=== PATIENT | male | born 1950 | race Hispanic/Latino ===

== ENCOUNTER 2016-10-17 14:20 | Inpatient (IN) | payer MEDICARE ==
--- NOTE | 2016-10-17 15:28 | Emergency Department Report ---
HPI - General Chief Complaint: Weakness Time Seen by Provider: 10/17/16 15:22 - HPI HPI: This is a 65-year-old male who presents to the emergency department by EMS from home with complaint of altered mental status, weakness and diarrhea. The patient does have a history of multiple sclerosis usually he is able to assist with his activities of daily living. He is not ambulatory secondary to his multiple sclerosis be usually is able to stand, transfer and do things like getting himself food and get to the bathroom. However for the past 4 days the patient has been having generalized weakness, unable to get to the bathroom and presents covered in feces. He does not have any complaints but is AAO [address] but not time. He lives with a younger friend who has started to take on the role of guardian but is not family nor the legal guardian. This patient usually provides some food to him as well but he has not been eating or drinking much for the past 4 days. EMS found the patient to have some low oxygen saturation of about 80% that went up with supplemental oxygen. ED Past Medical Hx - Past Medical History Previous Medical History?: Yes Hx Hypertension: Yes Hx GERD: Yes Hx Arthritis: Yes (Polyarthritis) - Surgical History Past Surgical History?: Yes Additional Surgical History: Pt states "I have surgeries, but I don't know what ". - Social History Smoking Status: Former Smoker Substance Use Type: None - Medications Home Medications: Home Medications Medication Instructions Recorded Confirmed Last Taken Type Nitroglycerin [Nitrostat] 0.4 mg SL PRN PRN 04/30/14 04/30/14 Unknown History ED Review of Systems ROS: Stated complaint: WEAKNESS/FAINT Other details as noted in HPI Comment: Unobtainable due to pts medical conditions Physical Exam - Physical Exam Vital Signs: Vital Signs 10/17/16 10/17/16 14:25 14:33 Temperature 98.4 F Pulse Rate 83 Respiratory 18 18 Rate Blood Pressure 131/67 O2 Sat by Pulse 95 95 Oximetry Physical Exam: GENERAL: Patient is ill-appearing and disheveled. HEENT: Normocephalic. Atraumatic. Extraocular motions are intact. Patient has dry mucous membranes. Pupils equal reactive to light bilaterally. NECK: Supple. Trachea is midline. CHEST/LUNGS: Clear to auscultation. There is no respiratory distress noted. HEART/CARDIOVASCULAR: Regular. There is no tachycardia. There is no gallop rub or murmur. ABDOMEN: Abdomen is soft, nontender. Patient has normal bowel sounds. There is no abdominal distention. SKIN: Skin is warm and dry. NEURO: The patient is awake but fatigued. A [address] but not time. The patient is cooperative. Patient displays some generalized weakness. He speaks very softly. MUSCULOSKELETAL: There is no tenderness or deformity. Radial pulse +2 over 4 bilaterally. Cap refill less than 2 seconds. There is no evidence of acute injury. ED Course Vital Signs 10/17/16 10/17/16 14:25 14:33 Temperature 98.4 F Pulse Rate 83 Respiratory 18 18 Rate Blood Pressure 131/67 O2 Sat by Pulse 95 95 Oximetry - Reevaluation(s) Reevaluation #1: An hour or so ago the patient began showing some signs of respiratory distress. He started having some tachypnea and was placed on 4 L nasal cannula. When this did not help and the patient had some hypoxia he was placed on a Venturi mask. This still did not help and the patient was placed on a BiPAP. While on the BiPAP the patient had 2 episodes of apnea and the decision was made to intubate the patient. 10/17/16 19:00 - ABG Interpretation Ph: 7.408 PCO2: 30 PO2: 51 Bicarbonate: 19 Interpretation: other (hypoxia) - Intubation Time Out Performed: Yes Sedative: Ketamine Mg Given: 70 Paralytic: Rocuronium Mg Given: 70 Laryngoscope: Annette Size: 3 ET Tube Size: 7.5 Other Airway Intervention: 24 Tube Secured Location: lips Tube Placement Confirmation: visualized tube passing t, equal breath sounds bilat, confirmation by capnometr Patient Tolerated Procedure: well Intubation Complications: none ED Medical Decision Making - Lab Data Result diagrams: 10/17/16 15:20 10/17/16 15:20 - EKG Data -: EKG Interpreted by Me EKG shows normal: sinus rhythm, axis (LAD), intervals, QRS complexes (LBBB), ST- T waves Rate: normal - EKG Data When compared to previous EKG there are: no significant change Interpretation: unchanged when compared t (04/30/14) - Radiology Data Radiology results: report reviewed, image reviewed interpreted by me: Chest x-ray does not show any pneumonia, pleural effusions or any pneumothorax. The second chest x-ray shows ET tube in appropriate position below the clavicular heads but above the beena. CT of the head without contrast did not show any acute intracranial process. Mild to moderate atrophy. Chronic ischemic changes. - Medical Decision Making 65-year-old male presents after having 4 days of generalized weakness and he has gotten to the point where he is no longer able to assist with his activities of daily living. He has not eaten or drinking much in the past 4 days as well despite having a roommate who will assist with ADLs. Patient's labs do not show the etiology of the patient's symptoms. CT of the head does not show any bleed, shift, mass or any acute process. EKG does not show any signs of ST elevation SD. However the patient is AAO [address] but not time. He is disheveled and slightly malnourished appearing. He is covered in his own feces. While in the emergency department, the patient again having some respiratory distress. ABG showed some hypoxia. Patient did not have improvement with Ventimask. While on BiPAP he had 2 episodes of apnea. The decision was then made to the patient which was done successfully without any obvious Complications. This all could be a complication of the patient's multiple sclerosis. Patient will be admitted to the ICU for further evaluation and treatment. - Differential Diagnosis multiple sclerosis, CVA, protein calorie malnutrition, SD Critical Care Time: Yes Critical care time in (mins) excluding proc time.: 35 Critical care attestation.: If time is entered above; I have spent that time in minutes in the direct care of this critically ill patient, excluding procedure time. Critical care time was spent on this patient and during his initial evaluation, multiple re- evaluations, ordering and interpretation of labs and imaging, discussion with the patient's friends/roommates, vent management. This does not include the time spent for the intubation procedure. Critical Care Time: 35 minutes ED Disposition Clinical Impression: Multiple sclerosis exacerbation, Acute respiratory failure with hypoxemia Acute on chronic renal failure Qualifiers: Acute renal failure type: unspecified Chronic kidney disease stage: unspecified stage Qualified Code(s): N17.9 - Acute kidney failure, unspecified; N18.9 - Chronic kidney disease, unspecified Altered mental status Qualifiers: Altered mental status type: unspecified Qualified Code(s): R41.82 - Altered mental status, unspecified Disposition: DC-09 OP ADMIT IP TO THIS HOSP Is pt being admited?: Yes Condition: Serious Referrals: PRIMARY CARE,MD [Primary Care Provider] - 3-5 Days Time of Disposition: 19:06
[2016-10-17 15:46] LABS: Hematocrit 45.1 % (35.5-45.6); Hemoglobin 14.9 gm/dl (11.8-15.2); Mean Corpuscular HGB Conc 33 % (32-34); Mean Corpuscular Hemoglobin 31 pg (28-32); Mean Corpuscular Volume 94 fl (84-94); Platelet Count 161 K/mm3 (140-440); Red Blood Count 4.79 M/mm3 (3.65-5.03); Red Cell Distribution Width 16.2 % (13.2-15.2); White Blood Count 9.2 K/mm3 (4.5-11.0)
[2016-10-17 16:06] LABS: Albumin 2.3 g/dL (3.9-5); Albumin/Globulin Ratio 0.6 %; BUN/Creatinine Ratio 23.5; Bilirubin,Total 1.1 mg/dL (0.1-1.2); Calcium 8.4 mg/dL (8.4-10.2); Chloride 102.4 mmol/L (98-107); Magnesium 2.2 mg/dL (1.7-2.3); Potassium 3.8 mmol/L (3.6-5.0); Total Protein 6.3 g/dL (6.3-8.2)
[2016-10-17] MEDS ORDERED: NACL 0.9% 1000 ML 1,000 ML IV ONE (16:10)
[2016-10-17 16:18] LABS: Basophils % (Manual) 0 % (0.0-1.8); Blastocytes % (Manual) 0 %; Eosinophils % (Manual) 0 % (0.0-4.3)
[2016-10-17 16:19] LABS: RBC Morphology Normal
[2016-10-17 16:20] LABS: Diff Status Complete; Platelet Estimate Consistent w Auto; Toxic Vacuolation 1+
[2016-10-17] MEDS ORDERED: DUONEB *Not for PRN Use IH ONE (17:05)
--- NOTE | 2016-10-17 17:28 | Cat Scan Report ---
FINAL REPORT EXAM: CT HEAD/BRAIN WO CON HISTORY: AMS TECHNIQUE: CT of the Head without IV contrast. PRIORS: None currently available. FINDINGS: Decreased attenuation regions in the periventricular and subcortical white matter are nonspecific and may represent small vessel ischemic disease or a demyelinating process. Small vessel ischemic disease is more likely. Vascular calcifications noted. [id number] atrophy. There is no evidence for acute ischemia. There is no hemorrhage. There is no midline shift. There is no hydrocephalus. There is no mass. Age appropriate burch-white matter attenuation is noted. There is no calvarial fracture. The temporal bones demonstrate aerated mastoid air cells. The middle ears appear unremarkable. Minimal mucosal thickening in both ethmoid sinuses. Globes are intact. IMPRESSION: No acute intracranial findings. Chronic ischemic disease. Atrophy, mild to moderate.
[2016-10-17 17:34] LABS: ISTAT Base Excess -6; ISTAT HCO3 19.1; ISTAT PCO2 30.2 (35-45); ISTAT PH 7.408 (7.35-7.45); ISTAT PO2 51 (80-105); ISTAT SO2 86; ISTAT TCO2 20
[2016-10-17 17:38] LABS: Urine Drugs of Abuse Note Disclamer
--- NOTE | 2016-10-17 17:38 | Admit Criteria Form ---
Admission Criteria Documentation: RESPIRATORY FAILURE GRG Clinical Indications for Admission to Inpatient Care (Place 'X' for any and all applicable criteria): Hospital admission is needed for appropriate care of the patient because of acute respiratory failure or insufficiency as indicated by ANY ONE of the following(1)(2)(3)(4)(5)(6)(7)(8): [ X]I. Mechanical ventilation needed (acute invasive or noninvasive) [ ]II. Severe ventilation deficit as indicated by ANY ONE of the following (9) [ ]a) Respiratory acidosis (pH less than 7.32 and partial pressure of carbon dioxide greater than 40 mm Hg (5.3 kPa)) [ ]b) Partial pressure of carbon dioxide greater than 44 mm Hg (5.9 kPa ) (new) [ ]c) Airflow measurements less than 25% of predicted (eg, peak expiratory flow rate less than 100 L/minute) [ ]d) Forced vital capacity less than 15 mL/kg of ideal body weight, or 50% decrease in vital capacity from baseline [ ]III. Noncardiac pulmonary edema not resolving with rapid emergency treatment (8) [ ]IV. Severe respiratory distress as indicated by ANY ONE of the following: [ ]a) Severe tachypnea (respiratory rate greater than 30, greater than 45 for 6-month-old, greater than 60 for ) [ ]b) Severe hypoxemia (partial pressure of oxygen less than 50 mm Hg ( 6.7 kPa) on greater than 50% oxygen or partial pressure of oxygen to FIO2 ratio less than 200) [ ]c) Mental status deterioration from respiratory disease [ ]V. Airway obstruction or inadequate protection [A](10)(11) The original [employer] content created by [employer] has been revised. The portions of the content which have been revised are identified through the use of italic text or in bold, and [email or web address] has neither reviewed nor approved the modified material. All other unmodified content is copyright [employer]. Please see references footnoted in the original [employer] edition 2016 Admission Criteria Met: Yes
[2016-10-17 18:00] LABS: Bilirubin,Urine NEG (Negative); Blood,Urine LG (Negative); Granular Casts,Urine 7 /LPF; Ketones,Urine NEG (Negative); Leukocyte Esterase,Urine TR (Negative); Mucus,Urine FEW /HPF; Nitrite,Urine NEG (Negative); Urobilinogen,Urine < 2.0 mg/dL (<2.0)
[2016-10-17] MEDS ORDERED: ZEMURON IV ONE (18:10)
[2016-10-17] MEDS ORDERED: KETALAR ONE (18:10)
[2016-10-17] MEDS ORDERED: VASELINE LIP THERAPY TP PRN (18:19)
[2016-10-17] MEDS ORDERED: ARTIFICIAL TEARS OPHTH OINT OU PRN (18:19)
--- NOTE | 2016-10-17 18:20 | History and Physical Report ---
History of Present Illness Chief complaint: Unresponsive History of present illness: 65 YO Male with MS, HTN, GERD, OA presents to ED for evaluation. Pt unable to provided detailed history, but history provided by roommate who is at bedside during exam and interview. Pt roommate states that patient experienced progressive weakness, and decreased oral intake over the past 4 days with worsening symptoms over the past day. Pt is now non ambulatory but he is now unable to stand, and unable to conduct activities of daily living. Pt seen and evaluated in ED and found to be lethargic, confused, with decreased gag reflex and unable to protect his airway. Pt intubated and placed on vent support. Pt roommate denies reports of fever, chills, CP, Trauma, recent ill contacts, skin rashes, dysuria, or productive cough. Past History Past Medical History: arthritis, GERD, hypertension, other (MS) Past Surgical History: No surgical history, Other (UTO) Social history: , other (lives with roommate). denies: smoking, alcohol abuse, prescription drug abuse Family history: hypertension Medications and Allergies Allergies Allergy/AdvReac Type Severity Reaction Status Date / Time codeine AdvReac Hives Verified 04/30/14 13:32 Home Medications Medication Instructions Recorded Confirmed Last Taken Type Nitroglycerin [Nitrostat] 0.4 mg SL PRN PRN 04/30/14 04/30/14 Unknown History Active Meds: Active Medications Sodium Chloride (Nacl 0.9% 1000 Ml) 1,000 mls @ 125 mls/hr IV ONCE ONE Stop: 10/18/16 00:09 Last Admin: 10/17/16 17:38 Dose: 125 mls/hr Review of Systems ROS unobtainable: due to mental status Exam - Constitutional Vitals: Temp Pulse Resp BP Pulse Ox 98.4 F 77 23 111/74 98 10/17/16 14:25 10/17/16 17:45 10/17/16 17:45 10/17/16 17:45 10/17/16 17:30 General appearance: Present: severe distress - EENT Eyes: Present: PERRL - Neck Neck: Present: supple, normal ROM - Respiratory Respiratory effort: labored Respiratory: bilateral: diminished - Cardiovascular Heart Sounds: Present: S1 & S2. Absent: rub, click - Extremities Extremities: pulses symmetrical, No edema Peripheral Pulses: within normal limits - Abdominal General gastrointestinal: Present: soft, non-tender, non-distended, normal bowel sounds Male genitourinary: Present: normal - Rectal Rectal Exam: normal rectal tone - Integumentary Integumentary: Present: clear, dry, decreased turgor - Musculoskeletal Musculoskeletal: generalized weakness - Psychiatric Psychiatric: no intact judgment & insight, no memory intact - Neurologic Neurologic: no moves all extremities, no gait normal Results - Labs CBC & Chem 7: 10/17/16 15:20 10/17/16 15:20 Labs: Abnormal lab results 10/17/16 10/17/16 10/17/16 Range/Units 15:20 15:20 15:20 RDW 16.2 H (13.2-15.2) % Lymphocytes % (Manual) 3.0 L (13.4-35.0) % Lymphocytes # (Manual) 0.3 L (1.2-5.4) K/mm3 POC ABG pCO2 (35-45) POC ABG pO2 (80-105) Carbon Dioxide 21 L (22-30) mmol/L BUN 47 H (9-20) mg/dL Creatinine 2.0 H (0.8-1.5) mg/dL AST 120 H (5-40) units/L Albumin 2.3 L (3.9-5) g/dL TSH 0.052 L (0.270-4.200) mlU/mL Urine WBC (Auto) (0.0-6.0) /HPF Salicylates (2.8-20.0) mg/dL 10/17/16 10/17/16 10/17/16 Range/Units 15:20 17:24 17:34 RDW (13.2-15.2) % Lymphocytes % (Manual) (13.4-35.0) % Lymphocytes # (Manual) (1.2-5.4) K/mm3 POC ABG pCO2 30.2 L (35-45) POC ABG pO2 51 L (80-105) Carbon Dioxide (22-30) mmol/L BUN (9-20) mg/dL Creatinine (0.8-1.5) mg/dL AST (5-40) units/L Albumin (3.9-5) g/dL TSH (0.270-4.200) mlU/mL Urine WBC (Auto) 7.0 H (0.0-6.0) /HPF Salicylates < 0.3 L (2.8-20.0) mg/dL Assessment and Plan - Patient Problems (1) Acute respiratory failure with hypoxemia Current Visit: Yes Status: Acute Plan to address problem: Wean vent as tolerated, Pulmonary consulted, supplemental oxygen, SBT daily, pulmonary toilet, ABG daily The high probability of a clinically significant, sudden or life threatening deterioration of the [pulmonary, cardiac,renal] system(s) required my full and direct attention, intervention and personal management. The aggregate critical care time was [65] minutes. This time is in addition to time spent performing reported procedures but includes the following: [x] Data Review and interpretation [x] Patient assessment and monitoring of vital signs [x] Documentation [x] Medication orders and management (2) Multiple sclerosis exacerbation Current Visit: Yes Status: Acute Plan to address problem: Steroid therapy, IVIG for 2 days. (3) HTN (hypertension) Current Visit: Yes Status: Acute Qualifiers: Hypertension type: H Plan to address problem: monitor bp q shift, pt currently hypotensive, hold antihypertensive therapy (4) GERD (gastroesophageal reflux disease) Current Visit: Yes Status: Acute Qualifiers: Esophagitis presence: E Plan to address problem: ppi therapy (5) Arthritis Current Visit: Yes Status: Acute Plan to address problem: resume home medication, (6) DVT prophylaxis Current Visit: Yes Status: Acute
[2016-10-17] MEDS ORDERED: fentaNYL DRIP Premix 2,000 MCG/100 ML BAG IV ONE (18:24)
[2016-10-17] MEDS: fentaNYL DRIP Premix 2,000 MCG/100 ML BAG IV SCH (18:33)
[2016-10-17] MEDS ORDERED: MIDAZOLAM 100 MG in NACL 0.9% 80 ML IV SCH (19:00)
[2016-10-17] MEDS ORDERED: PRIVIGEN IV SCH (19:00)
[2016-10-17 20:02] LABS: ISTAT Base Excess -7; ISTAT HCO3 18.1; ISTAT PCO2 31.5 (35-45); ISTAT PH 7.369 (7.35-7.45); ISTAT PO2 180 (80-105); ISTAT SO2 100; ISTAT TCO2 19
[2016-10-17] MEDS: ELIQUIS PO SCH (23:02)
[2016-10-17] MEDS: LEVOPHED DRIP 4 MG/NS 250 ML 4 MG/250 ML BAG IV SCH (23:25)
[2016-10-18 03:52] LABS: ISTAT Base Excess -11; ISTAT HCO3 15.2; ISTAT PCO2 28.6 (35-45); ISTAT PH 7.333 (7.35-7.45); ISTAT PO2 90 (80-105); ISTAT SO2 96; ISTAT TCO2 16
[2016-10-18] MEDS: fentaNYL DRIP Premix 2,000 MCG/100 ML BAG IV SCH ×2 (05:16→17:42)
[2016-10-18 06:30] LABS: ISTAT Base Excess -9; ISTAT HCO3 18.1; ISTAT PCO2 39.2 (35-45); ISTAT PH 7.272 (7.35-7.45); ISTAT PO2 97 (80-105); ISTAT SO2 97; ISTAT TCO2 19
--- NOTE | 2016-10-18 07:27 | XRay Report ---
AP CHEST: HISTORY: Short of breath No recent comparison. Bibasilar infiltrates are suspected, left greater than right. The upper lung zones are clear. Heart and mediastinal structures are grossly normal. The bony thorax is intact. IMPRESSION: Bibasilar infiltrates. Correlate for pneumonia or aspiration.
--- NOTE | 2016-10-18 07:28 | XRay Report ---
AP CHEST: HISTORY: Endotracheal tube placement An endotracheal tube has been inserted since 1742 hrs. which terminates 5 cm superior to the beena. A nasogastric tube has also been inserted which is followed to the mid stomach. There is better pulmonary inflation. Bibasilar infiltrates are again suspected, left and right. No pleural effusion or pneumothorax. Normal heart size. IMPRESSION: Adequate placement of the endotracheal tube. Bibasilar infiltrates.
--- NOTE | 2016-10-18 07:28 | XRay Report ---
AP CHEST: HISTORY: Followup respiratory failure Lines and support devices remain in good position. Bibasilar infiltrates, left greater than right, are unchanged since yesterday's exam at 1822 hrs. No new acute findings. IMPRESSION: No change.
[2016-10-18 09:12] LABS: ISTAT Base Excess -12; ISTAT HCO3 15.8; ISTAT PCO2 37.6 (35-45); ISTAT PH 7.231 (7.35-7.45); ISTAT PO2 74 (80-105); ISTAT SO2 92; ISTAT TCO2 17
[2016-10-18] MEDS: LEVOPHED DRIP 4 MG/NS 250 ML 4 MG/250 ML BAG IV SCH ×2 (09:39→15:49)
[2016-10-18 09:48] LABS: ISTAT Base Excess -11; ISTAT HCO3 15.1; ISTAT PCO2 30.8 (35-45); ISTAT PH 7.298 (7.35-7.45); ISTAT PO2 89 (80-105); ISTAT SO2 96; ISTAT TCO2 16
[2016-10-18] MEDS ORDERED: LEVAQUIN 750MG/150ML 750 MG/150 ML BAG IV SCH (10:00)
[2016-10-18] MEDS: PEPCID IV SCH (11:20)
[2016-10-18] MEDS: ELIQUIS PO SCH (11:21)
--- NOTE | 2016-10-18 12:48 | Consultation ---
History of Present Illness Consult date: 10/18/16 Requesting physician: RUFINO BO Reason for consult: other History of present illness: 65 y/o male admitted through the ED secondary to altered mental status, weakness. Intubated in the ED for airway protection. Hypotensive throughout the night and started on pressors. Currently on levophed. Patient also suffers from MS and takes medical marijuana for this. [facility] started the patient on steroids as they assumed this was a MS flare. Patient is very hypoxic on ABG but CXR does not fit clinical picture. Remainder of the review is negative. Past History Past Medical History: arthritis, GERD, hypertension, other (MS) Past Surgical History: No surgical history, Other (UTO) Social history: , other (lives with roommate). denies: smoking, alcohol abuse, prescription drug abuse Family history: hypertension Medications and Allergies Allergies Allergy/AdvReac Type Severity Reaction Status Date / Time codeine AdvReac Hives Verified 04/30/14 13:32 Home Medications Medication Instructions Recorded Confirmed Last Taken Type Nitroglycerin [Nitrostat] 0.4 mg SL PRN PRN 04/30/14 04/30/14 Unknown History Active Meds: Active Medications Enoxaparin Sodium (Lovenox) 40 mg SUB-Q QDAY@1000 KAYLEE Famotidine (Pepcid) 20 mg IV DAILY KAYLEE Last Admin: 10/18/16 11:20 Dose: 20 mg Hydrophilic Ointment (Vaseline Lip Therapy) 1 applic TP Q2HR PRN PRN Reason: Dry Lips Fentanyl Citrate (Fentanyl Drip Premix) 2,000 mcg in 100 mls @ 3.969 mls/hr IV TITR KAYLEE; 1 MCG/KG/HR PRN Reason: Protocol Last Titration: 10/18/16 07:32 Dose: 0 mcg/kg/hr, 0 mls/hr Midazolam HCl 100 mg/ Sodium (Chloride) 100 mls @ 2 mls/hr IV TITR KAYLEE; 2 MG/HR PRN Reason: Protocol Norepinephrine (Levophed Drip 4 Mg/Ns 250 Ml) 4 mg in 250 mls @ 7.5 mls/hr IV TITR KAYLEE; 2 MCG/MIN PRN Reason: Protocol Last Admin: 10/18/16 09:39 Dose: 12 mcg/min, 45 mls/hr Sodium Chloride (Nacl 0.9% 1000 Ml) 1,000 mls @ 999 mls/hr IV Q1H KAYLEE Stop: 10/18/16 14:59 Lorazepam (Ativan) 1 mg IV Q4H PRN PRN Reason: Agitation Multi-Ingred Cream/Lotion/Oil/Oint (Artificial Tears Ophth Oint) 1 applic OU Q4HR PRN PRN Reason: Dry Eye(s) Review of Systems ROS unobtainable: due to endotracheal tube Physical Examination Vital signs: Vital Signs Pulse 60 10/17/16 14:14 General appearance: alert, other (dishelved) Eyes: non-icteric ENT: other (orally intubated) Neck: supple Effort: mildly labored Ascultation: Bilateral: diminished breath sounds Percussion: Bilateral: not dull Cardiovascular: regular rate and rhythm Gastrointestinal: normoactive bowel sounds, soft, non-tender Extremities: other (damaged right great toe, wrapped currently) Gait: other (unable to assess) unable to assess Results - Laboratory Findings CBC and BMP: 10/17/16 15:20 10/17/16 15:20 ABG POC ABG pH 7.298 (7.35-7.45) L 10/18/16 09:40 POC ABG pCO2 30.8 (35-45) L 10/18/16 09:40 POC ABG pO2 89 (80-105) 10/18/16 09:40 POC ABG HCO3 15.1 10/18/16 09:40 POC ABG Total CO2 16 10/18/16 09:40 POC ABG O2 Sat 96 10/18/16 09:40 PT/INR, D-dimer D-Dimer 1813.13 ng/mlDDU (0-234) H 10/17/16 17:51 Abnormal lab findings: Abnormal Labs 10/17/16 10/18/16 10/18/16 19:34 03:29 05:36 POC ABG pH 7.333 L 7.272 L POC ABG pCO2 31.5 L 28.6 L POC ABG pO2 180 H POC Glucose 10/18/16 10/18/16 10/18/16 08:13 09:40 12:04 POC ABG pH 7.231 L 7.298 L POC ABG pCO2 30.8 L POC ABG pO2 74 L POC Glucose 151 H - Diagnostic Findings Chest x-ray: image reviewed (small bibasilar infiltrates, but remainder of lung jose are clear) Assessment and Plan 65 y/o male with acute respiratory failure, thought secondary to MS flare vs aspiration and shock, hypovolemic vs sepsis and acute renal failure 1. Check labs today, BMP with Mag and Phos and CBC with Diff 2. Will give 2 additional liters of fluid boluses, patient could be volume deplete 3. need to check Free t4 as TSH was abnormal 4. Renal failure is likely pre renal, will give volume, if no improvement, will obtain urine lytes 5. Add PRN ativan for sedation CCT 31 minutes.
[2016-10-18] MEDS: ATIVAN IV PRN (14:21)
--- NOTE | 2016-10-18 15:09 | XRay Report ---
AP chest x-ray. History: PICC line placement. Findings: A left-sided PICC line terminates in the upper SVC, and there is no evidence of pneumothorax. Bibasilar infiltrates, greater on the left are unchanged. The endotracheal tube is in satisfactory position.
[2016-10-18] MEDS: NACL 0.9% 1000 ML 1,000 ML IV SCH ×2 (15:48→16:35)
[2016-10-18 15:49] LABS: Hematocrit 42.4 % (35.5-45.6); Hemoglobin 13.6 gm/dl (11.8-15.2); Mean Corpuscular HGB Conc 32 % (32-34); Mean Corpuscular Hemoglobin 31 pg (28-32); Mean Corpuscular Volume 96 fl (84-94); Platelet Count 197 K/mm3 (140-440); Red Cell Distribution Width 16.9 % (13.2-15.2); White Blood Count 13.3 K/mm3 (4.5-11.0)
[2016-10-18 16:01] LABS: BUN/Creatinine Ratio 27.14; Calcium 7.7 mg/dL (8.4-10.2); Magnesium 2.1 mg/dL (1.7-2.3); Phosphorous 2.7 mg/dL (2.5-4.5)
[2016-10-18 16:02] LABS: Chloride 105.6 mmol/L (98-107); Potassium 3.7 mmol/L (3.6-5.0)
--- NOTE | 2016-10-18 18:12 | Progress Note ---
Assessment and Plan Assessment and plan: Acute hypoxic respiratory failure Altered mental status MS exacerbation - Patient is intubated to protect and airway - Patient is on IV methylprednisone - Neurology consulted - Pulmonary following Disposition - Continue inpatient care The high probability of a clinically significant, sudden or life threatening deterioration of the [neurology, respiratory] system(s) required my full and direct attention, intervention and personal management. The aggregate critical care time was [31] minutes. This time is in addition to time spent performing reported procedures but includes the following: [x] Data Review and interpretation [x] Patient assessment and monitoring of vital signs [x] Documentation [x] Medication orders and management History Interval history: Patient was seen and evaluated this morning, patient is intubated, he was alert Hospitalist Physical - Physical exam Narrative exam: Patient is intubated. The patient appeared well nourished and normally developed. Vital signs as documented. Head exam is unremarkable. No scleral icterus . Neck is without jugular venous distension, thyromegaly, or carotid bruits. Lungs are clear to auscultation. Cardiac exam reveals regular rate and Rhythm. First and second heart sounds normal. No murmurs, rubs or gallops. Abdominal exam reveals normal bowel sounds, no masses, no organomegaly and no aortic enlargement. Extremities are nonedematous and both femoral and pedal pulses are normal. 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 - Constitutional Vitals: Temp Pulse Resp BP Pulse Ox 97.6 F 74 16 143/84 100 10/18/16 12:00 10/18/16 17:00 10/18/16 17:00 10/18/16 17:00 10/18/16 17:00 General appearance: Present: severe distress Results - Labs CBC & Chem 7: 10/18/16 14:57 10/18/16 14:57 Labs: Laboratory Last Values WBC 13.3 K/mm3 (4.5-11.0) H 10/18/16 14:57 RBC 4.40 M/mm3 (3.65-5.03) 10/18/16 14:57 Hgb 13.6 gm/dl (11.8-15.2) 10/18/16 14:57 Hct 42.4 % (35.5-45.6) 10/18/16 14:57 MCV 96 fl (84-94) H 10/18/16 14:57 MCH 31 pg (28-32) 10/18/16 14:57 MCHC 32 % (32-34) 10/18/16 14:57 RDW 16.9 % (13.2-15.2) H 03 14:57 Plt Count 197 K/mm3 (140-440) 10/18/16 14:57 Add Manual Diff Complete 10/17/16 15:20 Total Counted 100 10/17/16 15:20 Seg Neuts % (Manual) 61.0 % (40.0-70.0) 10/17/16 15:20 Band Neutrophils % 30.0 % 10/17/16 15:20 Lymphocytes % (Manual) 3.0 % (13.4-35.0) L 10/17/16 15:20 Reactive Lymphs % (Man) 0 % 10/17/16 15:20 Monocytes % (Manual) 6.0 % (0.0-7.3) 10/17/16 15:20 Eosinophils % (Manual) 0 % (0.0-4.3) 10/17/16 15:20 Basophils % (Manual) 0 % (0.0-1.8) 10/17/16 15:20 Metamyelocytes % 0 % 10/17/16 15:20 Myelocytes % 0 % 10/17/16 15:20 Promyelocytes % 0 % 10/17/16 15:20 Blast Cells % 0 % 10/17/16 15:20 Nucleated RBC % Not Reportable 10/17/16 15:20 Seg Neutrophils # Man 5.6 K/mm3 (1.8-7.7) 10/17/16 15:20 Band Neutrophils # 2.8 K/mm3 10/17/16 15:20 Lymphocytes # (Manual) 0.3 K/mm3 (1.2-5.4) L 10/17/16 15:20 Abs React Lymphs (Man) 0.0 K/mm3 10/17/16 15:20 Monocytes # (Manual) 0.6 K/mm3 (0.0-0.8) 10/17/16 15:20 Eosinophils # (Manual) 0.0 K/mm3 (0.0-0.4) 10/17/16 15:20 Basophils # (Manual) 0.0 K/mm3 (0.0-0.1) 10/17/16 15:20 Metamyelocytes # 0.0 K/mm3 10/17/16 15:20 Myelocytes # 0.0 K/mm3 10/17/16 15:20 Promyelocytes # 0.0 K/mm3 10/17/16 15:20 Blast Cells # 0.0 K/mm3 10/17/16 15:20 WBC Morphology Not Reportable 10/17/16 15:20 Hypersegmented Neuts Not Reportable 10/17/16 15:20 Hyposegmented Neuts Not Reportable 10/17/16 15:20 Hypogranular Neuts Not Reportable 10/17/16 15:20 Smudge Cells Not Reportable 10/17/16 15:20 Toxic Granulation Not Reportable 10/17/16 15:20 Toxic Vacuolation 1+ 10/17/16 15:20 Dohle Bodies Not Reportable 10/17/16 15:20 Pelger-Huet Anomaly Not Reportable 10/17/16 15:20 Farshad Rods Not Reportable 10/17/16 15:20 Platelet Estimate Consistent w auto 10/17/16 15:20 Clumped Platelets Not Reportable 10/17/16 15:20 Plt Clumps, EDTA Not Reportable 10/17/16 15:20 Large Platelets Not Reportable 10/17/16 15:20 Giant Platelets Not Reportable 10/17/16 15:20 Platelet Satelliting Not Reportable 10/17/16 15:20 Plt Morphology Comment Not Reportable 10/17/16 15:20 RBC Morphology Normal 10/17/16 15:20 Dimorphic RBCs Not Reportable 10/17/16 15:20 Polychromasia Not Reportable 10/17/16 15:20 Hypochromasia Not Reportable 10/17/16 15:20 Poikilocytosis Not Reportable 10/17/16 15:20 Anisocytosis Not Reportable 10/17/16 15:20 Microcytosis Not Reportable 10/17/16 15:20 Macrocytosis Not Reportable 10/17/16 15:20 Spherocytes Not Reportable 10/17/16 15:20 Pappenheimer Bodies Not Reportable 10/17/16 15:20 Sickle Cells Not Reportable 10/17/16 15:20 Target Cells Not Reportable 10/17/16 15:20 Tear Drop Cells Not Reportable 10/17/16 15:20 Ovalocytes Not Reportable 10/17/16 15:20 Helmet Cells Not Reportable 10/17/16 15:20 Brenner-[place] Bodies Not Reportable 10/17/16 15:20 Goodwell Rings Not Reportable 10/17/16 15:20 Nicolas Cells Not Reportable 10/17/16 15:20 Bite Cells Not Reportable 10/17/16 15:20 Crenated Cell Not Reportable 10/17/16 15:20 Elliptocytes Not Reportable 10/17/16 15:20 Acanthocytes (Spur) Not Reportable 10/17/16 15:20 Rouleaux Not Reportable 10/17/16 15:20 Hemoglobin C Crystals Not Reportable 10/17/16 15:20 Schistocytes Not Reportable 10/17/16 15:20 Malaria parasites Not Reportable 10/17/16 15:20 Hebert Bodies Not Reportable 10/17/16 15:20 Hem Pathologist Commnt No 10/17/16 15:20 D-Dimer 1813.13 ng/mlDDU (0-234) H 10/17/16 17:51 POC ABG pH 7.298 (7.35-7.45) L 10/18/16 09:40 POC ABG pCO2 30.8 (35-45) L 10/18/16 09:40 POC ABG pO2 89 (80-105) 10/18/16 09:40 POC ABG HCO3 15.1 10/18/16 09:40 POC ABG Total CO2 16 10/18/16 09:40 POC ABG O2 Sat 96 10/18/16 09:40 POC ABG Base Excess -11 10/18/16 09:40 FiO2 60 % 10/18/16 09:40 Sodium 145 mmol/L (137-145) 10/18/16 14:57 Potassium 3.7 mmol/L (3.6-5.0) 10/18/16 14:57 Chloride 105.6 mmol/L (98-107) 10/18/16 14:57 Carbon Dioxide 13 mmol/L (22-30) L D 10/18/16 14:57 Anion Gap 30 mmol/L 10/18/16 14:57 BUN 57 mg/dL (9-20) H 10/18/16 14:57 Creatinine 2.1 mg/dL (0.8-1.5) H 10/18/16 14:57 Estimated GFR 32 ml/min 10/18/16 14:57 BUN/Creatinine Ratio 27.14 % 10/18/16 14:57 Glucose 169 mg/dL (75-100) H 10/18/16 14:57 POC Glucose 163 (70-105) H 10/18/16 17:31 Lactic Acid 1.60 mmol/L (0.7-2.0) 10/17/16 17:04 Calcium 7.7 mg/dL (8.4-10.2) L 10/18/16 14:57 Phosphorus 2.70 mg/dL (2.5-4.5) 10/18/16 14:57 Magnesium 2.10 mg/dL (1.7-2.3) 10/18/16 14:57 Total Bilirubin 1.10 mg/dL (0.1-1.2) 10/17/16 15:20 AST 120 units/L (5-40) H 10/17/16 15:20 ALT 54 units/L (7-56) 10/17/16 15:20 Alkaline Phosphatase 62 units/L (35-129) 10/17/16 15:20 Total Protein 6.3 g/dL (6.3-8.2) 10/17/16 15:20 Albumin 2.3 g/dL (3.9-5) L 10/17/16 15:20 Albumin/Globulin Ratio 0.6 % 10/17/16 15:20 TSH 0.052 mlU/mL (0.270-4.200) L 10/17/16 15:20 Free T4 0.68 ng/dL (0.76-1.46) L 10/18/16 14:57 Urine Color Yellow (Yellow) 10/17/16 17:34 Urine Turbidity Slightly-cloudy (Clear) 10/17/16 17:34 Urine pH 5.0 (5.0-7.0) 10/17/16 17:34 Ur Specific [place] 1.012 (1.003-1.030) 10/17/16 17:34 Urine Protein 30 mg/dl mg/dL (Negative) 10/17/16 17:34 Urine Glucose (UA) Neg mg/dL (Negative) 10/17/16 17:34 Urine Ketones Neg mg/dL (Negative) 10/17/16 17:34 Urine Blood Lg (Negative) 10/17/16 17:34 Urine Nitrite Neg (Negative) 10/17/16 17:34 Urine Bilirubin Neg (Negative) 10/17/16 17:34 Urine Urobilinogen < 2.0 mg/dL (<2.0) 10/17/16 17:34 Ur Leukocyte Esterase Tr (Negative) 10/17/16 17:34 Urine WBC (Auto) 7.0 /HPF (0.0-6.0) H 10/17/16 17:34 Urine RBC (Auto) 5.0 /HPF (0.0-6.0) 10/17/16 17:34 U Epithel Cells (Auto) 1.0 /HPF (0-13.0) 10/17/16 17:34 Hyaline Casts 1 /LPF 10/17/16 17:34 Granular Casts 7 /LPF 10/17/16 17:34 Urine Mucus Few /HPF 10/17/16 17:34 Salicylates < 0.3 mg/dL (2.8-20.0) L 10/17/16 15:20 Urine Opiates Screen Presumptive negative 10/17/16 17:34 Urine Methadone Screen Presumptive negative 10/17/16 17:34 Acetaminophen < 15.0 ug/mL (10.0-30.0) 10/17/16 15:20 Ur Barbiturates Screen Presumptive negative 10/17/16 17:34 Ur Phencyclidine Scrn Presumptive negative 10/17/16 17:34 Ur Amphetamines Screen Presumptive negative 10/17/16 17:34 U Benzodiazepines Scrn Presumptive negative 10/17/16 17:34 Urine Cocaine Screen Presumptive negative 10/17/16 17:34 U Marijuana (THC) Screen Presumptive positive 10/17/16 17:34 Drugs of Abuse Note Disclamer 10/17/16 17:34 Plasma/Serum Alcohol < 0.01 gm% (0-0.07) 10/17/16 15:20
[2016-10-19] MEDS: fentaNYL DRIP Premix 2,000 MCG/100 ML BAG IV SCH ×2 (03:53→14:33)
[2016-10-19] MEDS: LEVOPHED DRIP 4 MG/NS 250 ML 4 MG/250 ML BAG IV SCH ×2 (03:53→14:31)
[2016-10-19 05:41] LABS: Hematocrit 42.7 % (35.5-45.6); Hemoglobin 13.8 gm/dl (11.8-15.2); Mean Corpuscular HGB Conc 32 % (32-34); Mean Corpuscular Hemoglobin 31 pg (28-32); Mean Corpuscular Volume 95 fl (84-94); Platelet Count 183 K/mm3 (140-440); Red Blood Count 4.49 M/mm3 (3.65-5.03); Red Cell Distribution Width 16.7 % (13.2-15.2); White Blood Count 12.5 K/mm3 (4.5-11.0)
[2016-10-19 06:01] LABS: BUN/Creatinine Ratio 25.78
[2016-10-19 06:02] LABS: Chloride 114.1 mmol/L (98-107); Potassium 3.8 mmol/L (3.6-5.0)
[2016-10-19 06:53] LABS: Basophils % (Manual) 0 % (0.0-1.8); Blastocytes % (Manual) 0 %; Eosinophils % (Manual) 0 % (0.0-4.3)
[2016-10-19 06:54] LABS: Diff Status Complete; RBC Morphology Normal
[2016-10-19 07:03] LABS: ISTAT Base Excess -8; ISTAT HCO3 16.9; ISTAT PCO2 28.1 (35-45); ISTAT PH 7.387 (7.35-7.45); ISTAT PO2 108 (80-105); ISTAT SO2 98; ISTAT TCO2 18
--- NOTE | 2016-10-19 07:41 | XRay Report ---
AP CHEST: HISTORY: Followup respiratory failure Lines and support devices remain in good position. Bibasilar infiltrates, left greater than right are unchanged. The upper lung zones remain clear. Heart size is within normal limits. IMPRESSION: No significant change.
--- NOTE | 2016-10-19 08:29 | Consultation ---
History of Present Illness - Reason for Consult Consult date: 10/19/16 ms - History of Present Illness spoke with staff nurse last pm and went over hx and question as to what seizure meds to continue I will review this and follow up on the question Thanks for consult Past History Past Medical History: arthritis, GERD, hypertension, other (MS) Past Surgical History: No surgical history, Other (UTO) Social history: , other (lives with roommate). denies: smoking, alcohol abuse, prescription drug abuse Family history: hypertension Medications and Allergies Allergies Allergy/AdvReac Type Severity Reaction Status Date / Time codeine AdvReac Hives Verified 04/30/14 13:32 Home Medications Medication Instructions Recorded Confirmed Last Taken Type Nitroglycerin [Nitrostat] 0.4 mg SL PRN PRN 04/30/14 04/30/14 Unknown History Active Meds: Active Medications Enoxaparin Sodium (Lovenox) 40 mg SUB-Q QDAY@1000 KAYLEE Famotidine (Pepcid) 20 mg IV DAILY KAYLEE Last Admin: 10/18/16 11:20 Dose: 20 mg Hydrophilic Ointment (Vaseline Lip Therapy) 1 applic TP Q2HR PRN PRN Reason: Dry Lips Fentanyl Citrate (Fentanyl Drip Premix) 2,000 mcg in 100 mls @ 3.969 mls/hr IV TITR KAYLEE; 1 MCG/KG/HR PRN Reason: Protocol Last Admin: 10/19/16 03:53 Dose: 3 mcg/kg/hr, 11.907 mls/hr Midazolam HCl 100 mg/ Sodium (Chloride) 100 mls @ 2 mls/hr IV TITR KAYLEE; 2 MG/HR PRN Reason: Protocol Norepinephrine (Levophed Drip 4 Mg/Ns 250 Ml) 4 mg in 250 mls @ 7.5 mls/hr IV TITR KAYLEE; 2 MCG/MIN PRN Reason: Protocol Last Titration: 10/19/16 07:38 Dose: 3.5 mcg/min, 13.125 mls/hr Lorazepam (Ativan) 1 mg IV Q4H PRN PRN Reason: Agitation Last Admin: 10/18/16 14:21 Dose: 1 mg Multi-Ingred Cream/Lotion/Oil/Oint (Artificial Tears Ophth Oint) 1 applic OU Q4HR PRN PRN Reason: Dry Eye(s) Exam - Constitutional Vitals: Temp Pulse Resp BP Pulse Ox 97.5 F L 97 H 16 90/64 98 10/19/16 07:51 10/19/16 08:00 10/19/16 08:00 10/19/16 08:00 10/19/16 08:00 Results - Labs CBC & Chem 7: 10/19/16 05:10 10/19/16 05:10 Labs: Abnormal lab results 10/18/16 10/18/16 10/18/16 Range/Units 08:13 09:40 12:04 WBC (4.5-11.0) K/mm3 MCV (84-94) fl RDW (13.2-15.2) % Seg Neuts % (Manual) (40.0-70.0) % Lymphocytes % (Manual) (13.4-35.0) % Seg Neutrophils # Man (1.8-7.7) K/mm3 Lymphocytes # (Manual) (1.2-5.4) K/mm3 POC ABG pH 7.231 L 7.298 L (7.35-7.45) POC ABG pCO2 30.8 L (35-45) POC ABG pO2 74 L (80-105) Sodium (137-145) mmol/L Chloride (98-107) mmol/L Carbon Dioxide (22-30) mmol/L BUN (9-20) mg/dL Creatinine (0.8-1.5) mg/dL Glucose (75-100) mg/dL POC Glucose 151 H (70-105) Calcium (8.4-10.2) mg/dL Free T4 (0.76-1.46) ng/dL 10/18/16 10/18/16 10/18/16 Range/Units 14:57 14:57 14:57 WBC 13.3 H (4.5-11.0) K/mm3 MCV 96 H (84-94) fl RDW 16.9 H (13.2-15.2) % Seg Neuts % (Manual) (40.0-70.0) % Lymphocytes % (Manual) (13.4-35.0) % Seg Neutrophils # Man (1.8-7.7) K/mm3 Lymphocytes # (Manual) (1.2-5.4) K/mm3 POC ABG pH (7.35-7.45) POC ABG pCO2 (35-45) POC ABG pO2 (80-105) Sodium (137-145) mmol/L Chloride (98-107) mmol/L Carbon Dioxide 13 L D (22-30) mmol/L BUN 57 H (9-20) mg/dL Creatinine 2.1 H (0.8-1.5) mg/dL Glucose 169 H (75-100) mg/dL POC Glucose (70-105) Calcium 7.7 L (8.4-10.2) mg/dL Free T4 0.68 L (0.76-1.46) ng/dL 10/18/16 10/19/16 10/19/16 Range/Units 17:31 05:10 05:10 WBC 12.5 H (4.5-11.0) K/mm3 MCV 95 H (84-94) fl RDW 16.7 H (13.2-15.2) % Seg Neuts % (Manual) 94.0 H (40.0-70.0) % Lymphocytes % (Manual) 2.0 L (13.4-35.0) % Seg Neutrophils # Man 11.8 H (1.8-7.7) K/mm3 Lymphocytes # (Manual) 0.3 L (1.2-5.4) K/mm3 POC ABG pH (7.35-7.45) POC ABG pCO2 (35-45) POC ABG pO2 (80-105) Sodium 149 H (137-145) mmol/L Chloride 114.1 H (98-107) mmol/L Carbon Dioxide 16 L (22-30) mmol/L BUN 49 H (9-20) mg/dL Creatinine 1.9 H (0.8-1.5) mg/dL Glucose 137 H (75-100) mg/dL POC Glucose 163 H (70-105) Calcium 7.0 L (8.4-10.2) mg/dL Free T4 (0.76-1.46) ng/dL 10/19/16 Range/Units 06:04 WBC (4.5-11.0) K/mm3 MCV (84-94) fl RDW (13.2-15.2) % Seg Neuts % (Manual) (40.0-70.0) % Lymphocytes % (Manual) (13.4-35.0) % Seg Neutrophils # Man (1.8-7.7) K/mm3 Lymphocytes # (Manual) (1.2-5.4) K/mm3 POC ABG pH (7.35-7.45) POC ABG pCO2 28.1 L (35-45) POC ABG pO2 108 H (80-105) Sodium (137-145) mmol/L Chloride (98-107) mmol/L Carbon Dioxide (22-30) mmol/L BUN (9-20) mg/dL Creatinine (0.8-1.5) mg/dL Glucose (75-100) mg/dL POC Glucose (70-105) Calcium (8.4-10.2) mg/dL Free T4 (0.76-1.46) ng/dL
[2016-10-19] MEDS: LOVENOX SUB-Q SCH (09:15)
[2016-10-19] MEDS: PEPCID IV SCH (09:16)
--- NOTE | 2016-10-19 10:34 | Vascular Lab Report ---
LOWER EXTREMITY VENOUS DUPLEX: REASON FOR EXAM: Elevated d-dimer. COMMENTS ON THE RIGHT: All veins visualized are freely compressible without evidence of internal echogenicity. Flow is spontaneous and phasic throughout. COMMENTS ON THE LEFT: All veins visualized are freely compressible without evidence of internal echogenicity. Flow is spontaneous and phasic throughout. IMPRESSION: No evidence of acute or chronic deep venous thrombosis in either lower extremity.
--- NOTE | 2016-10-19 11:48 | Progress Note ---
Assessment and Plan 65 y/o male with acute respiratory failure, thought secondary to MS flare vs aspiration and shock, hypovolemic vs sepsis and acute renal failure 1. Increase free water given hypernatremia. 2. Cr improved but BUN increased. Still feel patient is volume deplete. Ordered CVP, if low, more volume 3. Free T4 and TSH both low, will repeat. Endo consult is not available here currently. 4. Follow up neuro recs. 5. Add PRN ativan for sedation 6. Given underlying history, patient most likely will need trach and peg. The issue is family and obtaining consent. Discussed with CM. They will reach out to caregiver to see if there is any family. If not, may need to obtain ethics consult. CCT 31 minutes. Subjective Date of service: 10/19/16 Interval history: No acute events overnight. Remains restless but PRN ativan only used once. no family at bedside. Remainder is positive for low grade temp last night. Objective Vital Signs - 12hr 10/19/16 10/19/16 10/19/16 00:00 00:19 00:30 Temperature Pulse Rate 84 109 H 99 H Pulse Rate [ 82 From Monitor] Respiratory 17 14 Rate Blood Pressure 112/73 112/73 102/73 O2 Sat by Pulse 98 99 100 Oximetry 10/19/16 10/19/16 10/19/16 01:00 01:30 02:00 Temperature Pulse Rate 73 93 H 83 Pulse Rate [ From Monitor] Respiratory 16 16 16 Rate Blood Pressure 101/68 108/81 97/68 O2 Sat by Pulse 98 99 98 Oximetry 10/19/16 10/19/16 10/19/16 02:31 03:00 03:30 Temperature Pulse Rate 106 H 108 H 95 H Pulse Rate [ 101 H From Monitor] Respiratory 18 17 15 Rate Blood Pressure 111/60 102/78 98/64 O2 Sat by Pulse 100 98 98 Oximetry 10/19/16 10/19/16 10/19/16 03:42 04:00 04:30 Temperature 97.6 F Pulse Rate 105 H 78 110 H Pulse Rate [ From Monitor] Respiratory 16 14 Rate Blood Pressure 98/64 96/67 122/64 O2 Sat by Pulse 99 99 99 Oximetry 10/19/16 10/19/16 10/19/16 05:01 05:31 06:00 Temperature Pulse Rate 102 H 104 H 74 Pulse Rate [ From Monitor] Respiratory 15 15 16 Rate Blood Pressure 99/61 105/60 92/68 O2 Sat by Pulse 100 100 97 Oximetry 10/19/16 10/19/16 10/19/16 06:30 07:01 07:14 Temperature Pulse Rate 107 H 75 104 H Pulse Rate [ From Monitor] Respiratory 16 16 Rate Blood Pressure 88/67 101/63 101/63 O2 Sat by Pulse 100 100 100 Oximetry 10/19/16 10/19/16 10/19/16 07:23 07:30 07:51 Temperature 97.5 F L Pulse Rate 99 H 81 Pulse Rate [ From Monitor] Respiratory 16 Rate Blood Pressure 94/66 84/61 O2 Sat by Pulse 100 98 Oximetry 10/19/16 10/19/16 10/19/16 07:55 08:00 08:30 Temperature Pulse Rate 97 H 75 Pulse Rate [ 70 From Monitor] Respiratory 16 16 16 Rate Blood Pressure 90/64 90/64 O2 Sat by Pulse 98 98 99 Oximetry 10/19/16 10/19/16 10/19/16 09:01 09:30 10:00 Temperature Pulse Rate 90 83 80 Pulse Rate [ From Monitor] Respiratory 16 16 16 Rate Blood Pressure 109/79 99/65 111/73 O2 Sat by Pulse 98 92 97 Oximetry 10/19/16 10:30 Temperature Pulse Rate 103 H Pulse Rate [ From Monitor] Respiratory 15 Rate Blood Pressure 129/106 O2 Sat by Pulse 95 Oximetry Constitutional: alert (eyes open but does not follow commands), other (dishelved ) Eyes: non-icteric ENT: other (orally intubated) Neck: supple Effort: mildly labored Ascultation: Bilateral: diminished breath sounds Percussion: Bilateral: not dull Cardiovascular: regular rate and rhythm Gastrointestinal: normoactive bowel sounds, soft, non-tender Extremities: other (damaged right great toe, wrapped currently) Neurologic: unable to assess CBC and BMP: 10/19/16 05:10 10/19/16 05:10 ABG, PT/INR, D-dimer: ABG POC ABG pH 7.387 (7.35-7.45) 10/19/16 06:04 POC ABG pCO2 28.1 (35-45) L 10/19/16 06:04 POC ABG pO2 108 (80-105) H 10/19/16 06:04 POC ABG HCO3 16.9 10/19/16 06:04 POC ABG Total CO2 18 10/19/16 06:04 POC ABG O2 Sat 98 10/19/16 06:04 PT/INR, D-dimer D-Dimer 1813.13 ng/mlDDU (0-234) H 10/17/16 17:51 Abnormal lab findings: Abnormal Labs 10/17/16 10/18/16 10/18/16 19:34 03:29 05:36 WBC MCV RDW Seg Neuts % (Manual) Lymphocytes % (Manual) Seg Neutrophils # Man Lymphocytes # (Manual) POC ABG pH 7.333 L 7.272 L POC ABG pCO2 31.5 L 28.6 L POC ABG pO2 180 H Sodium Chloride Carbon Dioxide BUN Creatinine Glucose POC Glucose Calcium Free T4 10/18/16 10/18/16 10/18/16 08:13 09:40 12:04 WBC MCV RDW Seg Neuts % (Manual) Lymphocytes % (Manual) Seg Neutrophils # Man Lymphocytes # (Manual) POC ABG pH 7.231 L 7.298 L POC ABG pCO2 30.8 L POC ABG pO2 74 L Sodium Chloride Carbon Dioxide BUN Creatinine Glucose POC Glucose 151 H Calcium Free T4 10/18/16 10/18/16 10/18/16 14:57 14:57 14:57 WBC 13.3 H MCV 96 H RDW 16.9 H Seg Neuts % (Manual) Lymphocytes % (Manual) Seg Neutrophils # Man Lymphocytes # (Manual) POC ABG pH POC ABG pCO2 POC ABG pO2 Sodium Chloride Carbon Dioxide 13 L D BUN 57 H Creatinine 2.1 H Glucose 169 H POC Glucose Calcium 7.7 L Free T4 0.68 L 10/18/16 10/19/16 10/19/16 17:31 05:10 05:10 WBC 12.5 H MCV 95 H RDW 16.7 H Seg Neuts % (Manual) 94.0 H Lymphocytes % (Manual) 2.0 L Seg Neutrophils # Man 11.8 H Lymphocytes # (Manual) 0.3 L POC ABG pH POC ABG pCO2 POC ABG pO2 Sodium 149 H Chloride 114.1 H Carbon Dioxide 16 L BUN 49 H Creatinine 1.9 H Glucose 137 H POC Glucose 163 H Calcium 7.0 L Free T4 10/19/16 06:04 WBC MCV RDW Seg Neuts % (Manual) Lymphocytes % (Manual) Seg Neutrophils # Man Lymphocytes # (Manual) POC ABG pH POC ABG pCO2 28.1 L POC ABG pO2 108 H Sodium Chloride Carbon Dioxide BUN Creatinine Glucose POC Glucose Calcium Free T4
[2016-10-19] MEDS: NACL 0.9% 500 ML 500 ML IV SCH (12:46)
[2016-10-19] MEDS: NACL 0.9% 1000 ML 1,000 ML IV SCH ×2 (12:49→14:15)
--- NOTE | 2016-10-19 14:05 | Consultation ---
History of Present Illness - Reason for Consult Consult date: 10/19/16 ms - History of Present Illness came by to check on updated list of home meds and family/ friends are not here patient is too lethargic to get cross history from... will review hx and make rec's Past History Past Medical History: arthritis, GERD, hypertension, other (MS) Past Surgical History: No surgical history, Other (UTO) Social history: , other (lives with roommate). denies: smoking, alcohol abuse, prescription drug abuse Family history: hypertension Medications and Allergies Allergies Allergy/AdvReac Type Severity Reaction Status Date / Time codeine AdvReac Hives Verified 04/30/14 13:32 Home Medications Medication Instructions Recorded Confirmed Last Taken Type Nitroglycerin [Nitrostat] 0.4 mg SL PRN PRN 04/30/14 04/30/14 Unknown History Active Meds: Active Medications Enoxaparin Sodium (Lovenox) 40 mg SUB-Q QDAY@1000 KAYLEE Last Admin: 10/19/16 09:15 Dose: 40 mg Famotidine (Pepcid) 20 mg IV DAILY KAYLEE Last Admin: 10/19/16 09:16 Dose: 20 mg Hydrophilic Ointment (Vaseline Lip Therapy) 1 applic TP Q2HR PRN PRN Reason: Dry Lips Fentanyl Citrate (Fentanyl Drip Premix) 2,000 mcg in 100 mls @ 3.969 mls/hr IV TITR KAYLEE; 1 MCG/KG/HR PRN Reason: Protocol Last Admin: 10/19/16 03:53 Dose: 3 mcg/kg/hr, 11.907 mls/hr Midazolam HCl 100 mg/ Sodium (Chloride) 100 mls @ 2 mls/hr IV TITR KAYLEE; 2 MG/HR PRN Reason: Protocol Norepinephrine (Levophed Drip 4 Mg/Ns 250 Ml) 4 mg in 250 mls @ 7.5 mls/hr IV TITR KAYLEE; 2 MCG/MIN PRN Reason: Protocol Last Titration: 10/19/16 10:00 Dose: 6 mcg/min, 22.5 mls/hr Sodium Chloride (Nacl 0.9% 500 Ml) 500 mls @ 20 mls/hr IV DIRECT KAYLEE Last Admin: 10/19/16 12:46 Dose: 20 mls/hr Sodium Chloride (Nacl 0.9% 1000 Ml) 1,000 mls @ 999 mls/hr IV Q1H KAYLEE Stop: 10/19/16 14:59 Last Admin: 10/19/16 12:49 Dose: 999 mls/hr Lorazepam (Ativan) 1 mg IV Q4H PRN PRN Reason: Agitation Last Admin: 10/18/16 14:21 Dose: 1 mg Multi-Ingred Cream/Lotion/Oil/Oint (Artificial Tears Ophth Oint) 1 applic OU Q4HR PRN PRN Reason: Dry Eye(s) Exam - Constitutional Vitals: Temp Pulse Resp BP Pulse Ox 97.4 F L 80 16 130/76 93 10/19/16 12:00 10/19/16 13:30 10/19/16 13:30 10/19/16 13:30 10/19/16 13:30 Results - Labs CBC & Chem 7: 10/19/16 05:10 10/19/16 05:10 Labs: Abnormal lab results 10/18/16 10/18/16 10/18/16 Range/Units 14:57 14:57 14:57 WBC 13.3 H (4.5-11.0) K/mm3 MCV 96 H (84-94) fl RDW 16.9 H (13.2-15.2) % Seg Neuts % (Manual) (40.0-70.0) % Lymphocytes % (Manual) (13.4-35.0) % Seg Neutrophils # Man (1.8-7.7) K/mm3 Lymphocytes # (Manual) (1.2-5.4) K/mm3 POC ABG pCO2 (35-45) POC ABG pO2 (80-105) Sodium (137-145) mmol/L Chloride (98-107) mmol/L Carbon Dioxide 13 L D (22-30) mmol/L BUN 57 H (9-20) mg/dL Creatinine 2.1 H (0.8-1.5) mg/dL Glucose 169 H (75-100) mg/dL POC Glucose (70-105) Calcium 7.7 L (8.4-10.2) mg/dL Free T4 0.68 L (0.76-1.46) ng/dL 10/18/16 10/19/16 10/19/16 Range/Units 17:31 05:10 05:10 WBC 12.5 H (4.5-11.0) K/mm3 MCV 95 H (84-94) fl RDW 16.7 H (13.2-15.2) % Seg Neuts % (Manual) 94.0 H (40.0-70.0) % Lymphocytes % (Manual) 2.0 L (13.4-35.0) % Seg Neutrophils # Man 11.8 H (1.8-7.7) K/mm3 Lymphocytes # (Manual) 0.3 L (1.2-5.4) K/mm3 POC ABG pCO2 (35-45) POC ABG pO2 (80-105) Sodium 149 H (137-145) mmol/L Chloride 114.1 H (98-107) mmol/L Carbon Dioxide 16 L (22-30) mmol/L BUN 49 H (9-20) mg/dL Creatinine 1.9 H (0.8-1.5) mg/dL Glucose 137 H (75-100) mg/dL POC Glucose 163 H (70-105) Calcium 7.0 L (8.4-10.2) mg/dL Free T4 (0.76-1.46) ng/dL 10/19/16 10/19/16 Range/Units 06:04 11:39 WBC (4.5-11.0) K/mm3 MCV (84-94) fl RDW (13.2-15.2) % Seg Neuts % (Manual) (40.0-70.0) % Lymphocytes % (Manual) (13.4-35.0) % Seg Neutrophils # Man (1.8-7.7) K/mm3 Lymphocytes # (Manual) (1.2-5.4) K/mm3 POC ABG pCO2 28.1 L (35-45) POC ABG pO2 108 H (80-105) Sodium (137-145) mmol/L Chloride (98-107) mmol/L Carbon Dioxide (22-30) mmol/L BUN (9-20) mg/dL Creatinine (0.8-1.5) mg/dL Glucose (75-100) mg/dL POC Glucose 134 H (70-105) Calcium (8.4-10.2) mg/dL Free T4 (0.76-1.46) ng/dL
[2016-10-19] MEDS: ATIVAN IV PRN (14:34)
--- NOTE | 2016-10-19 18:36 | Progress Note ---
Assessment and Plan Assessment and plan: Acute hypoxic respiratory failure Altered mental status MS exacerbation - Patient is intubated to protect and airway - Patient is on IV methylprednisone - Neurology consult appreciated - Pulmonary following Disposition - Continue inpatient care The high probability of a clinically significant, sudden or life threatening deterioration of the [neurology, respiratory] system(s) required my full and direct attention, intervention and personal management. The aggregate critical care time was [31] minutes. This time is in addition to time spent performing reported procedures but includes the following: [x] Data Review and interpretation [x] Patient assessment and monitoring of vital signs [x] Documentation [x] Medication orders and management History Interval history: Patient was seen and evaluated this morning, patient is intubated, and sedated Hospitalist Physical - Physical exam Narrative exam: Patient is intubated. The patient appeared well nourished and normally developed. Vital signs as documented. Head exam is unremarkable. No scleral icterus . Neck is without jugular venous distension, thyromegaly, or carotid bruits. Lungs are clear to auscultation. Cardiac exam reveals regular rate and Rhythm. First and second heart sounds normal. No murmurs, rubs or gallops. Abdominal exam reveals normal bowel sounds, no masses, no organomegaly and no aortic enlargement. Extremities are nonedematous and both femoral and pedal pulses are normal. [employer]: sedated - Constitutional Vitals: Temp Pulse Resp BP Pulse Ox 97.7 F 78 22 119/79 96 10/19/16 16:00 10/19/16 16:38 10/19/16 14:01 10/19/16 16:38 10/19/16 16:38 General appearance: Present: severe distress Results - Labs CBC & Chem 7: 10/19/16 05:10 10/19/16 05:10 Labs: Laboratory Last Values WBC 12.5 K/mm3 (4.5-11.0) H 10/19/16 05:10 RBC 4.49 M/mm3 (3.65-5.03) 10/19/16 05:10 Hgb 13.8 gm/dl (11.8-15.2) 10/19/16 05:10 Hct 42.7 % (35.5-45.6) 10/19/16 05:10 MCV 95 fl (84-94) H 10/19/16 05:10 MCH 31 pg (28-32) 10/19/16 05:10 MCHC 32 % (32-34) 10/19/16 05:10 RDW 16.7 % (13.2-15.2) H 10/19/16 05:10 Plt Count 183 K/mm3 (140-440) 10/19/16 05:10 Add Manual Diff Complete 10/19/16 05:10 Total Counted 100 10/19/16 05:10 Seg Neutrophils % Machine Trimmer 10/19/16 05:10 Seg Neuts % (Manual) 94.0 % (40.0-70.0) H 10/19/16 05:10 Band Neutrophils % 0 % 10/19/16 05:10 Lymphocytes % (Manual) 2.0 % (13.4-35.0) L 10/19/16 05:10 Reactive Lymphs % (Man) 0 % 10/19/16 05:10 Monocytes % (Manual) 4.0 % (0.0-7.3) 10/19/16 05:10 Eosinophils % (Manual) 0 % (0.0-4.3) 10/19/16 05:10 Basophils % (Manual) 0 % (0.0-1.8) 10/19/16 05:10 Metamyelocytes % 0 % 10/19/16 05:10 Myelocytes % 0 % 10/19/16 05:10 Promyelocytes % 0 % 10/19/16 05:10 Blast Cells % 0 % 10/19/16 05:10 Nucleated RBC % Not Reportable 10/19/16 05:10 Seg Neutrophils # Man 11.8 K/mm3 (1.8-7.7) H 10/19/16 05:10 Band Neutrophils # 0.0 K/mm3 10/19/16 05:10 Lymphocytes # (Manual) 0.3 K/mm3 (1.2-5.4) L 10/19/16 05:10 Abs React Lymphs (Man) 0.0 K/mm3 10/19/16 05:10 Monocytes # (Manual) 0.5 K/mm3 (0.0-0.8) 10/19/16 05:10 Eosinophils # (Manual) 0.0 K/mm3 (0.0-0.4) 10/19/16 05:10 Basophils # (Manual) 0.0 K/mm3 (0.0-0.1) 10/19/16 05:10 Metamyelocytes # 0.0 K/mm3 10/19/16 05:10 Myelocytes # 0.0 K/mm3 10/19/16 05:10 Promyelocytes # 0.0 K/mm3 10/19/16 05:10 Blast Cells # 0.0 K/mm3 10/19/16 05:10 WBC Morphology Not Reportable 10/19/16 05:10 Hypersegmented Neuts Not Reportable 10/19/16 05:10 Hyposegmented Neuts Not Reportable 10/19/16 05:10 Hypogranular Neuts Not Reportable 10/19/16 05:10 Smudge Cells Not Reportable 10/19/16 05:10 Toxic Granulation Not Reportable 10/19/16 05:10 Toxic Vacuolation Not Reportable 10/19/16 05:10 Dohle Bodies Not Reportable 10/19/16 05:10 Pelger-Huet Anomaly Not Reportable 10/19/16 05:10 Farshad Rods Not Reportable 10/19/16 05:10 Platelet Estimate Appears normal 10/19/16 05:10 Clumped Platelets Not Reportable 10/19/16 05:10 Plt Clumps, EDTA Not Reportable 10/19/16 05:10 Large Platelets Not Reportable 10/19/16 05:10 Giant Platelets Not Reportable 10/19/16 05:10 Platelet Satelliting Not Reportable 10/19/16 05:10 Plt Morphology Comment Not Reportable 10/19/16 05:10 RBC Morphology Normal 10/19/16 05:10 Dimorphic RBCs Not Reportable 10/19/16 05:10 Polychromasia Not Reportable 10/19/16 05:10 Hypochromasia Not Reportable 10/19/16 05:10 Poikilocytosis Not Reportable 10/19/16 05:10 Anisocytosis Not Reportable 10/19/16 05:10 Microcytosis Not Reportable 10/19/16 05:10 Macrocytosis Not Reportable 10/19/16 05:10 Spherocytes Not Reportable 10/19/16 05:10 Pappenheimer Bodies Not Reportable 10/19/16 05:10 Sickle Cells Not Reportable 10/19/16 05:10 Target Cells Not Reportable 10/19/16 05:10 Tear Drop Cells Not Reportable 10/19/16 05:10 Ovalocytes Not Reportable 10/19/16 05:10 Helmet Cells Not Reportable 10/19/16 05:10 [place] Bodies Not Reportable 10/19/16 05:10 [place] Rings Not Reportable 10/19/16 05:10 [place] Cells Not Reportable 10/19/16 05:10 Bite Cells Not Reportable 10/19/16 05:10 Crenated Cell Not Reportable 10/19/16 05:10 Elliptocytes Not Reportable 10/19/16 05:10 Acanthocytes (Spur) Not Reportable 10/19/16 05:10 Rouleaux Not Reportable 10/19/16 05:10 Hemoglobin C Crystals Not Reportable 10/19/16 05:10 Schistocytes Not Reportable 10/19/16 05:10 Malaria parasites Not Reportable 10/19/16 05:10 [place] Bodies Not Reportable 10/19/16 05:10 Hem Pathologist Commnt No 10/19/16 05:10 D-Dimer 1813.13 ng/mlDDU (0-234) H 10/17/16 17:51 POC ABG pH 7.387 (7.35-7.45) 10/19/16 06:04 POC ABG pCO2 28.1 (35-45) L 10/19/16 06:04 POC ABG pO2 108 (80-105) H 10/19/16 06:04 POC ABG HCO3 16.9 10/19/16 06:04 POC ABG Total CO2 18 10/19/16 06:04 POC ABG O2 Sat 98 10/19/16 06:04 POC ABG Base Excess -8 10/19/16 06:04 FiO2 60 % 10/19/16 06:04 Sodium 149 mmol/L (137-145) H 10/19/16 05:10 Potassium 3.8 mmol/L (3.6-5.0) 10/19/16 05:10 Chloride 114.1 mmol/L (98-107) H 10/19/16 05:10 Carbon Dioxide 16 mmol/L (22-30) L 10/19/16 05:10 Anion Gap 23 mmol/L 10/19/16 05:10 BUN 49 mg/dL (9-20) H 10/19/16 05:10 Creatinine 1.9 mg/dL (0.8-1.5) H 10/19/16 05:10 Estimated GFR 36 ml/min 10/19/16 05:10 BUN/Creatinine Ratio 25.78 % 10/19/16 05:10 Glucose 137 mg/dL (75-100) H 10/19/16 05:10 POC Glucose 134 (70-105) H 10/19/16 11:39 Lactic Acid 1.60 mmol/L (0.7-2.0) 10/17/16 17:04 Calcium 7.0 mg/dL (8.4-10.2) L 10/19/16 05:10 Phosphorus 2.70 mg/dL (2.5-4.5) 10/18/16 14:57 Magnesium 2.10 mg/dL (1.7-2.3) 10/18/16 14:57 Total Bilirubin 1.10 mg/dL (0.1-1.2) 10/17/16 15:20 AST 120 units/L (5-40) H 10/17/16 15:20 ALT 54 units/L (7-56) 10/17/16 15:20 Alkaline Phosphatase 62 units/L (35-129) 10/17/16 15:20 Total Protein 6.3 g/dL (6.3-8.2) 10/17/16 15:20 Albumin 2.3 g/dL (3.9-5) L 10/17/16 15:20 Albumin/Globulin Ratio 0.6 % 10/17/16 15:20 TSH 0.052 mlU/mL (0.270-4.200) L 10/17/16 15:20 Free T4 0.68 ng/dL (0.76-1.46) L 10/18/16 14:57 Urine Color Yellow (Yellow) 10/17/16 17:34 Urine Turbidity Slightly-cloudy (Clear) 10/17/16 17:34 Urine pH 5.0 (5.0-7.0) 10/17/16 17:34 Ur Specific [place] 1.012 (1.003-1.030) 10/17/16 17:34 Urine Protein 30 mg/dl mg/dL (Negative) 10/17/16 17:34 Urine Glucose (UA) Neg mg/dL (Negative) 10/17/16 17:34 Urine Ketones Neg mg/dL (Negative) 10/17/16 17:34 Urine Blood Lg (Negative) 10/17/16 17:34 Urine Nitrite Neg (Negative) 10/17/16 17:34 Urine Bilirubin Neg (Negative) 10/17/16 17:34 Urine Urobilinogen < 2.0 mg/dL (<2.0) 10/17/16 17:34 Ur Leukocyte Esterase Tr (Negative) 10/17/16 17:34 Urine WBC (Auto) 7.0 /HPF (0.0-6.0) H 10/17/16 17:34 Urine RBC (Auto) 5.0 /HPF (0.0-6.0) 10/17/16 17:34 U Epithel Cells (Auto) 1.0 /HPF (0-13.0) 10/17/16 17:34 Hyaline Casts 1 /LPF 10/17/16 17:34 Granular Casts 7 /LPF 10/17/16 17:34 Urine Mucus Few /HPF 10/17/16 17:34 Salicylates < 0.3 mg/dL (2.8-20.0) L 10/17/16 15:20 Urine Opiates Screen Presumptive negative 10/17/16 17:34 Urine Methadone Screen Presumptive negative 10/17/16 17:34 Acetaminophen < 15.0 ug/mL (10.0-30.0) 10/17/16 15:20 Ur Barbiturates Screen Presumptive negative 10/17/16 17:34 Ur Phencyclidine Scrn Presumptive negative 10/17/16 17:34 Ur Amphetamines Screen Presumptive negative 10/17/16 17:34 U Benzodiazepines Scrn Presumptive negative 10/17/16 17:34 Urine Cocaine Screen Presumptive negative 10/17/16 17:34 U Marijuana (THC) Screen Presumptive positive 10/17/16 17:34 Drugs of Abuse Note Disclamer 10/17/16 17:34 Plasma/Serum Alcohol < 0.01 gm% (0-0.07) 10/17/16 15:20
[2016-10-20] MEDS: fentaNYL DRIP Premix 2,000 MCG/100 ML BAG IV SCH ×2 (00:33→11:08)
[2016-10-20 05:00] LABS: ISTAT Base Excess -11; ISTAT HCO3 14.5; ISTAT PCO2 24.5 (35-45); ISTAT PH 7.381 (7.35-7.45); ISTAT PO2 89 (80-105); ISTAT SO2 97; ISTAT TCO2 15
[2016-10-20 06:37] LABS: Hematocrit 40.4 % (35.5-45.6); Hemoglobin 13.4 gm/dl (11.8-15.2); Mean Corpuscular HGB Conc 33 % (32-34); Mean Corpuscular Hemoglobin 31 pg (28-32); Mean Corpuscular Volume 94 fl (84-94); Platelet Count 187 K/mm3 (140-440); Red Blood Count 4.32 M/mm3 (3.65-5.03); Red Cell Distribution Width 16.5 % (13.2-15.2); White Blood Count 11.4 K/mm3 (4.5-11.0)
[2016-10-20 07:01] LABS: BUN/Creatinine Ratio 27.85; Calcium 6.8 mg/dL (8.4-10.2); Chloride 119.1 mmol/L (98-107); Potassium 3.2 mmol/L (3.6-5.0)
[2016-10-20 08:53] LABS: Basophils % (Manual) 0 % (0.0-1.8); Blastocytes % (Manual) 0 %; Eosinophils % (Manual) 0 % (0.0-4.3)
[2016-10-20 08:54] LABS: Diff Status Complete; Platelet Estimate Consistent w Auto; RBC Morphology Normal
[2016-10-20] MEDS: LOVENOX SUB-Q SCH (09:23)
[2016-10-20] MEDS: PEPCID IV SCH (09:23)
--- NOTE | 2016-10-20 09:36 | XRay Report ---
AP CHEST :10/20/16 02:07 CLINICAL: Intubated.Follow up respiratory failure. COMPARISON:10/19/16 FINDINGS: The endotracheal tube is in satisfactory position. The feeding tube is satisfactory. Left PICC line tip is in the SVC. The heart is enlarged. Continued basal opacities with silhouetting of the left hemidiaphragm and partial silhouetting of the right hemidiaphragm. The upper lung jose are clear. Normal pulmonary vessels. No pneumothorax. IMPRESSION: No change. Bibasal atelectasis versus airspace disease. Suspect left pleural effusion.
[2016-10-20] MEDS: LEVOPHED DRIP 4 MG/NS 250 ML 4 MG/250 ML BAG IV SCH (11:22)
--- NOTE | 2016-10-20 11:40 | Progress Note ---
Assessment and Plan 65 y/o male with acute respiratory failure, thought secondary to MS flare vs aspiration and shock, hypovolemic vs sepsis and acute renal failure 1. Increase free water given hypernatremia. 2. Not sure if CVP was done. Never called with numbers. has responded to volume but now hypernatremic, likely from insensible loses. Will start feeding as levophed is being weaned and will give free water flushes [id number] 3. Free T4 and TSH both low, will repeat. Endo consult is not available here currently. 4. Follow up neuro recs. 5. Add PRN ativan for sedation 6. Given underlying history, patient most likely will need trach and peg. The issue is family and obtaining consent. Discussed with CM. They will reach out to caregiver to see if there is any family. If not, may need to obtain ethics consult. CCT 31 minutes. Subjective Date of service: 10/20/16 Interval history: Remains on fentanyl and levophed. Still on 10 of PEEP but FiO2 down to 50%. Still with large A-a gradient. Unable to view CXR in [facility] but based on rads reads, stable bibasilar infiltrates with suspected effusion. With this language I would assume the effusion is small and not enough to compromise respiratory status. Cr is better but Na is increasing. Objective Vital Signs - 12hr 10/19/16 10/19/16 10/19/16 23:44 23:50 23:59 Temperature Pulse Rate 91 H 89 Pulse Rate [ 90 From Monitor] Pulse Rate [ 90 Left Dorsalis Pedis] Pulse Rate [ 90 Left Radial] Pulse Rate [ 90 Right Dorsalis Pedis] Pulse Rate [ 90 Right Radial] Respiratory 16 16 Rate Blood Pressure 122/78 123/75 O2 Sat by Pulse 96 97 97 Oximetry 10/20/16 10/20/16 10/20/16 00:00 00:30 01:00 Temperature 97.5 F L Pulse Rate 90 70 73 Pulse Rate [ From Monitor] Pulse Rate [ Left Dorsalis Pedis] Pulse Rate [ Left Radial] Pulse Rate [ Right Dorsalis Pedis] Pulse Rate [ Right Radial] Respiratory 16 16 16 Rate Blood Pressure 123/77 117/77 113/74 O2 Sat by Pulse 97 98 100 Oximetry 10/20/16 10/20/16 10/20/16 01:30 02:00 02:30 Temperature Pulse Rate 99 H 95 H 77 Pulse Rate [ From Monitor] Pulse Rate [ Left Dorsalis Pedis] Pulse Rate [ Left Radial] Pulse Rate [ Right Dorsalis Pedis] Pulse Rate [ Right Radial] Respiratory 16 21 16 Rate Blood Pressure 109/75 116/77 106/69 O2 Sat by Pulse 93 100 92 Oximetry 10/20/16 10/20/16 10/20/16 03:00 03:30 04:00 Temperature 97.5 F L Pulse Rate 93 H 70 75 Pulse Rate [ From Monitor] Pulse Rate [ 60 Left Dorsalis Pedis] Pulse Rate [ 60 Left Radial] Pulse Rate [ 60 Right Dorsalis Pedis] Pulse Rate [ 60 Right Radial] Respiratory 16 16 16 Rate Blood Pressure 105/76 118/75 117/76 O2 Sat by Pulse 95 97 95 Oximetry 10/20/16 10/20/16 10/20/16 04:19 04:30 05:00 Temperature Pulse Rate 71 75 79 Pulse Rate [ From Monitor] Pulse Rate [ Left Dorsalis Pedis] Pulse Rate [ Left Radial] Pulse Rate [ Right Dorsalis Pedis] Pulse Rate [ Right Radial] Respiratory 16 16 Rate Blood Pressure 117/76 120/76 113/78 O2 Sat by Pulse 99 96 98 Oximetry 10/20/16 10/20/16 10/20/16 05:30 06:00 06:30 Temperature Pulse Rate 71 80 68 Pulse Rate [ From Monitor] Pulse Rate [ Left Dorsalis Pedis] Pulse Rate [ Left Radial] Pulse Rate [ Right Dorsalis Pedis] Pulse Rate [ Right Radial] Respiratory 16 16 16 Rate Blood Pressure 118/76 101/72 116/70 O2 Sat by Pulse 95 97 96 Oximetry 10/20/16 10/20/16 10/20/16 07:00 07:30 08:00 Temperature 97.5 F L Pulse Rate 76 71 74 Pulse Rate [ 80 From Monitor] Pulse Rate [ Left Dorsalis Pedis] Pulse Rate [ Left Radial] Pulse Rate [ 0 L Right Dorsalis Pedis] Pulse Rate [ Right Radial] Respiratory 16 16 16 Rate Blood Pressure 110/72 111/74 123/75 O2 Sat by Pulse 94 98 95 Oximetry 10/20/16 10/20/16 10/20/16 08:30 09:00 09:30 Temperature Pulse Rate 73 86 73 Pulse Rate [ From Monitor] Pulse Rate [ Left Dorsalis Pedis] Pulse Rate [ Left Radial] Pulse Rate [ Right Dorsalis Pedis] Pulse Rate [ Right Radial] Respiratory 16 14 16 Rate Blood Pressure 100/66 107/69 86/59 O2 Sat by Pulse 90 93 95 Oximetry 10/20/16 10/20/16 10/20/16 10:00 10:30 11:00 Temperature Pulse Rate 77 74 76 Pulse Rate [ From Monitor] Pulse Rate [ Left Dorsalis Pedis] Pulse Rate [ Left Radial] Pulse Rate [ Right Dorsalis Pedis] Pulse Rate [ Right Radial] Respiratory 16 16 16 Rate Blood Pressure 103/63 93/66 111/71 O2 Sat by Pulse 90 97 97 Oximetry Constitutional: lethargic (continues to sluggishly open eyes), other (dishelved) Eyes: non-icteric ENT: other (orally intubated) Neck: supple Effort: mildly labored Ascultation: Bilateral: diminished breath sounds Percussion: Bilateral: not dull Cardiovascular: regular rate and rhythm Gastrointestinal: normoactive bowel sounds, soft, non-tender Extremities: other (damaged right great toe, wrapped currently) Neurologic: unable to assess CBC and BMP: 10/20/16 06:10 10/20/16 06:10 ABG, PT/INR, D-dimer: ABG POC ABG pH 7.381 (7.35-7.45) 10/20/16 04:30 POC ABG pCO2 24.5 (35-45) L 10/20/16 04:30 POC ABG pO2 89 (80-105) 10/20/16 04:30 POC ABG HCO3 14.5 10/20/16 04:30 POC ABG Total CO2 15 10/20/16 04:30 POC ABG O2 Sat 97 10/20/16 04:30 PT/INR, D-dimer D-Dimer 1813.13 ng/mlDDU (0-234) H 10/17/16 17:51 Abnormal lab findings: Abnormal Labs 10/17/16 10/18/16 10/18/16 19:34 03:29 05:36 WBC MCV RDW Seg Neuts % (Manual) Lymphocytes % (Manual) Seg Neutrophils # Man Lymphocytes # (Manual) POC ABG pH 7.333 L 7.272 L POC ABG pCO2 31.5 L 28.6 L POC ABG pO2 180 H Sodium Potassium Chloride Carbon Dioxide BUN Creatinine Glucose POC Glucose Calcium Free T4 10/18/16 10/18/16 10/18/16 08:13 09:40 12:04 WBC MCV RDW Seg Neuts % (Manual) Lymphocytes % (Manual) Seg Neutrophils # Man Lymphocytes # (Manual) POC ABG pH 7.231 L 7.298 L POC ABG pCO2 30.8 L POC ABG pO2 74 L Sodium Potassium Chloride Carbon Dioxide BUN Creatinine Glucose POC Glucose 151 H Calcium Free T4 10/18/16 10/18/16 10/18/16 14:57 14:57 14:57 WBC 13.3 H MCV 96 H RDW 16.9 H Seg Neuts % (Manual) Lymphocytes % (Manual) Seg Neutrophils # Man Lymphocytes # (Manual) POC ABG pH POC ABG pCO2 POC ABG pO2 Sodium Potassium Chloride Carbon Dioxide 13 L D BUN 57 H Creatinine 2.1 H Glucose 169 H POC Glucose Calcium 7.7 L Free T4 0.68 L 10/18/16 10/19/16 10/19/16 17:31 05:10 05:10 WBC 12.5 H MCV 95 H RDW 16.7 H Seg Neuts % (Manual) 94.0 H Lymphocytes % (Manual) 2.0 L Seg Neutrophils # Man 11.8 H Lymphocytes # (Manual) 0.3 L POC ABG pH POC ABG pCO2 POC ABG pO2 Sodium 149 H Potassium Chloride 114.1 H Carbon Dioxide 16 L BUN 49 H Creatinine 1.9 H Glucose 137 H POC Glucose 163 H Calcium 7.0 L Free T4 10/19/16 10/19/16 10/19/16 06:04 11:39 23:47 WBC MCV RDW Seg Neuts % (Manual) Lymphocytes % (Manual) Seg Neutrophils # Man Lymphocytes # (Manual) POC ABG pH POC ABG pCO2 28.1 L POC ABG pO2 108 H Sodium Potassium Chloride Carbon Dioxide BUN Creatinine Glucose POC Glucose 134 H 122 H Calcium Free T4 10/20/16 10/20/16 10/20/16 04:30 05:20 06:10 WBC 11.4 H MCV RDW 16.5 H Seg Neuts % (Manual) 92.0 H Lymphocytes % (Manual) 4.0 L Seg Neutrophils # Man 10.5 H Lymphocytes # (Manual) 0.5 L POC ABG pH POC ABG pCO2 24.5 L POC ABG pO2 Sodium Potassium Chloride Carbon Dioxide BUN Creatinine Glucose POC Glucose 112 H Calcium Free T4 10/20/16 06:10 WBC MCV RDW Seg Neuts % (Manual) Lymphocytes % (Manual) Seg Neutrophils # Man Lymphocytes # (Manual) POC ABG pH POC ABG pCO2 POC ABG pO2 Sodium 152 H Potassium 3.2 L Chloride 119.1 H Carbon Dioxide 17 L BUN 39 H Creatinine Glucose 107 H POC Glucose Calcium 6.8 L Free T4
[2016-10-20] MEDS ORDERED: SIMPLE SYRUP FEEDTUBE PRN ×2 (12:11)
[2016-10-20] MEDS ORDERED: SODIUM BICARBONATE FEEDTUBE PRN (12:11)
[2016-10-20] MEDS ORDERED: PANCREAZE DR 10,500 UNIT FEEDTUBE PRN (12:11)
--- NOTE | 2016-10-20 12:44 | Progress Note ---
Assessment and Plan Assessment and plan: Acute hypoxic respiratory failure Altered mental status MS exacerbation Hypertension, hypokalemia, hypernatremia - Patient is intubated to protect and airway - Patient is on IV methylprednisone - Neurologist saw the patient - Pulmonary following - Patient is on Levophed - Increase water intake, replete potassium - Patient may need PEG and trach in the long run Disposition - Continue ICU care The high probability of a clinically significant, sudden or life threatening deterioration of the [neurology, respiratory] system(s) required my full and direct attention, intervention and personal management. The aggregate critical care time was [31] minutes. This time is in addition to time spent performing reported procedures but includes the following: [x] Data Review and interpretation [x] Patient assessment and monitoring of vital signs [x] Documentation [x] Medication orders and management History Interval history: Patient was seen and evaluated this morning, patient is intubated, and sedated Hospitalist Physical - Physical exam Narrative exam: Patient is intubated. The patient appeared well nourished and normally developed. Vital signs as documented. Head exam is unremarkable. No scleral icterus . Neck is without jugular venous distension, thyromegaly, or carotid bruits. Lungs are clear to auscultation. Cardiac exam reveals regular rate and Rhythm. First and second heart sounds normal. No murmurs, rubs or gallops. Abdominal exam reveals normal bowel sounds, no masses, no organomegaly and no aortic enlargement. Extremities are nonedematous and both femoral and pedal pulses are normal. 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 - Constitutional Vitals: Temp Pulse Resp BP Pulse Ox 97.5 F L 74 16 95/65 97 10/20/16 12:00 10/20/16 11:59 10/20/16 11:00 10/20/16 11:59 10/20/16 11:59 General appearance: Present: severe distress Results - Labs CBC & Chem 7: 10/20/16 06:10 10/20/16 06:10 Labs: Laboratory Last Values WBC 11.4 K/mm3 (4.5-11.0) H 10/20/16 06:10 RBC 4.32 M/mm3 (3.65-5.03) 10/20/16 06:10 Hgb 13.4 gm/dl (11.8-15.2) 10/20/16 06:10 Hct 40.4 % (35.5-45.6) 10/20/16 06:10 MCV 94 fl (84-94) 10/20/16 06:10 MCH 31 pg (28-32) 10/20/16 06:10 MCHC 33 % (32-34) 10/20/16 06:10 RDW 16.5 % (13.2-15.2) H 10/20/16 06:10 Plt Count 187 K/mm3 (140-440) 10/20/16 06:10 Add Manual Diff Complete 10/20/16 06:10 Total Counted 100 10/20/16 06:10 Seg Neutrophils % Produce Associate 10/20/16 06:10 Seg Neuts % (Manual) 92.0 % (40.0-70.0) H 10/20/16 06:10 Band Neutrophils % 0 % 10/20/16 06:10 Lymphocytes % (Manual) 4.0 % (13.4-35.0) L 10/20/16 06:10 Reactive Lymphs % (Man) 0 % 10/20/16 06:10 Monocytes % (Manual) 4.0 % (0.0-7.3) 10/20/16 06:10 Eosinophils % (Manual) 0 % (0.0-4.3) 10/20/16 06:10 Basophils % (Manual) 0 % (0.0-1.8) 10/20/16 06:10 Metamyelocytes % 0 % 10/20/16 06:10 Myelocytes % 0 % 10/20/16 06:10 Promyelocytes % 0 % 10/20/16 06:10 Blast Cells % 0 % 10/20/16 06:10 Nucleated RBC % Not Reportable 10/20/16 06:10 Seg Neutrophils # Man 10.5 K/mm3 (1.8-7.7) H 10/20/16 06:10 Band Neutrophils # 0.0 K/mm3 10/20/16 06:10 Lymphocytes # (Manual) 0.5 K/mm3 (1.2-5.4) L 10/20/16 06:10 Abs React Lymphs (Man) 0.0 K/mm3 10/20/16 06:10 Monocytes # (Manual) 0.5 K/mm3 (0.0-0.8) 10/20/16 06:10 Eosinophils # (Manual) 0.0 K/mm3 (0.0-0.4) 10/20/16 06:10 Basophils # (Manual) 0.0 K/mm3 (0.0-0.1) 10/20/16 06:10 Metamyelocytes # 0.0 K/mm3 10/20/16 06:10 Myelocytes # 0.0 K/mm3 10/20/16 06:10 Promyelocytes # 0.0 K/mm3 10/20/16 06:10 Blast Cells # 0.0 K/mm3 10/20/16 06:10 WBC Morphology Not Reportable 10/20/16 06:10 Hypersegmented Neuts Not Reportable 10/20/16 06:10 Hyposegmented Neuts Not Reportable 10/20/16 06:10 Hypogranular Neuts Not Reportable 10/20/16 06:10 Smudge Cells Not Reportable 10/20/16 06:10 Toxic Granulation Not Reportable 10/20/16 06:10 Toxic Vacuolation Not Reportable 10/20/16 06:10 [place]le Bodies Not Reportable 10/20/16 06:10 Pelger-Huet Anomaly Not Reportable 10/20/16 06:10 Farshad Rods Not Reportable 10/20/16 06:10 Platelet Estimate Consistent w auto 10/20/16 06:10 Clumped Platelets Not Reportable 10/20/16 06:10 Plt Clumps, EDTA Not Reportable 10/20/16 06:10 Large Platelets Not Reportable 10/20/16 06:10 Giant Platelets Not Reportable 10/20/16 06:10 Platelet Satelliting Not Reportable 10/20/16 06:10 Plt Morphology Comment Not Reportable 10/20/16 06:10 RBC Morphology Normal 10/20/16 06:10 Dimorphic RBCs Not Reportable 10/20/16 06:10 Polychromasia Not Reportable 10/20/16 06:10 Hypochromasia Not Reportable 10/20/16 06:10 Poikilocytosis Not Reportable 10/20/16 06:10 Anisocytosis Not Reportable 10/20/16 06:10 Microcytosis Not Reportable 10/20/16 06:10 Macrocytosis Not Reportable 10/20/16 06:10 Spherocytes Not Reportable 10/20/16 06:10 Pappenheimer Bodies Not Reportable 10/20/16 06:10 Sickle Cells Not Reportable 10/20/16 06:10 Target Cells Not Reportable 10/20/16 06:10 Tear Drop Cells Not Reportable 10/20/16 06:10 Ovalocytes Not Reportable 10/20/16 06:10 Helmet Cells Not Reportable 10/20/16 06:10 [place] Bodies Not Reportable 10/20/16 06:10 [place] Rings Not Reportable 10/20/16 06:10 [place] Cells Not Reportable 10/20/16 06:10 Bite Cells Not Reportable 10/20/16 06:10 Crenated Cell Not Reportable 10/20/16 06:10 Elliptocytes Not Reportable 10/20/16 06:10 Acanthocytes (Spur) Not Reportable 10/20/16 06:10 Rouleaux Not Reportable 10/20/16 06:10 Hemoglobin C Crystals Not Reportable 10/20/16 06:10 Schistocytes Not Reportable 10/20/16 06:10 Malaria parasites Not Reportable 10/20/16 06:10 [place] Bodies Not Reportable 10/20/16 06:10 Hem Pathologist Commnt No 10/20/16 06:10 D-Dimer 1813.13 ng/mlDDU (0-234) H 10/17/16 17:51 POC ABG pH 7.381 (7.35-7.45) 10/20/16 04:30 POC ABG pCO2 24.5 (35-45) L 10/20/16 04:30 POC ABG pO2 89 (80-105) 10/20/16 04:30 POC ABG HCO3 14.5 10/20/16 04:30 POC ABG Total CO2 15 10/20/16 04:30 POC ABG O2 Sat 97 10/20/16 04:30 POC ABG Base Excess -11 10/20/16 04:30 FiO2 50 % 10/20/16 04:30 Sodium 152 mmol/L (137-145) H 10/20/16 06:10 Potassium 3.2 mmol/L (3.6-5.0) L 10/20/16 06:10 Chloride 119.1 mmol/L (98-107) H 10/20/16 06:10 Carbon Dioxide 17 mmol/L (22-30) L 10/20/16 06:10 Anion Gap 19 mmol/L 10/20/16 06:10 BUN 39 mg/dL (9-20) H 10/20/16 06:10 Creatinine 1.4 mg/dL (0.8-1.5) 10/20/16 06:10 Estimated GFR 51 ml/min 10/20/16 06:10 BUN/Creatinine Ratio 27.85 % 10/20/16 06:10 Glucose 107 mg/dL (75-100) H 10/20/16 06:10 POC Glucose 120 (70-105) H 10/20/16 11:43 Lactic Acid 1.60 mmol/L (0.7-2.0) 10/17/16 17:04 Calcium 6.8 mg/dL (8.4-10.2) L 10/20/16 06:10 Phosphorus 2.70 mg/dL (2.5-4.5) 10/18/16 14:57 Magnesium 2.10 mg/dL (1.7-2.3) 10/18/16 14:57 Total Bilirubin 1.10 mg/dL (0.1-1.2) 10/17/16 15:20 AST 120 units/L (5-40) H 10/17/16 15:20 ALT 54 units/L (7-56) 10/17/16 15:20 Alkaline Phosphatase 62 units/L (35-129) 10/17/16 15:20 Total Protein 6.3 g/dL (6.3-8.2) 10/17/16 15:20 Albumin 2.3 g/dL (3.9-5) L 10/17/16 15:20 Albumin/Globulin Ratio 0.6 % 10/17/16 15:20 TSH 0.052 mlU/mL (0.270-4.200) L 10/17/16 15:20 Free T4 0.68 ng/dL (0.76-1.46) L 10/18/16 14:57 Urine Color Yellow (Yellow) 10/17/16 17:34 Urine Turbidity Slightly-cloudy (Clear) 10/17/16 17:34 Urine pH 5.0 (5.0-7.0) 10/17/16 17:34 Ur Specific Check 1.012 (1.003-1.030) 10/17/16 17:34 Urine Protein 30 mg/dl mg/dL (Negative) 10/17/16 17:34 Urine Glucose (UA) Neg mg/dL (Negative) 10/17/16 17:34 Urine Ketones Neg mg/dL (Negative) 10/17/16 17:34 Urine Blood Lg (Negative) 10/17/16 17:34 Urine Nitrite Neg (Negative) 10/17/16 17:34 Urine Bilirubin Neg (Negative) 10/17/16 17:34 Urine Urobilinogen < 2.0 mg/dL (<2.0) 10/17/16 17:34 Ur Leukocyte Esterase Tr (Negative) 10/17/16 17:34 Urine WBC (Auto) 7.0 /HPF (0.0-6.0) H 10/17/16 17:34 Urine RBC (Auto) 5.0 /HPF (0.0-6.0) 10/17/16 17:34 U Epithel Cells (Auto) 1.0 /HPF (0-13.0) 10/17/16 17:34 Hyaline Casts 1 /LPF 10/17/16 17:34 Granular Casts 7 /LPF 10/17/16 17:34 Urine Mucus Few /HPF 10/17/16 17:34 Salicylates < 0.3 mg/dL (2.8-20.0) L 10/17/16 15:20 Urine Opiates Screen Presumptive negative 10/17/16 17:34 Urine Methadone Screen Presumptive negative 10/17/16 17:34 Acetaminophen < 15.0 ug/mL (10.0-30.0) 10/17/16 15:20 Ur Barbiturates Screen Presumptive negative 10/17/16 17:34 Ur Phencyclidine Scrn Presumptive negative 10/17/16 17:34 Ur Amphetamines Screen Presumptive negative 10/17/16 17:34 U Benzodiazepines Scrn Presumptive negative 10/17/16 17:34 Urine Cocaine Screen Presumptive negative 10/17/16 17:34 U Marijuana (THC) Screen Presumptive positive 10/17/16 17:34 Drugs of Abuse Note Disclamer 10/17/16 17:34 Plasma/Serum Alcohol < 0.01 gm% (0-0.07) 10/17/16 15:20
[2016-10-20] MEDS ORDERED: POTASSIUM CHLORIDE FEEDTUBE ONE (13:32)
--- NOTE | 2016-10-20 14:01 | Consultation ---
History of Present Illness - Reason for Consult Consult date: 10/20/16 ms - History of Present Illness patient seen and no basic change doubt that MS is at center of issue of lethargy and resp. compromise will continue to follow Past History Past Medical History: arthritis, GERD, hypertension, other (MS) Past Surgical History: No surgical history, Other (UTO) Social history: , other (lives with roommate). denies: smoking, alcohol abuse, prescription drug abuse Family history: hypertension Medications and Allergies Allergies Allergy/AdvReac Type Severity Reaction Status Date / Time codeine AdvReac Hives Verified 04/30/14 13:32 Home Medications Medication Instructions Recorded Confirmed Last Taken Type Nitroglycerin [Nitrostat] 0.4 mg SL PRN PRN 04/30/14 04/30/14 Unknown History Active Meds: Active Medications Lipase/Protease/Amylase (Pancreaze Dr 10,500 Unit) 1 each FEEDTUBE PRN PRN PRN Reason: For Clogged Feeding Tube Enoxaparin Sodium (Lovenox) 40 mg SUB-Q QDAY@1000 KAYLEE Last Admin: 10/20/16 09:23 Dose: 40 mg Famotidine (Pepcid) 20 mg IV DAILY KAYLEE Last Admin: 10/20/16 09:23 Dose: 20 mg Hydrophilic Ointment (Vaseline Lip Therapy) 1 applic TP Q2HR PRN PRN Reason: Dry Lips Fentanyl Citrate (Fentanyl Drip Premix) 2,000 mcg in 100 mls @ 3.969 mls/hr IV TITR KAYLEE; 1 MCG/KG/HR PRN Reason: Protocol Last Titration: 10/20/16 12:13 Dose: 2 mcg/kg/hr, 7.938 mls/hr Midazolam HCl 100 mg/ Sodium (Chloride) 100 mls @ 2 mls/hr IV TITR KAYLEE; 2 MG/HR PRN Reason: Protocol Norepinephrine (Levophed Drip 4 Mg/Ns 250 Ml) 4 mg in 250 mls @ 7.5 mls/hr IV TITR KAYLEE; 2 MCG/MIN PRN Reason: Protocol Last Titration: 10/20/16 11:31 Dose: 2 mcg/min, 7.5 mls/hr Sodium Chloride (Nacl 0.9% 500 Ml) 500 mls @ 20 mls/hr IV DIRECT KAYLEE Last Admin: 10/19/16 12:46 Dose: 20 mls/hr Lorazepam (Ativan) 1 mg IV Q4H PRN PRN Reason: Agitation Last Admin: 10/19/16 14:34 Dose: 1 mg Multi-Ingred Cream/Lotion/Oil/Oint (Artificial Tears Ophth Oint) 1 applic OU Q4HR PRN PRN Reason: Dry Eye(s) Simple Syrup (Simple Syrup) 15 ml FEEDTUBE PRN PRN PRN Reason: Hypoglycemia Simple Syrup (Simple Syrup) 30 ml FEEDTUBE PRN PRN PRN Reason: Hypoglycemia Sodium Bicarbonate (Sodium Bicarbonate) 325 mg FEEDTUBE PRN PRN PRN Reason: For Clogged Feeding Tube Exam - Constitutional Vitals: Temp Pulse Resp BP Pulse Ox 97.5 F L 81 16 104/59 75 L 10/20/16 12:00 10/20/16 13:30 10/20/16 13:30 10/20/16 13:30 10/20/16 13:30 Results - Labs CBC & Chem 7: 10/20/16 06:10 10/20/16 06:10 Labs: Abnormal lab results 10/19/16 10/20/16 10/20/16 Range/Units 23:47 04:30 05:20 WBC (4.5-11.0) K/mm3 RDW (13.2-15.2) % Seg Neuts % (Manual) (40.0-70.0) % Lymphocytes % (Manual) (13.4-35.0) % Seg Neutrophils # Man (1.8-7.7) K/mm3 Lymphocytes # (Manual) (1.2-5.4) K/mm3 POC ABG pCO2 24.5 L (35-45) Sodium (137-145) mmol/L Potassium (3.6-5.0) mmol/L Chloride (98-107) mmol/L Carbon Dioxide (22-30) mmol/L BUN (9-20) mg/dL Glucose (75-100) mg/dL POC Glucose 122 H 112 H (70-105) Calcium (8.4-10.2) mg/dL 10/20/16 10/20/16 10/20/16 Range/Units 06:10 06:10 11:43 WBC 11.4 H (4.5-11.0) K/mm3 RDW 16.5 H (13.2-15.2) % Seg Neuts % (Manual) 92.0 H (40.0-70.0) % Lymphocytes % (Manual) 4.0 L (13.4-35.0) % Seg Neutrophils # Man 10.5 H (1.8-7.7) K/mm3 Lymphocytes # (Manual) 0.5 L (1.2-5.4) K/mm3 POC ABG pCO2 (35-45) Sodium 152 H (137-145) mmol/L Potassium 3.2 L (3.6-5.0) mmol/L Chloride 119.1 H (98-107) mmol/L Carbon Dioxide 17 L (22-30) mmol/L BUN 39 H (9-20) mg/dL Glucose 107 H (75-100) mg/dL POC Glucose 120 H (70-105) Calcium 6.8 L (8.4-10.2) mg/dL
--- NOTE | 2016-10-20 15:00 | XRay Report ---
FINAL REPORT PROCEDURE: XR CHEST 1V AP TECHNIQUE: Chest radiograph anteroposterior view. CPT 15426 HISTORY: change in status, intubated COMPARISON: No prior studies are available for comparison. FINDINGS: Endotracheal tube has its tip 5.3 cm above the beena. Nasogastric tube passes into the stomach. PICC line terminates the region of the mid SVC. Patient is rotated to the left. Opacity in the left lower lung may be atelectasis or pneumonia. Left hemidiaphragm is indistinct. Follow-up x-rays are recommended. Heart is normal in size. No pneumothorax is seen. IMPRESSION: Patient is rotated to the left which may account for the indistinct appearance of the left hemidiaphragm. Atelectasis or pneumonia at the left lung base may be present. Followup x-ray with improved positioning may be useful.
[2016-10-21 05:38] LABS: ISTAT Base Excess -9; ISTAT HCO3 16.6; ISTAT PCO2 30.7 (35-45); ISTAT PH 7.342 (7.35-7.45); ISTAT PO2 149 (80-105); ISTAT SO2 99; ISTAT TCO2 18
[2016-10-21 06:58] LABS: Basophils % (Auto) 0.2 % (0.0-1.8); Eosinophils % (Auto) 0.1 % (0.0-4.3); Hematocrit 40.8 % (35.5-45.6); Hemoglobin 13.7 gm/dl (11.8-15.2); Mean Corpuscular HGB Conc 34 % (32-34); Mean Corpuscular Hemoglobin 31 pg (28-32); Mean Corpuscular Volume 93 fl (84-94); Platelet Count 187 K/mm3 (140-440); Red Blood Count 4.39 M/mm3 (3.65-5.03); Red Cell Distribution Width 16.6 % (13.2-15.2); White Blood Count 8.4 K/mm3 (4.5-11.0)
[2016-10-21 07:07] LABS: BUN/Creatinine Ratio 31.66; Blood Urea Nitrogen 38 mg/dL (9-20); Calcium 7.5 mg/dL (8.4-10.2); Carbon Dioxide 17 mmol/L (22-30); Glucose 93 mg/dL (75-100)
[2016-10-21 07:08] LABS: Anion Gap 20 mmol/L; Chloride 117.2 mmol/L (98-107); Potassium 3.8 mmol/L (3.6-5.0); Sodium 150 mmol/L (137-145)
[2016-10-21] MEDS: LEVOPHED DRIP 4 MG/NS 250 ML 4 MG/250 ML BAG IV SCH (08:18)
--- NOTE | 2016-10-21 08:35 | Progress Note ---
Assessment and Plan Assessment and plan: Acute hypoxic respiratory failure. He is intubated on ventilator. pulmonology following. Shock. Hypovolemic. He is still on Levophed infusion, iv fluids acute metabolic encephalopathy. He is sedated , on ventilator. Neurology following Multiple sclerosis. Hypokalemia,resolved. Hhypernatremia. Continue free water. DVT prophylaxis with Lovenox History Interval history: Patient still intubated,sedated Hospitalist Physical - Physical exam Narrative exam: Gen appearance :Not in acute distress, intubated, sedated, on ventilator HEENT: Normocephalic, atraumatic Neck: no JVD Lungs: Clear to auscultation bilaterally, no crackles, or wheezes. Heart: S1 and S2 regular, no murmurs, no gallops, rub Abdomen : Soft, non-tender, non-distended, normal bowel sounds Extremities :No edema, no clubbing or cyanosis Neuro: Sedated. - Constitutional Vitals: Temp Pulse Resp BP Pulse Ox 99.2 F 75 16 86/62 99 10/21/16 03:53 10/21/16 07:27 10/21/16 07:00 10/21/16 07:27 10/21/16 07:27 General appearance: Present: severe distress Results - Labs CBC & Chem 7: 10/21/16 05:00 10/21/16 05:00 Labs: Laboratory Last Values WBC 8.4 K/mm3 (4.5-11.0) 10/21/16 05:00 RBC 4.39 M/mm3 (3.65-5.03) 10/21/16 05:00 Hgb 13.7 gm/dl (11.8-15.2) 10/21/16 05:00 Hct 40.8 % (35.5-45.6) 10/21/16 05:00 MCV 93 fl (84-94) 10/21/16 05:00 MCH 31 pg (28-32) 10/21/16 05:00 MCHC 34 % (32-34) 10/21/16 05:00 RDW 16.6 % (13.2-15.2) H 10/21/16 05:00 Plt Count 187 K/mm3 (140-440) 10/21/16 05:00 Lymph % (Auto) 13.2 % (13.4-35.0) L 10/21/16 05:00 [place] % (Auto) 6.1 % (0.0-7.3) 10/21/16 05:00 Eos % (Auto) 0.1 % (0.0-4.3) 10/21/16 05:00 Baso % (Auto) 0.2 % (0.0-1.8) 10/21/16 05:00 Lymph # 1.1 K/mm3 (1.2-5.4) L 10/21/16 05:00 [place] # 0.5 K/mm3 (0.0-0.8) 10/21/16 05:00 Eos # 0.0 K/mm3 (0.0-0.4) 10/21/16 05:00 Baso # 0.0 K/mm3 (0.0-0.1) 10/21/16 05:00 Add Manual Diff Complete 10/20/16 06:10 Total Counted 100 10/20/16 06:10 Seg Neutrophils % 80.4 % (40.0-70.0) H 10/21/16 05:00 Seg Neuts % (Manual) 92.0 % (40.0-70.0) H 10/20/16 06:10 Band Neutrophils % 0 % 10/20/16 06:10 Lymphocytes % (Manual) 4.0 % (13.4-35.0) L 10/20/16 06:10 Reactive Lymphs % (Man) 0 % 10/20/16 06:10 Monocytes % (Manual) 4.0 % (0.0-7.3) 10/20/16 06:10 Eosinophils % (Manual) 0 % (0.0-4.3) 10/20/16 06:10 Basophils % (Manual) 0 % (0.0-1.8) 10/20/16 06:10 Metamyelocytes % 0 % 10/20/16 06:10 Myelocytes % 0 % 10/20/16 06:10 Promyelocytes % 0 % 10/20/16 06:10 Blast Cells % 0 % 10/20/16 06:10 Nucleated RBC % Not Reportable 10/20/16 06:10 Seg Neutrophils # 6.7 K/mm3 (1.8-7.7) 10/21/16 05:00 Seg Neutrophils # Man 10.5 K/mm3 (1.8-7.7) H 10/20/16 06:10 Band Neutrophils # 0.0 K/mm3 10/20/16 06:10 Lymphocytes # (Manual) 0.5 K/mm3 (1.2-5.4) L 10/20/16 06:10 Abs React Lymphs (Man) 0.0 K/mm3 10/20/16 06:10 Monocytes # (Manual) 0.5 K/mm3 (0.0-0.8) 10/20/16 06:10 Eosinophils # (Manual) 0.0 K/mm3 (0.0-0.4) 10/20/16 06:10 Basophils # (Manual) 0.0 K/mm3 (0.0-0.1) 10/20/16 06:10 Metamyelocytes # 0.0 K/mm3 10/20/16 06:10 Myelocytes # 0.0 K/mm3 10/20/16 06:10 Promyelocytes # 0.0 K/mm3 10/20/16 06:10 Blast Cells # 0.0 K/mm3 10/20/16 06:10 WBC Morphology Not Reportable 10/20/16 06:10 Hypersegmented Neuts Not Reportable 10/20/16 06:10 Hyposegmented Neuts Not Reportable 10/20/16 06:10 Hypogranular Neuts Not Reportable 10/20/16 06:10 Smudge Cells Not Reportable 10/20/16 06:10 Toxic Granulation Not Reportable 10/20/16 06:10 Toxic Vacuolation Not Reportable 10/20/16 06:10 Dohle Bodies Not Reportable 10/20/16 06:10 Pelger-[place]uet Anomaly Not Reportable 10/20/16 06:10 Farshad Rods Not Reportable 10/20/16 06:10 Platelet Estimate Consistent w auto 10/20/16 06:10 Clumped Platelets Not Reportable 10/20/16 06:10 Plt Clumps, EDTA Not Reportable 10/20/16 06:10 Large Platelets Not Reportable 10/20/16 06:10 Giant Platelets Not Reportable 10/20/16 06:10 Platelet Satelliting Not Reportable 10/20/16 06:10 Plt Morphology Comment Not Reportable 10/20/16 06:10 RBC Morphology Normal 10/20/16 06:10 Dimorphic RBCs Not Reportable 10/20/16 06:10 Polychromasia Not Reportable 10/20/16 06:10 Hypochromasia Not Reportable 10/20/16 06:10 Poikilocytosis Not Reportable 10/20/16 06:10 Anisocytosis Not Reportable 10/20/16 06:10 Microcytosis Not Reportable 10/20/16 06:10 Macrocytosis Not Reportable 10/20/16 06:10 Spherocytes Not Reportable 10/20/16 06:10 Pappenheimer Bodies Not Reportable 10/20/16 06:10 Sickle Cells Not Reportable 10/20/16 06:10 Target Cells Not Reportable 10/20/16 06:10 Tear Drop Cells Not Reportable 10/20/16 06:10 Ovalocytes Not Reportable 10/20/16 06:10 Helmet Cells Not Reportable 10/20/16 06:10 [place] Bodies Not Reportable 10/20/16 06:10 [place] Rings Not Reportable 10/20/16 06:10 [place] Cells Not Reportable 10/20/16 06:10 Bite Cells Not Reportable 10/20/16 06:10 Crenated Cell Not Reportable 10/20/16 06:10 Elliptocytes Not Reportable 10/20/16 06:10 Acanthocytes (Spur) Not Reportable 10/20/16 06:10 Rouleaux Not Reportable 10/20/16 06:10 Hemoglobin C Crystals Not Reportable 10/20/16 06:10 Schistocytes Not Reportable 10/20/16 06:10 Malaria parasites Not Reportable 10/20/16 06:10 [place] Bodies Not Reportable 10/20/16 06:10 Hem Pathologist Commnt No 10/20/16 06:10 D-Dimer 1813.13 ng/mlDDU (0-234) H 10/17/16 17:51 POC ABG pH 7.342 (7.35-7.45) L 10/21/16 05:30 POC ABG pCO2 30.7 (35-45) L 10/21/16 05:30 POC ABG pO2 149 (80-105) H 10/21/16 05:30 POC ABG HCO3 16.6 10/21/16 05:30 POC ABG Total CO2 18 10/21/16 05:30 POC ABG O2 Sat 99 10/21/16 05:30 POC ABG Base Excess -9 10/21/16 05:30 FiO2 80 % 10/21/16 05:30 Sodium 150 mmol/L (137-145) H 10/21/16 05:00 Potassium 3.8 mmol/L (3.6-5.0) 10/21/16 05:00 Chloride 117.2 mmol/L (98-107) H 10/21/16 05:00 Carbon Dioxide 17 mmol/L (22-30) L 10/21/16 05:00 Anion Gap 20 mmol/L 10/21/16 05:00 BUN 38 mg/dL (9-20) H 10/21/16 05:00 Creatinine 1.2 mg/dL (0.8-1.5) 10/21/16 05:00 Estimated GFR > 60 ml/min 10/21/16 05:00 BUN/Creatinine Ratio 31.66 % 10/21/16 05:00 Glucose 93 mg/dL (75-100) 10/21/16 05:00 POC Glucose 89 (70-105) 10/21/16 05:26 Lactic Acid 1.60 mmol/L (0.7-2.0) 10/17/16 17:04 Calcium 7.5 mg/dL (8.4-10.2) L 10/21/16 05:00 Phosphorus 2.70 mg/dL (2.5-4.5) 10/18/16 14:57 Magnesium 2.10 mg/dL (1.7-2.3) 10/18/16 14:57 Total Bilirubin 1.10 mg/dL (0.1-1.2) 10/17/16 15:20 AST 120 units/L (5-40) H 10/17/16 15:20 ALT 54 units/L (7-56) 10/17/16 15:20 Alkaline Phosphatase 62 units/L (35-129) 10/17/16 15:20 Total Protein 6.3 g/dL (6.3-8.2) 10/17/16 15:20 Albumin 2.3 g/dL (3.9-5) L 10/17/16 15:20 Albumin/Globulin Ratio 0.6 % 10/17/16 15:20 TSH 0.132 mlU/mL (0.270-4.200) L 10/20/16 14:56 Free T4 0.75 ng/dL (0.76-1.46) L 10/20/16 14:56 Urine Color Yellow (Yellow) 10/17/16 17:34 Urine Turbidity Slightly-cloudy (Clear) 10/17/16 17:34 Urine pH 5.0 (5.0-7.0) 10/17/16 17:34 Ur Specific [place] 1.012 (1.003-1.030) 10/17/16 17:34 Urine Protein 30 mg/dl mg/dL (Negative) 10/17/16 17:34 Urine Glucose (UA) Neg mg/dL (Negative) 10/17/16 17:34 Urine Ketones Neg mg/dL (Negative) 10/17/16 17:34 Urine Blood Lg (Negative) 10/17/16 17:34 Urine Nitrite Neg (Negative) 10/17/16 17:34 Urine Bilirubin Neg (Negative) 10/17/16 17:34 Urine Urobilinogen < 2.0 mg/dL (<2.0) 10/17/16 17:34 Ur Leukocyte Esterase Tr (Negative) 10/17/16 17:34 Urine WBC (Auto) 7.0 /HPF (0.0-6.0) H 10/17/16 17:34 Urine RBC (Auto) 5.0 /HPF (0.0-6.0) 10/17/16 17:34 U Epithel Cells (Auto) 1.0 /HPF (0-13.0) 10/17/16 17:34 Hyaline Casts 1 /LPF 10/17/16 17:34 Granular Casts 7 /LPF 10/17/16 17:34 Urine Mucus Few /HPF 10/17/16 17:34 Salicylates < 0.3 mg/dL (2.8-20.0) L 10/17/16 15:20 Urine Opiates Screen Presumptive negative 10/17/16 17:34 Urine Methadone Screen Presumptive negative 10/17/16 17:34 Acetaminophen < 15.0 ug/mL (10.0-30.0) 10/17/16 15:20 Ur Barbiturates Screen Presumptive negative 10/17/16 17:34 Ur Phencyclidine Scrn Presumptive negative 10/17/16 17:34 Ur Amphetamines Screen Presumptive negative 10/17/16 17:34 U Benzodiazepines Scrn Presumptive negative 10/17/16 17:34 Urine Cocaine Screen Presumptive negative 10/17/16 17:34 U Marijuana (THC) Screen Presumptive positive 10/17/16 17:34 Drugs of Abuse Note Disclamer 10/17/16 17:34 Plasma/Serum Alcohol < 0.01 gm% (0-0.07) 10/17/16 15:20
--- NOTE | 2016-10-21 09:15 | XRay Report ---
AP CHEST :10/21/16 02:15 CLINICAL: Intubated.Follow up respiratory failure. COMPARISON:The previous day. FINDINGS: Tubes are satisfactory and unchanged. The left PICC line tip is in the distal SVC and unchanged. Continued mild opacification of the left lung base with silhouetting of the left heart border. The lungs are otherwise clear. Normal heart and pulmonary vessels. No pneumothorax. IMPRESSION: Left lower lobe atelectasis and no significant change.
[2016-10-21] MEDS: LOVENOX SUB-Q SCH (09:48)
[2016-10-21] MEDS: PEPCID IV SCH (09:48)
--- NOTE | 2016-10-21 13:49 | Progress Note ---
Assessment and Plan 65 y/o male with acute respiratory failure, thought secondary to MS flare vs aspiration and shock, hypovolemic vs sepsis and acute renal failure 1. Respiratory- Patient intubated secondary to altered mental status. Was also hypoxic. CXR showed and continues to shows some bibasilar infiltrates, more so on the left and this has been unchanged. Most likely atelectasis. Unsure of the exact cause of respiratory failure but given prolonged state mentally, will likely need trach peg. Has no family. CM aware and working to help find family. If not present will likely need ethics consult. 2. Cardiovascular-patient has been hypotensive since admission. Most likely hypovolemic, proven by low CVP. He has responded to fluid boluses but Na has increase secondary to insensible losses. Will give addition bolus today. Increase Free water to help with Na and wean Pressors for MAPS greater than 60 3. Renal- Acute renal failure on admission, likely from hypovolemia, pre renal azotemia. BUN and Cr both improving. 4. Endocrine- Patient with low levels of TSH and Free T4, repeated to make sure and they are consistent. Unsure of what is causing both to be low. may need CT of head vs MRI. would benefit from endocrine consult but I do not believe it is available at this hospital. 5. Add PRN ativan for sedation, will attempt to wean of Fent. patient is very restless of sedation per nursing. 6. Increase Free water to 200q4 7. Overall prognosis is guarded. CCT 31 minutes. Subjective Date of service: 10/21/16 Interval history: Desats yesterday to the high 70's low 80's. CXR was unchanged. had to increase FiO2 and PEEP. This am sats better. Down to 35%, peep still at 14. Patient remains on Fent and Levophed at 3. CVP was 3 this am. No change in CXR per report but I am unable to see images through [employer]. No family/ friends at bedside. Objective Vital Signs - 12hr 10/21/16 10/21/16 10/21/16 02:00 02:30 03:00 Temperature Pulse Rate 73 79 73 Pulse Rate [ From Monitor] Pulse Rate [ Left Dorsalis Pedis] Pulse Rate [ Left Radial] Pulse Rate [ Right Dorsalis Pedis] Pulse Rate [ Right Radial] Respiratory 16 16 16 Rate Blood Pressure 106/61 100/60 94/61 O2 Sat by Pulse 99 97 96 Oximetry 10/21/16 10/21/16 10/21/16 03:21 03:30 03:53 Temperature 99.2 F Pulse Rate 74 Pulse Rate [ 76 From Monitor] Pulse Rate [ 76 Left Dorsalis Pedis] Pulse Rate [ 76 Left Radial] Pulse Rate [ 76 Right Dorsalis Pedis] Pulse Rate [ 76 Right Radial] Respiratory 18 16 Rate Blood Pressure 96/62 O2 Sat by Pulse 98 Oximetry 10/21/16 10/21/16 10/21/16 04:00 04:30 05:00 Temperature Pulse Rate 75 86 75 Pulse Rate [ From Monitor] Pulse Rate [ Left Dorsalis Pedis] Pulse Rate [ Left Radial] Pulse Rate [ Right Dorsalis Pedis] Pulse Rate [ Right Radial] Respiratory 16 13 15 Rate Blood Pressure 97/62 111/73 106/68 O2 Sat by Pulse 96 100 100 Oximetry 10/21/16 10/21/16 10/21/16 05:20 05:30 06:00 Temperature Pulse Rate 75 73 74 Pulse Rate [ From Monitor] Pulse Rate [ Left Dorsalis Pedis] Pulse Rate [ Left Radial] Pulse Rate [ Right Dorsalis Pedis] Pulse Rate [ Right Radial] Respiratory 16 16 Rate Blood Pressure 104/64 92/56 88/56 O2 Sat by Pulse 100 97 97 Oximetry 10/21/16 10/21/16 10/21/16 06:30 07:00 07:27 Temperature Pulse Rate 74 76 75 Pulse Rate [ From Monitor] Pulse Rate [ Left Dorsalis Pedis] Pulse Rate [ Left Radial] Pulse Rate [ Right Dorsalis Pedis] Pulse Rate [ Right Radial] Respiratory 16 16 Rate Blood Pressure 91/58 91/62 86/62 O2 Sat by Pulse 97 98 99 Oximetry 10/21/16 10/21/16 10/21/16 07:30 08:00 11:44 Temperature 97.7 F Pulse Rate 72 74 85 Pulse Rate [ From Monitor] Pulse Rate [ Left Dorsalis Pedis] Pulse Rate [ Left Radial] Pulse Rate [ Right Dorsalis Pedis] Pulse Rate [ Right Radial] Respiratory 16 16 Rate Blood Pressure 93/60 87/62 79/57 O2 Sat by Pulse 98 99 98 Oximetry 10/21/16 12:00 Temperature 97.5 F L Pulse Rate Pulse Rate [ From Monitor] Pulse Rate [ Left Dorsalis Pedis] Pulse Rate [ Left Radial] Pulse Rate [ Right Dorsalis Pedis] Pulse Rate [ Right Radial] Respiratory Rate Blood Pressure O2 Sat by Pulse Oximetry Constitutional: lethargic (continues to sluggishly open eyes), other (dishelved) Eyes: non-icteric ENT: other (orally intubated) Neck: supple Effort: mildly labored Ascultation: Bilateral: diminished breath sounds Percussion: Bilateral: not dull Cardiovascular: regular rate and rhythm Gastrointestinal: normoactive bowel sounds, soft, non-tender Extremities: other (damaged right great toe, wrapped currently) Neurologic: unable to assess CBC and BMP: 10/21/16 05:00 10/21/16 05:00 ABG, PT/INR, D-dimer: ABG POC ABG pH 7.342 (7.35-7.45) L 10/21/16 05:30 POC ABG pCO2 30.7 (35-45) L 10/21/16 05:30 POC ABG pO2 149 (80-105) H 10/21/16 05:30 POC ABG HCO3 16.6 10/21/16 05:30 POC ABG Total CO2 18 10/21/16 05:30 POC ABG O2 Sat 99 10/21/16 05:30 PT/INR, D-dimer D-Dimer 1813.13 ng/mlDDU (0-234) H 10/17/16 17:51 Abnormal lab findings: Abnormal Labs 10/17/16 10/18/16 10/18/16 19:34 03:29 05:36 WBC MCV RDW Lymph % (Auto) Lymph # Seg Neutrophils % Seg Neuts % (Manual) Lymphocytes % (Manual) Seg Neutrophils # Man Lymphocytes # (Manual) POC ABG pH 7.333 L 7.272 L POC ABG pCO2 31.5 L 28.6 L POC ABG pO2 180 H Sodium Potassium Chloride Carbon Dioxide BUN Creatinine Glucose POC Glucose Calcium TSH Free T4 10/18/16 10/18/16 10/18/16 08:13 09:40 12:04 WBC MCV RDW Lymph % (Auto) Lymph # Seg Neutrophils % Seg Neuts % (Manual) Lymphocytes % (Manual) Seg Neutrophils # Man Lymphocytes # (Manual) POC ABG pH 7.231 L 7.298 L POC ABG pCO2 30.8 L POC ABG pO2 74 L Sodium Potassium Chloride Carbon Dioxide BUN Creatinine Glucose POC Glucose 151 H Calcium TSH Free T4 10/18/16 10/18/16 10/18/16 14:57 14:57 14:57 WBC 13.3 H MCV 96 H RDW 16.9 H Lymph % (Auto) Lymph # Seg Neutrophils % Seg Neuts % (Manual) Lymphocytes % (Manual) Seg Neutrophils # Man Lymphocytes # (Manual) POC ABG pH POC ABG pCO2 POC ABG pO2 Sodium Potassium Chloride Carbon Dioxide 13 L D BUN 57 H Creatinine 2.1 H Glucose 169 H POC Glucose Calcium 7.7 L TSH Free T4 0.68 L 10/18/16 10/19/16 10/19/16 17:31 05:10 05:10 WBC 12.5 H MCV 95 H RDW 16.7 H Lymph % (Auto) Lymph # Seg Neutrophils % Seg Neuts % (Manual) 94.0 H Lymphocytes % (Manual) 2.0 L Seg Neutrophils # Man 11.8 H Lymphocytes # (Manual) 0.3 L POC ABG pH POC ABG pCO2 POC ABG pO2 Sodium 149 H Potassium Chloride 114.1 H Carbon Dioxide 16 L BUN 49 H Creatinine 1.9 H Glucose 137 H POC Glucose 163 H Calcium 7.0 L TSH Free T4 10/19/16 10/19/16 10/19/16 06:04 11:39 23:47 WBC MCV RDW Lymph % (Auto) Lymph # Seg Neutrophils % Seg Neuts % (Manual) Lymphocytes % (Manual) Seg Neutrophils # Man Lymphocytes # (Manual) POC ABG pH POC ABG pCO2 28.1 L POC ABG pO2 108 H Sodium Potassium Chloride Carbon Dioxide BUN Creatinine Glucose POC Glucose 134 H 122 H Calcium TSH Free T4 10/20/16 10/20/16 10/20/16 04:30 05:20 06:10 WBC 11.4 H MCV RDW 16.5 H Lymph % (Auto) Lymph # Seg Neutrophils % Seg Neuts % (Manual) 92.0 H Lymphocytes % (Manual) 4.0 L Seg Neutrophils # Man 10.5 H Lymphocytes # (Manual) 0.5 L POC ABG pH POC ABG pCO2 24.5 L POC ABG pO2 Sodium Potassium Chloride Carbon Dioxide BUN Creatinine Glucose POC Glucose 112 H Calcium TSH Free T4 10/20/16 10/20/16 10/20/16 06:10 11:43 14:56 WBC MCV RDW Lymph % (Auto) Lymph # Seg Neutrophils % Seg Neuts % (Manual) Lymphocytes % (Manual) Seg Neutrophils # Man Lymphocytes # (Manual) POC ABG pH POC ABG pCO2 POC ABG pO2 Sodium 152 H Potassium 3.2 L Chloride 119.1 H Carbon Dioxide 17 L BUN 39 H Creatinine Glucose 107 H POC Glucose 120 H Calcium 6.8 L TSH Free T4 0.75 L 10/20/16 10/20/16 10/20/16 14:56 17:22 23:50 WBC MCV RDW Lymph % (Auto) Lymph # Seg Neutrophils % Seg Neuts % (Manual) Lymphocytes % (Manual) Seg Neutrophils # Man Lymphocytes # (Manual) POC ABG pH POC ABG pCO2 POC ABG pO2 Sodium Potassium Chloride Carbon Dioxide BUN Creatinine Glucose POC Glucose 148 H 106 H Calcium TSH 0.132 L Free T4 10/21/16 10/21/16 10/21/16 05:00 05:00 05:30 WBC MCV RDW 16.6 H Lymph % (Auto) 13.2 L Lymph # 1.1 L Seg Neutrophils % 80.4 H Seg Neuts % (Manual) Lymphocytes % (Manual) Seg Neutrophils # Man Lymphocytes # (Manual) POC ABG pH 7.342 L POC ABG pCO2 30.7 L POC ABG pO2 149 H Sodium 150 H Potassium Chloride 117.2 H Carbon Dioxide 17 L BUN 38 H Creatinine Glucose POC Glucose Calcium 7.5 L TSH Free T4
[2016-10-21] MEDS ORDERED: NACL 0.9% 1000 ML 1,000 ML IV ONE (14:40)
[2016-10-21] MEDS: fentaNYL DRIP Premix 2,000 MCG/100 ML BAG IV SCH (16:10)
[2016-10-21] MEDS: NACL 0.9% 500 ML 500 ML IV SCH (19:00)
[2016-10-22] MEDS: LEVOPHED DRIP 4 MG/NS 250 ML 4 MG/250 ML BAG IV SCH ×2 (02:16→15:10)
[2016-10-22] MEDS: fentaNYL DRIP Premix 2,000 MCG/100 ML BAG IV SCH ×2 (02:18→08:25)
[2016-10-22 07:13] LABS: Anion Gap 17 mmol/L; Blood Urea Nitrogen 36 mg/dL (9-20); Calcium 6.8 mg/dL (8.4-10.2); Carbon Dioxide 17 mmol/L (22-30); Chloride 120.5 mmol/L (98-107); Glucose 143 mg/dL (75-100); Potassium 3.8 mmol/L (3.6-5.0); Sodium 151 mmol/L (137-145)
--- NOTE | 2016-10-22 07:23 | XRay Report ---
Single view chest: Compared to 10/21/16. History: Followup of respiratory failure. Findings: Normal cardiomediastinal silhouette. Trachea is midline. Stable support system. Ill-defined opacity left lower lobe probably suggestive of pneumonitis. Impression: Ill-defined large opacity left lower lobe probably suggestive of pneumonitis.
--- NOTE | 2016-10-22 08:23 | Consultation ---
History of Present Illness - Reason for Consult Consult date: 10/22/16 ms - History of Present Illness plan to enter into the State's data bank on medication refills to monitor prior drug use doubt MS is the explanation for altered mental state further w/u is ordered I will follow up on reports Past History Past Medical History: arthritis, GERD, hypertension, other (MS) Past Surgical History: No surgical history, Other (UTO) Social history: , other (lives with roommate). denies: smoking, alcohol abuse, prescription drug abuse Family history: hypertension Medications and Allergies Allergies Allergy/AdvReac Type Severity Reaction Status Date / Time codeine AdvReac Hives Verified 04/30/14 13:32 Home Medications Medication Instructions Recorded Confirmed Last Taken Type Nitroglycerin [Nitrostat] 0.4 mg SL PRN PRN 04/30/14 04/30/14 Unknown History Active Meds: Active Medications Lipase/Protease/Amylase (Pancreaze Dr 10,500 Unit) 1 each FEEDTUBE PRN PRN PRN Reason: For Clogged Feeding Tube Enoxaparin Sodium (Lovenox) 40 mg SUB-Q QDAY@1000 KAYLEE Last Admin: 10/21/16 09:48 Dose: 40 mg Famotidine (Pepcid) 20 mg IV DAILY KAYLEE Last Admin: 10/21/16 09:48 Dose: 20 mg Hydrophilic Ointment (Vaseline Lip Therapy) 1 applic TP Q2HR PRN PRN Reason: Dry Lips Fentanyl Citrate (Fentanyl Drip Premix) 2,000 mcg in 100 mls @ 3.969 mls/hr IV TITR KAYLEE; 1 MCG/KG/HR PRN Reason: Protocol Last Admin: 10/22/16 02:18 Dose: 2 mcg/kg/hr, 7.938 mls/hr Midazolam HCl 100 mg/ Sodium (Chloride) 100 mls @ 2 mls/hr IV TITR KAYLEE; 2 MG/HR PRN Reason: Protocol Norepinephrine (Levophed Drip 4 Mg/Ns 250 Ml) 4 mg in 250 mls @ 7.5 mls/hr IV TITR KAYLEE; 2 MCG/MIN PRN Reason: Protocol Last Admin: 10/22/16 02:16 Dose: 3 mcg/min, 11.25 mls/hr Sodium Chloride (Nacl 0.9% 500 Ml) 500 mls @ 20 mls/hr IV DIRECT KAYLEE Last Admin: 10/21/16 19:00 Dose: 20 mls/hr Lorazepam (Ativan) 1 mg IV Q4H PRN PRN Reason: Agitation Last Admin: 10/19/16 14:34 Dose: 1 mg Multi-Ingred Cream/Lotion/Oil/Oint (Artificial Tears Ophth Oint) 1 applic OU Q4HR PRN PRN Reason: Dry Eye(s) Simple Syrup (Simple Syrup) 15 ml FEEDTUBE PRN PRN PRN Reason: Hypoglycemia Simple Syrup (Simple Syrup) 30 ml FEEDTUBE PRN PRN PRN Reason: Hypoglycemia Sodium Bicarbonate (Sodium Bicarbonate) 325 mg FEEDTUBE PRN PRN PRN Reason: For Clogged Feeding Tube Exam - Constitutional Vitals: Temp Pulse Resp BP Pulse Ox 98.7 F 82 16 100/54 94 10/22/16 08:00 10/22/16 07:42 10/22/16 07:00 10/22/16 07:42 10/22/16 07:42 Results - Labs CBC & Chem 7: 10/21/16 05:00 10/22/16 05:00 Labs: Abnormal lab results 10/22/16 Range/Units 05:00 Sodium 151 H (137-145) mmol/L Chloride 120.5 H (98-107) mmol/L Carbon Dioxide 17 L (22-30) mmol/L BUN 36 H (9-20) mg/dL Glucose 143 H (75-100) mg/dL Calcium 6.8 L (8.4-10.2) mg/dL
[2016-10-22 08:50] LABS: ISTAT Base Excess -8; ISTAT HCO3 18.2; ISTAT PCO2 35.3 (35-45); ISTAT PH 7.319 (7.35-7.45); ISTAT PO2 68 (80-105); ISTAT SO2 92; ISTAT TCO2 19
[2016-10-22] MEDS: LOVENOX SUB-Q SCH (09:06)
[2016-10-22] MEDS: PEPCID IV SCH (09:07)
--- NOTE | 2016-10-22 09:21 | Progress Note ---
Assessment and Plan Assessment and plan: Acute hypoxic respiratory failure. He is still intubated on ventilator. Pulmonology following. May need Trach and PEG Shock. Hypovolemic. He is still on Levophed infusion. Acute metabolic encephalopathy. He is sedated , on ventilator. Neurology following. For CT Head today Multiple sclerosis. Neurology following Hypokalemia,resolved. Hhypernatremia. Sodium 151 today. Continue free water. DVT prophylaxis with Lovenox History Interval history: Patient still intubated,sedated Hospitalist Physical - Physical exam Narrative exam: Gen appearance :Not in acute distress, intubated, sedated, on ventilator HEENT: Normocephalic, atraumatic Neck: no JVD Lungs: Clear to auscultation bilaterally, no crackles, or wheezes. Heart: S1 and S2 regular, no murmurs, no gallops, rub Abdomen : Soft, non-tender, non-distended, normal bowel sounds Extremities :No edema, no clubbing or cyanosis Neuro: Sedated. - Constitutional Vitals: Temp Pulse Resp BP Pulse Ox 98.7 F 82 16 100/54 94 10/22/16 08:00 10/22/16 07:42 10/22/16 07:00 10/22/16 07:42 10/22/16 07:42 General appearance: Present: severe distress Results - Labs CBC & Chem 7: 10/21/16 05:00 10/22/16 05:00 Labs: Laboratory Last Values WBC 8.4 K/mm3 (4.5-11.0) 10/21/16 05:00 RBC 4.39 M/mm3 (3.65-5.03) 10/21/16 05:00 Hgb 13.7 gm/dl (11.8-15.2) 10/21/16 05:00 Hct 40.8 % (35.5-45.6) 10/21/16 05:00 MCV 93 fl (84-94) 10/21/16 05:00 MCH 31 pg (28-32) 10/21/16 05:00 MCHC 34 % (32-34) 10/21/16 05:00 RDW 16.6 % (13.2-15.2) H 10/21/16 05:00 Plt Count 187 K/mm3 (140-440) 10/21/16 05:00 Lymph % (Auto) 13.2 % (13.4-35.0) L 10/21/16 05:00 Gordon % (Auto) 6.1 % (0.0-7.3) 10/21/16 05:00 Eos % (Auto) 0.1 % (0.0-4.3) 10/21/16 05:00 Baso % (Auto) 0.2 % (0.0-1.8) 10/21/16 05:00 Lymph # 1.1 K/mm3 (1.2-5.4) L 10/21/16 05:00 Gordon # 0.5 K/mm3 (0.0-0.8) 10/21/16 05:00 Eos # 0.0 K/mm3 (0.0-0.4) 10/21/16 05:00 Baso # 0.0 K/mm3 (0.0-0.1) 10/21/16 05:00 Add Manual Diff Complete 10/20/16 06:10 Total Counted 100 10/20/16 06:10 Seg Neutrophils % 80.4 % (40.0-70.0) H 10/21/16 05:00 Seg Neuts % (Manual) 92.0 % (40.0-70.0) H 10/20/16 06:10 Band Neutrophils % 0 % 10/20/16 06:10 Lymphocytes % (Manual) 4.0 % (13.4-35.0) L 10/20/16 06:10 Reactive Lymphs % (Man) 0 % 10/20/16 06:10 Monocytes % (Manual) 4.0 % (0.0-7.3) 10/20/16 06:10 Eosinophils % (Manual) 0 % (0.0-4.3) 10/20/16 06:10 Basophils % (Manual) 0 % (0.0-1.8) 10/20/16 06:10 Metamyelocytes % 0 % 10/20/16 06:10 Myelocytes % 0 % 10/20/16 06:10 Promyelocytes % 0 % 10/20/16 06:10 Blast Cells % 0 % 10/20/16 06:10 Nucleated RBC % Not Reportable 10/20/16 06:10 Seg Neutrophils # 6.7 K/mm3 (1.8-7.7) 10/21/16 05:00 Seg Neutrophils # Man 10.5 K/mm3 (1.8-7.7) H 10/20/16 06:10 Band Neutrophils # 0.0 K/mm3 10/20/16 06:10 Lymphocytes # (Manual) 0.5 K/mm3 (1.2-5.4) L 10/20/16 06:10 Abs React Lymphs (Man) 0.0 K/mm3 10/20/16 06:10 Monocytes # (Manual) 0.5 K/mm3 (0.0-0.8) 10/20/16 06:10 Eosinophils # (Manual) 0.0 K/mm3 (0.0-0.4) 10/20/16 06:10 Basophils # (Manual) 0.0 K/mm3 (0.0-0.1) 10/20/16 06:10 Metamyelocytes # 0.0 K/mm3 10/20/16 06:10 Myelocytes # 0.0 K/mm3 10/20/16 06:10 Promyelocytes # 0.0 K/mm3 10/20/16 06:10 Blast Cells # 0.0 K/mm3 10/20/16 06:10 WBC Morphology Not Reportable 10/20/16 06:10 Hypersegmented Neuts Not Reportable 10/20/16 06:10 Hyposegmented Neuts Not Reportable 10/20/16 06:10 Hypogranular Neuts Not Reportable 10/20/16 06:10 Smudge Cells Not Reportable 10/20/16 06:10 Toxic Granulation Not Reportable 10/20/16 06:10 Toxic Vacuolation Not Reportable 10/20/16 06:10 Dohle Bodies Not Reportable 10/20/16 06:10 Pelger-Huet Anomaly Not Reportable 10/20/16 06:10 Farshad Rods Not Reportable 10/20/16 06:10 Platelet Estimate Consistent w auto 10/20/16 06:10 Clumped Platelets Not Reportable 10/20/16 06:10 Plt Clumps, EDTA Not Reportable 10/20/16 06:10 Large Platelets Not Reportable 10/20/16 06:10 Giant Platelets Not Reportable 10/20/16 06:10 Platelet Satelliting Not Reportable 10/20/16 06:10 Plt Morphology Comment Not Reportable 10/20/16 06:10 RBC Morphology Normal 10/20/16 06:10 Dimorphic RBCs Not Reportable 10/20/16 06:10 Polychromasia Not Reportable 10/20/16 06:10 Hypochromasia Not Reportable 10/20/16 06:10 Poikilocytosis Not Reportable 10/20/16 06:10 Anisocytosis Not Reportable 10/20/16 06:10 Microcytosis Not Reportable 10/20/16 06:10 Macrocytosis Not Reportable 10/20/16 06:10 Spherocytes Not Reportable 10/20/16 06:10 Pappenheimer Bodies Not Reportable 10/20/16 06:10 Sickle Cells Not Reportable 10/20/16 06:10 Target Cells Not Reportable 10/20/16 06:10 Tear Drop Cells Not Reportable 10/20/16 06:10 Ovalocytes Not Reportable 10/20/16 06:10 Helmet Cells Not Reportable 10/20/16 06:10 [place] Bodies Not Reportable 10/20/16 06:10 [place] Rings Not Reportable 10/20/16 06:10 Nicolas Cells Not Reportable 10/20/16 06:10 Bite Cells Not Reportable 10/20/16 06:10 Crenated Cell Not Reportable 10/20/16 06:10 Elliptocytes Not Reportable 10/20/16 06:10 Acanthocytes (Spur) Not Reportable 10/20/16 06:10 Rouleaux Not Reportable 10/20/16 06:10 Hemoglobin C Crystals Not Reportable 10/20/16 06:10 Schistocytes Not Reportable 10/20/16 06:10 Malaria parasites Not Reportable 10/20/16 06:10 Hebert Bodies Not Reportable 10/20/16 06:10 Hem Pathologist Commnt No 10/20/16 06:10 D-Dimer 1813.13 ng/mlDDU (0-234) H 10/17/16 17:51 POC ABG pH 7.319 (7.35-7.45) L 10/22/16 05:21 POC ABG pCO2 35.3 (35-45) 10/22/16 05:21 POC ABG pO2 68 (80-105) L 10/22/16 05:21 POC ABG HCO3 18.2 10/22/16 05:21 POC ABG Total CO2 19 10/22/16 05:21 POC ABG O2 Sat 92 10/22/16 05:21 POC ABG Base Excess -8 10/22/16 05:21 FiO2 35 % 10/22/16 05:21 Sodium 151 mmol/L (137-145) H 10/22/16 05:00 Potassium 3.8 mmol/L (3.6-5.0) 10/22/16 05:00 Chloride 120.5 mmol/L (98-107) H 10/22/16 05:00 Carbon Dioxide 17 mmol/L (22-30) L 10/22/16 05:00 Anion Gap 17 mmol/L 10/22/16 05:00 BUN 36 mg/dL (9-20) H 10/22/16 05:00 Creatinine 1.2 mg/dL (0.8-1.5) 10/22/16 05:00 Estimated GFR > 60 ml/min 10/22/16 05:00 BUN/Creatinine Ratio 30.00 % 10/22/16 05:00 Glucose 143 mg/dL (75-100) H 10/22/16 05:00 POC Glucose 89 (70-105) 10/21/16 05:26 Lactic Acid 1.60 mmol/L (0.7-2.0) 10/17/16 17:04 Calcium 6.8 mg/dL (8.4-10.2) L 10/22/16 05:00 Phosphorus 2.70 mg/dL (2.5-4.5) 10/18/16 14:57 Magnesium 2.10 mg/dL (1.7-2.3) 10/18/16 14:57 Total Bilirubin 1.10 mg/dL (0.1-1.2) 10/17/16 15:20 AST 120 units/L (5-40) H 10/17/16 15:20 ALT 54 units/L (7-56) 10/17/16 15:20 Alkaline Phosphatase 62 units/L (35-129) 10/17/16 15:20 Total Protein 6.3 g/dL (6.3-8.2) 10/17/16 15:20 Albumin 2.3 g/dL (3.9-5) L 10/17/16 15:20 Albumin/Globulin Ratio 0.6 % 10/17/16 15:20 TSH 0.132 mlU/mL (0.270-4.200) L 10/20/16 14:56 Free T4 0.75 ng/dL (0.76-1.46) L 10/20/16 14:56 Urine Color Yellow (Yellow) 10/17/16 17:34 Urine Turbidity Slightly-cloudy (Clear) 10/17/16 17:34 Urine pH 5.0 (5.0-7.0) 10/17/16 17:34 Ur Specific [place] 1.012 (1.003-1.030) 10/17/16 17:34 Urine Protein 30 mg/dl mg/dL (Negative) 10/17/16 17:34 Urine Glucose (UA) Neg mg/dL (Negative) 10/17/16 17:34 Urine Ketones Neg mg/dL (Negative) 10/17/16 17:34 Urine Blood Lg (Negative) 10/17/16 17:34 Urine Nitrite Neg (Negative) 10/17/16 17:34 Urine Bilirubin Neg (Negative) 10/17/16 17:34 Urine Urobilinogen < 2.0 mg/dL (<2.0) 10/17/16 17:34 Ur Leukocyte Esterase Tr (Negative) 10/17/16 17:34 Urine WBC (Auto) 7.0 /HPF (0.0-6.0) H 10/17/16 17:34 Urine RBC (Auto) 5.0 /HPF (0.0-6.0) 10/17/16 17:34 U Epithel Cells (Auto) 1.0 /HPF (0-13.0) 10/17/16 17:34 Hyaline Casts 1 /LPF 10/17/16 17:34 Granular Casts 7 /LPF 10/17/16 17:34 Urine Mucus Few /HPF 10/17/16 17:34 Salicylates < 0.3 mg/dL (2.8-20.0) L 10/17/16 15:20 Urine Opiates Screen Presumptive negative 10/17/16 17:34 Urine Methadone Screen Presumptive negative 10/17/16 17:34 Acetaminophen < 15.0 ug/mL (10.0-30.0) 10/17/16 15:20 Ur Barbiturates Screen Presumptive negative 10/17/16 17:34 Ur Phencyclidine Scrn Presumptive negative 10/17/16 17:34 Ur Amphetamines Screen Presumptive negative 10/17/16 17:34 U Benzodiazepines Scrn Presumptive negative 10/17/16 17:34 Urine Cocaine Screen Presumptive negative 10/17/16 17:34 U Marijuana (THC) Screen Presumptive positive 10/17/16 17:34 Drugs of Abuse Note Disclamer 10/17/16 17:34 Plasma/Serum Alcohol < 0.01 gm% (0-0.07) 10/17/16 15:20
--- NOTE | 2016-10-22 10:19 | Cat Scan Report ---
CT scan of head without contrast: History: AMS. Findings: The ventricles are midline in location. Moderate volume loss. No evidence of acute ischemia, hemorrhage or mass. No extra-axial fluid collection. Normal brainstem and cerebellum. Mucosal thickening of the right sphenoid sinus and left ethmoid sinus. Impression: No acute intracranial abnormality. Moderate volume loss. Sinus disease.
--- NOTE | 2016-10-22 13:09 | Progress Note ---
Assessment and Plan Imp: 1. Focal LLL infiltrate, probably aspiration pneumonia 2. MS w/ ? flare 3. Acute respiratory failure, hypoxia 4. Volume depletion/JEANNETTE, better 5. Hypernatremia Rec: 1. Repeat sputum culture; add Levaquin/Clinda; if hypoxia does not improve -> CT chest 2. Increase free water 3. Wean PEEP to keep sat 88% or above; may increase FiO2 up to 50% if need be; once PEEP at 5 and FiO2 at 50% or less will start SBT 4. TFs, DVT and GI PPx 5. Neurology f/u 6. May need trach/PEG but may be too early yet and PEEP too high to allow this; will re-assess daily No family present CCT 31 minutes Subjective Date of service: 10/22/16 Principal diagnosis: Acute respiratory failure Interval history: No events. Sedated. Unable to give history. Off pressors. Still requiring PEEP of 12 and FiO2 of 35%. Active Medications Lipase/Protease/Amylase (Pancreaze Dr 10,500 Unit) 1 each FEEDTUBE PRN PRN PRN Reason: For Clogged Feeding Tube Enoxaparin Sodium (Lovenox) 40 mg SUB-Q QDAY@1000 KAYLEE Last Admin: 10/22/16 09:06 Dose: 40 mg Famotidine (Pepcid) 20 mg IV DAILY [facility] Last Admin: 10/22/16 09:07 Dose: 20 mg Hydrophilic Ointment (Vaseline Lip Therapy) 1 applic TP Q2HR PRN PRN Reason: Dry Lips Fentanyl Citrate (Fentanyl Drip Premix) 2,000 mcg in 100 mls @ 3.969 mls/hr IV TITR KAYLEE; 1 MCG/KG/HR PRN Reason: Protocol Last Titration: 10/22/16 11:05 Dose: 0 mcg/kg/hr, 0 mls/hr Midazolam HCl 100 mg/ Sodium (Chloride) 100 mls @ 2 mls/hr IV TITR KAYLEE; 2 MG/HR PRN Reason: Protocol Norepinephrine (Levophed Drip 4 Mg/Ns 250 Ml) 4 mg in 250 mls @ 7.5 mls/hr IV TITR KALYEE; 2 MCG/MIN PRN Reason: Protocol Last Titration: 10/22/16 07:00 Dose: 5 mcg/min, 18.75 mls/hr Sodium Chloride (Nacl 0.9% 500 Ml) 500 mls @ 20 mls/hr IV DIRECT KAYLEE Last Admin: 10/21/16 19:00 Dose: 20 mls/hr Clindamycin HCl (Cleocin 600 Mg/50 Ml) 600 mg in 50 mls @ 100 mls/hr IV Q8HR KAYLEE PRN Reason: Protocol Levofloxacin/Dextrose (Levaquin 750mg/150ml) 750 mg in 150 mls @ 100 mls/hr IV Q24HR KAYLEE PRN Reason: Protocol Lorazepam (Ativan) 1 mg IV Q4H PRN PRN Reason: Agitation Last Admin: 10/19/16 14:34 Dose: 1 mg Multi-Ingred Cream/Lotion/Oil/Oint (Artificial Tears Ophth Oint) 1 applic OU Q4HR PRN PRN Reason: Dry Eye(s) Simple Syrup (Simple Syrup) 15 ml FEEDTUBE PRN PRN PRN Reason: Hypoglycemia Simple Syrup (Simple Syrup) 30 ml FEEDTUBE PRN PRN PRN Reason: Hypoglycemia Sodium Bicarbonate (Sodium Bicarbonate) 325 mg FEEDTUBE PRN PRN PRN Reason: For Clogged Feeding Tube Objective Vital Signs - 12hr 10/22/16 10/22/16 10/22/16 01:30 02:00 02:30 Temperature Pulse Rate 72 74 73 Pulse Rate [ From Monitor] Respiratory 16 16 16 Rate Respiratory Rate [denies] Blood Pressure 96/58 91/57 96/61 O2 Sat by Pulse 98 98 97 Oximetry 10/22/16 10/22/16 10/22/16 03:00 03:20 03:30 Temperature 99.7 F H Pulse Rate 74 72 Pulse Rate [ From Monitor] Respiratory 16 16 Rate Respiratory Rate [denies] Blood Pressure 93/59 92/60 O2 Sat by Pulse 97 96 Oximetry 10/22/16 10/22/16 10/22/16 04:00 04:30 05:00 Temperature Pulse Rate 70 73 74 Pulse Rate [ From Monitor] Respiratory 16 16 16 Rate Respiratory 14 Rate [denies] Blood Pressure 92/57 92/56 91/55 O2 Sat by Pulse 97 97 94 Oximetry 10/22/16 10/22/16 10/22/16 05:13 05:31 06:00 Temperature Pulse Rate 73 92 H 77 Pulse Rate [ From Monitor] Respiratory 13 16 Rate Respiratory Rate [denies] Blood Pressure 91/55 91/55 123/66 O2 Sat by Pulse 95 94 97 Oximetry 10/22/16 10/22/16 10/22/16 06:30 07:00 07:30 Temperature Pulse Rate 88 104 H 84 Pulse Rate [ From Monitor] Respiratory 16 16 16 Rate Respiratory Rate [denies] Blood Pressure 131/65 126/67 100/54 O2 Sat by Pulse 94 97 83 L Oximetry 10/22/16 10/22/16 10/22/16 07:42 08:00 08:30 Temperature 98.7 F Pulse Rate 82 100 H 92 H Pulse Rate [ 100 H From Monitor] Respiratory 16 16 Rate Respiratory Rate [denies] Blood Pressure 100/54 105/70 95/63 O2 Sat by Pulse 94 95 95 Oximetry 10/22/16 10/22/16 10/22/16 09:00 09:57 10:00 Temperature Pulse Rate 86 114 H 116 H Pulse Rate [ From Monitor] Respiratory 16 19 16 Rate Respiratory Rate [denies] Blood Pressure 92/62 139/79 O2 Sat by Pulse 97 95 93 Oximetry 10/22/16 10/22/16 10/22/16 10:03 10:30 11:00 Temperature Pulse Rate 128 H 116 H 92 H Pulse Rate [ From Monitor] Respiratory 16 14 Rate Respiratory Rate [denies] Blood Pressure 128/74 98/69 O2 Sat by Pulse 94 94 95 Oximetry 10/22/16 10/22/16 12:00 12:24 Temperature 98.7 F Pulse Rate 132 H Pulse Rate [ From Monitor] Respiratory Rate Respiratory Rate [denies] Blood Pressure 134/100 O2 Sat by Pulse 98 Oximetry Constitutional: other (disheveled, critically ill on vent, sedated) Eyes: non-icteric ENT: other (orally intubated) Neck: supple Effort: normal Ascultation: Bilateral: other (coarse BS bilaterally) Cardiovascular: regular rate and rhythm (no mrg) Gastrointestinal: normoactive bowel sounds, soft, non-tender, non-distended Extremities: other (damaged right great toe, wrapped currently; no obvious cellulitis) Neurologic: unable to assess Psychiatric: other (unable to assess) CBC and BMP: 10/21/16 05:00 10/22/16 05:00 ABG, PT/INR, D-dimer: ABG POC ABG pH 7.319 (7.35-7.45) L 10/22/16 05:21 POC ABG pCO2 35.3 (35-45) 10/22/16 05:21 POC ABG pO2 68 (80-105) L 10/22/16 05:21 POC ABG HCO3 18.2 10/22/16 05:21 POC ABG Total CO2 19 10/22/16 05:21 POC ABG O2 Sat 92 10/22/16 05:21 PT/INR, D-dimer D-Dimer 1813.13 ng/mlDDU (0-234) H 10/17/16 17:51 Abnormal lab findings: Abnormal Labs 10/17/16 10/18/16 10/18/16 19:34 03:29 05:36 WBC MCV RDW Lymph % (Auto) Lymph # Seg Neutrophils % Seg Neuts % (Manual) Lymphocytes % (Manual) Seg Neutrophils # Man Lymphocytes # (Manual) POC ABG pH 7.333 L 7.272 L POC ABG pCO2 31.5 L 28.6 L POC ABG pO2 180 H Sodium Potassium Chloride Carbon Dioxide BUN Creatinine Glucose POC Glucose Calcium TSH Free T4 10/18/16 10/18/16 10/18/16 08:13 09:40 12:04 WBC MCV RDW Lymph % (Auto) Lymph # Seg Neutrophils % Seg Neuts % (Manual) Lymphocytes % (Manual) Seg Neutrophils # Man Lymphocytes # (Manual) POC ABG pH 7.231 L 7.298 L POC ABG pCO2 30.8 L POC ABG pO2 74 L Sodium Potassium Chloride Carbon Dioxide BUN Creatinine Glucose POC Glucose 151 H Calcium TSH Free T4 10/18/16 10/18/16 10/18/16 14:57 14:57 14:57 WBC 13.3 H MCV 96 H RDW 16.9 H Lymph % (Auto) Lymph # Seg Neutrophils % Seg Neuts % (Manual) Lymphocytes % (Manual) Seg Neutrophils # Man Lymphocytes # (Manual) POC ABG pH POC ABG pCO2 POC ABG pO2 Sodium Potassium Chloride Carbon Dioxide 13 L D BUN 57 H Creatinine 2.1 H Glucose 169 H POC Glucose Calcium 7.7 L TSH Free T4 0.68 L 10/18/16 10/19/16 10/19/16 17:31 05:10 05:10 WBC 12.5 H MCV 95 H RDW 16.7 H Lymph % (Auto) Lymph # Seg Neutrophils % Seg Neuts % (Manual) 94.0 H Lymphocytes % (Manual) 2.0 L Seg Neutrophils # Man 11.8 H Lymphocytes # (Manual) 0.3 L POC ABG pH POC ABG pCO2 POC ABG pO2 Sodium 149 H Potassium Chloride 114.1 H Carbon Dioxide 16 L BUN 49 H Creatinine 1.9 H Glucose 137 H POC Glucose 163 H Calcium 7.0 L TSH Free T4 10/19/16 10/19/16 10/19/16 06:04 11:39 23:47 WBC MCV RDW Lymph % (Auto) Lymph # Seg Neutrophils % Seg Neuts % (Manual) Lymphocytes % (Manual) Seg Neutrophils # Man Lymphocytes # (Manual) POC ABG pH POC ABG pCO2 28.1 L POC ABG pO2 108 H Sodium Potassium Chloride Carbon Dioxide BUN Creatinine Glucose POC Glucose 134 H 122 H Calcium TSH Free T4 10/20/16 10/20/16 10/20/16 04:30 05:20 06:10 WBC 11.4 H MCV RDW 16.5 H Lymph % (Auto) Lymph # Seg Neutrophils % Seg Neuts % (Manual) 92.0 H Lymphocytes % (Manual) 4.0 L Seg Neutrophils # Man 10.5 H Lymphocytes # (Manual) 0.5 L POC ABG pH POC ABG pCO2 24.5 L POC ABG pO2 Sodium Potassium Chloride Carbon Dioxide BUN Creatinine Glucose POC Glucose 112 H Calcium TSH Free T4 10/20/16 10/20/16 10/20/16 06:10 11:43 14:56 WBC MCV RDW Lymph % (Auto) Lymph # Seg Neutrophils % Seg Neuts % (Manual) Lymphocytes % (Manual) Seg Neutrophils # Man Lymphocytes # (Manual) POC ABG pH POC ABG pCO2 POC ABG pO2 Sodium 152 H Potassium 3.2 L Chloride 119.1 H Carbon Dioxide 17 L BUN 39 H Creatinine Glucose 107 H POC Glucose 120 H Calcium 6.8 L TSH Free T4 0.75 L 10/20/16 10/20/16 10/20/16 14:56 17:22 23:50 WBC MCV RDW Lymph % (Auto) Lymph # Seg Neutrophils % Seg Neuts % (Manual) Lymphocytes % (Manual) Seg Neutrophils # Man Lymphocytes # (Manual) POC ABG pH POC ABG pCO2 POC ABG pO2 Sodium Potassium Chloride Carbon Dioxide BUN Creatinine Glucose POC Glucose 148 H 106 H Calcium TSH 0.132 L Free T4 10/21/16 10/21/16 10/21/16 05:00 05:00 05:30 WBC MCV RDW 16.6 H Lymph % (Auto) 13.2 L Lymph # 1.1 L Seg Neutrophils % 80.4 H Seg Neuts % (Manual) Lymphocytes % (Manual) Seg Neutrophils # Man Lymphocytes # (Manual) POC ABG pH 7.342 L POC ABG pCO2 30.7 L POC ABG pO2 149 H Sodium 150 H Potassium Chloride 117.2 H Carbon Dioxide 17 L BUN 38 H Creatinine Glucose POC Glucose Calcium 7.5 L TSH Free T4 10/22/16 10/22/16 05:00 05:21 WBC MCV RDW Lymph % (Auto) Lymph # Seg Neutrophils % Seg Neuts % (Manual) Lymphocytes % (Manual) Seg Neutrophils # Man Lymphocytes # (Manual) POC ABG pH 7.319 L POC ABG pCO2 POC ABG pO2 68 L Sodium 151 H Potassium Chloride 120.5 H Carbon Dioxide 17 L BUN 36 H Creatinine Glucose 143 H POC Glucose Calcium 6.8 L TSH Free T4 Chest x-ray: report reviewed, image reviewed (LLL infiltrate)
[2016-10-22] MEDS: CLEOCIN 600 MG/50 mL 600 MG/50 ML BAG IV SCH ×2 (15:11→21:26)
[2016-10-22] MEDS: LEVAQUIN 750MG/150ML 750 MG/150 ML BAG IV SCH (15:11)
[2016-10-23] MEDS: LEVOPHED DRIP 4 MG/NS 250 ML 4 MG/250 ML BAG IV SCH (00:03)
[2016-10-23] MEDS: fentaNYL DRIP Premix 2,000 MCG/100 ML BAG IV SCH (02:17)
[2016-10-23 04:17] LABS: Hematocrit 38.6 % (35.5-45.6); Mean Corpuscular HGB Conc 34 % (32-34); Mean Corpuscular Hemoglobin 31 pg (28-32); Mean Corpuscular Volume 93 fl (84-94); Platelet Count 199 K/mm3 (140-440); Red Blood Count 4.15 M/mm3 (3.65-5.03); White Blood Count 11.4 K/mm3 (4.5-11.0)
[2016-10-23] MEDS ORDERED: LOPRESSOR IV STA (04:38)
[2016-10-23 04:41] LABS: Anion Gap 15 mmol/L; BUN/Creatinine Ratio 28.88; Blood Urea Nitrogen 26 mg/dL (9-20); Calcium 6.7 mg/dL (8.4-10.2); Carbon Dioxide 19 mmol/L (22-30); Chloride 116.2 mmol/L (98-107); Glucose 110 mg/dL (75-100); Potassium 3.3 mmol/L (3.6-5.0); Sodium 147 mmol/L (137-145)
[2016-10-23] MEDS ORDERED: MAGNESIUM SULFATE 1 GM in NACL 0.9% 50 ML IV ONE (05:04)
[2016-10-23] MEDS ORDERED: POTASSIUM CHLORIDE FEEDTUBE ONE (05:04)
[2016-10-23 05:05] LABS: ISTAT Base Excess -5; ISTAT HCO3 19.8; ISTAT PCO2 31.7 (35-45); ISTAT PH 7.403 (7.35-7.45); ISTAT PO2 87 (80-105); ISTAT SO2 97; ISTAT TCO2 21
[2016-10-23] MEDS ORDERED: KPHOS 15 MMOL in NACL 0.9% 250ML 250 ML IV ONE (05:09)
[2016-10-23 05:23] LABS: Creatine Kinase MB 6.9 ng/mL (0.0-4.0)
[2016-10-23] MEDS: CLEOCIN 600 MG/50 mL 600 MG/50 ML BAG IV SCH ×3 (05:39→21:40)
--- NOTE | 2016-10-23 07:34 | XRay Report ---
AP CHEST: HISTORY: Followup respiratory failure The endotracheal tube, left arm PICC and nasogastric tube remain in adequate position. There is increased opacity at the left lung base since yesterday's exam. I suspect this represents development of left lower lobe atelectasis. Lingular infiltrate is grossly unchanged. The right lung is generally clear. Heart size is within normal limits. IMPRESSION: Increased opacity at the left lung base most likely representing atelectasis in the left lower lobe. Relatively stable lingular infiltrate.
[2016-10-23] MEDS ORDERED: MAGNESIUM SULFATE 4GM/100ML 4 GM/100 ML BAG IV ONE (08:00)
[2016-10-23] MEDS ORDERED: KPHOS 30 MMOL in NACL 0.9% 500 ML 500 ML IV ONE (08:00)
[2016-10-23] MEDS: ATIVAN IV PRN ×2 (09:01→21:40)
[2016-10-23] MEDS: LOVENOX SUB-Q SCH (09:07)
[2016-10-23] MEDS ORDERED: PEPCID IV SCH (10:00)
[2016-10-23] MEDS ORDERED: NACL 0.9% 1000 ML 1,000 ML IV ONE (11:34)
--- NOTE | 2016-10-23 11:42 | Progress Note ---
Assessment and Plan Imp: 1. Focal LLL infiltrate, probably aspiration pneumonia 2. MS w/ ? flare 3. Acute respiratory failure, hypoxia 4. Volume depletion/JEANNETTE, better 5. Hypernatremia 6. New SIRS, ? 2/2 pneumonia Rec: 1. Repeat sputum culture + blood/urine cultures + Cdiff; cont. Levaquin/Clinda; add Vanco pending cultures 2. Cont. free water 3. Wean PEEP to 5 today to keep sat 88% or above; may increase FiO2 up to 50% if need be; once PEEP at 5 and FiO2 at 50% or less will start SBT 4. TFs, DVT and GI PPx 5. Bolus 1 liter NS; check lactate; wean Levophed to keep MAP > 65 6. Echo and cardiology consult 7. Replete elytes and repeat levels to ensure adequate correction No family present CCT 31 minutes Subjective Date of service: 10/23/16 Principal diagnosis: Acute respiratory failure Interval history: Unable to give history. Sedated on Fentanyl. Had hypotension and tachycardia overnight, Levophed started via PICC. + Watery stools. Active Medications Lipase/Protease/Amylase (Pancreaze Dr 10,500 Unit) 1 each FEEDTUBE PRN PRN PRN Reason: For Clogged Feeding Tube Enoxaparin Sodium (Lovenox) 40 mg SUB-Q QDAY@1000 KAYLEE Last Admin: 10/23/16 09:07 Dose: 40 mg Famotidine (Pepcid) 20 mg IV BID [facility] Last Admin: 10/23/16 09:07 Dose: 20 mg Hydrophilic Ointment (Vaseline Lip Therapy) 1 applic TP Q2HR PRN PRN Reason: Dry Lips Fentanyl Citrate (Fentanyl Drip Premix) 2,000 mcg in 100 mls @ 3.969 mls/hr IV TITR KAYLEE; 1 MCG/KG/HR PRN Reason: Protocol Last Admin: 10/23/16 02:17 Dose: 2 mcg/kg/hr, 7.938 mls/hr Midazolam HCl 100 mg/ Sodium (Chloride) 100 mls @ 2 mls/hr IV TITR KAYLEE; 2 MG/HR PRN Reason: Protocol Norepinephrine (Levophed Drip 4 Mg/Ns 250 Ml) 4 mg in 250 mls @ 7.5 mls/hr IV TITR KAYLEE; 2 MCG/MIN PRN Reason: Protocol Last Titration: 10/23/16 03:28 Dose: 6 mcg/min, 22.5 mls/hr Sodium Chloride (Nacl 0.9% 500 Ml) 500 mls @ 20 mls/hr IV DIRECT KAYLEE Last Admin: 10/21/16 19:00 Dose: 20 mls/hr Clindamycin HCl (Cleocin 600 Mg/50 Ml) 600 mg in 50 mls @ 100 mls/hr IV Q8HR KAYLEE PRN Reason: Protocol Last Admin: 10/23/16 05:39 Dose: 100 mls/hr Levofloxacin/Dextrose (Levaquin 750mg/150ml) 750 mg in 150 mls @ 100 mls/hr IV Q24H KAYLEE PRN Reason: Protocol Last Admin: 10/22/16 15:11 Dose: 100 mls/hr Magnesium Sulfate (Magnesium Sulfate 4gm/100ml) 4 gm in 100 mls @ 25 mls/hr IV ONCE ONE Stop: 10/23/16 11:59 Last Admin: 10/23/16 09:02 Dose: 25 mls/hr Potassium Phosphate 30 mmol/ (Sodium Chloride) 510 mls @ 85 mls/hr IV ONCE ONE Stop: 10/23/16 13:59 Last Admin: 10/23/16 09:02 Dose: 85 mls/hr Sodium Chloride (Nacl 0.9% 1000 Ml) 1,000 mls @ 999 mls/hr IV BOLUS ONE Stop: 10/23/16 12:34 Lorazepam (Ativan) 1 mg IV Q4H PRN PRN Reason: Agitation Last Admin: 10/23/16 09:01 Dose: 1 mg Multi-Ingred Cream/Lotion/Oil/Oint (Artificial Tears Ophth Oint) 1 applic OU Q4HR PRN PRN Reason: Dry Eye(s) Simple Syrup (Simple Syrup) 15 ml FEEDTUBE PRN PRN PRN Reason: Hypoglycemia Simple Syrup (Simple Syrup) 30 ml FEEDTUBE PRN PRN PRN Reason: Hypoglycemia Sodium Bicarbonate (Sodium Bicarbonate) 325 mg FEEDTUBE PRN PRN PRN Reason: For Clogged Feeding Tube Vancomycin HCl (Vancomycin Pharmacy To Dose) 1 each IV PKCONSULT KAYLEE PRN Reason: Protocol Objective Vital Signs - 12hr 10/23/16 10/23/16 10/23/16 00:00 00:12 00:30 Temperature 98.7 F Pulse Rate 90 83 80 Respiratory 16 16 Rate Respiratory Rate [denies] Blood Pressure 135/80 135/80 123/71 O2 Sat by Pulse 99 98 98 Oximetry 10/23/16 10/23/16 10/23/16 01:00 01:31 02:00 Temperature Pulse Rate 90 136 H 123 H Respiratory 16 25 H 21 Rate Respiratory Rate [denies] Blood Pressure 140/77 140/88 145/77 O2 Sat by Pulse 98 99 89 Oximetry 10/23/16 10/23/16 10/23/16 02:31 03:01 03:05 Temperature Pulse Rate 119 H 87 87 Respiratory 24 14 22 Rate Respiratory 22 Rate [denies] Blood Pressure 143/78 81/46 O2 Sat by Pulse 96 93 95 Oximetry 10/23/16 10/23/16 10/23/16 03:30 04:00 04:01 Temperature 99.7 F H Pulse Rate 126 H 165 H Respiratory 16 19 Rate Respiratory Rate [denies] Blood Pressure 126/80 126/70 O2 Sat by Pulse 97 95 Oximetry 10/23/16 10/23/16 10/23/16 04:21 04:30 05:00 Temperature Pulse Rate 111 H 128 H 102 H Respiratory 18 18 Rate Respiratory Rate [denies] Blood Pressure 126/70 117/78 124/75 O2 Sat by Pulse 94 94 92 Oximetry 10/23/16 10/23/16 10/23/16 05:31 05:40 06:00 Temperature Pulse Rate 107 H 100 H 106 H Respiratory 19 16 Rate Respiratory Rate [denies] Blood Pressure 133/67 117/70 96/65 O2 Sat by Pulse 93 88 Oximetry 10/23/16 10/23/16 10/23/16 06:05 06:30 07:00 Temperature Pulse Rate 97 H 97 H 116 H Respiratory 16 17 Rate Respiratory Rate [denies] Blood Pressure 98/60 116/76 O2 Sat by Pulse 92 97 Oximetry 10/23/16 10/23/16 10/23/16 07:30 07:54 08:00 Temperature 99.1 F Pulse Rate 127 H 132 H 104 H Respiratory 17 16 Rate Respiratory Rate [denies] Blood Pressure 114/71 121/81 119/76 O2 Sat by Pulse 97 98 94 Oximetry 10/23/16 10/23/16 10/23/16 08:31 09:00 09:30 Temperature Pulse Rate 130 H 118 H 118 H Respiratory 14 16 16 Rate Respiratory Rate [denies] Blood Pressure 110/86 106/40 75/49 O2 Sat by Pulse 96 90 97 Oximetry 10/23/16 10/23/16 10/23/16 10:00 10:30 10:52 Temperature Pulse Rate 106 H 131 H 132 H Respiratory 16 16 Rate Respiratory Rate [denies] Blood Pressure 81/57 92/67 121/81 O2 Sat by Pulse 98 97 98 Oximetry 10/23/16 11:00 Temperature Pulse Rate 105 H Respiratory 16 Rate Respiratory Rate [denies] Blood Pressure 91/62 O2 Sat by Pulse 93 Oximetry Constitutional: other (disheveled, critically ill on vent, sedated) Eyes: non-icteric ENT: other (orally intubated) Neck: supple Effort: normal Ascultation: Bilateral: other (coarse BS bilaterally) Cardiovascular: other (tachy, RR; no mrg) Gastrointestinal: normoactive bowel sounds, soft, non-tender, non-distended Extremities: other (damaged right great toe, wrapped currently; no obvious cellulitis) Neurologic: unable to assess Psychiatric: other (unable to assess) CBC and BMP: 10/23/16 03:48 10/23/16 03:48 ABG, PT/INR, D-dimer: ABG POC ABG pH 7.403 (7.35-7.45) 10/23/16 04:33 POC ABG pCO2 31.7 (35-45) L 10/23/16 04:33 POC ABG pO2 87 (80-105) 10/23/16 04:33 POC ABG HCO3 19.8 10/23/16 04:33 POC ABG Total CO2 21 10/23/16 04:33 POC ABG O2 Sat 97 10/23/16 04:33 PT/INR, D-dimer D-Dimer 1813.13 ng/mlDDU (0-234) H 10/17/16 17:51 Abnormal lab findings: Abnormal Labs 10/17/16 10/18/16 10/18/16 19:34 03:29 05:36 WBC MCV RDW Lymph % (Auto) Lymph # Seg Neutrophils % Seg Neuts % (Manual) Lymphocytes % (Manual) Seg Neutrophils # Man Lymphocytes # (Manual) POC ABG pH 7.333 L 7.272 L POC ABG pCO2 31.5 L 28.6 L POC ABG pO2 180 H Sodium Potassium Chloride Carbon Dioxide BUN Creatinine Glucose POC Glucose Calcium Phosphorus Magnesium CK-MB (CK-2) CK-MB (CK-2) Rel Index Troponin T HDL Cholesterol TSH Free T4 10/18/16 10/18/16 10/18/16 08:13 09:40 12:04 WBC MCV RDW Lymph % (Auto) Lymph # Seg Neutrophils % Seg Neuts % (Manual) Lymphocytes % (Manual) Seg Neutrophils # Man Lymphocytes # (Manual) POC ABG pH 7.231 L 7.298 L POC ABG pCO2 30.8 L POC ABG pO2 74 L Sodium Potassium Chloride Carbon Dioxide BUN Creatinine Glucose POC Glucose 151 H Calcium Phosphorus Magnesium CK-MB (CK-2) CK-MB (CK-2) Rel Index Troponin T HDL Cholesterol TSH Free T4 10/18/16 10/18/16 10/18/16 14:57 14:57 14:57 WBC 13.3 H MCV 96 H RDW 16.9 H Lymph % (Auto) Lymph # Seg Neutrophils % Seg Neuts % (Manual) Lymphocytes % (Manual) Seg Neutrophils # Man Lymphocytes # (Manual) POC ABG pH POC ABG pCO2 POC ABG pO2 Sodium Potassium Chloride Carbon Dioxide 13 L D BUN 57 H Creatinine 2.1 H Glucose 169 H POC Glucose Calcium 7.7 L Phosphorus Magnesium CK-MB (CK-2) CK-MB (CK-2) Rel Index Troponin T HDL Cholesterol TSH Free T4 0.68 L 10/18/16 10/19/16 10/19/16 17:31 05:10 05:10 WBC 12.5 H MCV 95 H RDW 16.7 H Lymph % (Auto) Lymph # Seg Neutrophils % Seg Neuts % (Manual) 94.0 H Lymphocytes % (Manual) 2.0 L Seg Neutrophils # Man 11.8 H Lymphocytes # (Manual) 0.3 L POC ABG pH POC ABG pCO2 POC ABG pO2 Sodium 149 H Potassium Chloride 114.1 H Carbon Dioxide 16 L BUN 49 H Creatinine 1.9 H Glucose 137 H POC Glucose 163 H Calcium 7.0 L Phosphorus Magnesium CK-MB (CK-2) CK-MB (CK-2) Rel Index Troponin T HDL Cholesterol TSH Free T4 10/19/16 10/19/16 10/19/16 06:04 11:39 23:47 WBC MCV RDW Lymph % (Auto) Lymph # Seg Neutrophils % Seg Neuts % (Manual) Lymphocytes % (Manual) Seg Neutrophils # Man Lymphocytes # (Manual) POC ABG pH POC ABG pCO2 28.1 L POC ABG pO2 108 H Sodium Potassium Chloride Carbon Dioxide BUN Creatinine Glucose POC Glucose 134 H 122 H Calcium Phosphorus Magnesium CK-MB (CK-2) CK-MB (CK-2) Rel Index Troponin T HDL Cholesterol TSH Free T4 10/20/16 10/20/16 10/20/16 04:30 05:20 06:10 WBC 11.4 H MCV RDW 16.5 H Lymph % (Auto) Lymph # Seg Neutrophils % Seg Neuts % (Manual) 92.0 H Lymphocytes % (Manual) 4.0 L Seg Neutrophils # Man 10.5 H Lymphocytes # (Manual) 0.5 L POC ABG pH POC ABG pCO2 24.5 L POC ABG pO2 Sodium Potassium Chloride Carbon Dioxide BUN Creatinine Glucose POC Glucose 112 H Calcium Phosphorus Magnesium CK-MB (CK-2) CK-MB (CK-2) Rel Index Troponin T HDL Cholesterol TSH Free T4 10/20/16 10/20/16 10/20/16 06:10 11:43 14:56 WBC MCV RDW Lymph % (Auto) Lymph # Seg Neutrophils % Seg Neuts % (Manual) Lymphocytes % (Manual) Seg Neutrophils # Man Lymphocytes # (Manual) POC ABG pH POC ABG pCO2 POC ABG pO2 Sodium 152 H Potassium 3.2 L Chloride 119.1 H Carbon Dioxide 17 L BUN 39 H Creatinine Glucose 107 H POC Glucose 120 H Calcium 6.8 L Phosphorus Magnesium CK-MB (CK-2) CK-MB (CK-2) Rel Index Troponin T HDL Cholesterol TSH Free T4 0.75 L 10/20/16 10/20/16 10/20/16 14:56 17:22 23:50 WBC MCV RDW Lymph % (Auto) Lymph # Seg Neutrophils % Seg Neuts % (Manual) Lymphocytes % (Manual) Seg Neutrophils # Man Lymphocytes # (Manual) POC ABG pH POC ABG pCO2 POC ABG pO2 Sodium Potassium Chloride Carbon Dioxide BUN Creatinine Glucose POC Glucose 148 H 106 H Calcium Phosphorus Magnesium CK-MB (CK-2) CK-MB (CK-2) Rel Index Troponin T HDL Cholesterol TSH 0.132 L Free T4 10/21/16 10/21/16 10/21/16 05:00 05:00 05:30 WBC MCV RDW 16.6 H Lymph % (Auto) 13.2 L Lymph # 1.1 L Seg Neutrophils % 80.4 H Seg Neuts % (Manual) Lymphocytes % (Manual) Seg Neutrophils # Man Lymphocytes # (Manual) POC ABG pH 7.342 L POC ABG pCO2 30.7 L POC ABG pO2 149 H Sodium 150 H Potassium Chloride 117.2 H Carbon Dioxide 17 L BUN 38 H Creatinine Glucose POC Glucose Calcium 7.5 L Phosphorus Magnesium CK-MB (CK-2) CK-MB (CK-2) Rel Index Troponin T HDL Cholesterol TSH Free T4 10/22/16 10/22/16 10/23/16 05:00 05:21 03:48 WBC MCV RDW Lymph % (Auto) Lymph # Seg Neutrophils % Seg Neuts % (Manual) Lymphocytes % (Manual) Seg Neutrophils # Man Lymphocytes # (Manual) POC ABG pH 7.319 L POC ABG pCO2 POC ABG pO2 68 L Sodium 151 H 147 H Potassium 3.3 L Chloride 120.5 H 116.2 H Carbon Dioxide 17 L 19 L BUN 36 H 26 H Creatinine Glucose 143 H 110 H POC Glucose Calcium 6.8 L 6.7 L Phosphorus 0.90 L* Magnesium 1.40 L CK-MB (CK-2) CK-MB (CK-2) Rel Index Troponin T HDL Cholesterol TSH Free T4 10/23/16 10/23/16 10/23/16 03:48 03:48 04:33 WBC 11.4 H MCV RDW 17.0 H Lymph % (Auto) Lymph # Seg Neutrophils % Seg Neuts % (Manual) Lymphocytes % (Manual) Seg Neutrophils # Man Lymphocytes # (Manual) POC ABG pH POC ABG pCO2 31.7 L POC ABG pO2 Sodium Potassium Chloride Carbon Dioxide BUN Creatinine Glucose POC Glucose Calcium Phosphorus Magnesium CK-MB (CK-2) 6.9 H CK-MB (CK-2) Rel Index 4.8 H Troponin T 0.215 H* HDL Cholesterol 22 L TSH Free T4 Chest x-ray: report reviewed, image reviewed (LLL/lingular infiltrate)
[2016-10-23] MEDS ORDERED: VANCOMYCIN 1,250 MG in NACL 0.9% 250ML 250 ML IV ONE (11:45)
[2016-10-23] MEDS ORDERED: VANCOMYCIN PHARMACY TO DOSE IV SCH (12:00)
--- NOTE | 2016-10-23 13:19 | Consultation ---
History of Present Illness Consult date: 10/23/16 Consult reason: atrial fibrillation History of present illness: This is a 65yr old male admitted who presented 10/17 with altered mental status and weakness. Patient was intubated in the ED for airway protection. Currently in CCU on pressor support. Noted a rhythm change on telemetry overnight. An ECG done was atrial fibrillation with rapid ventricular response with a left bundle branch block. Noted multiple electrolyte abnormalities. Patient has since reverted back to a sable sinus rhythm. Cardiac consultation requested. Past History Past Medical History: arthritis, GERD, hypertension, other (MS) Past Surgical History: No surgical history, Other (UTO) Social history: , other (lives with roommate). denies: smoking, alcohol abuse, prescription drug abuse Family history: hypertension Medications and Allergies Allergies Allergy/AdvReac Type Severity Reaction Status Date / Time codeine AdvReac Hives Verified 04/30/14 13:32 Home Medications Medication Instructions Recorded Confirmed Last Taken Type Nitroglycerin [Nitrostat] 0.4 mg SL PRN PRN 04/30/14 04/30/14 Unknown History Active Meds: Active Medications Lipase/Protease/Amylase (Pancreaze Dr 10,500 Unit) 1 each FEEDTUBE PRN PRN PRN Reason: For Clogged Feeding Tube Enoxaparin Sodium (Lovenox) 40 mg SUB-Q QDAY@1000 KAYLEE Last Admin: 10/23/16 09:07 Dose: 40 mg Famotidine (Pepcid) 20 mg PO BID KAYLEE Hydrophilic Ointment (Vaseline Lip Therapy) 1 applic TP Q2HR PRN PRN Reason: Dry Lips Fentanyl Citrate (Fentanyl Drip Premix) 2,000 mcg in 100 mls @ 3.969 mls/hr IV TITR KAYLEE; 1 MCG/KG/HR PRN Reason: Protocol Last Admin: 10/23/16 02:17 Dose: 2 mcg/kg/hr, 7.938 mls/hr Midazolam HCl 100 mg/ Sodium (Chloride) 100 mls @ 2 mls/hr IV TITR KAYLEE; 2 MG/HR PRN Reason: Protocol Norepinephrine (Levophed Drip 4 Mg/Ns 250 Ml) 4 mg in 250 mls @ 7.5 mls/hr IV TITR KAYLEE; 2 MCG/MIN PRN Reason: Protocol Last Titration: 10/23/16 03:28 Dose: 6 mcg/min, 22.5 mls/hr Sodium Chloride (Nacl 0.9% 500 Ml) 500 mls @ 20 mls/hr IV DIRECT KAYLEE Last Admin: 10/21/16 19:00 Dose: 20 mls/hr Clindamycin HCl (Cleocin 600 Mg/50 Ml) 600 mg in 50 mls @ 100 mls/hr IV Q8HR KAYLEE PRN Reason: Protocol Last Admin: 10/23/16 05:39 Dose: 100 mls/hr Levofloxacin/Dextrose (Levaquin 750mg/150ml) 750 mg in 150 mls @ 100 mls/hr IV Q24H KAYLEE PRN Reason: Protocol Last Admin: 10/22/16 15:11 Dose: 100 mls/hr Potassium Phosphate 30 mmol/ (Sodium Chloride) 510 mls @ 85 mls/hr IV ONCE ONE Stop: 10/23/16 13:59 Last Admin: 10/23/16 09:02 Dose: 85 mls/hr Vancomycin HCl 1,250 mg/ (Sodium Chloride) 275 mls @ 166.667 mls/hr IV ONCE ONE Stop: 10/23/16 13:23 Vancomycin HCl (Vancomycin/Ns 1 Gm/250 Ml) 1 gm in 250 mls @ 166.667 mls/hr IV Q12H KAYLEE Lorazepam (Ativan) 1 mg IV Q4H PRN PRN Reason: Agitation Last Admin: 10/23/16 09:01 Dose: 1 mg Multi-Ingred Cream/Lotion/Oil/Oint (Artificial Tears Ophth Oint) 1 applic OU Q4HR PRN PRN Reason: Dry Eye(s) Simple Syrup (Simple Syrup) 15 ml FEEDTUBE PRN PRN PRN Reason: Hypoglycemia Simple Syrup (Simple Syrup) 30 ml FEEDTUBE PRN PRN PRN Reason: Hypoglycemia Sodium Bicarbonate (Sodium Bicarbonate) 325 mg FEEDTUBE PRN PRN PRN Reason: For Clogged Feeding Tube Vancomycin HCl (Vancomycin Pharmacy To Dose) 1 each IV PKCONSULT KAYLEE PRN Reason: Protocol Physical Examination Vital Signs Pulse 60 10/17/16 14:14 General appearance: other (intubated on the vent) Cardiac: Positive: Reg Rate and Rhythm Results 10/23/16 03:48 10/23/16 Unknown Cardiac Enzymes 10/23/16 Range/Units 03:48 CK-MB (CK-2) 6.9 H (0.0-4.0) ng/mL Lipids 10/23/16 Range/Units 03:48 Triglycerides 139 (2-149) mg/dL Cholesterol 110 (50-199) mg/dL HDL Cholesterol 22 L (40-59) mg/dL Cholesterol/HDL Ratio 5.00 % CBC 10/23/16 Range/Units 03:48 WBC 11.4 H (4.5-11.0) K/mm3 RBC 4.15 (3.65-5.03) M/mm3 Hgb 13.0 (11.8-15.2) gm/dl Hct 38.6 (35.5-45.6) % Plt Count 199 (140-440) K/mm3 Comprehensive Metabolic Panel 10/23/16 Range/Units 03:48 Sodium 147 H (137-145) mmol/L Potassium 3.3 L (3.6-5.0) mmol/L Chloride 116.2 H (98-107) mmol/L Carbon Dioxide 19 L (22-30) mmol/L BUN 26 H (9-20) mg/dL Creatinine 0.9 (0.8-1.5) mg/dL Glucose 110 H (75-100) mg/dL Calcium 6.7 L (8.4-10.2) mg/dL Assessment and Plan Altered mental status Acute respiratory failure on mechanical ventilation Hypotensive - on pressors LBBB Afib, paroxysmal low TSH of 0.132 and low free T4 of 0.75 low serum magnesium and potassium [facility] 04/2014: normal coronaries
[2016-10-23 13:39] LABS: Phosphorous 2.9 mg/dL (2.5-4.5); Potassium 4.8 mmol/L (3.6-5.0)
[2016-10-23 13:41] LABS: Creatine Kinase MB 6.3 ng/mL (0.0-4.0)
--- NOTE | 2016-10-23 15:11 | Progress Note ---
Assessment and Plan Acute hypoxic respiratory failure. - He is still intubated on ventilator. Pulmonology following. - May need Trach and PEG if cannot wean off Shock. Hypovolemic. - He is on Levophed infusion. Acute metabolic encephalopathy. - He is sedated , on ventilator. Neurology following. - Ct head no acute finding Multiple sclerosis. Neurology following Hypokalemia, resolved. Hhypernatremia. Sodium 147 today. Continue free water. DVT prophylaxis with Lovenox Subjective Date of service: 10/23/16 Principal diagnosis: Acute respiratory failure Interval history: Patient still intubated,sedated Objective - Exam Narrative Exam: Gen appearance :Not in acute distress, intubated, sedated, on ventilator HEENT: Normocephalic, atraumatic Neck: no JVD Lungs: Clear to auscultation bilaterally, no crackles, or wheezes. Heart: S1 and S2 regular, no murmurs, no gallops, rub Abdomen : Soft, non-tender, non-distended, normal bowel sounds Extremities :No edema, no clubbing or cyanosis Neuro: Sedated. - Constitutional Vitals: Vital Signs - 12hr 10/23/16 10/23/16 10/23/16 03:30 04:00 04:01 Temperature 99.7 F H Pulse Rate 126 H 165 H Respiratory 16 19 Rate Blood Pressure 126/80 126/70 O2 Sat by Pulse 97 95 Oximetry 10/23/16 10/23/16 10/23/16 04:21 04:30 05:00 Temperature Pulse Rate 111 H 128 H 102 H Respiratory 18 18 Rate Blood Pressure 126/70 117/78 124/75 O2 Sat by Pulse 94 94 92 Oximetry 10/23/16 10/23/16 10/23/16 05:31 05:40 06:00 Temperature Pulse Rate 107 H 100 H 106 H Respiratory 19 16 Rate Blood Pressure 133/67 117/70 96/65 O2 Sat by Pulse 93 88 Oximetry 10/23/16 10/23/16 10/23/16 06:05 06:30 07:00 Temperature Pulse Rate 97 H 97 H 116 H Respiratory 16 17 Rate Blood Pressure 98/60 116/76 O2 Sat by Pulse 92 97 Oximetry 10/23/16 10/23/16 10/23/16 07:30 07:54 08:00 Temperature 99.1 F Pulse Rate 127 H 132 H 104 H Respiratory 17 16 Rate Blood Pressure 114/71 121/81 119/76 O2 Sat by Pulse 97 98 94 Oximetry 10/23/16 10/23/16 10/23/16 08:31 09:00 09:30 Temperature Pulse Rate 130 H 118 H 118 H Respiratory 14 16 16 Rate Blood Pressure 110/86 106/40 75/49 O2 Sat by Pulse 96 90 97 Oximetry 10/23/16 10/23/16 10/23/16 10:00 10:30 10:52 Temperature Pulse Rate 106 H 131 H 132 H Respiratory 16 16 Rate Blood Pressure 81/57 92/67 121/81 O2 Sat by Pulse 98 97 98 Oximetry 10/23/16 10/23/16 11:00 12:00 Temperature 98.5 F Pulse Rate 105 H Respiratory 16 Rate Blood Pressure 91/62 O2 Sat by Pulse 93 Oximetry - Labs CBC & Chem 7: 10/24/16 03:45 10/24/16 03:45 Labs: Abnormal lab results 10/23/16 10/23/16 10/23/16 Range/Units 03:48 03:48 03:48 WBC 11.4 H (4.5-11.0) K/mm3 RDW 17.0 H (13.2-15.2) % POC ABG pCO2 (35-45) Sodium 147 H (137-145) mmol/L Potassium 3.3 L (3.6-5.0) mmol/L Chloride 116.2 H (98-107) mmol/L Carbon Dioxide 19 L (22-30) mmol/L BUN 26 H (9-20) mg/dL Glucose 110 H (75-100) mg/dL Calcium 6.7 L (8.4-10.2) mg/dL Phosphorus 0.90 L* (2.5-4.5) mg/dL Magnesium 1.40 L (1.7-2.3) mg/dL CK-MB (CK-2) 6.9 H (0.0-4.0) ng/mL CK-MB (CK-2) Rel Index 4.8 H (0-4) Troponin T 0.215 H* (0.00-0.029) ng/mL HDL Cholesterol 22 L (40-59) mg/dL 10/23/16 10/23/16 Range/Units 04:33 Unknown WBC (4.5-11.0) K/mm3 RDW (13.2-15.2) % POC ABG pCO2 31.7 L (35-45) Sodium (137-145) mmol/L Potassium (3.6-5.0) mmol/L Chloride (98-107) mmol/L Carbon Dioxide (22-30) mmol/L BUN (9-20) mg/dL Glucose (75-100) mg/dL Calcium (8.4-10.2) mg/dL Phosphorus (2.5-4.5) mg/dL Magnesium (1.7-2.3) mg/dL CK-MB (CK-2) 6.3 H (0.0-4.0) ng/mL CK-MB (CK-2) Rel Index (0-4) Troponin T 0.206 H* (0.00-0.029) ng/mL HDL Cholesterol (40-59) mg/dL
[2016-10-23] MEDS: LEVAQUIN 750MG/150ML 750 MG/150 ML BAG IV SCH (17:40)
[2016-10-23 20:04] LABS: Bacteria,Urine 4+ /HPF (Negative); Bilirubin,Urine NEG (Negative); Blood,Urine MOD (Negative); Ketones,Urine NEG (Negative); Leukocyte Esterase,Urine TR (Negative); Mucus,Urine FEW /HPF; Nitrite,Urine NEG (Negative); Protein,Urine <15 mg/dL mg/dL (Negative); Urobilinogen,Urine < 2.0 mg/dL (<2.0)
[2016-10-23] MEDS: PEPCID PO SCH (21:40)
[2016-10-23] MEDS: NACL 0.9% 500 ML 500 ML IV SCH (21:48)
[2016-10-23] MEDS: VANCOMYCIN/NS 1 GM/250 ML 1 GM/250 ML BAG IV SCH (23:00)
[2016-10-24] MEDS: LEVOPHED DRIP 4 MG/NS 250 ML 4 MG/250 ML BAG IV SCH ×2 (00:31→14:00)
[2016-10-24] MEDS: ATIVAN IV PRN (02:11)
--- NOTE | 2016-10-24 03:43 | XRay Report ---
FINAL REPORT PROCEDURE: XR CHEST 1V AP TECHNIQUE: Chest radiograph anteroposterior view. CPT 00874 HISTORY: follow up respiratory failure COMPARISON: 10/23/2016 FINDINGS: Heart: Normal. Mediastinum/Vessels: Normal. Lungs/Pleural space: There is complete opacification of the left mayte thorax which is new since the prior study in could be due to large pleural effusion or atelectasis. There is mediastinal shift to the left suggesting atelectasis. The right lung is clear and expanded.. Bony thorax: No acute osseous abnormality. Life support devices: Endotracheal tube is in the mid trachea. NG tube is in the stomach. Left-sided PICC line is noted. Tip is in the superior vena cava.. IMPRESSION: Heart is obscured.. There is complete opacification of the left mayte thorax which is new since the prior study in could be due to large pleural effusion or atelectasis. There is mediastinal shift to the left suggesting atelectasis. The right lung is clear and expanded.. Endotracheal tube is in the mid trachea. NG tube is in the stomach. Left-sided PICC line is noted. Tip is in the superior vena cava..
[2016-10-24 04:39] LABS: Basophils % (Auto) 0.5 % (0.0-1.8); Hematocrit 36.4 % (35.5-45.6); Hemoglobin 12.3 gm/dl (11.8-15.2); Mean Corpuscular HGB Conc 34 % (32-34); Mean Corpuscular Hemoglobin 31 pg (28-32); Mean Corpuscular Volume 92 fl (84-94); Platelet Count 201 K/mm3 (140-440); Red Blood Count 3.94 M/mm3 (3.65-5.03); Red Cell Distribution Width 16.5 % (13.2-15.2)
[2016-10-24 04:52] LABS: Anion Gap 14 mmol/L; BUN/Creatinine Ratio 24.44; Blood Urea Nitrogen 22 mg/dL (9-20); Calcium 6.9 mg/dL (8.4-10.2); Carbon Dioxide 22 mmol/L (22-30); Chloride 116.8 mmol/L (98-107); Glucose 138 mg/dL (75-100); Potassium 4.5 mmol/L (3.6-5.0); Sodium 148 mmol/L (137-145)
[2016-10-24] MEDS: CLEOCIN 600 MG/50 mL 600 MG/50 ML BAG IV SCH ×3 (06:27→21:05)
[2016-10-24 06:57] LABS: ISTAT Base Excess -5; ISTAT HCO3 20.2; ISTAT PCO2 33.2 (35-45); ISTAT PH 7.392 (7.35-7.45); ISTAT PO2 72 (80-105); ISTAT SO2 94; ISTAT TCO2 21
[2016-10-24] MEDS ORDERED: D5W IV ONE (09:00)
[2016-10-24] MEDS ORDERED: SODIUM PHOSPHATE IV ONE (09:00)
[2016-10-24] MEDS: LOVENOX SUB-Q SCH (09:26)
[2016-10-24] MEDS: PEPCID PO SCH ×2 (09:27→21:05)
--- NOTE | 2016-10-24 12:22 | Progress Note ---
Assessment and Plan Altered mental status Acute respiratory failure on mechanical ventilation Hypotensive - on pressors LBBB, chronic Afib, paroxysmal currently in sinus rhythm low TSH of 0.132 and low free T4 of 0.75 low serum magnesium and potassium [facility] 04/2014: normal coronaries Subjective Date of service: 10/24/16 Principal diagnosis: Acute respiratory failure Interval history: Patient remains intubated on pressor support. Objective Vital Signs Temp Pulse Pulse Resp BP Pulse Ox 10/24/16 11:53 85 119/67 96 10/24/16 10:00 92 H 14 119/67 96 10/24/16 09:45 88 14 139/64 96 10/24/16 09:30 90 14 119/67 95 10/24/16 09:15 83 14 90/53 93 10/24/16 09:00 92 H 14 99/53 94 10/24/16 08:45 90 14 96/55 94 10/24/16 08:30 92 H 17 122/68 96 10/24/16 08:15 99 H 19 129/82 98 10/24/16 08:00 99 F 92 H 16 113/69 96 10/24/16 07:45 86 16 89/55 95 10/24/16 07:31 93 H 16 94/45 95 10/24/16 07:15 89 16 106/61 95 10/24/16 07:00 92 H 14 126/59 95 10/24/16 06:59 97 H 126/69 95 10/24/16 06:45 94 H 15 123/63 94 10/24/16 06:30 97 H 15 126/69 95 10/24/16 06:15 100 H 15 130/71 95 10/24/16 06:00 101 H 15 132/71 96 10/24/16 05:45 85 16 96/50 94 10/24/16 05:30 85 16 127/67 96 10/24/16 05:15 81 16 94/51 93 10/24/16 05:00 87 16 93/54 93 10/24/16 04:45 92 H 13 106/56 97 10/24/16 04:38 84 106/56 94 10/24/16 04:30 82 16 106/56 94 10/24/16 04:15 96 H 16 92/52 97 10/24/16 04:00 98.3 F 83 91 H 16 92/52 93 10/24/16 03:45 82 16 113/69 94 10/24/16 03:30 86 16 94/40 94 10/24/16 03:15 100 H 14 95/74 88 10/24/16 03:01 103 H 18 95/74 96 10/24/16 02:45 86 15 108/67 97 10/24/16 02:30 95 H 16 128/83 98 10/24/16 02:15 88 16 124/74 98 10/24/16 02:00 88 16 122/73 97 10/24/16 01:45 90 16 131/75 98 10/24/16 01:30 80 16 91/58 97 10/24/16 01:15 79 16 84/57 97 10/24/16 01:00 82 16 84/53 96 10/24/16 00:45 89 16 86/56 95 10/24/16 00:30 128 H 16 119/65 96 10/24/16 00:15 114 H 14 129/74 98 10/24/16 00:01 94 H 17 127/74 98 10/23/16 23:50 96.9 F L 10/23/16 23:45 94 H 15 95/59 99 10/23/16 23:37 76 16 96 10/23/16 23:30 76 16 95/59 97 10/23/16 23:15 78 16 96/57 98 10/23/16 23:13 78 16 100/56 97 10/23/16 23:00 78 16 100/56 97 10/23/16 22:45 77 16 99/58 97 10/23/16 22:30 73 16 80/53 97 10/23/16 22:15 76 16 83/51 96 10/23/16 22:01 81 16 88/59 95 10/23/16 21:45 94 H 16 153/125 94 10/23/16 21:31 119 H 16 153/125 95 10/23/16 21:15 129 H 15 151/89 96 10/23/16 21:00 108 H 21 142/102 98 10/23/16 20:45 74 16 83/53 95 10/23/16 20:31 75 16 81/52 95 10/23/16 20:15 78 16 76/50 95 10/23/16 20:00 97.8 F 81 130 H 22 86/56 96 10/23/16 19:45 86 17 87/49 97 10/23/16 19:38 86 87/49 95 10/23/16 19:30 83 16 87/49 95 10/23/16 19:15 84 16 97/58 96 10/23/16 19:00 85 16 97/58 97 10/23/16 18:45 90 11 L 107/51 97 10/23/16 18:30 79 16 93/56 97 10/23/16 18:15 91 H 14 94/64 96 10/23/16 18:01 94 H 15 108/60 96 10/23/16 17:30 92 H 13 111/75 94 10/23/16 17:01 88 16 80/47 91 10/23/16 16:31 92 H 15 113/69 95 10/23/16 16:21 86 111/60 94 10/23/16 16:00 98.6 F 85 16 104/66 92 10/23/16 15:30 87 16 130/70 93 10/23/16 15:00 86 16 117/69 95 10/23/16 14:30 80 16 138/75 97 10/23/16 14:00 75 16 70/42 96 10/23/16 13:30 86 16 97/55 97 10/23/16 13:00 82 16 85/49 96 10/23/16 12:30 106 H 17 138/97 98 - Physical Examination General: Other (intubated on the vent) Cardiac: Positive: Reg Rate and Rhythm - Labs and Meds Cardiac Enzymes 10/23/16 Range/Units Unknown CK-MB (CK-2) 6.3 H (0.0-4.0) ng/mL CBC 10/24/16 Range/Units 03:45 WBC 10.0 (4.5-11.0) K/mm3 RBC 3.94 (3.65-5.03) M/mm3 Hgb 12.3 (11.8-15.2) gm/dl Hct 36.4 (35.5-45.6) % Plt Count 201 (140-440) K/mm3 Lymph # 1.4 (1.2-5.4) K/mm3 Kimball # 0.9 H (0.0-0.8) K/mm3 Eos # 0.1 (0.0-0.4) K/mm3 Baso # 0.0 (0.0-0.1) K/mm3 Comprehensive Metabolic Panel 10/23/16 10/24/16 Range/Units Unknown 03:45 Sodium 148 H (137-145) mmol/L Potassium 4.8 D 4.5 (3.6-5.0) mmol/L Chloride 116.8 H (98-107) mmol/L Carbon Dioxide 22 (22-30) mmol/L BUN 22 H (9-20) mg/dL Creatinine 0.9 (0.8-1.5) mg/dL Glucose 138 H (75-100) mg/dL Calcium 6.9 L (8.4-10.2) mg/dL
[2016-10-24] MEDS: VANCOMYCIN/NS 1 GM/250 ML 1 GM/250 ML BAG IV SCH ×2 (13:20→23:45)
--- NOTE | 2016-10-24 14:13 | Progress Note ---
Assessment and Plan Imp: 1. Focal LLL infiltrate, probably aspiration pneumonia 2. MS w/ ? flare 3. Acute respiratory failure, hypoxia 4. Volume depletion/JEANNETTE, better 5. Hypernatremia 6. New SIRS, ? 2/2 pneumonia 7. Atelectasis L lung, prob mucous plugging Rec: 1. Repeat sputum culture + blood/urine cultures; cont. Vanco/Levaquin/Clinda pending results 2. Cont. free water -> 250mL [id number] 3. SBT and SAT daily; gets restless off Fentanyl so will try adding low-dose Klonopin 4. TFs, DVT and GI PPx 5. Wean Levophed to keep MAP > 65 6. Echo and cardiology consult 7. Replete elytes 8. Reglan 9. Add Solumedrol given hx of MS 10. Chest PT + Mucinex + Mucomyst nebs + aggressive suctioning/irrigation/ bagging, etc.; repeat CXR in AM and, if no improvement, will need bedside bronch (discussed all of this with RT) No family present CCT 31 minutes Subjective Date of service: 10/24/16 Principal diagnosis: Acute respiratory failure Interval history: Unable to give history. Sedated on Fentanyl. Gets restless when reduced, but nothing purposeful. Remains on Levophed. Tachycardia better. Having high residuals. Active Medications Acetylcysteine (Mucomyst Inhalation) 200 mg INHALATION Q8HRT [facility] Lipase/Protease/Amylase (Pancreaze Dr 10,500 Unit) 1 each FEEDTUBE PRN PRN PRN Reason: For Clogged Feeding Tube Clonazepam (Klonopin) 0.5 mg PO BID [facility] Enoxaparin Sodium (Lovenox) 40 mg SUB-Q QDAY@1000 [facility] Last Admin: 10/24/16 09:26 Dose: 40 mg Famotidine (Pepcid) 20 mg PO BID [facility] Last Admin: 10/24/16 09:27 Dose: 20 mg Guaifenesin (Robitussin) 200 mg PO Q4H [facility] Hydrophilic Ointment (Vaseline Lip Therapy) 1 applic TP Q2HR PRN PRN Reason: Dry Lips Fentanyl Citrate (Fentanyl Drip Premix) 2,000 mcg in 100 mls @ 3.969 mls/hr IV TITR KAYLEE; 1 MCG/KG/HR PRN Reason: Protocol Last Admin: 10/23/16 02:17 Dose: 2 mcg/kg/hr, 7.938 mls/hr Norepinephrine (Levophed Drip 4 Mg/Ns 250 Ml) 4 mg in 250 mls @ 7.5 mls/hr IV TITR KAYLEE; 2 MCG/MIN PRN Reason: Protocol Last Admin: 10/24/16 00:31 Dose: 5 mcg/min, 18.75 mls/hr Sodium Chloride (Nacl 0.9% 500 Ml) 500 mls @ 20 mls/hr IV DIRECT KAYLEE Last Admin: 10/23/16 21:48 Dose: 20 mls/hr Clindamycin HCl (Cleocin 600 Mg/50 Ml) 600 mg in 50 mls @ 100 mls/hr IV Q8HR KAYLEE PRN Reason: Protocol Last Admin: 10/24/16 06:27 Dose: 100 mls/hr Levofloxacin/Dextrose (Levaquin 750mg/150ml) 750 mg in 150 mls @ 100 mls/hr IV Q24H KAYLEE PRN Reason: Protocol Last Admin: 10/23/16 17:40 Dose: 100 mls/hr Vancomycin HCl (Vancomycin/Ns 1 Gm/250 Ml) 1 gm in 250 mls @ 166.667 mls/hr IV Q12H KAYLEE Last Admin: 10/23/16 23:00 Dose: 166.667 mls/hr Lorazepam (Ativan) 1 mg IV Q4H PRN PRN Reason: Agitation Last Admin: 10/24/16 02:11 Dose: 1 mg Methylprednisolone Sodium Succinate (Solu-Medrol) 40 mg IV Q8HR KAYLEE Metoclopramide HCl (Reglan) 5 mg IV ACHS [facility] Multi-Ingred Cream/Lotion/Oil/Oint (Artificial Tears Ophth Oint) 1 applic OU Q4HR PRN PRN Reason: Dry Eye(s) Simple Syrup (Simple Syrup) 15 ml FEEDTUBE PRN PRN PRN Reason: Hypoglycemia Simple Syrup (Simple Syrup) 30 ml FEEDTUBE PRN PRN PRN Reason: Hypoglycemia Sodium Bicarbonate (Sodium Bicarbonate) 325 mg FEEDTUBE PRN PRN PRN Reason: For Clogged Feeding Tube Vancomycin HCl (Vancomycin Pharmacy To Dose) 1 each IV PKCONSULT KAYLEE PRN Reason: Protocol Objective Vital Signs - 12hr 10/24/16 10/24/16 10/24/16 02:15 02:30 02:45 Temperature Pulse Rate 88 95 H 86 Pulse Rate [ From Monitor] Respiratory 16 16 15 Rate Blood Pressure 124/74 128/83 108/67 O2 Sat by Pulse 98 98 97 Oximetry 10/24/16 10/24/16 10/24/16 03:01 03:15 03:30 Temperature Pulse Rate 103 H 100 H 86 Pulse Rate [ From Monitor] Respiratory 18 14 16 Rate Blood Pressure 95/74 95/74 94/40 O2 Sat by Pulse 96 88 94 Oximetry 10/24/16 10/24/16 10/24/16 03:45 04:00 04:15 Temperature 98.3 F Pulse Rate 82 83 96 H Pulse Rate [ 91 H From Monitor] Respiratory 16 16 16 Rate Blood Pressure 113/69 92/52 92/52 O2 Sat by Pulse 94 93 97 Oximetry 10/24/16 10/24/16 10/24/16 04:30 04:38 04:45 Temperature Pulse Rate 82 84 92 H Pulse Rate [ From Monitor] Respiratory 16 13 Rate Blood Pressure 106/56 106/56 106/56 O2 Sat by Pulse 94 94 97 Oximetry 10/24/16 10/24/16 10/24/16 05:00 05:15 05:30 Temperature Pulse Rate 87 81 85 Pulse Rate [ From Monitor] Respiratory 16 16 16 Rate Blood Pressure 93/54 94/51 127/67 O2 Sat by Pulse 93 93 96 Oximetry 10/24/16 10/24/16 10/24/16 05:45 06:00 06:15 Temperature Pulse Rate 85 101 H 100 H Pulse Rate [ From Monitor] Respiratory 16 15 15 Rate Blood Pressure 96/50 132/71 130/71 O2 Sat by Pulse 94 96 95 Oximetry 10/24/16 10/24/16 10/24/16 06:30 06:45 06:59 Temperature Pulse Rate 97 H 94 H 97 H Pulse Rate [ From Monitor] Respiratory 15 15 Rate Blood Pressure 126/69 123/63 126/69 O2 Sat by Pulse 95 94 95 Oximetry 10/24/16 10/24/16 10/24/16 07:00 07:15 07:31 Temperature Pulse Rate 92 H 89 93 H Pulse Rate [ From Monitor] Respiratory 14 16 16 Rate Blood Pressure 126/59 106/61 94/45 O2 Sat by Pulse 95 95 95 Oximetry 10/24/16 10/24/16 10/24/16 07:45 08:00 08:15 Temperature 99 F Pulse Rate 86 92 H 99 H Pulse Rate [ From Monitor] Respiratory 16 16 19 Rate Blood Pressure 89/55 113/69 129/82 O2 Sat by Pulse 95 96 98 Oximetry 10/24/16 10/24/16 10/24/16 08:30 08:45 09:00 Temperature Pulse Rate 92 H 90 92 H Pulse Rate [ From Monitor] Respiratory 17 14 14 Rate Blood Pressure 122/68 96/55 99/53 O2 Sat by Pulse 96 94 94 Oximetry 10/24/16 10/24/16 10/24/16 09:15 09:30 09:45 Temperature Pulse Rate 83 90 88 Pulse Rate [ From Monitor] Respiratory 14 14 14 Rate Blood Pressure 90/53 119/67 139/64 O2 Sat by Pulse 93 95 96 Oximetry 10/24/16 10/24/16 10/24/16 10:00 10:15 10:30 Temperature Pulse Rate 92 H 85 86 Pulse Rate [ From Monitor] Respiratory 14 14 14 Rate Blood Pressure 119/67 97/52 99/60 O2 Sat by Pulse 96 93 94 Oximetry 10/24/16 10/24/16 10/24/16 10:45 11:00 11:15 Temperature Pulse Rate 85 83 81 Pulse Rate [ From Monitor] Respiratory 14 14 14 Rate Blood Pressure 107/57 87/48 88/50 O2 Sat by Pulse 94 93 94 Oximetry 10/24/16 10/24/16 10/24/16 11:30 11:45 11:53 Temperature Pulse Rate 80 88 85 Pulse Rate [ From Monitor] Respiratory 16 16 Rate Blood Pressure 94/53 94/53 119/67 O2 Sat by Pulse 93 96 96 Oximetry 10/24/16 10/24/16 10/24/16 12:00 12:15 12:30 Temperature 99.2 F Pulse Rate 80 81 83 Pulse Rate [ From Monitor] Respiratory 16 16 16 Rate Blood Pressure 108/62 107/60 99/55 O2 Sat by Pulse 95 94 95 Oximetry Constitutional: other (disheveled, critically ill on vent, sedated) Eyes: non-icteric ENT: other (orally intubated) Neck: supple Effort: normal Ascultation: Left: diminished breath sounds (mildly reduced), Bilateral: other ( coarse BS bilaterally) Cardiovascular: regular rate and rhythm (no mrg) Gastrointestinal: normoactive bowel sounds, soft, non-tender, non-distended Extremities: other (damaged right great toe, wrapped currently; no obvious cellulitis) Neurologic: unable to assess Psychiatric: other (unable to assess) CBC and BMP: 10/24/16 03:45 10/24/16 03:45 ABG, PT/INR, D-dimer: ABG POC ABG pH 7.392 (7.35-7.45) 10/24/16 06:26 POC ABG pCO2 33.2 (35-45) L 10/24/16 06:26 POC ABG pO2 72 (80-105) L 10/24/16 06:26 POC ABG HCO3 20.2 10/24/16 06:26 POC ABG Total CO2 21 10/24/16 06:26 POC ABG O2 Sat 94 10/24/16 06:26 PT/INR, D-dimer D-Dimer 1813.13 ng/mlDDU (0-234) H 10/17/16 17:51 Abnormal lab findings: Abnormal Labs 10/17/16 10/18/16 10/18/16 19:34 03:29 05:36 WBC MCV RDW Lymph % (Auto) [place] % (Auto) Lymph # [place] # Seg Neutrophils % Seg Neuts % (Manual) Lymphocytes % (Manual) Seg Neutrophils # Man Lymphocytes # (Manual) POC ABG pH 7.333 L 7.272 L POC ABG pCO2 31.5 L 28.6 L POC ABG pO2 180 H Sodium Potassium Chloride Carbon Dioxide BUN Creatinine Glucose POC Glucose Calcium Phosphorus Magnesium CK-MB (CK-2) CK-MB (CK-2) Rel Index Troponin T HDL Cholesterol TSH Free T4 Urine WBC (Auto) 10/18/16 10/18/16 10/18/16 08:13 09:40 12:04 WBC MCV RDW Lymph % (Auto) [place] % (Auto) Lymph # [place] # Seg Neutrophils % Seg Neuts % (Manual) Lymphocytes % (Manual) Seg Neutrophils # Man Lymphocytes # (Manual) POC ABG pH 7.231 L 7.298 L POC ABG pCO2 30.8 L POC ABG pO2 74 L Sodium Potassium Chloride Carbon Dioxide BUN Creatinine Glucose POC Glucose 151 H Calcium Phosphorus Magnesium CK-MB (CK-2) CK-MB (CK-2) Rel Index Troponin T HDL Cholesterol TSH Free T4 Urine WBC (Auto) 10/18/16 10/18/16 10/18/16 14:57 14:57 14:57 WBC 13.3 H MCV 96 H RDW 16.9 H Lymph % (Auto) [place] % (Auto) Lymph # [place] # Seg Neutrophils % Seg Neuts % (Manual) Lymphocytes % (Manual) Seg Neutrophils # Man Lymphocytes # (Manual) POC ABG pH POC ABG pCO2 POC ABG pO2 Sodium Potassium Chloride Carbon Dioxide 13 L D BUN 57 H Creatinine 2.1 H Glucose 169 H POC Glucose Calcium 7.7 L Phosphorus Magnesium CK-MB (CK-2) CK-MB (CK-2) Rel Index Troponin T HDL Cholesterol TSH Free T4 0.68 L Urine WBC (Auto) 10/18/16 10/19/16 10/19/16 17:31 05:10 05:10 WBC 12.5 H MCV 95 H RDW 16.7 H Lymph % (Auto) [place] % (Auto) Lymph # [place] # Seg Neutrophils % Seg Neuts % (Manual) 94.0 H Lymphocytes % (Manual) 2.0 L Seg Neutrophils # Man 11.8 H Lymphocytes # (Manual) 0.3 L POC ABG pH POC ABG pCO2 POC ABG pO2 Sodium 149 H Potassium Chloride 114.1 H Carbon Dioxide 16 L BUN 49 H Creatinine 1.9 H Glucose 137 H POC Glucose 163 H Calcium 7.0 L Phosphorus Magnesium CK-MB (CK-2) CK-MB (CK-2) Rel Index Troponin T HDL Cholesterol TSH Free T4 Urine WBC (Auto) 10/19/16 10/19/16 10/19/16 06:04 11:39 23:47 WBC MCV RDW Lymph % (Auto) [place] % (Auto) Lymph # [place] # Seg Neutrophils % Seg Neuts % (Manual) Lymphocytes % (Manual) Seg Neutrophils # Man Lymphocytes # (Manual) POC ABG pH POC ABG pCO2 28.1 L POC ABG pO2 108 H Sodium Potassium Chloride Carbon Dioxide BUN Creatinine Glucose POC Glucose 134 H 122 H Calcium Phosphorus Magnesium CK-MB (CK-2) CK-MB (CK-2) Rel Index Troponin T HDL Cholesterol TSH Free T4 Urine WBC (Auto) 10/20/16 10/20/16 10/20/16 04:30 05:20 06:10 WBC 11.4 H MCV RDW 16.5 H Lymph % (Auto) [place] % (Auto) Lymph # [place] # Seg Neutrophils % Seg Neuts % (Manual) 92.0 H Lymphocytes % (Manual) 4.0 L Seg Neutrophils # Man 10.5 H Lymphocytes # (Manual) 0.5 L POC ABG pH POC ABG pCO2 24.5 L POC ABG pO2 Sodium Potassium Chloride Carbon Dioxide BUN Creatinine Glucose POC Glucose 112 H Calcium Phosphorus Magnesium CK-MB (CK-2) CK-MB (CK-2) Rel Index Troponin T HDL Cholesterol TSH Free T4 Urine WBC (Auto) 10/20/16 10/20/16 10/20/16 06:10 11:43 14:56 WBC MCV RDW Lymph % (Auto) [place] % (Auto) Lymph # [place] # Seg Neutrophils % Seg Neuts % (Manual) Lymphocytes % (Manual) Seg Neutrophils # Man Lymphocytes # (Manual) POC ABG pH POC ABG pCO2 POC ABG pO2 Sodium 152 H Potassium 3.2 L Chloride 119.1 H Carbon Dioxide 17 L BUN 39 H Creatinine Glucose 107 H POC Glucose 120 H Calcium 6.8 L Phosphorus Magnesium CK-MB (CK-2) CK-MB (CK-2) Rel Index Troponin T HDL Cholesterol TSH Free T4 0.75 L Urine WBC (Auto) 10/20/16 10/20/16 10/20/16 14:56 17:22 23:50 WBC MCV RDW Lymph % (Auto) [place] % (Auto) Lymph # [place] # Seg Neutrophils % Seg Neuts % (Manual) Lymphocytes % (Manual) Seg Neutrophils # Man Lymphocytes # (Manual) POC ABG pH POC ABG pCO2 POC ABG pO2 Sodium Potassium Chloride Carbon Dioxide BUN Creatinine Glucose POC Glucose 148 H 106 H Calcium Phosphorus Magnesium CK-MB (CK-2) CK-MB (CK-2) Rel Index Troponin T HDL Cholesterol TSH 0.132 L Free T4 Urine WBC (Auto) 10/21/16 10/21/16 10/21/16 05:00 05:00 05:30 WBC MCV RDW 16.6 H Lymph % (Auto) 13.2 L [place] % (Auto) Lymph # 1.1 L [place] # Seg Neutrophils % 80.4 H Seg Neuts % (Manual) Lymphocytes % (Manual) Seg Neutrophils # Man Lymphocytes # (Manual) POC ABG pH 7.342 L POC ABG pCO2 30.7 L POC ABG pO2 149 H Sodium 150 H Potassium Chloride 117.2 H Carbon Dioxide 17 L BUN 38 H Creatinine Glucose POC Glucose Calcium 7.5 L Phosphorus Magnesium CK-MB (CK-2) CK-MB (CK-2) Rel Index Troponin T HDL Cholesterol TSH Free T4 Urine WBC (Auto) 10/22/16 10/22/16 10/23/16 05:00 05:21 03:48 WBC MCV RDW Lymph % (Auto) [place] % (Auto) Lymph # [place] # Seg Neutrophils % Seg Neuts % (Manual) Lymphocytes % (Manual) Seg Neutrophils # Man Lymphocytes # (Manual) POC ABG pH 7.319 L POC ABG pCO2 POC ABG pO2 68 L Sodium 151 H 147 H Potassium 3.3 L Chloride 120.5 H 116.2 H Carbon Dioxide 17 L 19 L BUN 36 H 26 H Creatinine Glucose 143 H 110 H POC Glucose Calcium 6.8 L 6.7 L Phosphorus 0.90 L* Magnesium 1.40 L CK-MB (CK-2) CK-MB (CK-2) Rel Index Troponin T HDL Cholesterol TSH Free T4 Urine WBC (Auto) 10/23/16 10/23/16 10/23/16 03:48 03:48 04:33 WBC 11.4 H MCV RDW 17.0 H Lymph % (Auto) [place] % (Auto) Lymph # [place] # Seg Neutrophils % Seg Neuts % (Manual) Lymphocytes % (Manual) Seg Neutrophils # Man Lymphocytes # (Manual) POC ABG pH POC ABG pCO2 31.7 L POC ABG pO2 Sodium Potassium Chloride Carbon Dioxide BUN Creatinine Glucose POC Glucose Calcium Phosphorus Magnesium CK-MB (CK-2) 6.9 H CK-MB (CK-2) Rel Index 4.8 H Troponin T 0.215 H* HDL Cholesterol 22 L TSH Free T4 Urine WBC (Auto) 10/23/16 10/23/16 10/24/16 18:00 Unknown 03:45 WBC MCV RDW Lymph % (Auto) [place] % (Auto) Lymph # [place] # Seg Neutrophils % Seg Neuts % (Manual) Lymphocytes % (Manual) Seg Neutrophils # Man Lymphocytes # (Manual) POC ABG pH POC ABG pCO2 POC ABG pO2 Sodium 148 H Potassium Chloride 116.8 H Carbon Dioxide BUN 22 H Creatinine Glucose 138 H POC Glucose Calcium 6.9 L Phosphorus 1.90 L D Magnesium 2.60 H CK-MB (CK-2) 6.3 H CK-MB (CK-2) Rel Index Troponin T 0.206 H* HDL Cholesterol TSH Free T4 Urine WBC (Auto) 19.0 H 10/24/16 10/24/16 03:45 06:26 WBC MCV RDW 16.5 H Lymph % (Auto) [place] % (Auto) 9.1 H Lymph # [place] # 0.9 H Seg Neutrophils % 75.3 H Seg Neuts % (Manual) Lymphocytes % (Manual) Seg Neutrophils # Man Lymphocytes # (Manual) POC ABG pH POC ABG pCO2 33.2 L POC ABG pO2 72 L Sodium Potassium Chloride Carbon Dioxide BUN Creatinine Glucose POC Glucose Calcium Phosphorus Magnesium CK-MB (CK-2) CK-MB (CK-2) Rel Index Troponin T HDL Cholesterol TSH Free T4 Urine WBC (Auto) Chest x-ray: report reviewed (L lung white-out with shift of trachea towards L ( I am unable to view the image myself))
[2016-10-24] MEDS ORDERED: D5W 1,000 ML IV SCH (15:00)
[2016-10-24] MEDS: LEVAQUIN 750MG/150ML 750 MG/150 ML BAG IV SCH (15:20)
[2016-10-24] MEDS: ROBITUSSIN PO SCH ×3 (15:21→23:45)
[2016-10-24] MEDS: MUCOMYST INHALATION INHALATION SCH (15:23)
[2016-10-24] MEDS: REGLAN IV SCH ×2 (16:10→21:05)
--- NOTE | 2016-10-24 16:15 | Progress Note ---
Assessment and Plan Acute hypoxic respiratory failure. - He is still intubated on ventilator. Pulmonology following. - May need Trach and PEG if cannot wean off Shock. Hypovolemic. - He is on Levophed infusion. Acute metabolic encephalopathy. - He is sedated , on ventilator. Neurology following. - Ct head no acute finding Multiple sclerosis. Neurology following Hypokalemia, resolved. Hypernatremia. - Sodium 148 today. Continue free water. - Severe malnutrition - TF on hold as he did not tolerated last night DVT prophylaxis with Lovenox Subjective Date of service: 10/24/16 Principal diagnosis: Acute respiratory failure Interval history: Patient still intubated, sedated difficult to wean off as he gets restless when fentanyl dose gets reduced Objective - Exam Narrative Exam: Gen appearance :Not in acute distress, intubated, sedated, on ventilator HEENT: Normocephalic, atraumatic Neck: no JVD Lungs: Clear to auscultation bilaterally, no crackles, or wheezes. Heart: S1 and S2 regular, no murmurs, no gallops, rub Abdomen : Soft, non-tender, non-distended, normal bowel sounds Extremities :No edema, no clubbing or cyanosis Neuro: Sedated. - Constitutional Vitals: Vital Signs - 12hr 10/24/16 10/24/16 10/24/16 04:15 04:30 04:38 Temperature Pulse Rate 96 H 82 84 Pulse Rate [ Anterior Bilateral Throughout] Respiratory 16 16 Rate Respiratory Rate [Anterior Bilateral Throughout] Blood Pressure 92/52 106/56 106/56 O2 Sat by Pulse 97 94 94 Oximetry 10/24/16 10/24/16 10/24/16 04:45 05:00 05:15 Temperature Pulse Rate 92 H 87 81 Pulse Rate [ Anterior Bilateral Throughout] Respiratory 13 16 16 Rate Respiratory Rate [Anterior Bilateral Throughout] Blood Pressure 106/56 93/54 94/51 O2 Sat by Pulse 97 93 93 Oximetry 10/24/16 10/24/16 10/24/16 05:30 05:45 06:00 Temperature Pulse Rate 85 85 101 H Pulse Rate [ Anterior Bilateral Throughout] Respiratory 16 16 15 Rate Respiratory Rate [Anterior Bilateral Throughout] Blood Pressure 127/67 96/50 132/71 O2 Sat by Pulse 96 94 96 Oximetry 10/24/16 10/24/16 10/24/16 06:15 06:30 06:45 Temperature Pulse Rate 100 H 97 H 94 H Pulse Rate [ Anterior Bilateral Throughout] Respiratory 15 15 15 Rate Respiratory Rate [Anterior Bilateral Throughout] Blood Pressure 130/71 126/69 123/63 O2 Sat by Pulse 95 95 94 Oximetry 10/24/16 10/24/16 10/24/16 06:59 07:00 07:15 Temperature Pulse Rate 97 H 92 H 89 Pulse Rate [ Anterior Bilateral Throughout] Respiratory 14 16 Rate Respiratory Rate [Anterior Bilateral Throughout] Blood Pressure 126/69 126/59 106/61 O2 Sat by Pulse 95 95 95 Oximetry 10/24/16 10/24/16 10/24/16 07:31 07:45 08:00 Temperature 99 F Pulse Rate 93 H 86 92 H Pulse Rate [ Anterior Bilateral Throughout] Respiratory 16 16 16 Rate Respiratory Rate [Anterior Bilateral Throughout] Blood Pressure 94/45 89/55 113/69 O2 Sat by Pulse 95 95 96 Oximetry 10/24/16 10/24/16 10/24/16 08:15 08:30 08:45 Temperature Pulse Rate 99 H 92 H 90 Pulse Rate [ Anterior Bilateral Throughout] Respiratory 19 17 14 Rate Respiratory Rate [Anterior Bilateral Throughout] Blood Pressure 129/82 122/68 96/55 O2 Sat by Pulse 98 96 94 Oximetry 10/24/16 10/24/16 10/24/16 09:00 09:15 09:30 Temperature Pulse Rate 92 H 83 90 Pulse Rate [ Anterior Bilateral Throughout] Respiratory 14 14 14 Rate Respiratory Rate [Anterior Bilateral Throughout] Blood Pressure 99/53 90/53 119/67 O2 Sat by Pulse 94 93 95 Oximetry 10/24/16 10/24/16 10/24/16 09:45 10:00 10:15 Temperature Pulse Rate 88 92 H 85 Pulse Rate [ Anterior Bilateral Throughout] Respiratory 14 14 14 Rate Respiratory Rate [Anterior Bilateral Throughout] Blood Pressure 139/64 119/67 97/52 O2 Sat by Pulse 96 96 93 Oximetry 10/24/16 10/24/16 10/24/16 10:30 10:45 11:00 Temperature Pulse Rate 86 85 83 Pulse Rate [ Anterior Bilateral Throughout] Respiratory 14 14 14 Rate Respiratory Rate [Anterior Bilateral Throughout] Blood Pressure 99/60 107/57 87/48 O2 Sat by Pulse 94 94 93 Oximetry 10/24/16 10/24/16 10/24/16 11:15 11:30 11:45 Temperature Pulse Rate 81 80 88 Pulse Rate [ Anterior Bilateral Throughout] Respiratory 14 16 16 Rate Respiratory Rate [Anterior Bilateral Throughout] Blood Pressure 88/50 94/53 94/53 O2 Sat by Pulse 94 93 96 Oximetry 10/24/16 10/24/16 10/24/16 11:53 12:00 12:15 Temperature 99.2 F Pulse Rate 85 80 81 Pulse Rate [ Anterior Bilateral Throughout] Respiratory 16 16 Rate Respiratory Rate [Anterior Bilateral Throughout] Blood Pressure 119/67 108/62 107/60 O2 Sat by Pulse 96 95 94 Oximetry 10/24/16 10/24/16 10/24/16 12:30 12:45 13:00 Temperature Pulse Rate 83 79 87 Pulse Rate [ Anterior Bilateral Throughout] Respiratory 16 16 16 Rate Respiratory Rate [Anterior Bilateral Throughout] Blood Pressure 99/55 117/60 124/66 O2 Sat by Pulse 95 95 95 Oximetry 10/24/16 10/24/16 10/24/16 13:15 13:30 13:45 Temperature Pulse Rate 79 95 H 84 Pulse Rate [ Anterior Bilateral Throughout] Respiratory 16 16 16 Rate Respiratory Rate [Anterior Bilateral Throughout] Blood Pressure 103/59 110/69 110/69 O2 Sat by Pulse 94 94 94 Oximetry 10/24/16 10/24/16 10/24/16 14:01 14:15 14:30 Temperature Pulse Rate 80 83 84 Pulse Rate [ Anterior Bilateral Throughout] Respiratory 16 16 16 Rate Respiratory Rate [Anterior Bilateral Throughout] Blood Pressure 92/43 85/52 111/61 O2 Sat by Pulse 93 92 94 Oximetry 10/24/16 10/24/16 10/24/16 14:45 15:00 15:15 Temperature Pulse Rate 82 82 91 H Pulse Rate [ Anterior Bilateral Throughout] Respiratory 16 16 16 Rate Respiratory Rate [Anterior Bilateral Throughout] Blood Pressure 105/55 103/53 123/64 O2 Sat by Pulse 92 91 91 Oximetry 10/24/16 10/24/16 10/24/16 15:23 15:38 16:00 Temperature Pulse Rate 91 H Pulse Rate [ 89 90 Anterior Bilateral Throughout] Respiratory Rate Respiratory 16 16 Rate [Anterior Bilateral Throughout] Blood Pressure 123/64 O2 Sat by Pulse 94 Oximetry - Labs CBC & Chem 7: 10/24/16 03:45 10/24/16 03:45 Labs: Abnormal lab results 10/23/16 10/24/16 10/24/16 Range/Units 18:00 03:45 03:45 RDW 16.5 H (13.2-15.2) % [place] % (Auto) 9.1 H (0.0-7.3) % [place] # 0.9 H (0.0-0.8) K/mm3 Seg Neutrophils % 75.3 H (40.0-70.0) % POC ABG pCO2 (35-45) POC ABG pO2 (80-105) Sodium 148 H (137-145) mmol/L Chloride 116.8 H (98-107) mmol/L BUN 22 H (9-20) mg/dL Glucose 138 H (75-100) mg/dL Calcium 6.9 L (8.4-10.2) mg/dL Phosphorus 1.90 L D (2.5-4.5) mg/dL Magnesium 2.60 H (1.7-2.3) mg/dL Urine WBC (Auto) 19.0 H (0.0-6.0) /HPF 10/24/16 Range/Units 06:26 RDW (13.2-15.2) % [place] % (Auto) (0.0-7.3) % [place] # (0.0-0.8) K/mm3 Seg Neutrophils % (40.0-70.0) % POC ABG pCO2 33.2 L (35-45) POC ABG pO2 72 L (80-105) Sodium (137-145) mmol/L Chloride (98-107) mmol/L BUN (9-20) mg/dL Glucose (75-100) mg/dL Calcium (8.4-10.2) mg/dL Phosphorus (2.5-4.5) mg/dL Magnesium (1.7-2.3) mg/dL Urine WBC (Auto) (0.0-6.0) /HPF
[2016-10-25] MEDS: MUCOMYST INHALATION INHALATION SCH ×3 (00:20→16:06)
[2016-10-25] MEDS: ROBITUSSIN PO SCH ×6 (04:00→22:04)
[2016-10-25] MEDS: ATIVAN IV PRN (04:03)
[2016-10-25 06:41] LABS: ISTAT Base Excess -6; ISTAT HCO3 18.1; ISTAT PH 7.435 (7.35-7.45); ISTAT PO2 80 (80-105); ISTAT SO2 96; ISTAT TCO2 19
[2016-10-25] MEDS: CLEOCIN 600 MG/50 mL 600 MG/50 ML BAG IV SCH ×3 (06:46→22:04)
[2016-10-25] MEDS: REGLAN IV SCH ×4 (06:47→23:21)
[2016-10-25 07:17] LABS: Hematocrit 38.3 % (35.5-45.6); Hemoglobin 12.5 gm/dl (11.8-15.2); Mean Corpuscular HGB Conc 33 % (32-34); Mean Corpuscular Hemoglobin 31 pg (28-32); Mean Corpuscular Volume 93 fl (84-94); Platelet Count 221 K/mm3 (140-440); Red Blood Count 4.11 M/mm3 (3.65-5.03); White Blood Count 9.9 K/mm3 (4.5-11.0)
--- NOTE | 2016-10-25 07:30 | XRay Report ---
Single view chest: Compared to 10/24/16. History: Atelectasis. Findings: Opacification of left hemithorax with shift of the mediastinum to the left. Stable support system. Right lung unremarkable. No significant interval change. Impression: No significant interval change.
[2016-10-25 07:40] LABS: Anion Gap 19 mmol/L; Blood Urea Nitrogen 18 mg/dL (9-20); Calcium 6.9 mg/dL (8.4-10.2); Carbon Dioxide 18 mmol/L (22-30); Chloride 104.8 mmol/L (98-107); Glucose 173 mg/dL (75-100); Potassium 4.7 mmol/L (3.6-5.0); Sodium 137 mmol/L (137-145)
[2016-10-25] MEDS: PROVENTIL IH PRN ×2 (09:03→16:06)
[2016-10-25 09:15] LABS: Basophils % (Manual) 0 % (0.0-1.8); Blastocytes % (Manual) 0 %; Eosinophils % (Manual) 0 % (0.0-4.3)
[2016-10-25 09:16] LABS: Diff Status Complete; RBC Morphology Normal
[2016-10-25] MEDS: LOVENOX SUB-Q SCH (10:23)
[2016-10-25] MEDS: PEPCID PO SCH ×2 (10:26→22:04)
--- NOTE | 2016-10-25 12:07 | Progress Note ---
Assessment and Plan Altered mental status Acute respiratory failure on mechanical ventilation Hypotensive - on pressors LBBB, chronic Afib, paroxysmal currently in sinus rhythm low TSH of 0.132 and low free T4 of 0.75 [facility] 04/2014: normal coronaries. LV gram not performed due to findings of renal failure at that time. EF 10-15% on echocardiogram. Subjective Date of service: 10/25/16 Principal diagnosis: Acute respiratory failure Interval history: Patient remains intubated on pressor support. Objective Vital Signs Temp Pulse Pulse Pulse Pulse Resp Resp 10/25/16 10:46 86 16 10/25/16 10:30 109 H 17 10/25/16 10:15 87 16 10/25/16 10:00 105 H 19 10/25/16 09:46 109 H 20 10/25/16 09:30 112 H 17 10/25/16 09:16 119 H 23 10/25/16 09:05 123 H 10/25/16 09:00 126 H 23 10/25/16 08:45 103 H 15 10/25/16 08:30 69 16 10/25/16 08:15 66 16 10/25/16 08:00 98.9 F 71 16 10/25/16 07:45 73 16 10/25/16 07:30 76 16 10/25/16 07:15 80 16 10/25/16 07:00 103 H 19 10/25/16 06:46 101 H 22 10/25/16 06:30 104 H 20 10/25/16 06:15 99 H 19 10/25/16 06:00 90 10 L 10/25/16 05:45 86 17 10/25/16 05:30 87 16 10/25/16 05:15 91 H 15 10/25/16 05:00 94 H 14 10/25/16 04:45 79 16 10/25/16 04:30 69 16 10/25/16 04:20 67 16 10/25/16 04:00 97.8 F 78 78 16 10/25/16 03:56 89 10/25/16 03:45 91 H 18 10/25/16 03:30 70 16 10/25/16 03:15 82 14 10/25/16 03:00 75 16 10/25/16 02:45 94 H 18 10/25/16 02:30 90 16 10/25/16 02:15 87 17 10/25/16 02:00 76 17 10/25/16 01:45 79 15 10/25/16 01:39 67 10/25/16 01:31 88 12 10/25/16 01:15 78 15 10/25/16 01:01 95 H 17 10/25/16 00:45 86 17 10/25/16 00:31 94 H 15 10/25/16 00:15 93 H 19 10/25/16 00:00 97.6 F 93 H 93 H 15 10/24/16 23:45 76 76 16 10/24/16 23:31 88 15 10/24/16 23:29 10/24/16 23:19 70 16 10/24/16 23:15 74 16 10/24/16 23:00 70 16 10/24/16 22:45 69 16 10/24/16 22:30 70 16 10/24/16 22:15 71 16 10/24/16 22:00 73 16 10/24/16 21:45 76 16 10/24/16 21:31 78 16 10/24/16 21:15 86 16 10/24/16 21:00 122 H 17 10/24/16 20:45 113 H 16 10/24/16 20:30 113 H 17 10/24/16 20:15 105 H 16 10/24/16 20:01 103 H 17 10/24/16 20:00 99.8 F H 103 H 17 10/24/16 19:45 95 H 16 10/24/16 19:38 89 10/24/16 19:30 90 16 10/24/16 19:15 81 16 10/24/16 19:00 94 H 15 10/24/16 18:45 99 H 16 10/24/16 18:30 79 16 10/24/16 18:15 82 16 10/24/16 18:00 77 16 10/24/16 17:45 80 16 10/24/16 17:30 10/24/16 17:15 10/24/16 17:00 10/24/16 16:45 10/24/16 16:30 10/24/16 16:15 10/24/16 16:00 98.6 F 91 H 10/24/16 15:45 10/24/16 15:38 90 16 10/24/16 15:30 92 H 17 10/24/16 15:23 89 16 10/24/16 15:15 91 H 16 10/24/16 15:00 82 16 10/24/16 14:45 82 16 10/24/16 14:30 84 16 10/24/16 14:15 83 16 10/24/16 14:01 80 16 10/24/16 13:45 84 16 10/24/16 13:30 95 H 16 10/24/16 13:15 79 16 10/24/16 13:00 87 16 10/24/16 12:45 79 16 10/24/16 12:30 83 16 10/24/16 12:15 81 16 Resp Resp BP Pulse Ox 10/25/16 10:46 111/66 95 10/25/16 10:30 145/93 96 10/25/16 10:15 95/53 94 10/25/16 10:00 152/111 93 10/25/16 09:46 144/95 93 10/25/16 09:30 144/95 92 10/25/16 09:16 157/106 93 10/25/16 09:05 157/106 97 10/25/16 09:00 157/106 96 10/25/16 08:45 134/77 97 10/25/16 08:30 129/74 98 10/25/16 08:15 84/51 98 10/25/16 08:00 69/41 97 10/25/16 07:45 72/40 97 10/25/16 07:30 100/39 96 10/25/16 07:15 136/72 95 10/25/16 07:00 162/94 95 10/25/16 06:46 101/77 94 10/25/16 06:30 145/90 96 10/25/16 06:15 145/90 96 10/25/16 06:00 133/73 95 10/25/16 05:45 146/77 95 10/25/16 05:30 145/75 95 10/25/16 05:15 125/78 97 10/25/16 05:00 137/86 99 10/25/16 04:45 98/62 97 10/25/16 04:30 93/48 97 10/25/16 04:20 96 10/25/16 04:00 112/67 98 10/25/16 03:56 106/61 98 10/25/16 03:45 106/61 98 10/25/16 03:30 104/55 97 10/25/16 03:15 112/61 98 10/25/16 03:00 91/55 96 10/25/16 02:45 135/80 97 10/25/16 02:30 135/80 96 10/25/16 02:15 126/67 98 10/25/16 02:00 104/65 98 10/25/16 01:45 112/61 97 10/25/16 01:39 10/25/16 01:31 108/63 96 10/25/16 01:15 123/64 96 10/25/16 01:01 128/68 96 10/25/16 00:45 131/61 97 10/25/16 00:31 131/61 98 10/25/16 00:15 132/78 96 10/25/16 00:00 131/69 97 10/24/16 23:45 18 136/73 98 10/24/16 23:31 136/73 98 10/24/16 23:29 15 10/24/16 23:19 115/77 98 10/24/16 23:15 120/73 98 10/24/16 23:00 120/73 97 10/24/16 22:45 112/68 97 10/24/16 22:30 115/70 97 10/24/16 22:15 104/63 97 10/24/16 22:00 101/63 97 10/24/16 21:45 97/61 97 10/24/16 21:31 89/56 97 10/24/16 21:15 124/69 97 10/24/16 21:00 136/83 98 10/24/16 20:45 126/78 97 10/24/16 20:30 118/79 98 10/24/16 20:15 125/77 96 10/24/16 20:01 127/76 98 10/24/16 20:00 98 10/24/16 19:45 119/73 97 10/24/16 19:38 98/71 97 10/24/16 19:30 130/77 98 10/24/16 19:15 133/77 97 10/24/16 19:00 133/77 98 10/24/16 18:45 136/86 98 10/24/16 18:30 128/74 97 10/24/16 18:15 115/74 97 10/24/16 18:00 106/76 97 10/24/16 17:45 103/70 96 10/24/16 17:30 89/56 94 10/24/16 17:15 104/64 95 10/24/16 17:00 86/57 94 10/24/16 16:45 96/61 94 10/24/16 16:30 91/54 93 10/24/16 16:15 89/58 93 10/24/16 16:00 103/66 94 10/24/16 15:45 125/83 95 10/24/16 15:38 10/24/16 15:30 132/66 93 10/24/16 15:23 10/24/16 15:15 123/64 91 10/24/16 15:00 103/53 91 10/24/16 14:45 105/55 92 10/24/16 14:30 111/61 94 10/24/16 14:15 85/52 92 10/24/16 14:01 92/43 93 10/24/16 13:45 110/69 94 10/24/16 13:30 110/69 94 10/24/16 13:15 103/59 94 10/24/16 13:00 124/66 95 10/24/16 12:45 117/60 95 10/24/16 12:30 99/55 95 10/24/16 12:15 107/60 94 - Physical Examination General: Other (intubated on the vent) Cardiac: Positive: Reg Rate and Rhythm - Labs and Meds CBC 10/25/16 Range/Units 06:40 WBC 9.9 (4.5-11.0) K/mm3 RBC 4.11 (3.65-5.03) M/mm3 Hgb 12.5 (11.8-15.2) gm/dl Hct 38.3 (35.5-45.6) % Plt Count 221 (140-440) K/mm3 Comprehensive Metabolic Panel 10/25/16 Range/Units 06:40 Sodium 137 D (137-145) mmol/L Potassium 4.7 (3.6-5.0) mmol/L Chloride 104.8 (98-107) mmol/L Carbon Dioxide 18 L (22-30) mmol/L BUN 18 (9-20) mg/dL Creatinine 0.9 (0.8-1.5) mg/dL Glucose 173 H (75-100) mg/dL Calcium 6.9 L (8.4-10.2) mg/dL
--- NOTE | 2016-10-25 12:28 | Progress Note ---
Assessment and Plan Imp: 1. Focal LLL infiltrate, probably aspiration pneumonia 2. MS w/ ? flare 3. Acute respiratory failure, hypoxia 4. Volume depletion/JEANNETTE, better 5. Hypernatremia 6. New SIRS, ? 2/2 pneumonia 7. Atelectasis L lung, prob mucous plugging 8. Severe dilated NICMP Rec: 1. Repeat sputum culture + blood/urine cultures; cont. Vanco/Levaquin/Clinda pending results 2. Cont. free water -> 250mL [id number]; finished a bag of D5W 3. SBT and SAT daily; gets restless off Fentanyl so added low-dose Klonopin; consider Seroquel 4. TFs, DVT and GI PPx 5. Wean Levophed to keep MAP > 65 6. F/u cardiology recs re: poor cardiac function 7. Replete elytes prn 8. Reglan scheduled 9. Added Solumedrol given hx of MS 10. Mucinex/Mucomyst nebs/aggressive suctioning/irrigation/bagging, etc.; unfortunately chest PT was only done once in the past 24 hours for unclear reasons (I personally spoke with RT about this yesterday); discussed again with RT today and will be sure to do chest PT 3-6x per day with airway clearance vest ; repeat CXR in AM, and if no improvement despite vest, will need quick bedside bronchoscopy (would like to avoid this given hypotension and LVEF of 10%) 11. Poor prognosis No family present CCT 31 minutes Subjective Date of service: 10/25/16 Principal diagnosis: Acute respiratory failure Interval history: Unable to give history. Sedated on Fentanyl. Gets restless when reduced, but nothing purposeful. Remains on Levophed low-dose. Tachycardia better. Residuals better and tolerating TFs well. Active Medications Acetylcysteine (Mucomyst Inhalation) 200 mg INHALATION Q8HRT KAYLEE Last Admin: 10/25/16 09:03 Dose: 200 mg Albuterol (Proventil) 2.5 mg IH Q8HRT PRN PRN Reason: Wheezing Last Admin: 10/25/16 09:03 Dose: 2.5 mg Lipase/Protease/Amylase (Pancreaze Dr 10,500 Unit) 1 each FEEDTUBE PRN PRN PRN Reason: For Clogged Feeding Tube Clonazepam (Klonopin) 0.5 mg PO BID [facility] Last Admin: 10/25/16 10:27 Dose: 0.5 mg Enoxaparin Sodium (Lovenox) 40 mg SUB-Q QDAY@1000 KAYLEE Last Admin: 10/25/16 10:23 Dose: 40 mg Famotidine (Pepcid) 20 mg PO BID [facility] Last Admin: 10/25/16 10:26 Dose: 20 mg Guaifenesin (Robitussin) 200 mg PO Q4H KAYLEE Last Admin: 10/25/16 06:47 Dose: 200 mg Hydrophilic Ointment (Vaseline Lip Therapy) 1 applic TP Q2HR PRN PRN Reason: Dry Lips Fentanyl Citrate (Fentanyl Drip Premix) 2,000 mcg in 100 mls @ 3.969 mls/hr IV TITR KAYLEE; 1 MCG/KG/HR PRN Reason: Protocol Last Titration: 10/25/16 07:00 Dose: 2 mcg/kg/hr, 7.938 mls/hr Norepinephrine (Levophed Drip 4 Mg/Ns 250 Ml) 4 mg in 250 mls @ 7.5 mls/hr IV TITR KAYLEE; 2 MCG/MIN PRN Reason: Protocol Last Titration: 10/25/16 08:30 Dose: 3 mcg/min, 11.25 mls/hr Sodium Chloride (Nacl 0.9% 500 Ml) 500 mls @ 20 mls/hr IV DIRECT KAYLEE Last Admin: 10/23/16 21:48 Dose: 20 mls/hr Clindamycin HCl (Cleocin 600 Mg/50 Ml) 600 mg in 50 mls @ 100 mls/hr IV Q8HR KAYLEE PRN Reason: Protocol Last Admin: 10/25/16 06:46 Dose: 100 mls/hr Levofloxacin/Dextrose (Levaquin 750mg/150ml) 750 mg in 150 mls @ 100 mls/hr IV Q24H KAYLEE PRN Reason: Protocol Last Admin: 10/24/16 15:20 Dose: 100 mls/hr Vancomycin HCl (Vancomycin/Ns 1 Gm/250 Ml) 1 gm in 250 mls @ 166.667 mls/hr IV Q12H KAYLEE Last Admin: 10/24/16 23:45 Dose: 166.667 mls/hr Lorazepam (Ativan) 1 mg IV Q4H PRN PRN Reason: Agitation Last Admin: 10/25/16 04:03 Dose: 1 mg Methylprednisolone Sodium Succinate (Solu-Medrol) 40 mg IV Q8HR [facility] Last Admin: 10/25/16 06:47 Dose: 40 mg Metoclopramide HCl (Reglan) 5 mg IV Q6HR [facility] Multi-Ingred Cream/Lotion/Oil/Oint (Artificial Tears Ophth Oint) 1 applic OU Q4HR PRN PRN Reason: Dry Eye(s) Simple Syrup (Simple Syrup) 15 ml FEEDTUBE PRN PRN PRN Reason: Hypoglycemia Simple Syrup (Simple Syrup) 30 ml FEEDTUBE PRN PRN PRN Reason: Hypoglycemia Sodium Bicarbonate (Sodium Bicarbonate) 325 mg FEEDTUBE PRN PRN PRN Reason: For Clogged Feeding Tube Vancomycin HCl (Vancomycin Pharmacy To Dose) 1 each IV PKCONSULT KAYLEE PRN Reason: Protocol Objective Vital Signs - 12hr 10/25/16 10/25/16 10/25/16 00:31 00:45 01:01 Temperature Pulse Rate 94 H 86 95 H Pulse Rate [ From Monitor] Respiratory 15 17 17 Rate Blood Pressure 131/61 131/61 128/68 O2 Sat by Pulse 98 97 96 Oximetry 10/25/16 10/25/16 10/25/16 01:15 01:31 01:39 Temperature Pulse Rate 78 88 67 Pulse Rate [ From Monitor] Respiratory 15 12 Rate Blood Pressure 123/64 108/63 O2 Sat by Pulse 96 96 Oximetry 10/25/16 10/25/16 10/25/16 01:45 02:00 02:15 Temperature Pulse Rate 79 76 87 Pulse Rate [ From Monitor] Respiratory 15 17 17 Rate Blood Pressure 112/61 104/65 126/67 O2 Sat by Pulse 97 98 98 Oximetry 10/25/16 10/25/16 10/25/16 02:30 02:45 03:00 Temperature Pulse Rate 90 94 H 75 Pulse Rate [ From Monitor] Respiratory 16 18 16 Rate Blood Pressure 135/80 135/80 91/55 O2 Sat by Pulse 96 97 96 Oximetry 10/25/16 10/25/16 10/25/16 03:15 03:30 03:45 Temperature Pulse Rate 82 70 91 H Pulse Rate [ From Monitor] Respiratory 14 16 18 Rate Blood Pressure 112/61 104/55 106/61 O2 Sat by Pulse 98 97 98 Oximetry 10/25/16 10/25/16 10/25/16 03:56 04:00 04:20 Temperature 97.8 F Pulse Rate 89 78 67 Pulse Rate [ 78 From Monitor] Respiratory 16 16 Rate Blood Pressure 106/61 112/67 O2 Sat by Pulse 98 98 96 Oximetry 10/25/16 10/25/16 10/25/16 04:30 04:45 05:00 Temperature Pulse Rate 69 79 94 H Pulse Rate [ From Monitor] Respiratory 16 16 14 Rate Blood Pressure 93/48 98/62 137/86 O2 Sat by Pulse 97 97 99 Oximetry 10/25/16 10/25/16 10/25/16 05:15 05:30 05:45 Temperature Pulse Rate 91 H 87 86 Pulse Rate [ From Monitor] Respiratory 15 16 17 Rate Blood Pressure 125/78 145/75 146/77 O2 Sat by Pulse 97 95 95 Oximetry 10/25/16 10/25/16 10/25/16 06:00 06:15 06:30 Temperature Pulse Rate 90 99 H 104 H Pulse Rate [ From Monitor] Respiratory 10 L 19 20 Rate Blood Pressure 133/73 145/90 145/90 O2 Sat by Pulse 95 96 96 Oximetry 10/25/16 10/25/16 10/25/16 06:46 07:00 07:15 Temperature Pulse Rate 101 H 103 H 80 Pulse Rate [ From Monitor] Respiratory 22 19 16 Rate Blood Pressure 101/77 162/94 136/72 O2 Sat by Pulse 94 95 95 Oximetry 10/25/16 10/25/16 10/25/16 07:30 07:45 08:00 Temperature 98.9 F Pulse Rate 76 73 71 Pulse Rate [ From Monitor] Respiratory 16 16 16 Rate Blood Pressure 100/39 72/40 69/41 O2 Sat by Pulse 96 97 97 Oximetry 10/25/16 10/25/16 10/25/16 08:15 08:30 08:45 Temperature Pulse Rate 66 69 103 H Pulse Rate [ From Monitor] Respiratory 16 16 15 Rate Blood Pressure 84/51 129/74 134/77 O2 Sat by Pulse 98 98 97 Oximetry 10/25/16 10/25/16 10/25/16 09:00 09:05 09:16 Temperature Pulse Rate 126 H 123 H 119 H Pulse Rate [ From Monitor] Respiratory 23 23 Rate Blood Pressure 157/106 157/106 157/106 O2 Sat by Pulse 96 97 93 Oximetry 08/01/0110/25/16 10/25/16 09:30 09:46 10:00 Temperature Pulse Rate 112 H 109 H 105 H Pulse Rate [ From Monitor] Respiratory 17 20 19 Rate Blood Pressure 144/95 144/95 152/111 O2 Sat by Pulse 92 93 93 Oximetry 10/25/16 10/25/16 10/25/16 10:15 10:30 10:46 Temperature Pulse Rate 87 109 H 86 Pulse Rate [ From Monitor] Respiratory 16 17 16 Rate Blood Pressure 95/53 145/93 111/66 O2 Sat by Pulse 94 96 95 Oximetry Constitutional: other (disheveled, critically ill on vent, sedated) Eyes: non-icteric ENT: other (orally intubated) Neck: supple Effort: normal Ascultation: Left: diminished breath sounds (mildly reduced), Bilateral: other ( coarse BS bilaterally) Percussion: Bilateral: not dull Cardiovascular: regular rate and rhythm (no mrg) Gastrointestinal: normoactive bowel sounds, soft, non-tender, non-distended Extremities: other (damaged right great toe, wrapped currently; no obvious cellulitis) Neurologic: unable to assess Psychiatric: other (unable to assess) CBC and BMP: 10/25/16 06:40 10/25/16 06:40 ABG, PT/INR, D-dimer: ABG POC ABG pH 7.435 (7.35-7.45) 10/25/16 06:33 POC ABG pCO2 27.0 (35-45) L 10/25/16 06:33 POC ABG pO2 80 (80-105) 10/25/16 06:33 POC ABG HCO3 18.1 10/25/16 06:33 POC ABG Total CO2 19 10/25/16 06:33 POC ABG O2 Sat 96 10/25/16 06:33 PT/INR, D-dimer D-Dimer 1813.13 ng/mlDDU (0-234) H 10/17/16 17:51 Abnormal lab findings: Abnormal Labs 10/17/16 10/18/16 10/18/16 19:34 03:29 05:36 WBC MCV RDW Lymph % (Auto) [place] % (Auto) Lymph # [place] # Seg Neutrophils % Seg Neuts % (Manual) Lymphocytes % (Manual) Seg Neutrophils # Man Lymphocytes # (Manual) POC ABG pH 7.333 L 7.272 L POC ABG pCO2 31.5 L 28.6 L POC ABG pO2 180 H Sodium Potassium Chloride Carbon Dioxide BUN Creatinine Glucose POC Glucose Calcium Phosphorus Magnesium CK-MB (CK-2) CK-MB (CK-2) Rel Index Troponin T HDL Cholesterol TSH Free T4 Urine WBC (Auto) 10/18/16 10/18/16 10/18/16 08:13 09:40 12:04 WBC MCV RDW Lymph % (Auto) [place] % (Auto) Lymph # [place] # Seg Neutrophils % Seg Neuts % (Manual) Lymphocytes % (Manual) Seg Neutrophils # Man Lymphocytes # (Manual) POC ABG pH 7.231 L 7.298 L POC ABG pCO2 30.8 L POC ABG pO2 74 L Sodium Potassium Chloride Carbon Dioxide BUN Creatinine Glucose POC Glucose 151 H Calcium Phosphorus Magnesium CK-MB (CK-2) CK-MB (CK-2) Rel Index Troponin T HDL Cholesterol TSH Free T4 Urine WBC (Auto) 10/18/16 10/18/16 10/18/16 14:57 14:57 14:57 WBC 13.3 H MCV 96 H RDW 16.9 H Lymph % (Auto) [place] % (Auto) Lymph # [place] # Seg Neutrophils % Seg Neuts % (Manual) Lymphocytes % (Manual) Seg Neutrophils # Man Lymphocytes # (Manual) POC ABG pH POC ABG pCO2 POC ABG pO2 Sodium Potassium Chloride Carbon Dioxide 13 L D BUN 57 H Creatinine 2.1 H Glucose 169 H POC Glucose Calcium 7.7 L Phosphorus Magnesium CK-MB (CK-2) CK-MB (CK-2) Rel Index Troponin T HDL Cholesterol TSH Free T4 0.68 L Urine WBC (Auto) 10/18/16 10/19/16 10/19/16 17:31 05:10 05:10 WBC 12.5 H MCV 95 H RDW 16.7 H Lymph % (Auto) [place] % (Auto) Lymph # [place] # Seg Neutrophils % Seg Neuts % (Manual) 94.0 H Lymphocytes % (Manual) 2.0 L Seg Neutrophils # Man 11.8 H Lymphocytes # (Manual) 0.3 L POC ABG pH POC ABG pCO2 POC ABG pO2 Sodium 149 H Potassium Chloride 114.1 H Carbon Dioxide 16 L BUN 49 H Creatinine 1.9 H Glucose 137 H POC Glucose 163 H Calcium 7.0 L Phosphorus Magnesium CK-MB (CK-2) CK-MB (CK-2) Rel Index Troponin T HDL Cholesterol TSH Free T4 Urine WBC (Auto) 10/19/16 10/19/16 10/19/16 06:04 11:39 23:47 WBC MCV RDW Lymph % (Auto) [place] % (Auto) Lymph # [place] # Seg Neutrophils % Seg Neuts % (Manual) Lymphocytes % (Manual) Seg Neutrophils # Man Lymphocytes # (Manual) POC ABG pH POC ABG pCO2 28.1 L POC ABG pO2 108 H Sodium Potassium Chloride Carbon Dioxide BUN Creatinine Glucose POC Glucose 134 H 122 H Calcium Phosphorus Magnesium CK-MB (CK-2) CK-MB (CK-2) Rel Index Troponin T HDL Cholesterol TSH Free T4 Urine WBC (Auto) 10/20/16 10/20/16 10/20/16 04:30 05:20 06:10 WBC 11.4 H MCV RDW 16.5 H Lymph % (Auto) [place] % (Auto) Lymph # [place] # Seg Neutrophils % Seg Neuts % (Manual) 92.0 H Lymphocytes % (Manual) 4.0 L Seg Neutrophils # Man 10.5 H Lymphocytes # (Manual) 0.5 L POC ABG pH POC ABG pCO2 24.5 L POC ABG pO2 Sodium Potassium Chloride Carbon Dioxide BUN Creatinine Glucose POC Glucose 112 H Calcium Phosphorus Magnesium CK-MB (CK-2) CK-MB (CK-2) Rel Index Troponin T HDL Cholesterol TSH Free T4 Urine WBC (Auto) 10/20/16 10/20/16 10/20/16 06:10 11:43 14:56 WBC MCV RDW Lymph % (Auto) [place] % (Auto) Lymph # [place] # Seg Neutrophils % Seg Neuts % (Manual) Lymphocytes % (Manual) Seg Neutrophils # Man Lymphocytes # (Manual) POC ABG pH POC ABG pCO2 POC ABG pO2 Sodium 152 H Potassium 3.2 L Chloride 119.1 H Carbon Dioxide 17 L BUN 39 H Creatinine Glucose 107 H POC Glucose 120 H Calcium 6.8 L Phosphorus Magnesium CK-MB (CK-2) CK-MB (CK-2) Rel Index Troponin T HDL Cholesterol TSH Free T4 0.75 L Urine WBC (Auto) 10/20/16 10/20/16 10/20/16 14:56 17:22 23:50 WBC MCV RDW Lymph % (Auto) [place] % (Auto) Lymph # [place] # Seg Neutrophils % Seg Neuts % (Manual) Lymphocytes % (Manual) Seg Neutrophils # Man Lymphocytes # (Manual) POC ABG pH POC ABG pCO2 POC ABG pO2 Sodium Potassium Chloride Carbon Dioxide BUN Creatinine Glucose POC Glucose 148 H 106 H Calcium Phosphorus Magnesium CK-MB (CK-2) CK-MB (CK-2) Rel Index Troponin T HDL Cholesterol TSH 0.132 L Free T4 Urine WBC (Auto) 10/21/16 10/21/16 10/21/16 05:00 05:00 05:30 WBC MCV RDW 16.6 H Lymph % (Auto) 13.2 L [place] % (Auto) Lymph # 1.1 L [place] # Seg Neutrophils % 80.4 H Seg Neuts % (Manual) Lymphocytes % (Manual) Seg Neutrophils # Man Lymphocytes # (Manual) POC ABG pH 7.342 L POC ABG pCO2 30.7 L POC ABG pO2 149 H Sodium 150 H Potassium Chloride 117.2 H Carbon Dioxide 17 L BUN 38 H Creatinine Glucose POC Glucose Calcium 7.5 L Phosphorus Magnesium CK-MB (CK-2) CK-MB (CK-2) Rel Index Troponin T HDL Cholesterol TSH Free T4 Urine WBC (Auto) 10/22/16 10/22/16 10/23/16 05:00 05:21 03:48 WBC MCV RDW Lymph % (Auto) [place] % (Auto) Lymph # [place] # Seg Neutrophils % Seg Neuts % (Manual) Lymphocytes % (Manual) Seg Neutrophils # Man Lymphocytes # (Manual) POC ABG pH 7.319 L POC ABG pCO2 POC ABG pO2 68 L Sodium 151 H 147 H Potassium 3.3 L Chloride 120.5 H 116.2 H Carbon Dioxide 17 L 19 L BUN 36 H 26 H Creatinine Glucose 143 H 110 H POC Glucose Calcium 6.8 L 6.7 L Phosphorus 0.90 L* Magnesium 1.40 L CK-MB (CK-2) CK-MB (CK-2) Rel Index Troponin T HDL Cholesterol TSH Free T4 Urine WBC (Auto) 10/23/16 10/23/16 10/23/16 03:48 03:48 04:33 WBC 11.4 H MCV RDW 17.0 H Lymph % (Auto) [place] % (Auto) Lymph # [place] # Seg Neutrophils % Seg Neuts % (Manual) Lymphocytes % (Manual) Seg Neutrophils # Man Lymphocytes # (Manual) POC ABG pH POC ABG pCO2 31.7 L POC ABG pO2 Sodium Potassium Chloride Carbon Dioxide BUN Creatinine Glucose POC Glucose Calcium Phosphorus Magnesium CK-MB (CK-2) 6.9 H CK-MB (CK-2) Rel Index 4.8 H Troponin T 0.215 H* HDL Cholesterol 22 L TSH Free T4 Urine WBC (Auto) 10/23/16 10/23/16 10/24/16 18:00 Unknown 03:45 WBC MCV RDW Lymph % (Auto) [place] % (Auto) Lymph # [place] # Seg Neutrophils % Seg Neuts % (Manual) Lymphocytes % (Manual) Seg Neutrophils # Man Lymphocytes # (Manual) POC ABG pH POC ABG pCO2 POC ABG pO2 Sodium 148 H Potassium Chloride 116.8 H Carbon Dioxide BUN 22 H Creatinine Glucose 138 H POC Glucose Calcium 6.9 L Phosphorus 1.90 L D Magnesium 2.60 H CK-MB (CK-2) 6.3 H CK-MB (CK-2) Rel Index Troponin T 0.206 H* HDL Cholesterol TSH Free T4 Urine WBC (Auto) 19.0 H 10/24/16 10/24/16 10/25/16 03:45 06:26 06:33 WBC MCV RDW 16.5 H Lymph % (Auto) [place] % (Auto) 9.1 H Lymph # [place] # 0.9 H Seg Neutrophils % 75.3 H Seg Neuts % (Manual) Lymphocytes % (Manual) Seg Neutrophils # Man Lymphocytes # (Manual) POC ABG pH POC ABG pCO2 33.2 L 27.0 L POC ABG pO2 72 L Sodium Potassium Chloride Carbon Dioxide BUN Creatinine Glucose POC Glucose Calcium Phosphorus Magnesium CK-MB (CK-2) CK-MB (CK-2) Rel Index Troponin T HDL Cholesterol TSH Free T4 Urine WBC (Auto) 10/25/16 10/25/16 06:40 06:40 WBC MCV RDW 17.0 H Lymph % (Auto) [place] % (Auto) Lymph # [place] # Seg Neutrophils % Seg Neuts % (Manual) 95.0 H Lymphocytes % (Manual) 4.0 L Seg Neutrophils # Man 9.4 H Lymphocytes # (Manual) 0.4 L POC ABG pH POC ABG pCO2 POC ABG pO2 Sodium Potassium Chloride Carbon Dioxide 18 L BUN Creatinine Glucose 173 H POC Glucose Calcium 6.9 L Phosphorus Magnesium CK-MB (CK-2) CK-MB (CK-2) Rel Index Troponin T HDL Cholesterol TSH Free T4 Urine WBC (Auto) Chest x-ray: report reviewed, image reviewed (still w/ white out L)
[2016-10-25] MEDS: VANCOMYCIN/NS 1 GM/250 ML 1 GM/250 ML BAG IV SCH ×2 (14:07→23:21)
[2016-10-25] MEDS: fentaNYL DRIP Premix 2,000 MCG/100 ML BAG IV SCH (14:09)
[2016-10-25] MEDS: LEVOPHED DRIP 4 MG/NS 250 ML 4 MG/250 ML BAG IV SCH (14:10)
[2016-10-25] MEDS: LEVAQUIN 750MG/150ML 750 MG/150 ML BAG IV SCH (16:07)
--- NOTE | 2016-10-25 16:39 | Progress Note ---
Assessment and Plan Acute hypoxic respiratory failure. - He is still intubated on ventilator. Pulmonology following. - May need Trach and PEG if cannot wean off Shock. Hypovolemic. - He is on Levophed infusion. Acute metabolic encephalopathy. - He is sedated , on ventilator. Neurology following. - Ct head no acute finding Multiple sclerosis. Neurology following Hypokalemia, resolved. Hypernatremia. - Sodium normal today. Continue free water. - Severe malnutrition - on TF DVT prophylaxis with Lovenox Subjective Date of service: 10/25/16 Principal diagnosis: Acute respiratory failure Interval history: Patient still intubated, sedated difficult to wean off as he gets restless when fentanyl dose gets reduced Discussed with his roommate by phone, no family members in contact to make decision for him Objective - Exam Narrative Exam: Gen appearance :Not in acute distress, intubated, sedated, on ventilator HEENT: Normocephalic, atraumatic Neck: no JVD Lungs: Clear to auscultation bilaterally, no crackles, or wheezes. Heart: S1 and S2 regular, no murmurs, no gallops, rub Abdomen : Soft, non-tender, non-distended, normal bowel sounds Extremities :No edema, no clubbing or cyanosis Neuro: Sedated. - Constitutional Vitals: Vital Signs - 12hr 10/25/16 10/25/16 10/25/16 04:45 05:00 05:15 Temperature Pulse Rate 79 94 H 91 H Pulse Rate [ Anterior Bilateral Throughout] Pulse Rate [ Bilateral] Respiratory 16 14 15 Rate Respiratory Rate [Anterior Bilateral Throughout] Respiratory Rate [Bilateral ] Blood Pressure 98/62 137/86 125/78 O2 Sat by Pulse 97 99 97 Oximetry 10/25/16 10/25/16 10/25/16 05:30 05:45 06:00 Temperature Pulse Rate 87 86 90 Pulse Rate [ Anterior Bilateral Throughout] Pulse Rate [ Bilateral] Respiratory 16 17 10 L Rate Respiratory Rate [Anterior Bilateral Throughout] Respiratory Rate [Bilateral ] Blood Pressure 145/75 146/77 133/73 O2 Sat by Pulse 95 95 95 Oximetry 10/25/16 10/25/16 10/25/16 06:15 06:30 06:46 Temperature Pulse Rate 99 H 104 H 101 H Pulse Rate [ Anterior Bilateral Throughout] Pulse Rate [ Bilateral] Respiratory 19 20 22 Rate Respiratory Rate [Anterior Bilateral Throughout] Respiratory Rate [Bilateral ] Blood Pressure 145/90 145/90 101/77 O2 Sat by Pulse 96 96 94 Oximetry 10/25/16 10/25/16 10/25/16 07:00 07:15 07:30 Temperature Pulse Rate 103 H 80 76 Pulse Rate [ Anterior Bilateral Throughout] Pulse Rate [ Bilateral] Respiratory 19 16 16 Rate Respiratory Rate [Anterior Bilateral Throughout] Respiratory Rate [Bilateral ] Blood Pressure 162/94 136/72 100/39 O2 Sat by Pulse 95 95 96 Oximetry 10/25/16 10/25/16 10/25/16 07:45 08:00 08:15 Temperature 98.9 F Pulse Rate 73 71 66 Pulse Rate [ Anterior Bilateral Throughout] Pulse Rate [ Bilateral] Respiratory 16 16 16 Rate Respiratory Rate [Anterior Bilateral Throughout] Respiratory Rate [Bilateral ] Blood Pressure 72/40 69/41 84/51 O2 Sat by Pulse 97 97 98 Oximetry 10/25/16 10/25/16 10/25/16 08:30 08:45 08:55 Temperature Pulse Rate 69 103 H Pulse Rate [ 110 H Anterior Bilateral Throughout] Pulse Rate [ Bilateral] Respiratory 16 15 Rate Respiratory 18 Rate [Anterior Bilateral Throughout] Respiratory Rate [Bilateral ] Blood Pressure 129/74 134/77 O2 Sat by Pulse 98 97 Oximetry 10/25/16 10/25/16 10/25/16 09:00 09:05 09:10 Temperature Pulse Rate 126 H 123 H Pulse Rate [ 102 H Anterior Bilateral Throughout] Pulse Rate [ 88 Bilateral] Respiratory 23 Rate Respiratory 20 Rate [Anterior Bilateral Throughout] Respiratory 20 Rate [Bilateral ] Blood Pressure 157/106 157/106 O2 Sat by Pulse 96 97 Oximetry 10/25/16 10/25/16 10/25/16 09:16 09:30 09:46 Temperature Pulse Rate 119 H 112 H 109 H Pulse Rate [ Anterior Bilateral Throughout] Pulse Rate [ Bilateral] Respiratory 23 17 20 Rate Respiratory Rate [Anterior Bilateral Throughout] Respiratory Rate [Bilateral ] Blood Pressure 157/106 144/95 144/95 O2 Sat by Pulse 93 92 93 Oximetry 10/25/16 10/25/16 10/25/16 10:00 10:15 10:30 Temperature Pulse Rate 105 H 87 109 H Pulse Rate [ Anterior Bilateral Throughout] Pulse Rate [ Bilateral] Respiratory 19 16 17 Rate Respiratory Rate [Anterior Bilateral Throughout] Respiratory Rate [Bilateral ] Blood Pressure 152/111 95/53 145/93 O2 Sat by Pulse 93 94 96 Oximetry 10/25/16 10/25/16 10/25/16 10:46 11:00 11:15 Temperature Pulse Rate 86 74 74 Pulse Rate [ Anterior Bilateral Throughout] Pulse Rate [ Bilateral] Respiratory 16 16 16 Rate Respiratory Rate [Anterior Bilateral Throughout] Respiratory Rate [Bilateral ] Blood Pressure 111/66 83/49 90/57 O2 Sat by Pulse 95 95 96 Oximetry 10/25/16 10/25/16 10/25/16 11:30 11:45 12:00 Temperature 98.9 F Pulse Rate 76 67 69 Pulse Rate [ Anterior Bilateral Throughout] Pulse Rate [ Bilateral] Respiratory 14 16 16 Rate Respiratory Rate [Anterior Bilateral Throughout] Respiratory Rate [Bilateral ] Blood Pressure 106/65 101/54 97/59 O2 Sat by Pulse 97 95 96 Oximetry 10/25/16 10/25/16 10/25/16 12:15 12:30 12:45 Temperature Pulse Rate 69 67 68 Pulse Rate [ Anterior Bilateral Throughout] Pulse Rate [ Bilateral] Respiratory 16 16 16 Rate Respiratory Rate [Anterior Bilateral Throughout] Respiratory Rate [Bilateral ] Blood Pressure 112/65 120/59 99/63 O2 Sat by Pulse 96 96 96 Oximetry 10/25/16 10/25/16 10/25/16 13:00 13:15 13:30 Temperature Pulse Rate 67 66 67 Pulse Rate [ Anterior Bilateral Throughout] Pulse Rate [ Bilateral] Respiratory 16 16 16 Rate Respiratory Rate [Anterior Bilateral Throughout] Respiratory Rate [Bilateral ] Blood Pressure 97/59 88/50 107/64 O2 Sat by Pulse 96 95 96 Oximetry 10/25/16 10/25/16 10/25/16 13:45 13:50 14:00 Temperature Pulse Rate 63 94 H 66 Pulse Rate [ Anterior Bilateral Throughout] Pulse Rate [ Bilateral] Respiratory 16 16 Rate Respiratory Rate [Anterior Bilateral Throughout] Respiratory Rate [Bilateral ] Blood Pressure 102/60 120/64 116/65 O2 Sat by Pulse 97 96 96 Oximetry 10/25/16 10/25/16 10/25/16 14:15 14:30 14:45 Temperature Pulse Rate 63 93 H 71 Pulse Rate [ Anterior Bilateral Throughout] Pulse Rate [ Bilateral] Respiratory 16 14 16 Rate Respiratory Rate [Anterior Bilateral Throughout] Respiratory Rate [Bilateral ] Blood Pressure 120/64 143/85 133/73 O2 Sat by Pulse 97 98 97 Oximetry 10/25/16 10/25/16 15:00 15:15 Temperature Pulse Rate 62 62 Pulse Rate [ Anterior Bilateral Throughout] Pulse Rate [ Bilateral] Respiratory 16 16 Rate Respiratory Rate [Anterior Bilateral Throughout] Respiratory Rate [Bilateral ] Blood Pressure 126/69 106/58 O2 Sat by Pulse 97 96 Oximetry - Labs CBC & Chem 7: 10/27/16 04:40 10/27/16 04:40 Labs: Abnormal lab results 10/25/16 10/25/16 10/25/16 Range/Units 06:33 06:40 06:40 RDW 17.0 H (13.2-15.2) % Seg Neuts % (Manual) 95.0 H (40.0-70.0) % Lymphocytes % (Manual) 4.0 L (13.4-35.0) % Seg Neutrophils # Man 9.4 H (1.8-7.7) K/mm3 Lymphocytes # (Manual) 0.4 L (1.2-5.4) K/mm3 POC ABG pCO2 27.0 L (35-45) Carbon Dioxide 18 L (22-30) mmol/L Glucose 173 H (75-100) mg/dL Calcium 6.9 L (8.4-10.2) mg/dL
[2016-10-25] MEDS: NACL 0.9% 500 ML 500 ML IV SCH (22:05)
[2016-10-26] MEDS: PROVENTIL IH PRN ×3 (00:23→16:17)
[2016-10-26] MEDS: MUCOMYST INHALATION INHALATION SCH ×3 (00:23→16:18)
[2016-10-26] MEDS: ATIVAN IV PRN (03:24)
[2016-10-26] MEDS: fentaNYL DRIP Premix 2,000 MCG/100 ML BAG IV SCH ×2 (03:24→15:02)
[2016-10-26] MEDS: REGLAN IV SCH ×3 (05:28→18:36)
[2016-10-26] MEDS: CLEOCIN 600 MG/50 mL 600 MG/50 ML BAG IV SCH (05:28)
[2016-10-26] MEDS: ROBITUSSIN PO SCH ×6 (05:31→22:58)
--- NOTE | 2016-10-26 07:49 | XRay Report ---
Single view chest: Compared to 10/25/16. History: Atelectasis. Findings: Cardiomegaly. Trachea is midline. Stable support system. Absence of atelectasis left lung with reexpansion of left lung. Left pleural effusion. No lung consolidation. Impression: Findings as detailed above.
[2016-10-26 07:59] LABS: Basophils % (Auto) 0.2 % (0.0-1.8); Hemoglobin 11.2 gm/dl (11.8-15.2); Mean Corpuscular HGB Conc 33 % (32-34); Mean Corpuscular Hemoglobin 31 pg (28-32); Mean Corpuscular Volume 93 fl (84-94); Platelet Count 233 K/mm3 (140-440); Red Blood Count 3.66 M/mm3 (3.65-5.03); Red Cell Distribution Width 16.8 % (13.2-15.2); White Blood Count 6.8 K/mm3 (4.5-11.0)
[2016-10-26 08:09] LABS: BUN/Creatinine Ratio 23.75; Blood Urea Nitrogen 19 mg/dL (9-20); Calcium 6.7 mg/dL (8.4-10.2); Carbon Dioxide 20 mmol/L (22-30); Glucose 178 mg/dL (75-100)
[2016-10-26 08:10] LABS: Anion Gap 17 mmol/L; Potassium 4.9 mmol/L (3.6-5.0); Sodium 142 mmol/L (137-145)
[2016-10-26] MEDS: LOVENOX SUB-Q SCH (10:04)
[2016-10-26] MEDS: PEPCID PO SCH ×2 (10:05→22:59)
--- NOTE | 2016-10-26 10:57 | Consultation ---
History of Present Illness - Reason for Consult Consult date: 10/26/16 ms - History of Present Illness patient is still comatose condition and very littler changes he is on IV keppra and plan to recheck the EEG searching data bases on patient Past History Past Medical History: arthritis, GERD, hypertension, other (MS) Past Surgical History: No surgical history, Other (UTO) Social history: , other (lives with roommate). denies: smoking, alcohol abuse, prescription drug abuse Family history: hypertension Medications and Allergies Allergies Allergy/AdvReac Type Severity Reaction Status Date / Time codeine AdvReac Hives Verified 04/30/14 13:32 Home Medications Medication Instructions Recorded Confirmed Last Taken Type Nitroglycerin [Nitrostat] 0.4 mg SL PRN PRN 04/30/14 04/30/14 Unknown History Active Meds: Active Medications Acetylcysteine (Mucomyst Inhalation) 200 mg INHALATION Q8HRT [facility] Last Admin: 10/26/16 08:32 Dose: 200 mg Albuterol (Proventil) 2.5 mg IH Q8HRT PRN PRN Reason: Wheezing Last Admin: 10/26/16 08:32 Dose: 2.5 mg Lipase/Protease/Amylase (Pancreaze Dr 10,500 Unit) 1 each FEEDTUBE PRN PRN PRN Reason: For Clogged Feeding Tube Clonazepam (Klonopin) 0.5 mg PO BID [facility] Last Admin: 10/26/16 10:04 Dose: 0.5 mg Enoxaparin Sodium (Lovenox) 40 mg SUB-Q QDAY@1000 [facility] Last Admin: 10/26/16 10:04 Dose: 40 mg Famotidine (Pepcid) 20 mg PO BID [facility] Last Admin: 10/26/16 10:05 Dose: 20 mg Guaifenesin (Robitussin) 200 mg PO Q4H [facility] Last Admin: 10/26/16 07:57 Dose: 200 mg Hydrophilic Ointment (Vaseline Lip Therapy) 1 applic TP Q2HR PRN PRN Reason: Dry Lips Fentanyl Citrate (Fentanyl Drip Premix) 2,000 mcg in 100 mls @ 3.969 mls/hr IV TITR KAYLEE; 1 MCG/KG/HR PRN Reason: Protocol Last Admin: 10/26/16 03:24 Dose: 2 mcg/kg/hr, 7.938 mls/hr Norepinephrine (Levophed Drip 4 Mg/Ns 250 Ml) 4 mg in 250 mls @ 7.5 mls/hr IV TITR KAYLEE; 2 MCG/MIN PRN Reason: Protocol Last Admin: 10/25/16 14:10 Dose: 2 mcg/min, 7.5 mls/hr Sodium Chloride (Nacl 0.9% 500 Ml) 500 mls @ 20 mls/hr IV DIRECT KAYLEE Last Admin: 10/25/16 22:05 Dose: 20 mls/hr Clindamycin HCl (Cleocin 600 Mg/50 Ml) 600 mg in 50 mls @ 100 mls/hr IV Q8HR KAYLEE PRN Reason: Protocol Last Admin: 10/26/16 05:28 Dose: 100 mls/hr Levofloxacin/Dextrose (Levaquin 750mg/150ml) 750 mg in 150 mls @ 100 mls/hr IV Q24H K[facility]LEE PRN Reason: Protocol Last Admin: 10/25/16 16:07 Dose: 100 mls/hr Vancomycin HCl (Vancomycin/Ns 1 Gm/250 Ml) 1 gm in 250 mls @ 166.667 mls/hr IV Q12H [facility] Last Admin: 10/25/16 23:21 Dose: 166.667 mls/hr Lorazepam (Ativan) 1 mg IV Q4H PRN PRN Reason: Agitation Last Admin: 10/26/16 03:24 Dose: 1 mg Methylprednisolone Sodium Succinate (Solu-Medrol) 40 mg IV Q8HR [facility] Last Admin: 10/26/16 05:31 Dose: 40 mg Metoclopramide HCl (Reglan) 5 mg IV Q6HR [facility] Last Admin: 10/26/16 05:28 Dose: 5 mg Multi-Ingred Cream/Lotion/Oil/Oint (Artificial Tears Ophth Oint) 1 applic OU Q4HR PRN PRN Reason: Dry Eye(s) Simple Syrup (Simple Syrup) 15 ml FEEDTUBE PRN PRN PRN Reason: Hypoglycemia Simple Syrup (Simple Syrup) 30 ml FEEDTUBE PRN PRN PRN Reason: Hypoglycemia Sodium Bicarbonate (Sodium Bicarbonate) 325 mg FEEDTUBE PRN PRN PRN Reason: For Clogged Feeding Tube Vancomycin HCl (Vancomycin Pharmacy To Dose) 1 each IV PKCONSULT KAYLEE PRN Reason: Protocol Exam - Constitutional Vitals: Temp Pulse Resp BP Pulse Ox 97.7 F 71 16 128/62 98 10/26/16 08:00 10/26/16 08:41 10/26/16 08:41 10/26/16 08:21 10/26/16 08:21 Results - Labs CBC & Chem 7: 10/26/16 06:38 10/26/16 06:38 Labs: Abnormal lab results 10/26/16 10/26/16 Range/Units 06:38 06:38 Hgb 11.2 L (11.8-15.2) gm/dl Hct 34.0 L (35.5-45.6) % RDW 16.8 H (13.2-15.2) % Lymph % (Auto) 5.8 L (13.4-35.0) % Lymph # 0.4 L (1.2-5.4) K/mm3 Seg Neutrophils % 89.6 H (40.0-70.0) % Chloride 110.0 H (98-107) mmol/L Carbon Dioxide 20 L (22-30) mmol/L Glucose 178 H (75-100) mg/dL Calcium 6.7 L (8.4-10.2) mg/dL
--- NOTE | 2016-10-26 12:34 | Progress Note ---
Assessment and Plan Altered mental status Acute respiratory failure on mechanical ventilation Hypotensive - on pressors LBBB, chronic Afib, paroxysmal currently in sinus rhythm low TSH of 0.132 and low free T4 of 0.75 Nonischemic cardiomyopathy EF 10-15% on echocardiogram this admission [facility] 04/2014: normal coronaries. LV gram not performed due to findings of renal failure at that time. Medical therapy for his cardiomyopathy once his BP stablizes. Supportive cardiac management. Subjective Date of service: 10/26/16 Principal diagnosis: Acute respiratory failure Interval history: Patient remains intubated on the vent. Now off pressor support. Objective Vital Signs Temp Pulse Pulse Pulse Pulse Pulse Resp 10/26/16 11:19 64 10/26/16 08:41 71 10/26/16 08:21 76 58 L 10/26/16 08:15 86 14 10/26/16 08:00 97.7 F 59 L 20 10/26/16 07:45 69 16 10/26/16 07:30 59 L 20 10/26/16 07:16 66 21 10/26/16 07:00 57 L 20 10/26/16 06:45 60 20 10/26/16 06:30 60 19 10/26/16 06:15 66 21 10/26/16 06:00 65 23 10/26/16 05:45 72 14 10/26/16 05:30 65 20 10/26/16 05:15 83 14 10/26/16 05:07 86 10/26/16 05:00 84 17 10/26/16 04:46 83 17 10/26/16 04:30 77 17 10/26/16 04:15 63 16 10/26/16 04:00 97.6 F 68 60 16 10/26/16 03:45 61 16 10/26/16 03:30 65 16 10/26/16 03:16 76 14 10/26/16 03:00 71 16 10/26/16 02:46 88 11 L 10/26/16 02:30 69 16 10/26/16 02:15 69 12 10/26/16 02:00 63 16 10/26/16 01:45 65 16 10/26/16 01:30 75 14 10/26/16 01:15 64 16 10/26/16 01:00 69 18 10/26/16 00:45 63 16 10/26/16 00:40 62 10/26/16 00:30 65 16 10/26/16 00:26 61 10/26/16 00:24 60 10/26/16 00:15 59 L 16 10/26/16 00:00 97.5 F L 59 L 85 16 10/25/16 23:45 62 16 10/25/16 23:30 64 16 10/25/16 23:15 61 16 10/25/16 23:00 63 16 10/25/16 22:45 62 16 10/25/16 22:30 64 16 10/25/16 22:15 71 16 10/25/16 22:00 70 16 10/25/16 21:45 62 16 10/25/16 21:30 62 16 10/25/16 21:15 74 14 10/25/16 21:00 66 16 10/25/16 20:57 64 10/25/16 20:45 68 16 10/25/16 20:30 69 16 10/25/16 20:15 66 16 10/25/16 20:00 65 66 16 10/25/16 19:45 98.5 F 68 16 10/25/16 19:30 79 15 10/25/16 19:16 72 16 10/25/16 19:00 66 16 10/25/16 18:45 65 16 10/25/16 18:30 70 16 10/25/16 18:15 74 16 10/25/16 18:00 75 14 10/25/16 17:55 62 102 H 90 10/25/16 17:45 87 12 10/25/16 17:40 106 H 10/25/16 17:30 71 16 10/25/16 17:15 69 16 10/25/16 17:00 66 16 10/25/16 16:45 75 14 10/25/16 16:30 70 12 10/25/16 16:15 61 16 10/25/16 16:00 98 F 67 16 10/25/16 15:45 59 L 16 10/25/16 15:30 60 16 10/25/16 15:15 62 16 10/25/16 15:00 62 16 10/25/16 14:45 71 16 10/25/16 14:30 93 H 14 10/25/16 14:15 63 16 10/25/16 14:00 66 16 10/25/16 13:50 94 H 10/25/16 13:45 63 16 10/25/16 13:30 67 16 10/25/16 13:15 66 16 10/25/16 13:00 67 16 10/25/16 12:45 68 16 Resp Resp Resp BP Pulse Ox 10/26/16 11:19 86/50 97 10/26/16 08:41 16 10/26/16 08:21 20 128/62 98 10/26/16 08:15 128/62 99 10/26/16 08:00 118/64 97 10/26/16 07:45 131/72 96 10/26/16 07:30 125/66 97 10/26/16 07:16 127/71 98 10/26/16 07:00 118/64 97 10/26/16 06:45 100/57 97 10/26/16 06:30 99/53 97 10/26/16 06:15 104/58 97 10/26/16 06:00 108/58 98 10/26/16 05:45 114/72 98 10/26/16 05:30 106/55 97 10/26/16 05:15 133/110 96 10/26/16 05:07 118/58 95 10/26/16 05:00 131/68 94 10/26/16 04:46 118/58 96 10/26/16 04:30 118/58 96 10/26/16 04:15 118/58 95 10/26/16 04:00 124/64 95 10/26/16 03:45 99/52 93 10/26/16 03:30 99/51 93 10/26/16 03:16 125/101 94 10/26/16 03:00 137/62 94 10/26/16 02:46 115/65 94 10/26/16 02:30 129/64 95 10/26/16 02:15 111/63 94 10/26/16 02:00 114/57 94 10/26/16 01:45 122/66 95 10/26/16 01:30 120/69 95 10/26/16 01:15 104/54 94 10/26/16 01:00 120/59 95 10/26/16 00:45 117/60 95 10/26/16 00:40 16 10/26/16 00:30 122/59 97 10/26/16 00:26 111/60 95 10/26/16 00:24 16 10/26/16 00:15 111/60 95 10/26/16 00:00 110/56 95 10/25/16 23:45 108/58 96 10/25/16 23:30 107/59 96 10/25/16 23:15 101/56 95 10/25/16 23:00 99/54 95 10/25/16 22:45 104/54 96 10/25/16 22:30 125/60 99 10/25/16 22:15 120/66 98 10/25/16 22:00 110/74 99 10/25/16 21:45 91/52 98 10/25/16 21:30 91/49 98 10/25/16 21:15 120/73 98 10/25/16 21:00 122/65 98 10/25/16 20:57 105/63 98 10/25/16 20:45 105/63 98 10/25/16 20:30 103/62 97 10/25/16 20:15 94/50 97 10/25/16 20:00 92/51 97 10/25/16 19:45 102/55 98 10/25/16 19:30 113/70 97 10/25/16 19:16 107/58 97 10/25/16 19:00 96/66 96 10/25/16 18:45 97/53 97 10/25/16 18:30 105/57 96 10/25/16 18:15 114/59 97 10/25/16 18:00 126/78 97 10/25/16 17:55 20 22 106/58 96 10/25/16 17:45 116/74 98 10/25/16 17:40 18 10/25/16 17:30 96/57 97 10/25/16 17:15 102/55 97 10/25/16 17:00 107/54 97 10/25/16 16:45 119/61 97 10/25/16 16:30 108/60 97 10/25/16 16:15 106/57 94 10/25/16 16:00 105/62 96 10/25/16 15:45 101/62 96 10/25/16 15:30 94/54 96 10/25/16 15:15 106/58 96 10/25/16 15:00 126/69 97 10/25/16 14:45 133/73 97 10/25/16 14:30 143/85 98 10/25/16 14:15 120/64 97 10/25/16 14:00 116/65 96 10/25/16 13:50 120/64 96 10/25/16 13:45 102/60 97 10/25/16 13:30 107/64 96 10/25/16 13:15 88/50 95 10/25/16 13:00 97/59 96 10/25/16 12:45 99/63 96 - Physical Examination General: Other (intubated on the vent) Cardiac: Positive: Reg Rate and Rhythm - Labs and Meds CBC 10/26/16 Range/Units 06:38 WBC 6.8 (4.5-11.0) K/mm3 RBC 3.66 (3.65-5.03) M/mm3 Hgb 11.2 L (11.8-15.2) gm/dl Hct 34.0 L (35.5-45.6) % Plt Count 233 (140-440) K/mm3 Lymph # 0.4 L (1.2-5.4) K/mm3 [place] # 0.3 (0.0-0.8) K/mm3 Eos # 0.0 (0.0-0.4) K/mm3 Baso # 0.0 (0.0-0.1) K/mm3 Comprehensive Metabolic Panel 10/26/16 Range/Units 06:38 Sodium 142 (137-145) mmol/L Potassium 4.9 (3.6-5.0) mmol/L Chloride 110.0 H (98-107) mmol/L Carbon Dioxide 20 L (22-30) mmol/L BUN 19 (9-20) mg/dL Creatinine 0.8 (0.8-1.5) mg/dL Glucose 178 H (75-100) mg/dL Calcium 6.7 L (8.4-10.2) mg/dL
[2016-10-26] MEDS ORDERED: MIRALAX 3350 PO PRN (13:43)
--- NOTE | 2016-10-26 13:43 | Progress Note ---
Assessment and Plan Imp: 1. Focal LLL infiltrate, probably aspiration pneumonia 2. MS w/ ? flare 3. Acute respiratory failure, hypoxia 4. Volume depletion/JEANNETTE, better 5. Hypernatremia 6. SIRS, ? 2/2 pneumonia and/or UTI, better 7. Atelectasis L lung, prob mucous plugging -> better w/ conservative airway clearance measures 8. Severe dilated NICMP 9. UTI, E.coli resistant to Levaquin Rec: 1. D/c current ABX; start Zosyn monotherapy for the E.coli in urine and aspiration organisms 2. Cont. free water -> 250mL [id number] 3. SBT and SAT daily; gets restless off Fentanyl so added low-dose Klonopin; consider Seroquel 4. TFs, DVT and GI PPx 5. Wean Levophed to keep MAP > 65 6. F/u cardiology recs re: poor cardiac function 7. Replete elytes prn 8. Reglan scheduled; Miralax prn 9. Added Solumedrol given hx of MS 10. Mucinex/Mucomyst nebs/aggressive suctioning/irrigation/bagging/vest therapy , etc. 11. Day #9 of ventilator and mentation poor; will need trach/peg and will consult Surgery for this No family present or reachable CCT 31 minutes Subjective Date of service: 10/26/16 Principal diagnosis: Acute respiratory failure Interval history: Unable to give history. Sedated on Fentanyl. Gets restless when stopped, but nothing purposeful/doesn't follow commands. Off Levophed now w/ borderline low BP. Residuals better and tolerating TFs well. Active Medications Acetylcysteine (Mucomyst Inhalation) 200 mg INHALATION Q8HRT [facility] Last Admin: 10/26/16 08:32 Dose: 200 mg Albuterol (Proventil) 2.5 mg IH Q8HRT PRN PRN Reason: Wheezing Last Admin: 10/26/16 08:32 Dose: 2.5 mg Lipase/Protease/Amylase (Pancreaze Dr 10,500 Unit) 1 each FEEDTUBE PRN PRN PRN Reason: For Clogged Feeding Tube Clonazepam (Klonopin) 0.5 mg PO BID [facility] Last Admin: 10/26/16 10:04 Dose: 0.5 mg Enoxaparin Sodium (Lovenox) 40 mg SUB-Q QDAY@1000 [facility] Last Admin: 10/26/16 10:04 Dose: 40 mg Famotidine (Pepcid) 20 mg PO BID [facility] Last Admin: 10/26/16 10:05 Dose: 20 mg Guaifenesin (Robitussin) 200 mg PO Q4H [facility] Last Admin: 10/26/16 07:57 Dose: 200 mg Hydrophilic Ointment (Vaseline Lip Therapy) 1 applic TP Q2HR PRN PRN Reason: Dry Lips Fentanyl Citrate (Fentanyl Drip Premix) 2,000 mcg in 100 mls @ 3.969 mls/hr IV TITR KAYLEE; 1 MCG/KG/HR PRN Reason: Protocol Last Admin: 10/26/16 03:24 Dose: 2 mcg/kg/hr, 7.938 mls/hr Norepinephrine (Levophed Drip 4 Mg/Ns 250 Ml) 4 mg in 250 mls @ 7.5 mls/hr IV TITR KAYLEE; 2 MCG/MIN PRN Reason: Protocol Last Admin: 10/25/16 14:10 Dose: 2 mcg/min, 7.5 mls/hr Sodium Chloride (Nacl 0.9% 500 Ml) 500 mls @ 20 mls/hr IV DIRECT [facility] Last Admin: 10/25/16 22:05 Dose: 20 mls/hr Piperacillin Sod/Tazobactam Sod (Zosyn/Ns 4.5gm/100ml) 4.5 gm in 100 mls @ 200 mls/hr IV Q8HR KAYLEE PRN Reason: Protocol Methylprednisolone Sodium Succinate (Solu-Medrol) 40 mg IV Q8HR [facility] Last Admin: 10/26/16 05:31 Dose: 40 mg Metoclopramide HCl (Reglan) 5 mg IV Q6HR [facility] Last Admin: 10/26/16 05:28 Dose: 5 mg Multi-Ingred Cream/Lotion/Oil/Oint (Artificial Tears Ophth Oint) 1 applic OU Q4HR PRN PRN Reason: Dry Eye(s) Simple Syrup (Simple Syrup) 15 ml FEEDTUBE PRN PRN PRN Reason: Hypoglycemia Simple Syrup (Simple Syrup) 30 ml FEEDTUBE PRN PRN PRN Reason: Hypoglycemia Sodium Bicarbonate (Sodium Bicarbonate) 325 mg FEEDTUBE PRN PRN PRN Reason: For Clogged Feeding Tube Objective Vital Signs - 12hr 10/26/16 10/26/16 10/26/16 01:45 02:00 02:15 Temperature Pulse Rate 65 63 69 Pulse Rate [ Anterior Bilateral Throughout] Pulse Rate [ Anterior Left Throughout] Pulse Rate [ From Monitor] Respiratory 16 16 12 Rate Respiratory Rate [Anterior Bilateral Throughout] Respiratory Rate [Anterior Left Throughout ] Blood Pressure 122/66 114/57 111/63 O2 Sat by Pulse 95 94 94 Oximetry 10/26/16 10/26/16 10/26/16 02:30 02:46 03:00 Temperature Pulse Rate 69 88 71 Pulse Rate [ Anterior Bilateral Throughout] Pulse Rate [ Anterior Left Throughout] Pulse Rate [ From Monitor] Respiratory 16 11 L 16 Rate Respiratory Rate [Anterior Bilateral Throughout] Respiratory Rate [Anterior Left Throughout ] Blood Pressure 129/64 115/65 137/62 O2 Sat by Pulse 95 94 94 Oximetry 10/26/16 10/26/16 10/26/16 03:16 03:30 03:45 Temperature Pulse Rate 76 65 61 Pulse Rate [ Anterior Bilateral Throughout] Pulse Rate [ Anterior Left Throughout] Pulse Rate [ From Monitor] Respiratory 14 16 16 Rate Respiratory Rate [Anterior Bilateral Throughout] Respiratory Rate [Anterior Left Throughout ] Blood Pressure 125/101 99/51 99/52 O2 Sat by Pulse 94 93 93 Oximetry 10/26/16 10/26/16 10/26/16 04:00 04:15 04:30 Temperature 97.6 F Pulse Rate 68 63 77 Pulse Rate [ Anterior Bilateral Throughout] Pulse Rate [ Anterior Left Throughout] Pulse Rate [ 60 From Monitor] Respiratory 16 16 17 Rate Respiratory Rate [Anterior Bilateral Throughout] Respiratory Rate [Anterior Left Throughout ] Blood Pressure 124/64 118/58 118/58 O2 Sat by Pulse 95 95 96 Oximetry 10/26/16 10/26/16 10/26/16 04:46 05:00 05:07 Temperature Pulse Rate 83 84 86 Pulse Rate [ Anterior Bilateral Throughout] Pulse Rate [ Anterior Left Throughout] Pulse Rate [ From Monitor] Respiratory 17 17 Rate Respiratory Rate [Anterior Bilateral Throughout] Respiratory Rate [Anterior Left Throughout ] Blood Pressure 118/58 131/68 118/58 O2 Sat by Pulse 96 94 95 Oximetry 10/26/16 10/26/16 10/26/16 05:15 05:30 05:45 Temperature Pulse Rate 83 65 72 Pulse Rate [ Anterior Bilateral Throughout] Pulse Rate [ Anterior Left Throughout] Pulse Rate [ From Monitor] Respiratory 14 20 14 Rate Respiratory Rate [Anterior Bilateral Throughout] Respiratory Rate [Anterior Left Throughout ] Blood Pressure 133/110 106/55 114/72 O2 Sat by Pulse 96 97 98 Oximetry 10/26/16 10/26/16 10/26/16 06:00 06:15 06:30 Temperature Pulse Rate 65 66 60 Pulse Rate [ Anterior Bilateral Throughout] Pulse Rate [ Anterior Left Throughout] Pulse Rate [ From Monitor] Respiratory 23 21 19 Rate Respiratory Rate [Anterior Bilateral Throughout] Respiratory Rate [Anterior Left Throughout ] Blood Pressure 108/58 104/58 99/53 O2 Sat by Pulse 98 97 97 Oximetry 10/26/16 10/26/16 10/26/16 06:45 07:00 07:16 Temperature Pulse Rate 60 57 L 66 Pulse Rate [ Anterior Bilateral Throughout] Pulse Rate [ Anterior Left Throughout] Pulse Rate [ From Monitor] Respiratory 20 20 21 Rate Respiratory Rate [Anterior Bilateral Throughout] Respiratory Rate [Anterior Left Throughout ] Blood Pressure 100/57 118/64 127/71 O2 Sat by Pulse 97 97 98 Oximetry 10/26/16 10/26/16 10/26/16 07:30 07:45 08:00 Temperature 97.7 F Pulse Rate 59 L 69 59 L Pulse Rate [ Anterior Bilateral Throughout] Pulse Rate [ Anterior Left Throughout] Pulse Rate [ From Monitor] Respiratory 20 16 20 Rate Respiratory Rate [Anterior Bilateral Throughout] Respiratory Rate [Anterior Left Throughout ] Blood Pressure 125/66 131/72 118/64 O2 Sat by Pulse 97 96 97 Oximetry 10/26/16 10/26/16 10/26/16 08:15 08:21 08:41 Temperature Pulse Rate 86 76 Pulse Rate [ 58 L Anterior Bilateral Throughout] Pulse Rate [ 71 Anterior Left Throughout] Pulse Rate [ From Monitor] Respiratory 14 Rate Respiratory 20 Rate [Anterior Bilateral Throughout] Respiratory 16 Rate [Anterior Left Throughout ] Blood Pressure 128/62 128/62 O2 Sat by Pulse 99 98 Oximetry 10/26/16 11:19 Temperature Pulse Rate 64 Pulse Rate [ Anterior Bilateral Throughout] Pulse Rate [ Anterior Left Throughout] Pulse Rate [ From Monitor] Respiratory Rate Respiratory Rate [Anterior Bilateral Throughout] Respiratory Rate [Anterior Left Throughout ] Blood Pressure 86/50 O2 Sat by Pulse 97 Oximetry Constitutional: other (disheveled, critically ill on vent, sedated) Eyes: non-icteric ENT: other (orally intubated) Neck: supple Effort: normal Ascultation: Bilateral: other (coarse BS bilaterally) Percussion: Bilateral: not dull Cardiovascular: regular rate and rhythm (no mrg) Gastrointestinal: normoactive bowel sounds, soft, non-tender, non-distended Extremities: other (damaged right great toe, wrapped currently; no obvious cellulitis) Neurologic: unable to assess Psychiatric: other (unable to assess) CBC and BMP: 10/26/16 06:38 10/26/16 06:38 ABG, PT/INR, D-dimer: ABG POC ABG pH 7.435 (7.35-7.45) 10/25/16 06:33 POC ABG pCO2 27.0 (35-45) L 10/25/16 06:33 POC ABG pO2 80 (80-105) 10/25/16 06:33 POC ABG HCO3 18.1 10/25/16 06:33 POC ABG Total CO2 19 10/25/16 06:33 POC ABG O2 Sat 96 10/25/16 06:33 PT/INR, D-dimer D-Dimer 1813.13 ng/mlDDU (0-234) H 10/17/16 17:51 Abnormal lab findings: Abnormal Labs 10/17/16 10/18/16 10/18/16 19:34 03:29 05:36 WBC Hgb Hct MCV RDW Lymph % (Auto) Clare % (Auto) Lymph # Clare # Seg Neutrophils % Seg Neuts % (Manual) Lymphocytes % (Manual) Seg Neutrophils # Man Lymphocytes # (Manual) POC ABG pH 7.333 L 7.272 L POC ABG pCO2 31.5 L 28.6 L POC ABG pO2 180 H Sodium Potassium Chloride Carbon Dioxide BUN Creatinine Glucose POC Glucose Calcium Phosphorus Magnesium CK-MB (CK-2) CK-MB (CK-2) Rel Index Troponin T HDL Cholesterol TSH Free T4 Urine WBC (Auto) 10/18/16 10/18/16 10/18/16 08:13 09:40 12:04 WBC Hgb Hct MCV RDW Lymph % (Auto) Clare % (Auto) Lymph # Clare # Seg Neutrophils % Seg Neuts % (Manual) Lymphocytes % (Manual) Seg Neutrophils # Man Lymphocytes # (Manual) POC ABG pH 7.231 L 7.298 L POC ABG pCO2 30.8 L POC ABG pO2 74 L Sodium Potassium Chloride Carbon Dioxide BUN Creatinine Glucose POC Glucose 151 H Calcium Phosphorus Magnesium CK-MB (CK-2) CK-MB (CK-2) Rel Index Troponin T HDL Cholesterol TSH Free T4 Urine WBC (Auto) 10/18/16 10/18/16 10/18/16 14:57 14:57 14:57 WBC 13.3 H Hgb Hct MCV 96 H RDW 16.9 H Lymph % (Auto) Clare % (Auto) Lymph # Clare # Seg Neutrophils % Seg Neuts % (Manual) Lymphocytes % (Manual) Seg Neutrophils # Man Lymphocytes # (Manual) POC ABG pH POC ABG pCO2 POC ABG pO2 Sodium Potassium Chloride Carbon Dioxide 13 L D BUN 57 H Creatinine 2.1 H Glucose 169 H POC Glucose Calcium 7.7 L Phosphorus Magnesium CK-MB (CK-2) CK-MB (CK-2) Rel Index Troponin T HDL Cholesterol TSH Free T4 0.68 L Urine WBC (Auto) 10/18/16 10/19/16 10/19/16 17:31 05:10 05:10 WBC 12.5 H Hgb Hct MCV 95 H RDW 16.7 H Lymph % (Auto) Clare % (Auto) Lymph # Clare # Seg Neutrophils % Seg Neuts % (Manual) 94.0 H Lymphocytes % (Manual) 2.0 L Seg Neutrophils # Man 11.8 H Lymphocytes # (Manual) 0.3 L POC ABG pH POC ABG pCO2 POC ABG pO2 Sodium 149 H Potassium Chloride 114.1 H Carbon Dioxide 16 L BUN 49 H Creatinine 1.9 H Glucose 137 H POC Glucose 163 H Calcium 7.0 L Phosphorus Magnesium CK-MB (CK-2) CK-MB (CK-2) Rel Index Troponin T HDL Cholesterol TSH Free T4 Urine WBC (Auto) 10/19/16 10/19/16 10/19/16 06:04 11:39 23:47 WBC Hgb Hct MCV RDW Lymph % (Auto) Clare % (Auto) Lymph # Clare # Seg Neutrophils % Seg Neuts % (Manual) Lymphocytes % (Manual) Seg Neutrophils # Man Lymphocytes # (Manual) POC ABG pH POC ABG pCO2 28.1 L POC ABG pO2 108 H Sodium Potassium Chloride Carbon Dioxide BUN Creatinine Glucose POC Glucose 134 H 122 H Calcium Phosphorus Magnesium CK-MB (CK-2) CK-MB (CK-2) Rel Index Troponin T HDL Cholesterol TSH Free T4 Urine WBC (Auto) 10/20/16 10/20/16 10/20/16 04:30 05:20 06:10 WBC 11.4 H Hgb Hct MCV RDW 16.5 H Lymph % (Auto) Clare % (Auto) Lymph # Clare # Seg Neutrophils % Seg Neuts % (Manual) 92.0 H Lymphocytes % (Manual) 4.0 L Seg Neutrophils # Man 10.5 H Lymphocytes # (Manual) 0.5 L POC ABG pH POC ABG pCO2 24.5 L POC ABG pO2 Sodium Potassium Chloride Carbon Dioxide BUN Creatinine Glucose POC Glucose 112 H Calcium Phosphorus Magnesium CK-MB (CK-2) CK-MB (CK-2) Rel Index Troponin T HDL Cholesterol TSH Free T4 Urine WBC (Auto) 10/20/16 10/20/16 10/20/16 06:10 11:43 14:56 WBC Hgb Hct MCV RDW Lymph % (Auto) Clare % (Auto) Lymph # Clare # Seg Neutrophils % Seg Neuts % (Manual) Lymphocytes % (Manual) Seg Neutrophils # Man Lymphocytes # (Manual) POC ABG pH POC ABG pCO2 POC ABG pO2 Sodium 152 H Potassium 3.2 L Chloride 119.1 H Carbon Dioxide 17 L BUN 39 H Creatinine Glucose 107 H POC Glucose 120 H Calcium 6.8 L Phosphorus Magnesium CK-MB (CK-2) CK-MB (CK-2) Rel Index Troponin T HDL Cholesterol TSH Free T4 0.75 L Urine WBC (Auto) 10/20/16 10/20/16 10/20/16 14:56 17:22 23:50 WBC Hgb Hct MCV RDW Lymph % (Auto) Clare % (Auto) Lymph # Clare # Seg Neutrophils % Seg Neuts % (Manual) Lymphocytes % (Manual) Seg Neutrophils # Man Lymphocytes # (Manual) POC ABG pH POC ABG pCO2 POC ABG pO2 Sodium Potassium Chloride Carbon Dioxide BUN Creatinine Glucose POC Glucose 148 H 106 H Calcium Phosphorus Magnesium CK-MB (CK-2) CK-MB (CK-2) Rel Index Troponin T HDL Cholesterol TSH 0.132 L Free T4 Urine WBC (Auto) 10/21/16 10/21/16 10/21/16 05:00 05:00 05:30 WBC Hgb Hct MCV RDW 16.6 H Lymph % (Auto) 13.2 L Clare % (Auto) Lymph # 1.1 L Clare # Seg Neutrophils % 80.4 H Seg Neuts % (Manual) Lymphocytes % (Manual) Seg Neutrophils # Man Lymphocytes # (Manual) POC ABG pH 7.342 L POC ABG pCO2 30.7 L POC ABG pO2 149 H Sodium 150 H Potassium Chloride 117.2 H Carbon Dioxide 17 L BUN 38 H Creatinine Glucose POC Glucose Calcium 7.5 L Phosphorus Magnesium CK-MB (CK-2) CK-MB (CK-2) Rel Index Troponin T HDL Cholesterol TSH Free T4 Urine WBC (Auto) 10/22/16 10/22/16 10/23/16 05:00 05:21 03:48 WBC Hgb Hct MCV RDW Lymph % (Auto) Clare % (Auto) Lymph # Clare # Seg Neutrophils % Seg Neuts % (Manual) Lymphocytes % (Manual) Seg Neutrophils # Man Lymphocytes # (Manual) POC ABG pH 7.319 L POC ABG pCO2 POC ABG pO2 68 L Sodium 151 H 147 H Potassium 3.3 L Chloride 120.5 H 116.2 H Carbon Dioxide 17 L 19 L BUN 36 H 26 H Creatinine Glucose 143 H 110 H POC Glucose Calcium 6.8 L 6.7 L Phosphorus 0.90 L* Magnesium 1.40 L CK-MB (CK-2) CK-MB (CK-2) Rel Index Troponin T HDL Cholesterol TSH Free T4 Urine WBC (Auto) 10/23/16 10/23/16 10/23/16 03:48 03:48 04:33 WBC 11.4 H Hgb Hct MCV RDW 17.0 H Lymph % (Auto) Clare % (Auto) Lymph # Clare # Seg Neutrophils % Seg Neuts % (Manual) Lymphocytes % (Manual) Seg Neutrophils # Man Lymphocytes # (Manual) POC ABG pH POC ABG pCO2 31.7 L POC ABG pO2 Sodium Potassium Chloride Carbon Dioxide BUN Creatinine Glucose POC Glucose Calcium Phosphorus Magnesium CK-MB (CK-2) 6.9 H CK-MB (CK-2) Rel Index 4.8 H Troponin T 0.215 H* HDL Cholesterol 22 L TSH Free T4 Urine WBC (Auto) 10/23/16 10/23/16 10/24/16 18:00 Unknown 03:45 WBC Hgb Hct MCV RDW Lymph % (Auto) Clare % (Auto) Lymph # Clare # Seg Neutrophils % Seg Neuts % (Manual) Lymphocytes % (Manual) Seg Neutrophils # Man Lymphocytes # (Manual) POC ABG pH POC ABG pCO2 POC ABG pO2 Sodium 148 H Potassium Chloride 116.8 H Carbon Dioxide BUN 22 H Creatinine Glucose 138 H POC Glucose Calcium 6.9 L Phosphorus 1.90 L D Magnesium 2.60 H CK-MB (CK-2) 6.3 H CK-MB (CK-2) Rel Index Troponin T 0.206 H* HDL Cholesterol TSH Free T4 Urine WBC (Auto) 19.0 H 10/24/16 10/24/16 10/25/16 03:45 06:26 06:33 WBC Hgb Hct MCV RDW 16.5 H Lymph % (Auto) Clare % (Auto) 9.1 H Lymph # Clare # 0.9 H Seg Neutrophils % 75.3 H Seg Neuts % (Manual) Lymphocytes % (Manual) Seg Neutrophils # Man Lymphocytes # (Manual) POC ABG pH POC ABG pCO2 33.2 L 27.0 L POC ABG pO2 72 L Sodium Potassium Chloride Carbon Dioxide BUN Creatinine Glucose POC Glucose Calcium Phosphorus Magnesium CK-MB (CK-2) CK-MB (CK-2) Rel Index Troponin T HDL Cholesterol TSH Free T4 Urine WBC (Auto) 10/25/16 10/25/16 10/26/16 06:40 06:40 06:38 WBC Hgb 11.2 L Hct 34.0 L MCV RDW 17.0 H 16.8 H Lymph % (Auto) 5.8 L Clare % (Auto) Lymph # 0.4 L [place] # Seg Neutrophils % 89.6 H Seg Neuts % (Manual) 95.0 H Lymphocytes % (Manual) 4.0 L Seg Neutrophils # Man 9.4 H Lymphocytes # (Manual) 0.4 L POC ABG pH POC ABG pCO2 POC ABG pO2 Sodium Potassium Chloride Carbon Dioxide 18 L BUN Creatinine Glucose 173 H POC Glucose Calcium 6.9 L Phosphorus Magnesium CK-MB (CK-2) CK-MB (CK-2) Rel Index Troponin T HDL Cholesterol TSH Free T4 Urine WBC (Auto) 10/26/16 06:38 WBC Hgb Hct MCV RDW Lymph % (Auto) Clare % (Auto) Lymph # Clare # Seg Neutrophils % Seg Neuts % (Manual) Lymphocytes % (Manual) Seg Neutrophils # Man Lymphocytes # (Manual) POC ABG pH POC ABG pCO2 POC ABG pO2 Sodium Potassium Chloride 110.0 H Carbon Dioxide 20 L BUN Creatinine Glucose 178 H POC Glucose Calcium 6.7 L Phosphorus Magnesium CK-MB (CK-2) CK-MB (CK-2) Rel Index Troponin T HDL Cholesterol TSH Free T4 Urine WBC (Auto) Chest x-ray: report reviewed, image reviewed (improved L lung atelectasis)
[2016-10-26] MEDS: ZOSYN/NS 4.5GM/100ML 4.5 GM/100 ML VIAL IV SCH ×2 (14:58→23:05)
[2016-10-26] MEDS: VANCOMYCIN/NS 1 GM/250 ML 1 GM/250 ML BAG IV SCH (16:51)
--- NOTE | 2016-10-26 16:54 | Progress Note ---
Assessment and Plan Acute hypoxic respiratory failure. - He is still intubated on ventilator. Pulmonology following. - plan for Trach and PEG on Saturday Shock. Hypovolemic. - He is on Levophed infusion. Acute metabolic encephalopathy. - He is sedated , on ventilator. Neurology following. - Ct head no acute finding Multiple sclerosis. Neurology following Hypokalemia, resolved. Hypernatremia, resolved - Sodium 132 today. Continue free water. - Severe malnutrition - On TF DVT prophylaxis with Lovenox Subjective Date of service: 10/26/16 Principal diagnosis: Acute respiratory failure Interval history: Patient still intubated, sedated difficult to wean off as he gets restless when fentanyl dose gets reduced Objective - Exam Narrative Exam: Gen appearance :Not in acute distress, intubated, sedated, on ventilator HEENT: Normocephalic, atraumatic Neck: no JVD Lungs: Clear to auscultation bilaterally, no crackles, or wheezes. Heart: S1 and S2 regular, no murmurs, no gallops, rub Abdomen : Soft, non-tender, non-distended, normal bowel sounds Extremities :No edema, no clubbing or cyanosis Neuro: Sedated. - Constitutional Vitals: Vital Signs - 12hr 10/26/16 10/26/16 10/26/16 05:00 05:07 05:15 Temperature Pulse Rate 84 86 83 Pulse Rate [ Anterior Bilateral Throughout] Pulse Rate [ Anterior Left Throughout] Respiratory 17 14 Rate Respiratory Rate [Anterior Bilateral Throughout] Respiratory Rate [Anterior Left Throughout ] Blood Pressure 131/68 118/58 133/110 O2 Sat by Pulse 94 95 96 Oximetry 10/26/16 10/26/16 10/26/16 05:30 05:45 06:00 Temperature Pulse Rate 65 72 65 Pulse Rate [ Anterior Bilateral Throughout] Pulse Rate [ Anterior Left Throughout] Respiratory 20 14 23 Rate Respiratory Rate [Anterior Bilateral Throughout] Respiratory Rate [Anterior Left Throughout ] Blood Pressure 106/55 114/72 108/58 O2 Sat by Pulse 97 98 98 Oximetry 10/26/16 10/26/16 10/26/16 06:15 06:30 06:45 Temperature Pulse Rate 66 60 60 Pulse Rate [ Anterior Bilateral Throughout] Pulse Rate [ Anterior Left Throughout] Respiratory 21 19 20 Rate Respiratory Rate [Anterior Bilateral Throughout] Respiratory Rate [Anterior Left Throughout ] Blood Pressure 104/58 99/53 100/57 O2 Sat by Pulse 97 97 97 Oximetry 10/26/16 10/26/16 10/26/16 07:00 07:16 07:30 Temperature Pulse Rate 57 L 66 59 L Pulse Rate [ Anterior Bilateral Throughout] Pulse Rate [ Anterior Left Throughout] Respiratory 20 21 20 Rate Respiratory Rate [Anterior Bilateral Throughout] Respiratory Rate [Anterior Left Throughout ] Blood Pressure 118/64 127/71 125/66 O2 Sat by Pulse 97 98 97 Oximetry 10/26/16 10/26/16 10/26/16 07:45 08:00 08:15 Temperature 97.7 F Pulse Rate 69 59 L 86 Pulse Rate [ Anterior Bilateral Throughout] Pulse Rate [ Anterior Left Throughout] Respiratory 16 20 14 Rate Respiratory Rate [Anterior Bilateral Throughout] Respiratory Rate [Anterior Left Throughout ] Blood Pressure 131/72 118/64 128/62 O2 Sat by Pulse 96 97 99 Oximetry 10/26/16 10/26/16 10/26/16 08:21 08:30 08:41 Temperature Pulse Rate 76 66 Pulse Rate [ 58 L Anterior Bilateral Throughout] Pulse Rate [ 71 Anterior Left Throughout] Respiratory 19 Rate Respiratory 20 Rate [Anterior Bilateral Throughout] Respiratory 16 Rate [Anterior Left Throughout ] Blood Pressure 128/62 132/67 O2 Sat by Pulse 98 96 Oximetry 10/26/16 10/26/16 10/26/16 08:45 09:00 09:15 Temperature Pulse Rate 66 67 74 Pulse Rate [ Anterior Bilateral Throughout] Pulse Rate [ Anterior Left Throughout] Respiratory 16 16 15 Rate Respiratory Rate [Anterior Bilateral Throughout] Respiratory Rate [Anterior Left Throughout ] Blood Pressure 110/53 92/49 106/59 O2 Sat by Pulse 94 94 96 Oximetry 10/26/16 10/26/16 10/26/16 09:30 09:45 10:00 Temperature Pulse Rate 65 66 65 Pulse Rate [ Anterior Bilateral Throughout] Pulse Rate [ Anterior Left Throughout] Respiratory 16 16 16 Rate Respiratory Rate [Anterior Bilateral Throughout] Respiratory Rate [Anterior Left Throughout ] Blood Pressure 92/48 94/51 100/51 O2 Sat by Pulse 96 95 95 Oximetry 10/26/16 10/26/16 10/26/16 10:15 10:30 10:45 Temperature Pulse Rate 65 66 65 Pulse Rate [ Anterior Bilateral Throughout] Pulse Rate [ Anterior Left Throughout] Respiratory 16 16 16 Rate Respiratory Rate [Anterior Bilateral Throughout] Respiratory Rate [Anterior Left Throughout ] Blood Pressure 94/51 100/51 88/48 O2 Sat by Pulse 96 97 96 Oximetry 10/26/16 10/26/16 10/26/16 11:00 11:15 11:19 Temperature Pulse Rate 65 63 64 Pulse Rate [ Anterior Bilateral Throughout] Pulse Rate [ Anterior Left Throughout] Respiratory 16 16 Rate Respiratory Rate [Anterior Bilateral Throughout] Respiratory Rate [Anterior Left Throughout ] Blood Pressure 98/53 86/50 86/50 O2 Sat by Pulse 96 96 97 Oximetry 10/26/16 10/26/16 10/26/16 11:30 11:45 12:00 Temperature Pulse Rate 63 63 64 Pulse Rate [ Anterior Bilateral Throughout] Pulse Rate [ Anterior Left Throughout] Respiratory 16 16 16 Rate Respiratory Rate [Anterior Bilateral Throughout] Respiratory Rate [Anterior Left Throughout ] Blood Pressure 92/50 83/48 102/55 O2 Sat by Pulse 98 96 98 Oximetry 10/26/16 10/26/16 10/26/16 12:15 12:30 12:45 Temperature Pulse Rate 62 63 63 Pulse Rate [ Anterior Bilateral Throughout] Pulse Rate [ Anterior Left Throughout] Respiratory 16 16 16 Rate Respiratory Rate [Anterior Bilateral Throughout] Respiratory Rate [Anterior Left Throughout ] Blood Pressure 88/50 98/52 93/51 O2 Sat by Pulse 98 97 97 Oximetry 10/26/16 10/26/16 10/26/16 13:00 13:15 13:30 Temperature Pulse Rate 61 61 62 Pulse Rate [ Anterior Bilateral Throughout] Pulse Rate [ Anterior Left Throughout] Respiratory 16 16 16 Rate Respiratory Rate [Anterior Bilateral Throughout] Respiratory Rate [Anterior Left Throughout ] Blood Pressure 83/50 79/47 82/47 O2 Sat by Pulse 98 97 96 Oximetry 10/26/16 10/26/16 10/26/16 13:45 14:00 14:16 Temperature Pulse Rate 62 65 79 Pulse Rate [ Anterior Bilateral Throughout] Pulse Rate [ Anterior Left Throughout] Respiratory 16 16 16 Rate Respiratory Rate [Anterior Bilateral Throughout] Respiratory Rate [Anterior Left Throughout ] Blood Pressure 84/46 80/50 116/64 O2 Sat by Pulse 97 99 98 Oximetry 10/26/16 10/26/16 10/26/16 14:30 14:45 15:00 Temperature Pulse Rate 65 65 66 Pulse Rate [ Anterior Bilateral Throughout] Pulse Rate [ Anterior Left Throughout] Respiratory 14 16 16 Rate Respiratory Rate [Anterior Bilateral Throughout] Respiratory Rate [Anterior Left Throughout ] Blood Pressure 116/64 120/60 124/59 O2 Sat by Pulse 98 97 97 Oximetry 10/26/16 10/26/16 16:13 16:31 Temperature Pulse Rate 68 Pulse Rate [ 85 Anterior Bilateral Throughout] Pulse Rate [ 89 Anterior Left Throughout] Respiratory Rate Respiratory 17 Rate [Anterior Bilateral Throughout] Respiratory 17 Rate [Anterior Left Throughout ] Blood Pressure 124/54 O2 Sat by Pulse 95 Oximetry - Labs CBC & Chem 7: 10/26/16 06:38 10/26/16 06:38 Labs: Abnormal lab results 10/26/16 10/26/16 Range/Units 06:38 06:38 Hgb 11.2 L (11.8-15.2) gm/dl Hct 34.0 L (35.5-45.6) % RDW 16.8 H (13.2-15.2) % Lymph % (Auto) 5.8 L (13.4-35.0) % Lymph # 0.4 L (1.2-5.4) K/mm3 Seg Neutrophils % 89.6 H (40.0-70.0) % Chloride 110.0 H (98-107) mmol/L Carbon Dioxide 20 L (22-30) mmol/L Glucose 178 H (75-100) mg/dL Calcium 6.7 L (8.4-10.2) mg/dL
--- NOTE | 2016-10-26 17:16 | Consultation ---
History of Present Illness Consult date: 10/26/16 Reason for consult: other (Resp failure) - History of present illness History of present illness: 65 y/o male with respiratory failure felt to be due to progression of his multiple sclerosis. We have been asked to place a Trach and PEG for terminal operator ventilator support and enteral access. He is estranged from all family and the [facility] ethics committee has appointed a 'family friend' Scarlett Hopson as the individual with the authority to give consent for procedures. Past History Past Medical History: arthritis, GERD, hypertension, other (MS) Past Surgical History: No surgical history, Other (UTO) Social history: , other (lives with roommate). denies: smoking, alcohol abuse, prescription drug abuse Family history: hypertension Medications and Allergies Allergies Allergy/AdvReac Type Severity Reaction Status Date / Time codeine AdvReac Hives Verified 04/30/14 13:32 Home Medications Medication Instructions Recorded Confirmed Last Taken Type Nitroglycerin [Nitrostat] 0.4 mg SL PRN PRN 04/30/14 04/30/14 Unknown History Active Meds: Active Medications Acetylcysteine (Mucomyst Inhalation) 200 mg INHALATION Q8HRT [facility] Last Admin: 10/26/16 16:18 Dose: 200 mg Albuterol (Proventil) 2.5 mg IH Q8HRT PRN PRN Reason: Wheezing Last Admin: 10/26/16 16:17 Dose: 2.5 mg Lipase/Protease/Amylase (Pancreaze Dr 10,500 Unit) 1 each FEEDTUBE PRN PRN PRN Reason: For Clogged Feeding Tube Clonazepam (Klonopin) 0.5 mg PO BID [facility] Last Admin: 10/26/16 10:04 Dose: 0.5 mg Enoxaparin Sodium (Lovenox) 40 mg SUB-Q QDAY@1000 [facility] Last Admin: 10/26/16 10:04 Dose: 40 mg Famotidine (Pepcid) 20 mg PO BID [facility] Last Admin: 10/26/16 10:05 Dose: 20 mg Guaifenesin (Robitussin) 200 mg PO Q4H [facility] Last Admin: 10/26/16 14:17 Dose: 200 mg Hydrophilic Ointment (Vaseline Lip Therapy) 1 applic TP Q2HR PRN PRN Reason: Dry Lips Fentanyl Citrate (Fentanyl Drip Premix) 2,000 mcg in 100 mls @ 3.969 mls/hr IV TITR KAYLEE; 1 MCG/KG/HR PRN Reason: Protocol Last Admin: 10/26/16 15:02 Dose: 2 mcg/kg/hr, 7.938 mls/hr Norepinephrine (Levophed Drip 4 Mg/Ns 250 Ml) 4 mg in 250 mls @ 7.5 mls/hr IV TITR KAYLEE; 2 MCG/MIN PRN Reason: Protocol Last Admin: 10/25/16 14:10 Dose: 2 mcg/min, 7.5 mls/hr Sodium Chloride (Nacl 0.9% 500 Ml) 500 mls @ 20 mls/hr IV DIRECT KAYLEE Last Admin: 10/25/16 22:05 Dose: 20 mls/hr Piperacillin Sod/Tazobactam Sod (Zosyn/Ns 4.5gm/100ml) 4.5 gm in 100 mls @ 200 mls/hr IV Q8HR KAYLEE PRN Reason: Protocol Last Admin: 10/26/16 14:58 Dose: 200 mls/hr Methylprednisolone Sodium Succinate (Solu-Medrol) 40 mg IV Q8HR KAYLEE Last Admin: 10/26/16 14:17 Dose: 40 mg Metoclopramide HCl (Reglan) 5 mg IV Q6HR KAYLEE Last Admin: 10/26/16 14:18 Dose: 5 mg Multi-Ingred Cream/Lotion/Oil/Oint (Artificial Tears Ophth Oint) 1 applic OU Q4HR PRN PRN Reason: Dry Eye(s) Polyethylene Glycol (Miralax 3350) 17 gm PO QDAY PRN PRN Reason: Constipation Simple Syrup (Simple Syrup) 15 ml FEEDTUBE PRN PRN PRN Reason: Hypoglycemia Simple Syrup (Simple Syrup) 30 ml FEEDTUBE PRN PRN PRN Reason: Hypoglycemia Sodium Bicarbonate (Sodium Bicarbonate) 325 mg FEEDTUBE PRN PRN PRN Reason: For Clogged Feeding Tube Exam Vital Signs Pulse 60 10/17/16 14:14 - General physical appearance Positive: no distress - Eyes Negative: icteric - Neck Positive: no bruits, trachea midline, no venous distension - Respiratory Positive: normal expansion - Cardiovascular Rhythm: regular - Abdomen Abdomen: Present: soft, bowel sounds normal. Absent: tender - Neurologic Neurologic: other (Not following commands) - Psychiatric Psychiatric: other (Not following commands) Results - Labs 10/26/16 06:38 10/26/16 06:38 Abnormal lab results 10/26/16 10/26/16 Range/Units 06:38 06:38 Hgb 11.2 L (11.8-15.2) gm/dl Hct 34.0 L (35.5-45.6) % RDW 16.8 H (13.2-15.2) % Lymph % (Auto) 5.8 L (13.4-35.0) % Lymph # 0.4 L (1.2-5.4) K/mm3 Seg Neutrophils % 89.6 H (40.0-70.0) % Chloride 110.0 H (98-107) mmol/L Carbon Dioxide 20 L (22-30) mmol/L Glucose 178 H (75-100) mg/dL Calcium 6.7 L (8.4-10.2) mg/dL Diabetes panel 10/26/16 Range/Units 06:38 Sodium 142 (137-145) mmol/L Potassium 4.9 (3.6-5.0) mmol/L Chloride 110.0 H (98-107) mmol/L Carbon Dioxide 20 L (22-30) mmol/L BUN 19 (9-20) mg/dL Creatinine 0.8 (0.8-1.5) mg/dL Glucose 178 H (75-100) mg/dL Calcium 6.7 L (8.4-10.2) mg/dL Calcium panel 10/26/16 Range/Units 06:38 Calcium 6.7 L (8.4-10.2) mg/dL Pituitary panel 10/26/16 Range/Units 06:38 Sodium 142 (137-145) mmol/L Potassium 4.9 (3.6-5.0) mmol/L Chloride 110.0 H (98-107) mmol/L Carbon Dioxide 20 L (22-30) mmol/L BUN 19 (9-20) mg/dL Creatinine 0.8 (0.8-1.5) mg/dL Glucose 178 H (75-100) mg/dL Calcium 6.7 L (8.4-10.2) mg/dL Adrenal panel 10/26/16 Range/Units 06:38 Sodium 142 (137-145) mmol/L Potassium 4.9 (3.6-5.0) mmol/L Chloride 110.0 H (98-107) mmol/L Carbon Dioxide 20 L (22-30) mmol/L BUN 19 (9-20) mg/dL Creatinine 0.8 (0.8-1.5) mg/dL Glucose 178 H (75-100) mg/dL Calcium 6.7 L (8.4-10.2) mg/dL Assessment and Plan I have explained a Trach and PEG to Scarlett Hopson and answered her questions. Risks, benefits and alternatives were discussed. Risks include but are not limited to bleeding, infection, injury to adjacent organs, need for more surgery and . She says she understand and does not have any more questions. She wishes us to proceed with those procedures. I will contact the schedulers on Saturday to start the scheduling process for a bedside Trach/PEG.
[2016-10-27] MEDS: MUCOMYST INHALATION INHALATION SCH ×3 (00:17→16:39)
[2016-10-27] MEDS: PROVENTIL IH PRN ×3 (00:17→16:39)
[2016-10-27] MEDS: REGLAN IV SCH ×5 (02:29→23:15)
[2016-10-27] MEDS: fentaNYL DRIP Premix 2,000 MCG/100 ML BAG IV SCH (03:39)
[2016-10-27] MEDS: ROBITUSSIN PO SCH ×6 (04:33→22:28)
[2016-10-27 05:09] LABS: Hematocrit 33.1 % (35.5-45.6); Hemoglobin 10.9 gm/dl (11.8-15.2); Mean Corpuscular HGB Conc 33 % (32-34); Mean Corpuscular Hemoglobin 31 pg (28-32); Mean Corpuscular Volume 93 fl (84-94); Platelet Count 218 K/mm3 (140-440); Red Blood Count 3.55 M/mm3 (3.65-5.03); Red Cell Distribution Width 16.6 % (13.2-15.2); White Blood Count 7.7 K/mm3 (4.5-11.0)
[2016-10-27 05:21] LABS: Anion Gap 17 mmol/L; BUN/Creatinine Ratio 26.66; Blood Urea Nitrogen 24 mg/dL (9-20); Carbon Dioxide 20 mmol/L (22-30); Chloride 107.8 mmol/L (98-107); Glucose 190 mg/dL (75-100); Potassium 4.3 mmol/L (3.6-5.0); Sodium 140 mmol/L (137-145)
[2016-10-27] MEDS: ZOSYN/NS 4.5GM/100ML 4.5 GM/100 ML VIAL IV SCH ×3 (06:09→22:26)
[2016-10-27 08:25] LABS: Anisocytosis 1+; Basophils % (Manual) 0 % (0.0-1.8); Blastocytes % (Manual) 0 %; Diff Status Complete; Elliptocytes Few; Eosinophils % (Manual) 0 % (0.0-4.3); Hypochromasia Few
[2016-10-27] MEDS: LOVENOX SUB-Q SCH (11:00)
[2016-10-27] MEDS: PEPCID PO SCH ×2 (11:23→22:26)
--- NOTE | 2016-10-27 11:52 | Progress Note ---
Assessment and Plan Focal LLL infiltrate, probably aspiration pneumonia MS w/ ? flare Acute respiratory failure, hypoxia Volume depletion/JEANNETTE, better Hypernatremia SIRS, ? 2/2 pneumonia and/or UTI, better Atelectasis L lung, prob mucous plugging. Resolved per last x-ray report Severe dilated NICMP UTI, E.coli resistant to Levaquin Recommendations Tapered down fentanyl If tolerated and no significant agitation, consider initiating SBT Further when he will depend on patient tolerance, ABGs and neurological status. Continue electrolyte correction and nutritional support Complete antibiotics as scheduled and watch for fever. Subjective Date of service: 10/27/16 Principal diagnosis: Acute respiratory failure Interval history: Intubated, nonverbal Objective Vital Signs - 12hr 10/27/16 10/27/16 10/27/16 00:00 00:15 00:18 Temperature 98.9 F Pulse Rate 77 67 Pulse Rate [ 81 Anterior Bilateral Throughout] Pulse Rate [ 81 Anterior Left Throughout] Respiratory 16 16 Rate Respiratory 16 Rate [Anterior Bilateral Throughout] Respiratory 16 Rate [Anterior Left Throughout ] Blood Pressure 118/68 125/64 O2 Sat by Pulse 97 97 Oximetry 10/27/16 10/27/16 10/27/16 00:19 00:30 00:32 Temperature Pulse Rate 72 68 Pulse Rate [ 80 Anterior Bilateral Throughout] Pulse Rate [ Anterior Left Throughout] Respiratory 16 Rate Respiratory 16 Rate [Anterior Bilateral Throughout] Respiratory Rate [Anterior Left Throughout ] Blood Pressure 125/64 122/56 O2 Sat by Pulse 96 93 Oximetry 10/27/16 10/27/16 10/27/16 00:45 01:00 01:05 Temperature Pulse Rate 76 91 H Pulse Rate [ Anterior Bilateral Throughout] Pulse Rate [ Anterior Left Throughout] Respiratory 17 15 Rate Respiratory Rate [Anterior Bilateral Throughout] Respiratory Rate [Anterior Left Throughout ] Blood Pressure 120/58 128/61 O2 Sat by Pulse 95 96 93 Oximetry 10/27/16 10/27/16 10/27/16 01:15 01:30 01:45 Temperature Pulse Rate 87 76 83 Pulse Rate [ Anterior Bilateral Throughout] Pulse Rate [ Anterior Left Throughout] Respiratory 20 17 15 Rate Respiratory Rate [Anterior Bilateral Throughout] Respiratory Rate [Anterior Left Throughout ] Blood Pressure 134/75 123/63 131/69 O2 Sat by Pulse 95 95 95 Oximetry 10/27/16 10/27/16 10/27/16 02:00 02:15 02:30 Temperature Pulse Rate 84 76 99 H Pulse Rate [ Anterior Bilateral Throughout] Pulse Rate [ Anterior Left Throughout] Respiratory 14 18 18 Rate Respiratory Rate [Anterior Bilateral Throughout] Respiratory Rate [Anterior Left Throughout ] Blood Pressure 144/70 143/63 145/91 O2 Sat by Pulse 94 94 87 Oximetry 10/27/16 10/27/16 10/27/16 02:46 03:00 03:15 Temperature Pulse Rate 125 H 132 H 122 H Pulse Rate [ Anterior Bilateral Throughout] Pulse Rate [ Anterior Left Throughout] Respiratory 15 13 27 H Rate Respiratory Rate [Anterior Bilateral Throughout] Respiratory Rate [Anterior Left Throughout ] Blood Pressure 175/85 175/85 161/99 O2 Sat by Pulse 87 78 L 96 Oximetry 10/27/16 10/27/16 10/27/16 03:30 03:45 03:46 Temperature 98.1 F Pulse Rate 114 H 120 H Pulse Rate [ Anterior Bilateral Throughout] Pulse Rate [ Anterior Left Throughout] Respiratory 18 16 Rate Respiratory Rate [Anterior Bilateral Throughout] Respiratory Rate [Anterior Left Throughout ] Blood Pressure 148/96 151/92 O2 Sat by Pulse 96 96 Oximetry 10/27/16 10/27/16 10/27/16 04:00 04:15 04:30 Temperature Pulse Rate 95 H 88 92 H Pulse Rate [ Anterior Bilateral Throughout] Pulse Rate [ Anterior Left Throughout] Respiratory 16 16 17 Rate Respiratory Rate [Anterior Bilateral Throughout] Respiratory Rate [Anterior Left Throughout ] Blood Pressure 103/62 83/50 108/63 O2 Sat by Pulse 98 97 99 Oximetry 10/27/16 10/27/16 10/27/16 04:35 04:40 04:45 Temperature Pulse Rate 86 89 Pulse Rate [ Anterior Bilateral Throughout] Pulse Rate [ Anterior Left Throughout] Respiratory 18 17 Rate Respiratory Rate [Anterior Bilateral Throughout] Respiratory Rate [Anterior Left Throughout ] Blood Pressure 94/54 94/54 O2 Sat by Pulse 97 92 97 Oximetry 10/27/16 10/27/16 10/27/16 05:00 05:05 05:16 Temperature Pulse Rate 87 101 H Pulse Rate [ Anterior Bilateral Throughout] Pulse Rate [ Anterior Left Throughout] Respiratory 19 18 15 Rate Respiratory Rate [Anterior Bilateral Throughout] Respiratory Rate [Anterior Left Throughout ] Blood Pressure 100/54 121/71 O2 Sat by Pulse 94 92 92 Oximetry 10/27/16 10/27/16 10/27/16 05:30 05:45 06:00 Temperature Pulse Rate 112 H 95 H 82 Pulse Rate [ Anterior Bilateral Throughout] Pulse Rate [ Anterior Left Throughout] Respiratory 11 L 15 17 Rate Respiratory Rate [Anterior Bilateral Throughout] Respiratory Rate [Anterior Left Throughout ] Blood Pressure 134/78 127/69 105/61 O2 Sat by Pulse 95 96 96 Oximetry 10/27/16 10/27/16 10/27/16 06:15 06:30 06:46 Temperature Pulse Rate 108 H 89 118 H Pulse Rate [ Anterior Bilateral Throughout] Pulse Rate [ Anterior Left Throughout] Respiratory 16 14 22 Rate Respiratory Rate [Anterior Bilateral Throughout] Respiratory Rate [Anterior Left Throughout ] Blood Pressure 134/76 140/72 140/72 O2 Sat by Pulse 93 94 94 Oximetry 10/27/16 10/27/16 10/27/16 07:00 07:15 07:30 Temperature Pulse Rate 95 H 98 H 92 H Pulse Rate [ Anterior Bilateral Throughout] Pulse Rate [ Anterior Left Throughout] Respiratory 16 19 17 Rate Respiratory Rate [Anterior Bilateral Throughout] Respiratory Rate [Anterior Left Throughout ] Blood Pressure 141/82 149/80 134/77 O2 Sat by Pulse 91 92 92 Oximetry 10/27/16 10/27/16 10/27/16 07:46 08:00 08:13 Temperature 98.8 F Pulse Rate 109 H 83 Pulse Rate [ Anterior Bilateral Throughout] Pulse Rate [ 79 Anterior Left Throughout] Respiratory 20 17 Rate Respiratory Rate [Anterior Bilateral Throughout] Respiratory 17 Rate [Anterior Left Throughout ] Blood Pressure 136/91 119/66 O2 Sat by Pulse 92 92 Oximetry 10/27/16 10/27/16 10/27/16 08:15 08:30 08:34 Temperature Pulse Rate 77 104 H Pulse Rate [ Anterior Bilateral Throughout] Pulse Rate [ 92 H Anterior Left Throughout] Respiratory 16 20 Rate Respiratory Rate [Anterior Bilateral Throughout] Respiratory 24 Rate [Anterior Left Throughout ] Blood Pressure 121/64 134/71 O2 Sat by Pulse 94 95 Oximetry 10/27/16 10/27/16 10/27/16 08:45 09:00 09:16 Temperature Pulse Rate 86 92 H 91 H Pulse Rate [ Anterior Bilateral Throughout] Pulse Rate [ Anterior Left Throughout] Respiratory 17 17 16 Rate Respiratory Rate [Anterior Bilateral Throughout] Respiratory Rate [Anterior Left Throughout ] Blood Pressure 134/72 147/80 120/64 O2 Sat by Pulse 95 93 93 Oximetry 10/27/16 11:40 Temperature Pulse Rate 101 H Pulse Rate [ Anterior Bilateral Throughout] Pulse Rate [ Anterior Left Throughout] Respiratory Rate Respiratory Rate [Anterior Bilateral Throughout] Respiratory Rate [Anterior Left Throughout ] Blood Pressure 155/89 O2 Sat by Pulse 94 Oximetry Constitutional: other (mild restless on fentanyl drip) Eyes: non-icteric ENT: other (orally intubated) Neck: supple Effort: normal Ascultation: Bilateral: rhonchi Percussion: Bilateral: not dull Cardiovascular: regular rate and rhythm Gastrointestinal: normoactive bowel sounds, soft, non-tender, non-distended Extremities: other (damaged right great toe, wrapped currently; no obvious cellulitis) Neurologic: unable to assess, other (RA SS -1) Psychiatric: other (unable to assess) CBC and BMP: 10/27/16 04:40 10/27/16 04:40 ABG, PT/INR, D-dimer: ABG POC ABG pH 7.435 (7.35-7.45) 10/25/16 06:33 POC ABG pCO2 27.0 (35-45) L 10/25/16 06:33 POC ABG pO2 80 (80-105) 10/25/16 06:33 POC ABG HCO3 18.1 10/25/16 06:33 POC ABG Total CO2 19 10/25/16 06:33 POC ABG O2 Sat 96 10/25/16 06:33 PT/INR, D-dimer D-Dimer 1813.13 ng/mlDDU (0-234) H 10/17/16 17:51 Abnormal lab findings: Abnormal Labs 10/17/16 10/18/16 10/18/16 19:34 03:29 05:36 WBC RBC Hgb Hct MCV RDW Lymph % (Auto) [place] % (Auto) Lymph # [place] # Seg Neutrophils % Seg Neuts % (Manual) Lymphocytes % (Manual) Seg Neutrophils # Man Lymphocytes # (Manual) POC ABG pH 7.333 L 7.272 L POC ABG pCO2 31.5 L 28.6 L POC ABG pO2 180 H Sodium Potassium Chloride Carbon Dioxide BUN Creatinine Glucose POC Glucose Calcium Phosphorus Magnesium CK-MB (CK-2) CK-MB (CK-2) Rel Index Troponin T HDL Cholesterol TSH Free T4 Urine WBC (Auto) 10/18/16 10/18/16 10/18/16 08:13 09:40 12:04 WBC RBC Hgb Hct MCV RDW Lymph % (Auto) [place] % (Auto) Lymph # [place] # Seg Neutrophils % Seg Neuts % (Manual) Lymphocytes % (Manual) Seg Neutrophils # Man Lymphocytes # (Manual) POC ABG pH 7.231 L 7.298 L POC ABG pCO2 30.8 L POC ABG pO2 74 L Sodium Potassium Chloride Carbon Dioxide BUN Creatinine Glucose POC Glucose 151 H Calcium Phosphorus Magnesium CK-MB (CK-2) CK-MB (CK-2) Rel Index Troponin T HDL Cholesterol TSH Free T4 Urine WBC (Auto) 10/18/16 10/18/16 10/18/16 14:57 14:57 14:57 WBC 13.3 H RBC Hgb Hct MCV 96 H RDW 16.9 H Lymph % (Auto) [place] % (Auto) Lymph # [place] # Seg Neutrophils % Seg Neuts % (Manual) Lymphocytes % (Manual) Seg Neutrophils # Man Lymphocytes # (Manual) POC ABG pH POC ABG pCO2 POC ABG pO2 Sodium Potassium Chloride Carbon Dioxide 13 L D BUN 57 H Creatinine 2.1 H Glucose 169 H POC Glucose Calcium 7.7 L Phosphorus Magnesium CK-MB (CK-2) CK-MB (CK-2) Rel Index Troponin T HDL Cholesterol TSH Free T4 0.68 L Urine WBC (Auto) 10/18/16 10/19/16 10/19/16 17:31 05:10 05:10 WBC 12.5 H RBC Hgb Hct MCV 95 H RDW 16.7 H Lymph % (Auto) [place] % (Auto) Lymph # [place] # Seg Neutrophils % Seg Neuts % (Manual) 94.0 H Lymphocytes % (Manual) 2.0 L Seg Neutrophils # Man 11.8 H Lymphocytes # (Manual) 0.3 L POC ABG pH POC ABG pCO2 POC ABG pO2 Sodium 149 H Potassium Chloride 114.1 H Carbon Dioxide 16 L BUN 49 H Creatinine 1.9 H Glucose 137 H POC Glucose 163 H Calcium 7.0 L Phosphorus Magnesium CK-MB (CK-2) CK-MB (CK-2) Rel Index Troponin T HDL Cholesterol TSH Free T4 Urine WBC (Auto) 10/19/16 10/19/16 10/19/16 06:04 11:39 23:47 WBC RBC Hgb Hct MCV RDW Lymph % (Auto) [place] % (Auto) Lymph # [place] # Seg Neutrophils % Seg Neuts % (Manual) Lymphocytes % (Manual) Seg Neutrophils # Man Lymphocytes # (Manual) POC ABG pH POC ABG pCO2 28.1 L POC ABG pO2 108 H Sodium Potassium Chloride Carbon Dioxide BUN Creatinine Glucose POC Glucose 134 H 122 H Calcium Phosphorus Magnesium CK-MB (CK-2) CK-MB (CK-2) Rel Index Troponin T HDL Cholesterol TSH Free T4 Urine WBC (Auto) 10/20/16 10/20/16 10/20/16 04:30 05:20 06:10 WBC 11.4 H RBC Hgb Hct MCV RDW 16.5 H Lymph % (Auto) [place] % (Auto) Lymph # [place] # Seg Neutrophils % Seg Neuts % (Manual) 92.0 H Lymphocytes % (Manual) 4.0 L Seg Neutrophils # Man 10.5 H Lymphocytes # (Manual) 0.5 L POC ABG pH POC ABG pCO2 24.5 L POC ABG pO2 Sodium Potassium Chloride Carbon Dioxide BUN Creatinine Glucose POC Glucose 112 H Calcium Phosphorus Magnesium CK-MB (CK-2) CK-MB (CK-2) Rel Index Troponin T HDL Cholesterol TSH Free T4 Urine WBC (Auto) 10/20/16 10/20/16 10/20/16 06:10 11:43 14:56 WBC RBC Hgb Hct MCV RDW Lymph % (Auto) [place] % (Auto) Lymph # [place] # Seg Neutrophils % Seg Neuts % (Manual) Lymphocytes % (Manual) Seg Neutrophils # Man Lymphocytes # (Manual) POC ABG pH POC ABG pCO2 POC ABG pO2 Sodium 152 H Potassium 3.2 L Chloride 119.1 H Carbon Dioxide 17 L BUN 39 H Creatinine Glucose 107 H POC Glucose 120 H Calcium 6.8 L Phosphorus Magnesium CK-MB (CK-2) CK-MB (CK-2) Rel Index Troponin T HDL Cholesterol TSH Free T4 0.75 L Urine WBC (Auto) 10/20/16 10/20/16 10/20/16 14:56 17:22 23:50 WBC RBC Hgb Hct MCV RDW Lymph % (Auto) [place] % (Auto) Lymph # [place] # Seg Neutrophils % Seg Neuts % (Manual) Lymphocytes % (Manual) Seg Neutrophils # Man Lymphocytes # (Manual) POC ABG pH POC ABG pCO2 POC ABG pO2 Sodium Potassium Chloride Carbon Dioxide BUN Creatinine Glucose POC Glucose 148 H 106 H Calcium Phosphorus Magnesium CK-MB (CK-2) CK-MB (CK-2) Rel Index Troponin T HDL Cholesterol TSH 0.132 L Free T4 Urine WBC (Auto) 10/21/16 10/21/16 10/21/16 05:00 05:00 05:30 WBC RBC Hgb Hct MCV RDW 16.6 H Lymph % (Auto) 13.2 L [place] % (Auto) Lymph # 1.1 L [place] # Seg Neutrophils % 80.4 H Seg Neuts % (Manual) Lymphocytes % (Manual) Seg Neutrophils # Man Lymphocytes # (Manual) POC ABG pH 7.342 L POC ABG pCO2 30.7 L POC ABG pO2 149 H Sodium 150 H Potassium Chloride 117.2 H Carbon Dioxide 17 L BUN 38 H Creatinine Glucose POC Glucose Calcium 7.5 L Phosphorus Magnesium CK-MB (CK-2) CK-MB (CK-2) Rel Index Troponin T HDL Cholesterol TSH Free T4 Urine WBC (Auto) 10/22/16 10/22/16 10/23/16 05:00 05:21 03:48 WBC RBC Hgb Hct MCV RDW Lymph % (Auto) [place] % (Auto) Lymph # [place] # Seg Neutrophils % Seg Neuts % (Manual) Lymphocytes % (Manual) Seg Neutrophils # Man Lymphocytes # (Manual) POC ABG pH 7.319 L POC ABG pCO2 POC ABG pO2 68 L Sodium 151 H 147 H Potassium 3.3 L Chloride 120.5 H 116.2 H Carbon Dioxide 17 L 19 L BUN 36 H 26 H Creatinine Glucose 143 H 110 H POC Glucose Calcium 6.8 L 6.7 L Phosphorus 0.90 L* Magnesium 1.40 L CK-MB (CK-2) CK-MB (CK-2) Rel Index Troponin T HDL Cholesterol TSH Free T4 Urine WBC (Auto) 10/23/16 10/23/16 10/23/16 03:48 03:48 04:33 WBC 11.4 H RBC Hgb Hct MCV RDW 17.0 H Lymph % (Auto) [place] % (Auto) Lymph # [place] # Seg Neutrophils % Seg Neuts % (Manual) Lymphocytes % (Manual) Seg Neutrophils # Man Lymphocytes # (Manual) POC ABG pH POC ABG pCO2 31.7 L POC ABG pO2 Sodium Potassium Chloride Carbon Dioxide BUN Creatinine Glucose POC Glucose Calcium Phosphorus Magnesium CK-MB (CK-2) 6.9 H CK-MB (CK-2) Rel Index 4.8 H Troponin T 0.215 H* HDL Cholesterol 22 L TSH Free T4 Urine WBC (Auto) 10/23/16 10/23/16 10/24/16 18:00 Unknown 03:45 WBC RBC Hgb Hct MCV RDW Lymph % (Auto) [place] % (Auto) Lymph # [place] # Seg Neutrophils % Seg Neuts % (Manual) Lymphocytes % (Manual) Seg Neutrophils # Man Lymphocytes # (Manual) POC ABG pH POC ABG pCO2 POC ABG pO2 Sodium 148 H Potassium Chloride 116.8 H Carbon Dioxide BUN 22 H Creatinine Glucose 138 H POC Glucose Calcium 6.9 L Phosphorus 1.90 L D Magnesium 2.60 H CK-MB (CK-2) 6.3 H CK-MB (CK-2) Rel Index Troponin T 0.206 H* HDL Cholesterol TSH Free T4 Urine WBC (Auto) 19.0 H 10/24/16 10/24/16 10/25/16 03:45 06:26 06:33 WBC RBC Hgb Hct MCV RDW 16.5 H Lymph % (Auto) [place] % (Auto) 9.1 H Lymph # [place] # 0.9 H Seg Neutrophils % 75.3 H Seg Neuts % (Manual) Lymphocytes % (Manual) Seg Neutrophils # Man Lymphocytes # (Manual) POC ABG pH POC ABG pCO2 33.2 L 27.0 L POC ABG pO2 72 L Sodium Potassium Chloride Carbon Dioxide BUN Creatinine Glucose POC Glucose Calcium Phosphorus Magnesium CK-MB (CK-2) CK-MB (CK-2) Rel Index Troponin T HDL Cholesterol TSH Free T4 Urine WBC (Auto) 10/25/16 10/25/16 10/26/16 06:40 06:40 06:38 WBC RBC Hgb 11.2 L Hct 34.0 L MCV RDW 17.0 H 16.8 H Lymph % (Auto) 5.8 L [place] % (Auto) Lymph # 0.4 L [place] # Seg Neutrophils % 89.6 H Seg Neuts % (Manual) 95.0 H Lymphocytes % (Manual) 4.0 L Seg Neutrophils # Man 9.4 H Lymphocytes # (Manual) 0.4 L POC ABG pH POC ABG pCO2 POC ABG pO2 Sodium Potassium Chloride Carbon Dioxide 18 L BUN Creatinine Glucose 173 H POC Glucose Calcium 6.9 L Phosphorus Magnesium CK-MB (CK-2) CK-MB (CK-2) Rel Index Troponin T HDL Cholesterol TSH Free T4 Urine WBC (Auto) 10/26/16 10/27/16 10/27/16 06:38 04:40 04:40 WBC RBC 3.55 L Hgb 10.9 L Hct 33.1 L MCV RDW 16.6 H Lymph % (Auto) [place] % (Auto) Lymph # [place] # Seg Neutrophils % Seg Neuts % (Manual) 92.0 H Lymphocytes % (Manual) 5.0 L Seg Neutrophils # Man Lymphocytes # (Manual) 0.4 L POC ABG pH POC ABG pCO2 POC ABG pO2 Sodium Potassium Chloride 110.0 H 107.8 H Carbon Dioxide 20 L 20 L BUN 24 H Creatinine Glucose 178 H 190 H POC Glucose Calcium 6.7 L 7.0 L Phosphorus Magnesium CK-MB (CK-2) CK-MB (CK-2) Rel Index Troponin T HDL Cholesterol TSH Free T4 Urine WBC (Auto) Chest x-ray: report reviewed
--- NOTE | 2016-10-27 14:18 | Progress Note ---
Assessment and Plan MS Respiratory failure on mechanical ventilation Hypotensive - on pressors LBBB, chronic Afib, paroxysmal currently in sinus rhythm low TSH of 0.132 and low free T4 of 0.75 Nonischemic cardiomyopathy EF 10-15% on echocardiogram this admission [facility] 04/2014: normal coronaries. LV gram not performed due to findings of renal failure at that time. Recommend: Continue supportive care. Proceed with PEG and Trach if needed - acceptable risk from cardiac perspective. Subjective Date of service: 10/27/16 Principal diagnosis: Acute respiratory failure Interval history: No acute events. Plan for PEG/Trach noted. Objective Vital Signs Temp Pulse Pulse Pulse Resp Resp Resp 10/27/16 12:00 98.5 F 10/27/16 11:40 101 H 10/27/16 09:16 91 H 16 10/27/16 09:00 92 H 17 10/27/16 08:45 86 17 10/27/16 08:34 92 H 24 10/27/16 08:30 104 H 20 10/27/16 08:15 77 16 10/27/16 08:13 79 17 10/27/16 08:00 98.8 F 83 17 10/27/16 07:46 109 H 20 10/27/16 07:30 92 H 17 10/27/16 07:15 98 H 19 10/27/16 07:00 95 H 16 10/27/16 06:46 118 H 22 10/27/16 06:30 89 14 10/27/16 06:15 108 H 16 10/27/16 06:00 82 17 10/27/16 05:45 95 H 15 10/27/16 05:30 112 H 11 L 10/27/16 05:16 101 H 15 10/27/16 05:05 18 10/27/16 05:00 87 19 10/27/16 04:45 89 17 10/27/16 04:40 18 10/27/16 04:35 86 10/27/16 04:30 92 H 17 10/27/16 04:15 88 16 10/27/16 04:00 95 H 16 10/27/16 03:46 120 H 16 10/27/16 03:45 98.1 F 10/27/16 03:30 114 H 18 10/27/16 03:15 122 H 27 H 10/27/16 03:00 132 H 13 10/27/16 02:46 125 H 15 10/27/16 02:30 99 H 18 10/27/16 02:15 76 18 10/27/16 02:00 84 14 10/27/16 01:45 83 15 10/27/16 01:30 76 17 10/27/16 01:15 87 20 10/27/16 01:05 10/27/16 01:00 91 H 15 10/27/16 00:45 76 17 10/27/16 00:32 80 16 10/27/16 00:30 68 16 10/27/16 00:19 72 10/27/16 00:18 81 81 16 16 10/27/16 00:15 67 16 10/27/16 00:00 98.9 F 77 16 10/26/16 23:45 64 16 10/26/16 23:30 66 16 10/26/16 23:24 68 16 10/26/16 23:15 69 16 10/26/16 23:05 91 H 10/26/16 23:00 77 17 10/26/16 22:57 85 9 L 10/26/16 22:45 91 H 15 10/26/16 22:30 75 11 L 10/26/16 22:15 82 14 10/26/16 22:08 72 14 10/26/16 22:00 72 15 10/26/16 21:46 83 16 10/26/16 21:30 69 16 10/26/16 21:15 75 16 10/26/16 21:00 90 15 10/26/16 20:45 77 12 10/26/16 20:30 85 16 10/26/16 20:22 83 10/26/16 20:16 91 H 16 10/26/16 20:00 67 16 10/26/16 19:45 68 16 10/26/16 19:39 98.2 F 10/26/16 19:30 78 16 10/26/16 19:15 78 16 10/26/16 19:00 88 17 10/26/16 18:45 81 17 10/26/16 18:30 72 16 10/26/16 18:15 72 16 10/26/16 18:00 72 16 10/26/16 17:45 72 16 10/26/16 17:30 76 16 10/26/16 17:16 102 H 12 10/26/16 17:00 94 H 15 10/26/16 16:45 96 H 13 10/26/16 16:31 85 17 10/26/16 16:30 88 19 10/26/16 16:15 80 20 10/26/16 16:13 68 89 17 10/26/16 16:00 98.1 F 66 16 10/26/16 15:45 78 14 10/26/16 15:30 68 15 10/26/16 15:15 81 16 10/26/16 15:00 66 16 10/26/16 14:45 65 16 10/26/16 14:30 65 14 Resp BP Pulse Ox 10/27/16 12:00 10/27/16 11:40 155/89 94 10/27/16 09:16 120/64 93 10/27/16 09:00 147/80 93 10/27/16 08:45 134/72 95 10/27/16 08:34 10/27/16 08:30 134/71 95 10/27/16 08:15 121/64 94 10/27/16 08:13 10/27/16 08:00 119/66 92 10/27/16 07:46 136/91 92 10/27/16 07:30 134/77 92 10/27/16 07:15 149/80 92 10/27/16 07:00 141/82 91 10/27/16 06:46 140/72 94 10/27/16 06:30 140/72 94 10/27/16 06:15 134/76 93 10/27/16 06:00 105/61 96 10/27/16 05:45 127/69 96 10/27/16 05:30 134/78 95 10/27/16 05:16 121/71 92 10/27/16 05:05 92 10/27/16 05:00 100/54 94 10/27/16 04:45 94/54 97 10/27/16 04:40 92 10/27/16 04:35 94/54 97 10/27/16 04:30 108/63 99 10/27/16 04:15 83/50 97 10/27/16 04:00 103/62 98 10/27/16 03:46 151/92 96 10/27/16 03:45 10/27/16 03:30 148/96 96 10/27/16 03:15 161/99 96 10/27/16 03:00 175/85 78 L 10/27/16 02:46 175/85 87 10/27/16 02:30 145/91 87 10/27/16 02:15 143/63 94 10/27/16 02:00 144/70 94 10/27/16 01:45 131/69 95 10/27/16 01:30 123/63 95 10/27/16 01:15 134/75 95 10/27/16 01:05 93 10/27/16 01:00 128/61 96 10/27/16 00:45 120/58 95 10/27/16 00:32 10/27/16 00:30 122/56 93 10/27/16 00:19 125/64 96 10/27/16 00:18 10/27/16 00:15 125/64 97 10/27/16 00:00 118/68 97 10/26/16 23:45 81/45 96 10/26/16 23:30 83/46 95 10/26/16 23:24 96/53 95 10/26/16 23:15 96/53 95 10/26/16 23:05 93 10/26/16 23:00 115/65 94 10/26/16 22:57 118/58 95 10/26/16 22:45 118/58 94 10/26/16 22:30 123/63 95 10/26/16 22:15 130/63 94 10/26/16 22:08 16 93 10/26/16 22:00 124/59 95 10/26/16 21:46 128/67 96 10/26/16 21:30 113/56 95 10/26/16 21:15 117/58 94 10/26/16 21:00 121/67 94 10/26/16 20:45 117/57 94 10/26/16 20:30 128/65 95 10/26/16 20:22 107/57 95 10/26/16 20:16 116/65 96 10/26/16 20:00 107/57 95 10/26/16 19:45 102/51 95 10/26/16 19:39 10/26/16 19:30 111/57 95 10/26/16 19:15 107/57 95 10/26/16 19:00 16 134/68 95 10/26/16 18:45 116/58 97 10/26/16 18:30 106/51 96 10/26/16 18:15 97/49 95 10/26/16 18:00 96/46 95 10/26/16 17:45 95/45 95 10/26/16 17:30 106/50 94 10/26/16 17:16 135/93 95 10/26/16 17:00 129/55 94 10/26/16 16:45 129/55 94 10/26/16 16:31 10/26/16 16:30 121/62 94 10/26/16 16:15 117/64 95 10/26/16 16:13 124/54 95 10/26/16 16:00 124/54 96 10/26/16 15:45 121/60 95 10/26/16 15:30 117/57 96 10/26/16 15:15 122/66 96 10/26/16 15:00 124/59 97 10/26/16 14:45 120/60 97 10/26/16 14:30 116/64 98 - Physical Examination General: Other (intubated on the vent) Neck: Positive: neck supple Cardiac: Positive: Reg Rate and Rhythm Lungs: Positive: Rhonchi Abdomen: Positive: Soft Extremities: Absent: edema - Labs and Meds CBC 10/27/16 Range/Units 04:40 WBC 7.7 (4.5-11.0) K/mm3 RBC 3.55 L (3.65-5.03) M/mm3 Hgb 10.9 L (11.8-15.2) gm/dl Hct 33.1 L (35.5-45.6) % Plt Count 218 (140-440) K/mm3 Comprehensive Metabolic Panel 10/27/16 Range/Units 04:40 Sodium 140 (137-145) mmol/L Potassium 4.3 (3.6-5.0) mmol/L Chloride 107.8 H (98-107) mmol/L Carbon Dioxide 20 L (22-30) mmol/L BUN 24 H (9-20) mg/dL Creatinine 0.9 (0.8-1.5) mg/dL Glucose 190 H (75-100) mg/dL Calcium 7.0 L (8.4-10.2) mg/dL
--- NOTE | 2016-10-27 14:55 | Progress Note ---
Assessment and Plan Acute hypoxic respiratory failure. - He is still intubated on ventilator. Pulmonology following. - plan for Trach and PEG on Saturday Shock. Hypovolemic. - He is on Levophed infusion. Acute metabolic encephalopathy. - He is sedated , on ventilator. Neurology following. - Ct head no acute finding Multiple sclerosis. Neurology following Hypokalemia, resolved. Hypernatremia, resolved - Sodium 132 today. Continue free water. - Severe malnutrition - On TF DVT prophylaxis with Lovenox Subjective Date of service: 10/27/16 Principal diagnosis: Acute respiratory failure Interval history: Patient still intubated, sedated No acute changes overnight Objective - Exam Narrative Exam: Gen appearance :Not in acute distress, intubated, sedated, on ventilator HEENT: Normocephalic, atraumatic Neck: no JVD Lungs: Clear to auscultation bilaterally, no crackles, or wheezes. Heart: S1 and S2 regular, no murmurs, no gallops, rub Abdomen : Soft, non-tender, non-distended, normal bowel sounds Extremities :No edema, no clubbing or cyanosis Neuro: Sedated. - Constitutional Vitals: Vital Signs - 12hr 10/27/16 10/27/16 10/27/16 03:00 03:15 03:30 Temperature Pulse Rate 132 H 122 H 114 H Pulse Rate [ Anterior Left Throughout] Respiratory 13 27 H 18 Rate Respiratory Rate [Anterior Left Throughout ] Blood Pressure 175/85 161/99 148/96 O2 Sat by Pulse 78 L 96 96 Oximetry 10/27/16 10/27/16 10/27/16 03:45 03:46 04:00 Temperature 98.1 F Pulse Rate 120 H 95 H Pulse Rate [ Anterior Left Throughout] Respiratory 16 16 Rate Respiratory Rate [Anterior Left Throughout ] Blood Pressure 151/92 103/62 O2 Sat by Pulse 96 98 Oximetry 10/27/16 10/27/16 10/27/16 04:15 04:30 04:35 Temperature Pulse Rate 88 92 H 86 Pulse Rate [ Anterior Left Throughout] Respiratory 16 17 Rate Respiratory Rate [Anterior Left Throughout ] Blood Pressure 83/50 108/63 94/54 O2 Sat by Pulse 97 99 97 Oximetry 10/27/16 10/27/16 10/27/16 04:40 04:45 05:00 Temperature Pulse Rate 89 87 Pulse Rate [ Anterior Left Throughout] Respiratory 18 17 19 Rate Respiratory Rate [Anterior Left Throughout ] Blood Pressure 94/54 100/54 O2 Sat by Pulse 92 97 94 Oximetry 10/27/16 10/27/16 10/27/16 05:05 05:16 05:30 Temperature Pulse Rate 101 H 112 H Pulse Rate [ Anterior Left Throughout] Respiratory 18 15 11 L Rate Respiratory Rate [Anterior Left Throughout ] Blood Pressure 121/71 134/78 O2 Sat by Pulse 92 92 95 Oximetry 10/27/16 10/27/16 10/27/16 05:45 06:00 06:15 Temperature Pulse Rate 95 H 82 108 H Pulse Rate [ Anterior Left Throughout] Respiratory 15 17 16 Rate Respiratory Rate [Anterior Left Throughout ] Blood Pressure 127/69 105/61 134/76 O2 Sat by Pulse 96 96 93 Oximetry 10/27/16 10/27/16 10/27/16 06:30 06:46 07:00 Temperature Pulse Rate 89 118 H 95 H Pulse Rate [ Anterior Left Throughout] Respiratory 14 22 16 Rate Respiratory Rate [Anterior Left Throughout ] Blood Pressure 140/72 140/72 141/82 O2 Sat by Pulse 94 94 91 Oximetry 10/27/16 10/27/16 10/27/16 07:15 07:30 07:46 Temperature Pulse Rate 98 H 92 H 109 H Pulse Rate [ Anterior Left Throughout] Respiratory 19 17 20 Rate Respiratory Rate [Anterior Left Throughout ] Blood Pressure 149/80 134/77 136/91 O2 Sat by Pulse 92 92 92 Oximetry 10/27/16 10/27/16 10/27/16 08:00 08:13 08:15 Temperature 98.8 F Pulse Rate 83 77 Pulse Rate [ 79 Anterior Left Throughout] Respiratory 17 16 Rate Respiratory 17 Rate [Anterior Left Throughout ] Blood Pressure 119/66 121/64 O2 Sat by Pulse 92 94 Oximetry 10/27/16 10/27/16 10/27/16 08:30 08:34 08:45 Temperature Pulse Rate 104 H 86 Pulse Rate [ 92 H Anterior Left Throughout] Respiratory 20 17 Rate Respiratory 24 Rate [Anterior Left Throughout ] Blood Pressure 134/71 134/72 O2 Sat by Pulse 95 95 Oximetry 10/27/16 10/27/16 10/27/16 09:00 09:16 11:40 Temperature Pulse Rate 92 H 91 H 101 H Pulse Rate [ Anterior Left Throughout] Respiratory 17 16 Rate Respiratory Rate [Anterior Left Throughout ] Blood Pressure 147/80 120/64 155/89 O2 Sat by Pulse 93 93 94 Oximetry 10/27/16 10/27/16 12:00 14:42 Temperature 98.5 F Pulse Rate 88 Pulse Rate [ Anterior Left Throughout] Respiratory 17 Rate Respiratory Rate [Anterior Left Throughout ] Blood Pressure 148/90 O2 Sat by Pulse 95 Oximetry - Labs CBC & Chem 7: 10/27/16 04:40 10/27/16 04:40 Labs: Abnormal lab results 10/27/16 10/27/16 Range/Units 04:40 04:40 RBC 3.55 L (3.65-5.03) M/mm3 Hgb 10.9 L (11.8-15.2) gm/dl Hct 33.1 L (35.5-45.6) % RDW 16.6 H (13.2-15.2) % Seg Neuts % (Manual) 92.0 H (40.0-70.0) % Lymphocytes % (Manual) 5.0 L (13.4-35.0) % Lymphocytes # (Manual) 0.4 L (1.2-5.4) K/mm3 Chloride 107.8 H (98-107) mmol/L Carbon Dioxide 20 L (22-30) mmol/L BUN 24 H (9-20) mg/dL Glucose 190 H (75-100) mg/dL Calcium 7.0 L (8.4-10.2) mg/dL
[2016-10-28] MEDS: PROVENTIL IH PRN ×3 (00:51→15:03)
[2016-10-28] MEDS: MUCOMYST INHALATION INHALATION SCH ×3 (00:51→15:03)
[2016-10-28] MEDS: ROBITUSSIN PO SCH ×6 (02:38→23:10)
[2016-10-28] MEDS: ZOSYN/NS 4.5GM/100ML 4.5 GM/100 ML VIAL IV SCH ×3 (06:09→22:02)
[2016-10-28] MEDS: REGLAN IV SCH ×4 (06:10→23:10)
[2016-10-28] MEDS: LOVENOX SUB-Q SCH (09:35)
[2016-10-28] MEDS: PEPCID PO SCH ×2 (09:35→23:07)
--- NOTE | 2016-10-28 10:22 | Progress Note ---
Assessment and Plan MS Respiratory failure on mechanical ventilation Hypotensive - on pressors LBBB, chronic Afib, paroxysmal currently in sinus rhythm low TSH of 0.132 and low free T4 of 0.75 Nonischemic cardiomyopathy EF 10-15% on echocardiogram this admission [facility] 04/2014: normal coronaries. LV gram not performed due to findings of renal failure at that time. Recommend: Continue supportive care. Proceed with PEG and Trach if needed - acceptable risk from cardiac perspective. Subjective Date of service: 10/28/16 Principal diagnosis: Acute respiratory failure Interval history: No acute events. Plan for PEG/Trach noted. No significant change since yesterday Objective Vital Signs Temp Pulse Pulse Pulse Pulse Resp Resp 10/28/16 08:15 70 16 10/28/16 08:14 70 10/28/16 08:10 74 17 10/28/16 08:04 75 10/28/16 08:00 97.9 F 73 17 10/28/16 07:46 69 16 10/28/16 07:30 79 19 10/28/16 07:15 83 16 10/28/16 07:00 86 17 10/28/16 06:45 81 16 10/28/16 06:30 87 18 10/28/16 06:15 85 16 10/28/16 06:00 87 17 10/28/16 05:46 88 12 10/28/16 05:30 87 16 10/28/16 05:16 90 19 10/28/16 05:00 94 H 21 10/28/16 04:47 85 10/28/16 04:45 90 16 10/28/16 04:30 81 16 10/28/16 04:15 81 20 10/28/16 04:00 98.8 F 80 22 10/28/16 03:45 78 22 10/28/16 03:30 78 19 10/28/16 03:15 80 22 10/28/16 03:00 76 22 10/28/16 02:45 77 24 10/28/16 02:30 79 22 10/28/16 02:15 88 18 10/28/16 02:00 81 22 10/28/16 01:46 83 19 10/28/16 01:30 10/28/16 01:16 78 22 10/28/16 01:06 82 20 10/28/16 01:00 82 17 10/28/16 00:52 74 74 18 10/28/16 00:46 72 16 10/28/16 00:42 73 10/28/16 00:30 69 14 10/28/16 00:15 77 17 10/28/16 00:06 73 15 10/28/16 00:00 71 71 13 10/27/16 23:59 98.7 F 10/27/16 23:51 70 10/27/16 23:45 73 13 10/27/16 23:30 72 14 10/27/16 23:15 64 16 10/27/16 23:00 67 16 10/27/16 22:59 10/27/16 22:45 70 16 10/27/16 22:30 75 16 10/27/16 22:16 81 18 10/27/16 22:00 81 15 10/27/16 21:45 85 14 10/27/16 21:30 88 16 10/27/16 21:16 91 H 16 10/27/16 21:00 95 H 14 10/27/16 20:45 91 H 17 10/27/16 20:30 92 H 21 10/27/16 20:15 99 H 97 H 20 10/27/16 20:00 98.9 F 108 H 29 H 10/27/16 19:45 102 H 18 10/27/16 19:30 99 H 16 10/27/16 19:15 89 13 10/27/16 19:00 82 14 10/27/16 18:45 80 14 10/27/16 18:30 81 12 10/27/16 18:16 82 12 10/27/16 18:00 86 18 10/27/16 17:45 83 17 10/27/16 17:30 85 18 10/27/16 17:15 90 19 10/27/16 17:00 89 14 10/27/16 16:55 86 10/27/16 16:45 83 14 10/27/16 16:40 81 10/27/16 16:35 84 17 10/27/16 16:30 79 14 10/27/16 16:15 90 14 10/27/16 16:00 99.6 F 90 13 10/27/16 15:45 88 16 10/27/16 15:30 89 14 10/27/16 15:15 92 H 16 10/27/16 15:00 95 H 11 L 10/27/16 14:45 94 H 16 10/27/16 14:42 88 17 10/27/16 14:30 102 H 9 L 10/27/16 14:15 94 H 16 10/27/16 14:00 99 H 20 10/27/16 13:45 95 H 19 10/27/16 13:30 97 H 15 10/27/16 13:15 97 H 17 10/27/16 13:00 97 H 16 10/27/16 12:46 103 H 18 10/27/16 12:30 108 H 22 10/27/16 12:16 103 H 21 10/27/16 12:00 98.5 F 82 16 10/27/16 11:46 107 H 22 10/27/16 11:40 101 H 10/27/16 11:30 112 H 24 10/27/16 11:15 103 H 19 10/27/16 11:00 89 17 10/27/16 10:46 102 H 19 10/27/16 10:30 102 H 16 Resp Resp BP Pulse Ox 10/28/16 08:15 115/64 98 10/28/16 08:14 17 10/28/16 08:10 124/66 98 10/28/16 08:04 124/66 98 10/28/16 08:00 124/66 98 10/28/16 07:46 109/50 98 10/28/16 07:30 144/74 98 10/28/16 07:15 146/85 98 10/28/16 07:00 133/75 96 10/28/16 06:45 137/74 96 10/28/16 06:30 140/71 95 10/28/16 06:15 128/71 94 10/28/16 06:00 132/72 93 10/28/16 05:46 149/79 98 10/28/16 05:30 149/79 98 10/28/16 05:16 158/80 98 10/28/16 05:00 158/84 98 10/28/16 04:47 144/62 97 10/28/16 04:45 146/60 96 10/28/16 04:30 144/62 98 10/28/16 04:15 137/75 97 10/28/16 04:00 142/71 97 10/28/16 03:45 139/67 97 08/13/17 03:30 136/65 97 10/28/16 03:15 139/69 97 10/28/16 03:00 135/68 97 10/28/16 02:45 132/63 97 10/28/16 02:30 127/66 96 10/28/16 02:15 130/80 97 10/28/16 02:00 126/68 95 10/28/16 01:46 129/68 99 10/28/16 01:30 129/68 98 10/28/16 01:16 129/68 96 10/28/16 01:06 10/28/16 01:00 129/68 97 10/28/16 00:52 18 10/28/16 00:46 118/57 99 10/28/16 00:42 123/60 99 10/28/16 00:30 123/60 99 10/28/16 00:15 127/65 99 10/28/16 00:06 124/59 98 10/28/16 00:00 124/59 98 10/27/16 23:59 10/27/16 23:51 10/27/16 23:45 115/59 98 10/27/16 23:30 108/52 98 10/27/16 23:15 108/52 96 10/27/16 23:00 118/54 96 10/27/16 22:59 17 10/27/16 22:45 118/54 95 10/27/16 22:30 113/57 96 10/27/16 22:16 107/53 98 10/27/16 22:00 136/82 100 10/27/16 21:45 128/67 98 10/27/16 21:30 131/70 97 10/27/16 21:16 148/79 97 10/27/16 21:00 143/123 97 10/27/16 20:45 148/91 96 10/27/16 20:30 153/83 95 10/27/16 20:15 160/89 94 10/27/16 20:00 163/99 91 10/27/16 19:45 156/86 91 10/27/16 19:30 155/94 96 10/27/16 19:15 147/87 97 10/27/16 19:00 146/75 97 10/27/16 18:45 150/80 96 10/27/16 18:30 142/80 95 10/27/16 18:16 139/77 96 10/27/16 18:00 137/81 95 10/27/16 17:45 137/76 94 10/27/16 17:30 145/80 94 10/27/16 17:15 140/84 95 10/27/16 17:00 145/80 96 10/27/16 16:55 16 10/27/16 16:45 139/71 95 10/27/16 16:40 17 10/27/16 16:35 137/73 96 10/27/16 16:30 137/73 96 10/27/16 16:15 133/81 96 10/27/16 16:00 130/81 96 10/27/16 15:45 136/88 96 10/27/16 15:30 141/83 95 10/27/16 15:15 149/80 96 10/27/16 15:00 149/81 96 10/27/16 14:45 151/79 95 10/27/16 14:42 148/90 95 10/27/16 14:30 148/90 94 10/27/16 14:15 152/89 94 10/27/16 14:00 160/88 94 10/27/16 13:45 170/89 94 10/27/16 13:30 161/93 95 10/27/16 13:15 152/82 95 10/27/16 13:00 154/92 95 10/27/16 12:46 154/92 95 10/27/16 12:30 132/70 96 10/27/16 12:16 132/70 95 10/27/16 12:00 132/70 95 10/27/16 11:46 154/99 95 10/27/16 11:40 155/89 94 10/27/16 11:30 158/102 93 10/27/16 11:15 148/94 96 10/27/16 11:00 142/80 95 10/27/16 10:46 147/93 93 10/27/16 10:30 143/76 93 - Physical Examination General: Other (intubated on the vent) Neck: Positive: neck supple Cardiac: Positive: Reg Rate and Rhythm (frequent ectopy) Lungs: Positive: Rhonchi Abdomen: Positive: Soft Extremities: Absent: edema
[2016-10-28 11:08] LABS: ISTAT Base Excess -5; ISTAT HCO3 19.5; ISTAT PCO2 31.8 (35-45); ISTAT PH 7.395 (7.35-7.45); ISTAT PO2 82 (80-105); ISTAT SO2 96; ISTAT TCO2 20
--- NOTE | 2016-10-28 11:12 | Consultation ---
History of Present Illness - Reason for Consult Consult date: 10/28/16 stroke - History of Present Illness still wanting to get brain imaging study on the patient he is about the same vital signs noted no overt seizures occasional involuntary movements of the arms do not see that he responds to verbal stimulation/ he is in semi comatose state no obvious trend towards recovery Past History Past Medical History: arthritis, GERD, hypertension, other (MS) Past Surgical History: No surgical history, Other (UTO) Social history: , other (lives with roommate). denies: smoking, alcohol abuse, prescription drug abuse Family history: hypertension Medications and Allergies Allergies Allergy/AdvReac Type Severity Reaction Status Date / Time codeine AdvReac Hives Verified 04/30/14 13:32 Home Medications Medication Instructions Recorded Confirmed Last Taken Type Nitroglycerin [Nitrostat] 0.4 mg SL PRN PRN 04/30/14 04/30/14 Unknown History Active Meds: Active Medications Acetylcysteine (Mucomyst Inhalation) 200 mg INHALATION Q8HRT [facility] Last Admin: 10/28/16 08:14 Dose: 200 mg Albuterol (Proventil) 2.5 mg IH Q8HRT PRN PRN Reason: Wheezing Last Admin: 10/28/16 08:13 Dose: 2.5 mg Lipase/Protease/Amylase (Pancreaze Dr 10,500 Unit) 1 each FEEDTUBE PRN PRN PRN Reason: For Clogged Feeding Tube Clonazepam (Klonopin) 0.5 mg PO BID [facility] Last Admin: 10/28/16 09:35 Dose: 0.5 mg Enoxaparin Sodium (Lovenox) 40 mg SUB-Q QDAY@1000 [facility] Last Admin: 10/28/16 09:35 Dose: 40 mg Famotidine (Pepcid) 20 mg PO BID [facility] Last Admin: 10/28/16 09:35 Dose: 20 mg Guaifenesin (Robitussin) 200 mg PO Q4H [facility] Last Admin: 10/28/16 06:12 Dose: 200 mg Hydrophilic Ointment (Vaseline Lip Therapy) 1 applic TP Q2HR PRN PRN Reason: Dry Lips Fentanyl Citrate (Fentanyl Drip Premix) 2,000 mcg in 100 mls @ 3.969 mls/hr IV TITR KAYLEE; 1 MCG/KG/HR PRN Reason: Protocol Last Titration: 10/28/16 06:29 Dose: 0 mcg/kg/hr, 0 mls/hr Norepinephrine (Levophed Drip 4 Mg/Ns 250 Ml) 4 mg in 250 mls @ 7.5 mls/hr IV TITR KAYLEE; 2 MCG/MIN PRN Reason: Protocol Last Titration: 10/26/16 07:30 Dose: 0 mcg/min, 0 mls/hr Sodium Chloride (Nacl 0.9% 500 Ml) 500 mls @ 20 mls/hr IV DIRECT KAYLEE Last Admin: 10/25/16 22:05 Dose: 20 mls/hr Piperacillin Sod/Tazobactam Sod (Zosyn/Ns 4.5gm/100ml) 4.5 gm in 100 mls @ 200 mls/hr IV Q8HR K[facility]LEE PRN Reason: Protocol Stop: 11/01/16 13:59 Last Admin: 10/28/16 06:09 Dose: 200 mls/hr Methylprednisolone Sodium Succinate (Solu-Medrol) 40 mg IV Q8HR [facility] Last Admin: 10/28/16 06:10 Dose: 40 mg Metoclopramide HCl (Reglan) 5 mg IV Q6HR [facility] Last Admin: 10/28/16 06:10 Dose: 5 mg Multi-Ingred Cream/Lotion/Oil/Oint (Artificial Tears Ophth Oint) 1 applic OU Q4HR PRN PRN Reason: Dry Eye(s) Polyethylene Glycol (Miralax 3350) 17 gm PO QDAY PRN PRN Reason: Constipation Last Admin: 10/26/16 16:00 Dose: 17 gm Simple Syrup (Simple Syrup) 15 ml FEEDTUBE PRN PRN PRN Reason: Hypoglycemia Simple Syrup (Simple Syrup) 30 ml FEEDTUBE PRN PRN PRN Reason: Hypoglycemia Sodium Bicarbonate (Sodium Bicarbonate) 325 mg FEEDTUBE PRN PRN PRN Reason: For Clogged Feeding Tube Exam - Constitutional Vitals: Temp Pulse Resp BP Pulse Ox 97.9 F 69 23 122/58 98 10/28/16 08:00 10/28/16 11:00 10/28/16 11:00 10/28/16 11:00 10/28/16 11:00 Results - Labs CBC & Chem 7: 10/27/16 04:40 10/27/16 04:40 Labs: Abnormal lab results 10/28/16 Range/Units 11:00 POC ABG pCO2 31.8 L (35-45)
--- NOTE | 2016-10-28 12:20 | Progress Note ---
Assessment and Plan Acute hypoxic respiratory failure. - He is still intubated on ventilator. Pulmonology following. - plan for Trach and PEG on Saturday if can't be weaned off from the vent Shock. Hypovolemic. - off Levophed infusion. - BP stable with IV fluid Acute metabolic encephalopathy. - He is sedated , on ventilator. Neurology following. - Ct head no acute finding Multiple sclerosis. Neurology following Hypokalemia, resolved. Hypernatremia, resolved - Continue free water with TF. Severe malnutrition - On TF Afib, paroxysmal - currently in sinus rhythm - low TSH of 0.132 and low free T4 of 0.75, cont to monitor Nonischemic cardiomyopathy - EF 10-15% on echocardiogram this admission - [facility] 04/2014: normal coronaries. LV gram not performed due to findings of renal failure at that time. DVT prophylaxis with Lovenox Subjective Date of service: 10/28/16 Principal diagnosis: Acute respiratory failure Interval history: Patient still intubated, sedated on CPAP and tolerating well Objective - Exam Narrative Exam: Gen appearance :Not in acute distress, intubated, sedated, on ventilator HEENT: Normocephalic, atraumatic Neck: no JVD Lungs: Clear to auscultation bilaterally, no crackles, or wheezes. Heart: S1 and S2 regular, no murmurs, no gallops, rub Abdomen : Soft, non-tender, non-distended, normal bowel sounds Extremities :No edema, no clubbing or cyanosis Neuro: Sedated. - Constitutional Vitals: Vital Signs - 12hr 10/28/16 10/28/16 10/28/16 00:30 00:42 00:46 Temperature Pulse Rate 69 73 72 Pulse Rate [ Anterior Bilateral Throughout] Pulse Rate [ Anterior Right Throughout] Respiratory 14 16 Rate Respiratory Rate [Anterior Bilateral Throughout] Respiratory Rate [Anterior Right Throughout] Blood Pressure 123/60 123/60 118/57 O2 Sat by Pulse 99 99 99 Oximetry 10/28/16 10/28/16 10/28/16 00:52 01:00 01:06 Temperature Pulse Rate 82 Pulse Rate [ 74 82 Anterior Bilateral Throughout] Pulse Rate [ 74 Anterior Right Throughout] Respiratory 17 Rate Respiratory 18 20 Rate [Anterior Bilateral Throughout] Respiratory 18 Rate [Anterior Right Throughout] Blood Pressure 129/68 O2 Sat by Pulse 97 Oximetry 10/28/16 10/28/1617 01:16 01:30 01:46 Temperature Pulse Rate 78 83 Pulse Rate [ Anterior Bilateral Throughout] Pulse Rate [ Anterior Right Throughout] Respiratory 22 19 Rate Respiratory Rate [Anterior Bilateral Throughout] Respiratory Rate [Anterior Right Throughout] Blood Pressure 129/68 129/68 129/68 O2 Sat by Pulse 96 98 99 Oximetry 10/28/16 10/28/16 10/28/16 02:00 02:15 02:30 Temperature Pulse Rate 81 88 79 Pulse Rate [ Anterior Bilateral Throughout] Pulse Rate [ Anterior Right Throughout] Respiratory 22 18 22 Rate Respiratory Rate [Anterior Bilateral Throughout] Respiratory Rate [Anterior Right Throughout] Blood Pressure 126/68 130/80 127/66 O2 Sat by Pulse 95 97 96 Oximetry 10/28/16 10/28/16 10/28/16 02:45 03:00 03:15 Temperature Pulse Rate 77 76 80 Pulse Rate [ Anterior Bilateral Throughout] Pulse Rate [ Anterior Right Throughout] Respiratory 24 22 22 Rate Respiratory Rate [Anterior Bilateral Throughout] Respiratory Rate [Anterior Right Throughout] Blood Pressure 132/63 135/68 139/69 O2 Sat by Pulse 97 97 97 Oximetry 10/28/16 10/28/16 10/28/16 03:30 03:45 04:00 Temperature 98.8 F Pulse Rate 78 78 80 Pulse Rate [ Anterior Bilateral Throughout] Pulse Rate [ Anterior Right Throughout] Respiratory 19 22 22 Rate Respiratory Rate [Anterior Bilateral Throughout] Respiratory Rate [Anterior Right Throughout] Blood Pressure 136/65 139/67 142/71 O2 Sat by Pulse 97 97 97 Oximetry 10/28/16 10/28/16 10/28/16 04:15 04:30 04:45 Temperature Pulse Rate 81 81 90 Pulse Rate [ Anterior Bilateral Throughout] Pulse Rate [ Anterior Right Throughout] Respiratory 20 16 16 Rate Respiratory Rate [Anterior Bilateral Throughout] Respiratory Rate [Anterior Right Throughout] Blood Pressure 137/75 144/62 146/60 O2 Sat by Pulse 97 98 96 Oximetry 10/28/16 10/28/16 10/28/16 04:47 05:00 05:16 Temperature Pulse Rate 85 94 H 90 Pulse Rate [ Anterior Bilateral Throughout] Pulse Rate [ Anterior Right Throughout] Respiratory 21 19 Rate Respiratory Rate [Anterior Bilateral Throughout] Respiratory Rate [Anterior Right Throughout] Blood Pressure 144/62 158/84 158/80 O2 Sat by Pulse 97 98 98 Oximetry 10/28/16 10/28/1617 05:30 05:46 06:00 Temperature Pulse Rate 87 88 87 Pulse Rate [ Anterior Bilateral Throughout] Pulse Rate [ Anterior Right Throughout] Respiratory 16 12 17 Rate Respiratory Rate [Anterior Bilateral Throughout] Respiratory Rate [Anterior Right Throughout] Blood Pressure 149/79 149/79 132/72 O2 Sat by Pulse 98 98 93 Oximetry 10/28/16 10/28/16 10/28/16 06:15 06:30 06:45 Temperature Pulse Rate 85 87 81 Pulse Rate [ Anterior Bilateral Throughout] Pulse Rate [ Anterior Right Throughout] Respiratory 16 18 16 Rate Respiratory Rate [Anterior Bilateral Throughout] Respiratory Rate [Anterior Right Throughout] Blood Pressure 128/71 140/71 137/74 O2 Sat by Pulse 94 95 96 Oximetry 10/28/16 10/28/16 10/28/16 07:00 07:15 07:30 Temperature Pulse Rate 86 83 79 Pulse Rate [ Anterior Bilateral Throughout] Pulse Rate [ Anterior Right Throughout] Respiratory 17 16 19 Rate Respiratory Rate [Anterior Bilateral Throughout] Respiratory Rate [Anterior Right Throughout] Blood Pressure 133/75 146/85 144/74 O2 Sat by Pulse 96 98 98 Oximetry 10/28/16 10/28/16 10/28/16 07:46 08:00 08:04 Temperature 97.9 F Pulse Rate 69 73 75 Pulse Rate [ Anterior Bilateral Throughout] Pulse Rate [ Anterior Right Throughout] Respiratory 16 17 Rate Respiratory Rate [Anterior Bilateral Throughout] Respiratory Rate [Anterior Right Throughout] Blood Pressure 109/50 124/66 124/66 O2 Sat by Pulse 98 98 98 Oximetry 10/28/16 10/28/16 10/28/16 08:10 08:14 08:15 Temperature Pulse Rate 74 70 Pulse Rate [ Anterior Bilateral Throughout] Pulse Rate [ 70 Anterior Right Throughout] Respiratory 17 16 Rate Respiratory Rate [Anterior Bilateral Throughout] Respiratory 17 Rate [Anterior Right Throughout] Blood Pressure 124/66 115/64 O2 Sat by Pulse 98 98 Oximetry 10/28/16 10/28/16 10/28/16 08:30 08:46 09:00 Temperature Pulse Rate 69 66 72 Pulse Rate [ Anterior Bilateral Throughout] Pulse Rate [ Anterior Right Throughout] Respiratory 16 18 19 Rate Respiratory Rate [Anterior Bilateral Throughout] Respiratory Rate [Anterior Right Throughout] Blood Pressure 110/59 116/62 123/66 O2 Sat by Pulse 95 96 96 Oximetry 10/28/16 10/28/16 10/28/16 09:15 09:30 09:46 Temperature Pulse Rate 63 76 70 Pulse Rate [ Anterior Bilateral Throughout] Pulse Rate [ Anterior Right Throughout] Respiratory 22 21 25 H Rate Respiratory Rate [Anterior Bilateral Throughout] Respiratory Rate [Anterior Right Throughout] Blood Pressure 124/60 131/69 120/66 O2 Sat by Pulse 95 97 97 Oximetry 10/28/16 10/28/16 10/28/16 10:00 10:16 10:30 Temperature Pulse Rate 61 66 67 Pulse Rate [ Anterior Bilateral Throughout] Pulse Rate [ Anterior Right Throughout] Respiratory 22 25 H 24 Rate Respiratory Rate [Anterior Bilateral Throughout] Respiratory Rate [Anterior Right Throughout] Blood Pressure 129/60 117/68 121/64 O2 Sat by Pulse 97 98 98 Oximetry 10/28/16 10/28/16 10:45 11:00 Temperature Pulse Rate 67 69 Pulse Rate [ Anterior Bilateral Throughout] Pulse Rate [ Anterior Right Throughout] Respiratory 20 23 Rate Respiratory Rate [Anterior Bilateral Throughout] Respiratory Rate [Anterior Right Throughout] Blood Pressure 122/58 122/58 O2 Sat by Pulse 98 98 Oximetry - Labs CBC & Chem 7: 10/27/16 04:40 10/27/16 04:40 Labs: Abnormal lab results 10/28/16 Range/Units 11:00 POC ABG pCO2 31.8 L (35-45)
--- NOTE | 2016-10-28 13:32 | Progress Note ---
Assessment and Plan Focal LLL infiltrate, probably aspiration pneumonia.Improved on CXR.No fever MS w/ flare Acute respiratory failure, failed weaning this am,now on CPAP/PS Volume depletion/JEANNETTE, better Hypernatremia.improved SIRS, pneumonia and/or UTI, better Atelectasis L lung, Severe dilated NICMP UTI, E.coli resistant to Levaquin Recommendations SBT as tolerated Further when he will depend on patient tolerance, ABGs and neurological status. Complete antibiotics as scheduled and watch for fever. Subjective Date of service: 10/28/16 Principal diagnosis: Acute respiratory failure Interval history: Sedate Objective Vital Signs - 12hr 10/28/16 10/28/16 10/28/16 01:30 01:46 02:00 Temperature Pulse Rate 83 81 Pulse Rate [ Anterior Right Throughout] Respiratory 19 22 Rate Respiratory Rate [Anterior Right Throughout] Blood Pressure 129/68 129/68 126/68 O2 Sat by Pulse 98 99 95 Oximetry 10/28/16 10/28/16 10/28/16 02:15 02:30 02:45 Temperature Pulse Rate 88 79 77 Pulse Rate [ Anterior Right Throughout] Respiratory 18 22 24 Rate Respiratory Rate [Anterior Right Throughout] Blood Pressure 130/80 127/66 132/63 O2 Sat by Pulse 97 96 97 Oximetry 10/28/16 10/28/16 10/28/16 03:00 03:15 03:30 Temperature Pulse Rate 76 80 78 Pulse Rate [ Anterior Right Throughout] Respiratory 22 22 19 Rate Respiratory Rate [Anterior Right Throughout] Blood Pressure 135/68 139/69 136/65 O2 Sat by Pulse 97 97 97 Oximetry 10/28/16 10/28/16 10/28/16 03:45 04:00 04:15 Temperature 98.8 F Pulse Rate 78 80 81 Pulse Rate [ Anterior Right Throughout] Respiratory 22 22 20 Rate Respiratory Rate [Anterior Right Throughout] Blood Pressure 139/67 142/71 137/75 O2 Sat by Pulse 97 97 97 Oximetry 10/28/16 10/28/16 10/28/16 04:30 04:45 04:47 Temperature Pulse Rate 81 90 85 Pulse Rate [ Anterior Right Throughout] Respiratory 16 16 Rate Respiratory Rate [Anterior Right Throughout] Blood Pressure 144/62 146/60 144/62 O2 Sat by Pulse 98 96 97 Oximetry 10/28/16 10/28/16 10/28/16 05:00 05:16 05:30 Temperature Pulse Rate 94 H 90 87 Pulse Rate [ Anterior Right Throughout] Respiratory 21 19 16 Rate Respiratory Rate [Anterior Right Throughout] Blood Pressure 158/84 158/80 149/79 O2 Sat by Pulse 98 98 98 Oximetry 10/28/16 10/28/16 10/28/16 05:46 06:00 06:15 Temperature Pulse Rate 88 87 85 Pulse Rate [ Anterior Right Throughout] Respiratory 12 17 16 Rate Respiratory Rate [Anterior Right Throughout] Blood Pressure 149/79 132/72 128/71 O2 Sat by Pulse 98 93 94 Oximetry 10/28/16 10/28/16 10/28/16 06:30 06:45 07:00 Temperature Pulse Rate 87 81 86 Pulse Rate [ Anterior Right Throughout] Respiratory 18 16 17 Rate Respiratory Rate [Anterior Right Throughout] Blood Pressure 140/71 137/74 133/75 O2 Sat by Pulse 95 96 96 Oximetry 10/28/16 10/28/16 10/28/16 07:15 07:30 07:46 Temperature Pulse Rate 83 79 69 Pulse Rate [ Anterior Right Throughout] Respiratory 16 19 16 Rate Respiratory Rate [Anterior Right Throughout] Blood Pressure 146/85 144/74 109/50 O2 Sat by Pulse 98 98 98 Oximetry 10/28/16 10/28/16 10/28/16 08:00 08:04 08:10 Temperature 97.9 F Pulse Rate 73 75 74 Pulse Rate [ Anterior Right Throughout] Respiratory 17 17 Rate Respiratory Rate [Anterior Right Throughout] Blood Pressure 124/66 124/66 124/66 O2 Sat by Pulse 98 98 98 Oximetry 10/28/16 10/28/16 10/28/16 08:14 08:15 08:30 Temperature Pulse Rate 70 69 Pulse Rate [ 70 Anterior Right Throughout] Respiratory 16 16 Rate Respiratory 17 Rate [Anterior Right Throughout] Blood Pressure 115/64 110/59 O2 Sat by Pulse 98 95 Oximetry 10/28/16 10/28/16 10/28/16 08:46 09:00 09:15 Temperature Pulse Rate 66 72 63 Pulse Rate [ Anterior Right Throughout] Respiratory 18 19 22 Rate Respiratory Rate [Anterior Right Throughout] Blood Pressure 116/62 123/66 124/60 O2 Sat by Pulse 96 96 95 Oximetry 10/28/16 10/28/16 10/28/16 09:30 09:46 10:00 Temperature Pulse Rate 76 70 61 Pulse Rate [ Anterior Right Throughout] Respiratory 21 25 H 22 Rate Respiratory Rate [Anterior Right Throughout] Blood Pressure 131/69 120/66 129/60 O2 Sat by Pulse 97 97 97 Oximetry 10/28/16 10/28/16 10/28/16 10:16 10:30 10:45 Temperature Pulse Rate 66 67 67 Pulse Rate [ Anterior Right Throughout] Respiratory 25 H 24 20 Rate Respiratory Rate [Anterior Right Throughout] Blood Pressure 117/68 121/64 122/58 O2 Sat by Pulse 98 98 98 Oximetry 10/28/16 10/28/16 11:00 12:00 Temperature 98.4 F Pulse Rate 69 Pulse Rate [ Anterior Right Throughout] Respiratory 23 Rate Respiratory Rate [Anterior Right Throughout] Blood Pressure 122/58 O2 Sat by Pulse 98 Oximetry Constitutional: no acute distress, other (intubated) Eyes: non-icteric ENT: other (orally intubated) Neck: supple, no JVD Effort: normal Ascultation: Bilateral: clear Percussion: Bilateral: not dull Cardiovascular: regular rate and rhythm Gastrointestinal: normoactive bowel sounds, soft, non-tender, non-distended Extremities: other (damaged right great toe, wrapped currently; ) Neurologic: unable to assess, other (RA SS -2) Psychiatric: other (unable to assess) CBC and BMP: 10/27/16 04:40 10/27/16 04:40 ABG, PT/INR, D-dimer: ABG POC ABG pH 7.395 (7.35-7.45) 10/28/16 11:00 POC ABG pCO2 31.8 (35-45) L 10/28/16 11:00 POC ABG pO2 82 (80-105) 10/28/16 11:00 POC ABG HCO3 19.5 10/28/16 11:00 POC ABG Total CO2 20 10/28/16 11:00 POC ABG O2 Sat 96 10/28/16 11:00 PT/INR, D-dimer D-Dimer 1813.13 ng/mlDDU (0-234) H 10/17/16 17:51 Abnormal lab findings: Abnormal Labs 10/17/16 10/18/16 10/18/16 19:34 03:29 05:36 WBC RBC Hgb Hct MCV RDW Lymph % (Auto) [place] % (Auto) Lymph # [place] # Seg Neutrophils % Seg Neuts % (Manual) Lymphocytes % (Manual) Seg Neutrophils # Man Lymphocytes # (Manual) POC ABG pH 7.333 L 7.272 L POC ABG pCO2 31.5 L 28.6 L POC ABG pO2 180 H Sodium Potassium Chloride Carbon Dioxide BUN Creatinine Glucose POC Glucose Calcium Phosphorus Magnesium CK-MB (CK-2) CK-MB (CK-2) Rel Index Troponin T HDL Cholesterol TSH Free T4 Urine WBC (Auto) 10/18/16 10/18/16 10/18/16 08:13 09:40 12:04 WBC RBC Hgb Hct MCV RDW Lymph % (Auto) [place] % (Auto) Lymph # [place] # Seg Neutrophils % Seg Neuts % (Manual) Lymphocytes % (Manual) Seg Neutrophils # Man Lymphocytes # (Manual) POC ABG pH 7.231 L 7.298 L POC ABG pCO2 30.8 L POC ABG pO2 74 L Sodium Potassium Chloride Carbon Dioxide BUN Creatinine Glucose POC Glucose 151 H Calcium Phosphorus Magnesium CK-MB (CK-2) CK-MB (CK-2) Rel Index Troponin T HDL Cholesterol TSH Free T4 Urine WBC (Auto) 10/18/16 10/18/16 10/18/16 14:57 14:57 14:57 WBC 13.3 H RBC Hgb Hct MCV 96 H RDW 16.9 H Lymph % (Auto) [place] % (Auto) Lymph # [place] # Seg Neutrophils % Seg Neuts % (Manual) Lymphocytes % (Manual) Seg Neutrophils # Man Lymphocytes # (Manual) POC ABG pH POC ABG pCO2 POC ABG pO2 Sodium Potassium Chloride Carbon Dioxide 13 L D BUN 57 H Creatinine 2.1 H Glucose 169 H POC Glucose Calcium 7.7 L Phosphorus Magnesium CK-MB (CK-2) CK-MB (CK-2) Rel Index Troponin T HDL Cholesterol TSH Free T4 0.68 L Urine WBC (Auto) 10/18/16 10/19/16 10/19/16 17:31 05:10 05:10 WBC 12.5 H RBC Hgb Hct MCV 95 H RDW 16.7 H Lymph % (Auto) [place] % (Auto) Lymph # [place] # Seg Neutrophils % Seg Neuts % (Manual) 94.0 H Lymphocytes % (Manual) 2.0 L Seg Neutrophils # Man 11.8 H Lymphocytes # (Manual) 0.3 L POC ABG pH POC ABG pCO2 POC ABG pO2 Sodium 149 H Potassium Chloride 114.1 H Carbon Dioxide 16 L BUN 49 H Creatinine 1.9 H Glucose 137 H POC Glucose 163 H Calcium 7.0 L Phosphorus Magnesium CK-MB (CK-2) CK-MB (CK-2) Rel Index Troponin T HDL Cholesterol TSH Free T4 Urine WBC (Auto) 10/19/16 10/19/16 10/19/16 06:04 11:39 23:47 WBC RBC Hgb Hct MCV RDW Lymph % (Auto) [place] % (Auto) Lymph # [place] # Seg Neutrophils % Seg Neuts % (Manual) Lymphocytes % (Manual) Seg Neutrophils # Man Lymphocytes # (Manual) POC ABG pH POC ABG pCO2 28.1 L POC ABG pO2 108 H Sodium Potassium Chloride Carbon Dioxide BUN Creatinine Glucose POC Glucose 134 H 122 H Calcium Phosphorus Magnesium CK-MB (CK-2) CK-MB (CK-2) Rel Index Troponin T HDL Cholesterol TSH Free T4 Urine WBC (Auto) 10/20/16 10/20/16 10/20/16 04:30 05:20 06:10 WBC 11.4 H RBC Hgb Hct MCV RDW 16.5 H Lymph % (Auto) [place] % (Auto) Lymph # [place] # Seg Neutrophils % Seg Neuts % (Manual) 92.0 H Lymphocytes % (Manual) 4.0 L Seg Neutrophils # Man 10.5 H Lymphocytes # (Manual) 0.5 L POC ABG pH POC ABG pCO2 24.5 L POC ABG pO2 Sodium Potassium Chloride Carbon Dioxide BUN Creatinine Glucose POC Glucose 112 H Calcium Phosphorus Magnesium CK-MB (CK-2) CK-MB (CK-2) Rel Index Troponin T HDL Cholesterol TSH Free T4 Urine WBC (Auto) 10/20/16 10/20/16 10/20/16 06:10 11:43 14:56 WBC RBC Hgb Hct MCV RDW Lymph % (Auto) [place] % (Auto) Lymph # [place] # Seg Neutrophils % Seg Neuts % (Manual) Lymphocytes % (Manual) Seg Neutrophils # Man Lymphocytes # (Manual) POC ABG pH POC ABG pCO2 POC ABG pO2 Sodium 152 H Potassium 3.2 L Chloride 119.1 H Carbon Dioxide 17 L BUN 39 H Creatinine Glucose 107 H POC Glucose 120 H Calcium 6.8 L Phosphorus Magnesium CK-MB (CK-2) CK-MB (CK-2) Rel Index Troponin T HDL Cholesterol TSH Free T4 0.75 L Urine WBC (Auto) 0810/20/16 10/20/16 14:56 17:22 23:50 WBC RBC Hgb Hct MCV RDW Lymph % (Auto) [place] % (Auto) Lymph # [place] # Seg Neutrophils % Seg Neuts % (Manual) Lymphocytes % (Manual) Seg Neutrophils # Man Lymphocytes # (Manual) POC ABG pH POC ABG pCO2 POC ABG pO2 Sodium Potassium Chloride Carbon Dioxide BUN Creatinine Glucose POC Glucose 148 H 106 H Calcium Phosphorus Magnesium CK-MB (CK-2) CK-MB (CK-2) Rel Index Troponin T HDL Cholesterol TSH 0.132 L Free T4 Urine WBC (Auto) 10/21/16 10/21/16 10/21/16 05:00 05:00 05:30 WBC RBC Hgb Hct MCV RDW 16.6 H Lymph % (Auto) 13.2 L [place] % (Auto) Lymph # 1.1 L [place] # Seg Neutrophils % 80.4 H Seg Neuts % (Manual) Lymphocytes % (Manual) Seg Neutrophils # Man Lymphocytes # (Manual) POC ABG pH 7.342 L POC ABG pCO2 30.7 L POC ABG pO2 149 H Sodium 150 H Potassium Chloride 117.2 H Carbon Dioxide 17 L BUN 38 H Creatinine Glucose POC Glucose Calcium 7.5 L Phosphorus Magnesium CK-MB (CK-2) CK-MB (CK-2) Rel Index Troponin T HDL Cholesterol TSH Free T4 Urine WBC (Auto) 10/22/16 10/22/16 10/23/16 05:00 05:21 03:48 WBC RBC Hgb Hct MCV RDW Lymph % (Auto) [place] % (Auto) Lymph # [place] # Seg Neutrophils % Seg Neuts % (Manual) Lymphocytes % (Manual) Seg Neutrophils # Man Lymphocytes # (Manual) POC ABG pH 7.319 L POC ABG pCO2 POC ABG pO2 68 L Sodium 151 H 147 H Potassium 3.3 L Chloride 120.5 H 116.2 H Carbon Dioxide 17 L 19 L BUN 36 H 26 H Creatinine Glucose 143 H 110 H POC Glucose Calcium 6.8 L 6.7 L Phosphorus 0.90 L* Magnesium 1.40 L CK-MB (CK-2) CK-MB (CK-2) Rel Index Troponin T HDL Cholesterol TSH Free T4 Urine WBC (Auto) 10/23/16 10/23/16 10/23/16 03:48 03:48 04:33 WBC 11.4 H RBC Hgb Hct MCV RDW 17.0 H Lymph % (Auto) [place] % (Auto) Lymph # [place] # Seg Neutrophils % Seg Neuts % (Manual) Lymphocytes % (Manual) Seg Neutrophils # Man Lymphocytes # (Manual) POC ABG pH POC ABG pCO2 31.7 L POC ABG pO2 Sodium Potassium Chloride Carbon Dioxide BUN Creatinine Glucose POC Glucose Calcium Phosphorus Magnesium CK-MB (CK-2) 6.9 H CK-MB (CK-2) Rel Index 4.8 H Troponin T 0.215 H* HDL Cholesterol 22 L TSH Free T4 Urine WBC (Auto) 10/23/16 10/23/16 10/24/16 18:00 Unknown 03:45 WBC RBC Hgb Hct MCV RDW Lymph % (Auto) [place] % (Auto) Lymph # [place] # Seg Neutrophils % Seg Neuts % (Manual) Lymphocytes % (Manual) Seg Neutrophils # Man Lymphocytes # (Manual) POC ABG pH POC ABG pCO2 POC ABG pO2 Sodium 148 H Potassium Chloride 116.8 H Carbon Dioxide BUN 22 H Creatinine Glucose 138 H POC Glucose Calcium 6.9 L Phosphorus 1.90 L D Magnesium 2.60 H CK-MB (CK-2) 6.3 H CK-MB (CK-2) Rel Index Troponin T 0.206 H* HDL Cholesterol TSH Free T4 Urine WBC (Auto) 19.0 H 10/24/16 10/24/16 10/25/16 03:45 06:26 06:33 WBC RBC Hgb Hct MCV RDW 16.5 H Lymph % (Auto) [place] % (Auto) 9.1 H Lymph # [place] # 0.9 H Seg Neutrophils % 75.3 H Seg Neuts % (Manual) Lymphocytes % (Manual) Seg Neutrophils # Man Lymphocytes # (Manual) POC ABG pH POC ABG pCO2 33.2 L 27.0 L POC ABG pO2 72 L Sodium Potassium Chloride Carbon Dioxide BUN Creatinine Glucose POC Glucose Calcium Phosphorus Magnesium CK-MB (CK-2) CK-MB (CK-2) Rel Index Troponin T HDL Cholesterol TSH Free T4 Urine WBC (Auto) 10/25/16 10/25/16 10/26/16 06:40 06:40 06:38 WBC RBC Hgb 11.2 L Hct 34.0 L MCV RDW 17.0 H 16.8 H Lymph % (Auto) 5.8 L [place] % (Auto) Lymph # 0.4 L [place] # Seg Neutrophils % 89.6 H Seg Neuts % (Manual) 95.0 H Lymphocytes % (Manual) 4.0 L Seg Neutrophils # Man 9.4 H Lymphocytes # (Manual) 0.4 L POC ABG pH POC ABG pCO2 POC ABG pO2 Sodium Potassium Chloride Carbon Dioxide 18 L BUN Creatinine Glucose 173 H POC Glucose Calcium 6.9 L Phosphorus Magnesium CK-MB (CK-2) CK-MB (CK-2) Rel Index Troponin T HDL Cholesterol TSH Free T4 Urine WBC (Auto) 10/26/16 10/27/16 10/27/16 06:38 04:40 04:40 WBC RBC 3.55 L Hgb 10.9 L Hct 33.1 L MCV RDW 16.6 H Lymph % (Auto) [place] % (Auto) Lymph # [place] # Seg Neutrophils % Seg Neuts % (Manual) 92.0 H Lymphocytes % (Manual) 5.0 L Seg Neutrophils # Man Lymphocytes # (Manual) 0.4 L POC ABG pH POC ABG pCO2 POC ABG pO2 Sodium Potassium Chloride 110.0 H 107.8 H Carbon Dioxide 20 L 20 L BUN 24 H Creatinine Glucose 178 H 190 H POC Glucose Calcium 6.7 L 7.0 L Phosphorus Magnesium CK-MB (CK-2) CK-MB (CK-2) Rel Index Troponin T HDL Cholesterol TSH Free T4 Urine WBC (Auto) 10/28/16 11:00 WBC RBC Hgb Hct MCV RDW Lymph % (Auto) [place] % (Auto) Lymph # [place] # Seg Neutrophils % Seg Neuts % (Manual) Lymphocytes % (Manual) Seg Neutrophils # Man Lymphocytes # (Manual) POC ABG pH POC ABG pCO2 31.8 L POC ABG pO2 Sodium Potassium Chloride Carbon Dioxide BUN Creatinine Glucose POC Glucose Calcium Phosphorus Magnesium CK-MB (CK-2) CK-MB (CK-2) Rel Index Troponin T HDL Cholesterol TSH Free T4 Urine WBC (Auto)
[2016-10-29] MEDS: PROVENTIL IH PRN ×2 (00:31→09:00)
[2016-10-29] MEDS: MUCOMYST INHALATION INHALATION SCH ×2 (00:31→09:00)
[2016-10-29] MEDS: ROBITUSSIN PO SCH ×2 (02:28→07:30)
[2016-10-29] MEDS: ZOSYN/NS 4.5GM/100ML 4.5 GM/100 ML VIAL IV SCH (05:27)
[2016-10-29] MEDS: REGLAN IV SCH (05:28)
[2016-10-29 09:36] LABS: Hemoglobin 11.5 gm/dl (11.8-15.2); Mean Corpuscular HGB Conc 32 % (32-34); Mean Corpuscular Hemoglobin 30 pg (28-32); Mean Corpuscular Volume 94 fl (84-94); Platelet Count 197 K/mm3 (140-440); Red Blood Count 3.82 M/mm3 (3.65-5.03); Red Cell Distribution Width 16.5 % (13.2-15.2); White Blood Count 10.2 K/mm3 (4.5-11.0)
[2016-10-29] MEDS: PEPCID PO SCH (09:56)
[2016-10-29] MEDS: LOVENOX SUB-Q SCH (09:56)
[2016-10-29 10:27] LABS: Anion Gap 17 mmol/L; BUN/Creatinine Ratio 43.75; Blood Urea Nitrogen 35 mg/dL (9-20); Calcium 7.2 mg/dL (8.4-10.2); Carbon Dioxide 20 mmol/L (22-30); Chloride 111.6 mmol/L (98-107); Glucose 299 mg/dL (75-100); Potassium 3.7 mmol/L (3.6-5.0); Sodium 145 mmol/L (137-145)
--- NOTE | 2016-10-29 11:28 | Progress Note ---
Assessment and Plan 65 y/o male with acute respiratory failure, thought secondary to MS flare vs aspiration and shock, hypovolemic vs sepsis and acute renal failure 1. Respiratory- Given mental state, needs trach and peg. Follow up scheduling for the week. 2. Neuro- Neuro following. Recommend imaging but type not stated. Will discuss with them. Steroids were started back given history of MS but patient had been on these prior early in admission with no improvement. Will start to wean. Was only on medical marijuana at home per caregiver 3. Renal- Acute renal failure on admission, likely from hypovolemia, pre renal azotemia. BUN and Cr both improving. 4. Endocrine- Patient with low levels of TSH and Free T4, repeated to make sure and they are consistent. Unsure of what is causing both to be low. may need CT of head vs MRI. would benefit from endocrine consult but I do not believe it is available at this hospital. 5. Off all sedation, needs EEG 6. DVT prophy and tolerating tube feeds 7. Overall prognosis is guarded. CCT 31 minutes. Subjective Date of service: 10/29/16 Principal diagnosis: Acute respiratory failure Interval history: No acute events. Eyes open but not following commands. No family at bedside. Consented for trach and peg and scheduling process to begin today. Remainder is negative. Nursing complains of secretions. Alot, but thin. Objective Vital Signs - 12hr 10/29/16 10/29/16 10/29/16 00:00 00:01 00:27 Temperature 98.4 F Pulse Rate 50 L 54 L Pulse Rate [ Anterior Bilateral Throughout] Pulse Rate [ Anterior Right Throughout] Pulse Rate [ From Monitor] Respiratory 16 Rate Respiratory Rate [Anterior Bilateral Throughout] Respiratory Rate [Anterior Right Throughout] Blood Pressure 99/47 99/47 O2 Sat by Pulse 99 97 Oximetry 10/29/16 10/29/16 10/29/16 00:31 00:43 01:01 Temperature Pulse Rate 57 L Pulse Rate [ 52 L 64 Anterior Bilateral Throughout] Pulse Rate [ 64 Anterior Right Throughout] Pulse Rate [ From Monitor] Respiratory 22 Rate Respiratory 16 20 Rate [Anterior Bilateral Throughout] Respiratory 20 Rate [Anterior Right Throughout] Blood Pressure 103/49 O2 Sat by Pulse 95 Oximetry 10/29/16 10/29/16 10/29/16 02:01 03:00 04:00 Temperature 98.6 F Pulse Rate 53 L 58 L 53 L Pulse Rate [ Anterior Bilateral Throughout] Pulse Rate [ Anterior Right Throughout] Pulse Rate [ From Monitor] Respiratory 21 20 22 Rate Respiratory Rate [Anterior Bilateral Throughout] Respiratory Rate [Anterior Right Throughout] Blood Pressure 112/51 108/51 123/54 O2 Sat by Pulse 99 97 99 Oximetry 10/29/16 10/29/16 10/29/16 04:27 05:00 06:00 Temperature Pulse Rate 66 61 86 Pulse Rate [ Anterior Bilateral Throughout] Pulse Rate [ Anterior Right Throughout] Pulse Rate [ From Monitor] Respiratory 16 34 H Rate Respiratory Rate [Anterior Bilateral Throughout] Respiratory Rate [Anterior Right Throughout] Blood Pressure 123/54 133/62 129/64 O2 Sat by Pulse 100 100 90 Oximetry 10/29/16 10/29/16 10/29/16 07:00 07:45 08:00 Temperature 97.4 F L Pulse Rate 80 Pulse Rate [ Anterior Bilateral Throughout] Pulse Rate [ Anterior Right Throughout] Pulse Rate [ 78 From Monitor] Respiratory 16 16 Rate Respiratory Rate [Anterior Bilateral Throughout] Respiratory Rate [Anterior Right Throughout] Blood Pressure 121/57 O2 Sat by Pulse 93 95 Oximetry 10/29/16 10/29/16 10/29/16 08:01 08:54 08:58 Temperature Pulse Rate 78 79 78 Pulse Rate [ Anterior Bilateral Throughout] Pulse Rate [ Anterior Right Throughout] Pulse Rate [ From Monitor] Respiratory 17 16 Rate Respiratory Rate [Anterior Bilateral Throughout] Respiratory Rate [Anterior Right Throughout] Blood Pressure 129/60 129/60 129/60 O2 Sat by Pulse 98 99 99 Oximetry 10/29/16 10/29/16 10/29/16 09:00 09:01 09:19 Temperature Pulse Rate 82 Pulse Rate [ Anterior Bilateral Throughout] Pulse Rate [ 79 72 Anterior Right Throughout] Pulse Rate [ From Monitor] Respiratory 16 Rate Respiratory Rate [Anterior Bilateral Throughout] Respiratory 22 17 Rate [Anterior Right Throughout] Blood Pressure 138/42 O2 Sat by Pulse 99 Oximetry Constitutional: no acute distress, other (intubated) Eyes: non-icteric ENT: other (orally intubated) Neck: supple, no JVD Effort: normal Ascultation: Left: diminished breath sounds (mildly reduced), Bilateral: clear, rhonchi, other (coarse BS bilaterally) Percussion: Bilateral: not dull Cardiovascular: regular rate and rhythm Gastrointestinal: normoactive bowel sounds, soft, non-tender, non-distended Extremities: other (damaged right great toe, wrapped currently; ) Neurologic: unable to assess, other (RA SS -2) Psychiatric: other (unable to assess) CBC and BMP: 10/29/16 09:14 10/29/16 09:14 ABG, PT/INR, D-dimer: ABG POC ABG pH 7.395 (7.35-7.45) 10/28/16 11:00 POC ABG pCO2 31.8 (35-45) L 10/28/16 11:00 POC ABG pO2 82 (80-105) 10/28/16 11:00 POC ABG HCO3 19.5 10/28/16 11:00 POC ABG Total CO2 20 10/28/16 11:00 POC ABG O2 Sat 96 10/28/16 11:00 PT/INR, D-dimer D-Dimer 1813.13 ng/mlDDU (0-234) H 10/17/16 17:51 Abnormal lab findings: Abnormal Labs 10/17/16 10/18/16 10/18/16 19:34 03:29 05:36 WBC RBC Hgb Hct MCV RDW Lymph % (Auto) [place] % (Auto) Lymph # [place] # Seg Neutrophils % Seg Neuts % (Manual) Lymphocytes % (Manual) Seg Neutrophils # Man Lymphocytes # (Manual) POC ABG pH 7.333 L 7.272 L POC ABG pCO2 31.5 L 28.6 L POC ABG pO2 180 H Sodium Potassium Chloride Carbon Dioxide BUN Creatinine Glucose POC Glucose Calcium Phosphorus Magnesium CK-MB (CK-2) CK-MB (CK-2) Rel Index Troponin T HDL Cholesterol TSH Free T4 Urine WBC (Auto) 10/18/16 10/18/16 10/18/16 08:13 09:40 12:04 WBC RBC Hgb Hct MCV RDW Lymph % (Auto) [place] % (Auto) Lymph # [place] # Seg Neutrophils % Seg Neuts % (Manual) Lymphocytes % (Manual) Seg Neutrophils # Man Lymphocytes # (Manual) POC ABG pH 7.231 L 7.298 L POC ABG pCO2 30.8 L POC ABG pO2 74 L Sodium Potassium Chloride Carbon Dioxide BUN Creatinine Glucose POC Glucose 151 H Calcium Phosphorus Magnesium CK-MB (CK-2) CK-MB (CK-2) Rel Index Troponin T HDL Cholesterol TSH Free T4 Urine WBC (Auto) 10/18/16 10/18/16 10/18/16 14:57 14:57 14:57 WBC 13.3 H RBC Hgb Hct MCV 96 H RDW 16.9 H Lymph % (Auto) [place] % (Auto) Lymph # [place] # Seg Neutrophils % Seg Neuts % (Manual) Lymphocytes % (Manual) Seg Neutrophils # Man Lymphocytes # (Manual) POC ABG pH POC ABG pCO2 POC ABG pO2 Sodium Potassium Chloride Carbon Dioxide 13 L D BUN 57 H Creatinine 2.1 H Glucose 169 H POC Glucose Calcium 7.7 L Phosphorus Magnesium CK-MB (CK-2) CK-MB (CK-2) Rel Index Troponin T HDL Cholesterol TSH Free T4 0.68 L Urine WBC (Auto) 10/18/16 10/19/16 10/19/16 17:31 05:10 05:10 WBC 12.5 H RBC Hgb Hct MCV 95 H RDW 16.7 H Lymph % (Auto) [place] % (Auto) Lymph # [place] # Seg Neutrophils % Seg Neuts % (Manual) 94.0 H Lymphocytes % (Manual) 2.0 L Seg Neutrophils # Man 11.8 H Lymphocytes # (Manual) 0.3 L POC ABG pH POC ABG pCO2 POC ABG pO2 Sodium 149 H Potassium Chloride 114.1 H Carbon Dioxide 16 L BUN 49 H Creatinine 1.9 H Glucose 137 H POC Glucose 163 H Calcium 7.0 L Phosphorus Magnesium CK-MB (CK-2) CK-MB (CK-2) Rel Index Troponin T HDL Cholesterol TSH Free T4 Urine WBC (Auto) 10/19/16 10/19/16 10/19/16 06:04 11:39 23:47 WBC RBC Hgb Hct MCV RDW Lymph % (Auto) [place] % (Auto) Lymph # [place] # Seg Neutrophils % Seg Neuts % (Manual) Lymphocytes % (Manual) Seg Neutrophils # Man Lymphocytes # (Manual) POC ABG pH POC ABG pCO2 28.1 L POC ABG pO2 108 H Sodium Potassium Chloride Carbon Dioxide BUN Creatinine Glucose POC Glucose 134 H 122 H Calcium Phosphorus Magnesium CK-MB (CK-2) CK-MB (CK-2) Rel Index Troponin T HDL Cholesterol TSH Free T4 Urine WBC (Auto) 10/20/16 10/20/16 10/20/16 04:30 05:20 06:10 WBC 11.4 H RBC Hgb Hct MCV RDW 16.5 H Lymph % (Auto) [place] % (Auto) Lymph # [place] # Seg Neutrophils % Seg Neuts % (Manual) 92.0 H Lymphocytes % (Manual) 4.0 L Seg Neutrophils # Man 10.5 H Lymphocytes # (Manual) 0.5 L POC ABG pH POC ABG pCO2 24.5 L POC ABG pO2 Sodium Potassium Chloride Carbon Dioxide BUN Creatinine Glucose POC Glucose 112 H Calcium Phosphorus Magnesium CK-MB (CK-2) CK-MB (CK-2) Rel Index Troponin T HDL Cholesterol TSH Free T4 Urine WBC (Auto) 10/20/16 10/20/16 10/20/16 06:10 11:43 14:56 WBC RBC Hgb Hct MCV RDW Lymph % (Auto) [place] % (Auto) Lymph # [place] # Seg Neutrophils % Seg Neuts % (Manual) Lymphocytes % (Manual) Seg Neutrophils # Man Lymphocytes # (Manual) POC ABG pH POC ABG pCO2 POC ABG pO2 Sodium 152 H Potassium 3.2 L Chloride 119.1 H Carbon Dioxide 17 L BUN 39 H Creatinine Glucose 107 H POC Glucose 120 H Calcium 6.8 L Phosphorus Magnesium CK-MB (CK-2) CK-MB (CK-2) Rel Index Troponin T HDL Cholesterol TSH Free T4 0.75 L Urine WBC (Auto) 10/20/16 10/20/16 10/20/16 14:56 17:22 23:50 WBC RBC Hgb Hct MCV RDW Lymph % (Auto) [place] % (Auto) Lymph # [place] # Seg Neutrophils % Seg Neuts % (Manual) Lymphocytes % (Manual) Seg Neutrophils # Man Lymphocytes # (Manual) POC ABG pH POC ABG pCO2 POC ABG pO2 Sodium Potassium Chloride Carbon Dioxide BUN Creatinine Glucose POC Glucose 148 H 106 H Calcium Phosphorus Magnesium CK-MB (CK-2) CK-MB (CK-2) Rel Index Troponin T HDL Cholesterol TSH 0.132 L Free T4 Urine WBC (Auto) 10/21/16 10/21/16 10/21/16 05:00 05:00 05:30 WBC RBC Hgb Hct MCV RDW 16.6 H Lymph % (Auto) 13.2 L [place] % (Auto) Lymph # 1.1 L [place] # Seg Neutrophils % 80.4 H Seg Neuts % (Manual) Lymphocytes % (Manual) Seg Neutrophils # Man Lymphocytes # (Manual) POC ABG pH 7.342 L POC ABG pCO2 30.7 L POC ABG pO2 149 H Sodium 150 H Potassium Chloride 117.2 H Carbon Dioxide 17 L BUN 38 H Creatinine Glucose POC Glucose Calcium 7.5 L Phosphorus Magnesium CK-MB (CK-2) CK-MB (CK-2) Rel Index Troponin T HDL Cholesterol TSH Free T4 Urine WBC (Auto) 10/22/16 10/22/16 10/23/16 05:00 05:21 03:48 WBC RBC Hgb Hct MCV RDW Lymph % (Auto) [place] % (Auto) Lymph # [place] # Seg Neutrophils % Seg Neuts % (Manual) Lymphocytes % (Manual) Seg Neutrophils # Man Lymphocytes # (Manual) POC ABG pH 7.319 L POC ABG pCO2 POC ABG pO2 68 L Sodium 151 H 147 H Potassium 3.3 L Chloride 120.5 H 116.2 H Carbon Dioxide 17 L 19 L BUN 36 H 26 H Creatinine Glucose 143 H 110 H POC Glucose Calcium 6.8 L 6.7 L Phosphorus 0.90 L* Magnesium 1.40 L CK-MB (CK-2) CK-MB (CK-2) Rel Index Troponin T HDL Cholesterol TSH Free T4 Urine WBC (Auto) 10/23/16 10/23/16 10/23/16 03:48 03:48 04:33 WBC 11.4 H RBC Hgb Hct MCV RDW 17.0 H Lymph % (Auto) [place] % (Auto) Lymph # [place] # Seg Neutrophils % Seg Neuts % (Manual) Lymphocytes % (Manual) Seg Neutrophils # Man Lymphocytes # (Manual) POC ABG pH POC ABG pCO2 31.7 L POC ABG pO2 Sodium Potassium Chloride Carbon Dioxide BUN Creatinine Glucose POC Glucose Calcium Phosphorus Magnesium CK-MB (CK-2) 6.9 H CK-MB (CK-2) Rel Index 4.8 H Troponin T 0.215 H* HDL Cholesterol 22 L TSH Free T4 Urine WBC (Auto) 10/23/16 10/23/16 10/24/16 18:00 Unknown 03:45 WBC RBC Hgb Hct MCV RDW Lymph % (Auto) [place] % (Auto) Lymph # [place] # Seg Neutrophils % Seg Neuts % (Manual) Lymphocytes % (Manual) Seg Neutrophils # Man Lymphocytes # (Manual) POC ABG pH POC ABG pCO2 POC ABG pO2 Sodium 148 H Potassium Chloride 116.8 H Carbon Dioxide BUN 22 H Creatinine Glucose 138 H POC Glucose Calcium 6.9 L Phosphorus 1.90 L D Magnesium 2.60 H CK-MB (CK-2) 6.3 H CK-MB (CK-2) Rel Index Troponin T 0.206 H* HDL Cholesterol TSH Free T4 Urine WBC (Auto) 19.0 H 10/24/16 10/24/16 10/25/16 03:45 06:26 06:33 WBC RBC Hgb Hct MCV RDW 16.5 H Lymph % (Auto) [place] % (Auto) 9.1 H Lymph # [place] # 0.9 H Seg Neutrophils % 75.3 H Seg Neuts % (Manual) Lymphocytes % (Manual) Seg Neutrophils # Man Lymphocytes # (Manual) POC ABG pH POC ABG pCO2 33.2 L 27.0 L POC ABG pO2 72 L Sodium Potassium Chloride Carbon Dioxide BUN Creatinine Glucose POC Glucose Calcium Phosphorus Magnesium CK-MB (CK-2) CK-MB (CK-2) Rel Index Troponin T HDL Cholesterol TSH Free T4 Urine WBC (Auto) 10/25/16 10/25/16 10/26/16 06:40 06:40 06:38 WBC RBC Hgb 11.2 L Hct 34.0 L MCV RDW 17.0 H 16.8 H Lymph % (Auto) 5.8 L [place] % (Auto) Lymph # 0.4 L [place] # Seg Neutrophils % 89.6 H Seg Neuts % (Manual) 95.0 H Lymphocytes % (Manual) 4.0 L Seg Neutrophils # Man 9.4 H Lymphocytes # (Manual) 0.4 L POC ABG pH POC ABG pCO2 POC ABG pO2 Sodium Potassium Chloride Carbon Dioxide 18 L BUN Creatinine Glucose 173 H POC Glucose Calcium 6.9 L Phosphorus Magnesium CK-MB (CK-2) CK-MB (CK-2) Rel Index Troponin T HDL Cholesterol TSH Free T4 Urine WBC (Auto) 10/26/16 10/27/16 10/27/16 06:38 04:40 04:40 WBC RBC 3.55 L Hgb 10.9 L Hct 33.1 L MCV RDW 16.6 H Lymph % (Auto) [place] % (Auto) Lymph # [place] # Seg Neutrophils % Seg Neuts % (Manual) 92.0 H Lymphocytes % (Manual) 5.0 L Seg Neutrophils # Man Lymphocytes # (Manual) 0.4 L POC ABG pH POC ABG pCO2 POC ABG pO2 Sodium Potassium Chloride 110.0 H 107.8 H Carbon Dioxide 20 L 20 L BUN 24 H Creatinine Glucose 178 H 190 H POC Glucose Calcium 6.7 L 7.0 L Phosphorus Magnesium CK-MB (CK-2) CK-MB (CK-2) Rel Index Troponin T HDL Cholesterol TSH Free T4 Urine WBC (Auto) 10/28/16 10/29/16 10/29/16 11:00 09:14 09:14 WBC RBC Hgb 11.5 L Hct MCV RDW 16.5 H Lymph % (Auto) [place] % (Auto) Lymph # [place] # Seg Neutrophils % Seg Neuts % (Manual) Lymphocytes % (Manual) Seg Neutrophils # Man Lymphocytes # (Manual) POC ABG pH POC ABG pCO2 31.8 L POC ABG pO2 Sodium Potassium Chloride 111.6 H Carbon Dioxide 20 L BUN 35 H Creatinine Glucose 299 H POC Glucose Calcium 7.2 L Phosphorus Magnesium CK-MB (CK-2) CK-MB (CK-2) Rel Index Troponin T HDL Cholesterol TSH Free T4 Urine WBC (Auto)
--- NOTE | 2016-10-29 11:59 | Progress Note ---
Assessment and Plan Altered mental status MS Acute respiratory failure on mechanical ventilation LBBB, chronic Afib, paroxysmal currently in sinus rhythm low TSH of 0.132 and low free T4 of 0.75 Nonischemic cardiomyopathy EF 10-15% on echocardiogram this admission [facility] 04/2014: normal coronaries. LV gram not performed due to findings of renal failure at that time. Supportive cardiac management. Subjective Date of service: 10/29/16 Principal diagnosis: Acute respiratory failure Interval history: No acute cardiac events overnight. Objective Vital Signs Temp Pulse Pulse Pulse Pulse Pulse Pulse 10/29/16 09:19 72 10/29/16 09:01 82 10/29/16 09:00 79 10/29/16 08:58 78 10/29/16 08:54 79 10/29/16 08:01 78 10/29/16 08:00 97.4 F L 10/29/16 07:45 78 10/29/16 07:00 80 10/29/16 06:00 86 10/29/16 05:00 61 10/29/16 04:27 66 10/29/16 04:00 98.6 F 53 L 10/29/16 03:00 58 L 10/29/16 02:01 53 L 10/29/16 01:01 57 L 10/29/16 00:43 64 64 10/29/16 00:31 52 L 10/29/16 00:27 54 L 10/29/16 00:01 50 L 10/29/16 00:00 98.4 F 10/28/16 23:00 58 L 10/28/16 22:01 56 L 10/28/16 21:00 71 10/28/16 20:00 98.4 F 72 51 L 49 L 55 L 10/28/16 19:55 76 10/28/16 19:00 70 10/28/16 18:45 66 10/28/16 18:35 66 10/28/16 18:30 68 10/28/16 18:16 68 10/28/16 18:00 70 10/28/16 17:45 73 10/28/16 17:30 77 10/28/16 17:15 72 10/28/16 17:00 64 10/28/16 16:45 71 10/28/16 16:33 65 10/28/16 16:30 63 10/28/16 16:15 69 10/28/16 16:00 97.7 F 74 68 10/28/16 15:45 70 10/28/16 15:30 76 10/28/16 15:16 66 10/28/16 15:14 70 10/28/16 15:03 72 10/28/16 15:00 63 10/28/16 14:46 70 10/28/16 14:30 72 10/28/16 14:15 69 10/28/16 14:00 69 10/28/16 13:45 65 10/28/16 13:43 71 10/28/16 13:30 67 10/28/16 13:16 70 10/28/16 13:00 70 10/28/16 12:46 69 10/28/16 12:30 70 10/28/16 12:15 61 10/28/16 12:00 98.4 F 65 71 Resp Resp Resp BP Pulse Ox 10/29/16 09:19 17 10/29/16 09:01 16 138/42 99 10/29/16 09:00 22 10/29/16 08:58 16 129/60 99 10/29/16 08:54 129/60 99 10/29/16 08:01 17 129/60 98 10/29/16 08:00 10/29/16 07:45 16 95 10/29/16 07:00 16 121/57 93 10/29/16 06:00 34 H 129/64 90 10/29/16 05:00 16 133/62 100 10/29/16 04:27 123/54 100 10/29/16 04:00 22 123/54 99 10/29/16 03:00 20 108/51 97 10/29/16 02:01 21 112/51 99 10/29/16 01:01 22 103/49 95 10/29/16 00:43 20 20 10/29/16 00:31 16 10/29/16 00:27 99/47 97 10/29/16 00:01 16 99/47 99 10/29/16 00:00 10/28/16 23:00 15 114/59 100 10/28/16 22:01 16 115/57 100 10/28/16 21:00 20 141/69 98 10/28/16 20:00 18 132/64 97 10/28/16 19:55 35 H 134/66 98 10/28/16 19:00 27 H 134/56 99 10/28/16 18:45 26 H 127/60 98 10/28/16 18:35 25 H 121/57 98 10/28/16 18:30 25 H 121/57 98 10/28/16 18:16 26 H 98 10/28/16 18:00 28 H 137/62 97 10/28/16 17:45 29 H 130/72 98 10/28/16 17:30 15 114/50 97 10/28/16 17:15 17 119/58 96 10/28/16 17:00 21 127/63 97 10/28/16 16:45 18 121/61 96 10/28/16 16:33 19 118/61 96 10/28/16 16:30 16 110/51 95 10/28/16 16:15 21 118/61 96 10/28/16 16:00 20 120/62 96 10/28/16 15:45 15 116/62 96 10/28/16 15:30 23 109/68 97 10/28/16 15:16 15 111/67 97 10/28/16 15:14 18 10/28/16 15:03 19 10/28/16 15:00 16 120/78 98 10/28/16 14:46 16 108/55 98 10/28/16 14:30 17 114/57 98 10/28/16 14:15 16 104/58 96 10/28/16 14:00 21 113/60 98 10/28/16 13:45 19 123/63 97 10/28/16 13:43 19 122/57 97 10/28/16 13:30 18 122/57 98 10/28/16 13:16 18 126/64 98 10/28/16 13:00 18 106/67 97 10/28/16 12:46 18 111/64 97 10/28/16 12:30 22 104/58 97 10/28/16 12:15 16 115/53 97 10/28/16 12:00 23 110/55 97 - Physical Examination General: Other (intubated on the vent) Cardiac: Positive: Reg Rate and Rhythm - Labs and Meds CBC 10/29/16 Range/Units 09:14 WBC 10.2 (4.5-11.0) K/mm3 RBC 3.82 (3.65-5.03) M/mm3 Hgb 11.5 L (11.8-15.2) gm/dl Hct 36.0 (35.5-45.6) % Plt Count 197 (140-440) K/mm3 Comprehensive Metabolic Panel 10/29/16 Range/Units 09:14 Sodium 145 (137-145) mmol/L Potassium 3.7 (3.6-5.0) mmol/L Chloride 111.6 H (98-107) mmol/L Carbon Dioxide 20 L (22-30) mmol/L BUN 35 H (9-20) mg/dL Creatinine 0.8 (0.8-1.5) mg/dL Glucose 299 H (75-100) mg/dL Calcium 7.2 L (8.4-10.2) mg/dL
--- NOTE | 2016-10-29 12:25 | Progress Note ---
Assessment and Plan For bedside Trach and PEG tomorrow. Hold TF tonight Consent form signed Preop ATBX ordered Continue VTE prophylaxis Subjective Date of service: 10/29/16 Patient Reports: Positive: no new complaints Objective Vital Signs - 12hr 10/29/16 10/29/16 10/29/16 00:27 00:31 00:43 Temperature Pulse Rate 54 L Pulse Rate [ 52 L 64 Anterior Bilateral Throughout] Pulse Rate [ 64 Anterior Right Throughout] Pulse Rate [ From Monitor] Respiratory Rate Respiratory 16 20 Rate [Anterior Bilateral Throughout] Respiratory 20 Rate [Anterior Right Throughout] Blood Pressure 99/47 O2 Sat by Pulse 97 Oximetry 10/29/16 10/29/16 10/29/16 01:01 02:01 03:00 Temperature Pulse Rate 57 L 53 L 58 L Pulse Rate [ Anterior Bilateral Throughout] Pulse Rate [ Anterior Right Throughout] Pulse Rate [ From Monitor] Respiratory 22 21 20 Rate Respiratory Rate [Anterior Bilateral Throughout] Respiratory Rate [Anterior Right Throughout] Blood Pressure 103/49 112/51 108/51 O2 Sat by Pulse 95 99 97 Oximetry 10/29/16 10/29/16 10/29/16 04:00 04:27 05:00 Temperature 98.6 F Pulse Rate 53 L 66 61 Pulse Rate [ Anterior Bilateral Throughout] Pulse Rate [ Anterior Right Throughout] Pulse Rate [ From Monitor] Respiratory 22 16 Rate Respiratory Rate [Anterior Bilateral Throughout] Respiratory Rate [Anterior Right Throughout] Blood Pressure 123/54 123/54 133/62 O2 Sat by Pulse 99 100 100 Oximetry 10/29/16 10/29/16 10/29/16 06:00 07:00 07:45 Temperature Pulse Rate 86 80 Pulse Rate [ Anterior Bilateral Throughout] Pulse Rate [ Anterior Right Throughout] Pulse Rate [ 78 From Monitor] Respiratory 34 H 16 16 Rate Respiratory Rate [Anterior Bilateral Throughout] Respiratory Rate [Anterior Right Throughout] Blood Pressure 129/64 121/57 O2 Sat by Pulse 90 93 95 Oximetry 10/29/16 10/29/16 10/29/16 08:00 08:01 08:54 Temperature 97.4 F L Pulse Rate 78 79 Pulse Rate [ Anterior Bilateral Throughout] Pulse Rate [ Anterior Right Throughout] Pulse Rate [ From Monitor] Respiratory 17 Rate Respiratory Rate [Anterior Bilateral Throughout] Respiratory Rate [Anterior Right Throughout] Blood Pressure 129/60 129/60 O2 Sat by Pulse 98 99 Oximetry 10/29/16 10/29/16 10/29/16 08:58 09:00 09:01 Temperature Pulse Rate 78 82 Pulse Rate [ Anterior Bilateral Throughout] Pulse Rate [ 79 Anterior Right Throughout] Pulse Rate [ From Monitor] Respiratory 16 16 Rate Respiratory Rate [Anterior Bilateral Throughout] Respiratory 22 Rate [Anterior Right Throughout] Blood Pressure 129/60 138/42 O2 Sat by Pulse 99 99 Oximetry 10/29/16 09:19 Temperature Pulse Rate Pulse Rate [ Anterior Bilateral Throughout] Pulse Rate [ 72 Anterior Right Throughout] Pulse Rate [ From Monitor] Respiratory Rate Respiratory Rate [Anterior Bilateral Throughout] Respiratory 17 Rate [Anterior Right Throughout] Blood Pressure O2 Sat by Pulse Oximetry - Neck trachea midline - Abdomen soft - Labs 10/29/16 09:14 10/29/16 09:14 Diabetes panel 10/29/16 Range/Units 09:14 Sodium 145 (137-145) mmol/L Potassium 3.7 (3.6-5.0) mmol/L Chloride 111.6 H (98-107) mmol/L Carbon Dioxide 20 L (22-30) mmol/L BUN 35 H (9-20) mg/dL Creatinine 0.8 (0.8-1.5) mg/dL Glucose 299 H (75-100) mg/dL Calcium 7.2 L (8.4-10.2) mg/dL Calcium panel 10/29/16 Range/Units 09:14 Calcium 7.2 L (8.4-10.2) mg/dL Pituitary panel 10/29/16 Range/Units 09:14 Sodium 145 (137-145) mmol/L Potassium 3.7 (3.6-5.0) mmol/L Chloride 111.6 H (98-107) mmol/L Carbon Dioxide 20 L (22-30) mmol/L BUN 35 H (9-20) mg/dL Creatinine 0.8 (0.8-1.5) mg/dL Glucose 299 H (75-100) mg/dL Calcium 7.2 L (8.4-10.2) mg/dL Adrenal panel 10/29/16 Range/Units 09:14 Sodium 145 (137-145) mmol/L Potassium 3.7 (3.6-5.0) mmol/L Chloride 111.6 H (98-107) mmol/L Carbon Dioxide 20 L (22-30) mmol/L BUN 35 H (9-20) mg/dL Creatinine 0.8 (0.8-1.5) mg/dL Glucose 299 H (75-100) mg/dL Calcium 7.2 L (8.4-10.2) mg/dL
[2016-10-29] MEDS ORDERED: ANCEF/STERILE WATER 2 GM/20 ML 2 GM/20 ML SYRINGE IV NR (13:00)
[2016-10-29] MEDS: ROCEPHIN/NS 1 GM/50 ML 1 GM/50 ML BAG IV SCH (14:47)
[2016-10-29] MEDS: PROVENTIL IH SCH ×3 (16:27→23:41)
--- NOTE | 2016-10-29 17:02 | Progress Note ---
Assessment and Plan 65 y/o male admitted through the ED secondary to altered mental status, weakness. Intubated in the ED for airway protection and placed on pressor for hypotension. Off pressor now, tolerated SBT but due to h/o MS and high aspiration risk will have trach and PEG tomorrow. No family member available, his roommate (Ms Hopson) is assigned to sign the consents for procedures. Acute hypoxic respiratory failure. - He is still intubated on ventilator. Pulmonology following. - plan for Trach and PEG tomorrow by surgery - placed on abx for prophylaxis Shock. Hypovolemic. - off Levophed infusion. - BP stable with IV fluid Acute metabolic encephalopathy. - He is minimally sedated , on ventilator. Neurology following. - Ct head no acute finding Multiple sclerosis. Neurology following Hypokalemia, resolved. Hypernatremia, resolved - Continue free water with TF. Severe malnutrition - On TF, will be hold tonight for Trach and PEG Afib, paroxysmal - currently in sinus rhythm - low TSH of 0.132 and low free T4 of 0.75, cont to monitor Nonischemic cardiomyopathy - EF 10-15% on echocardiogram this admission - [facility] 04/2014: normal coronaries. LV gram not performed due to findings of renal failure at that time. - cardiology following DVT prophylaxis with Lovenox Subjective Date of service: 10/29/16 Principal diagnosis: Acute respiratory failure Interval history: Patient still intubated, sedated on CPAP and tolerating well Objective - Exam Narrative Exam: Gen appearance :Not in acute distress, intubated, sedated, on ventilator HEENT: Normocephalic, atraumatic Neck: no JVD Lungs: Clear to auscultation bilaterally, no crackles, or wheezes. Heart: S1 and S2 regular, no murmurs, no gallops, rub Abdomen : Soft, non-tender, non-distended, normal bowel sounds Extremities :No edema, no clubbing or cyanosis Neuro: Sedated. - Constitutional Vitals: Vital Signs - 12hr 10/29/16 10/29/16 10/29/16 06:00 07:00 07:45 Temperature Pulse Rate 86 80 Pulse Rate [ Anterior Right Throughout] Pulse Rate [ 78 From Monitor] Respiratory 34 H 16 16 Rate Respiratory Rate [Anterior Right Throughout] Blood Pressure 129/64 121/57 O2 Sat by Pulse 90 93 95 Oximetry 10/29/16 10/29/16 10/29/16 08:00 08:01 08:54 Temperature 97.4 F L Pulse Rate 78 79 Pulse Rate [ Anterior Right Throughout] Pulse Rate [ From Monitor] Respiratory 17 Rate Respiratory Rate [Anterior Right Throughout] Blood Pressure 129/60 129/60 O2 Sat by Pulse 98 99 Oximetry 10/29/16 10/29/16 10/29/16 08:58 09:00 09:01 Temperature Pulse Rate 78 82 Pulse Rate [ 79 Anterior Right Throughout] Pulse Rate [ From Monitor] Respiratory 16 16 Rate Respiratory 22 Rate [Anterior Right Throughout] Blood Pressure 129/60 138/42 O2 Sat by Pulse 99 99 Oximetry 10/29/16 10/29/16 10/29/16 09:19 10:01 11:00 Temperature Pulse Rate 82 81 Pulse Rate [ 72 Anterior Right Throughout] Pulse Rate [ From Monitor] Respiratory 19 19 Rate Respiratory 17 Rate [Anterior Right Throughout] Blood Pressure 138/42 145/47 O2 Sat by Pulse 99 99 Oximetry 10/29/16 10/29/16 10/29/16 12:00 12:12 13:00 Temperature 98.2 F Pulse Rate 74 78 71 Pulse Rate [ Anterior Right Throughout] Pulse Rate [ 71 From Monitor] Respiratory 24 22 16 Rate Respiratory Rate [Anterior Right Throughout] Blood Pressure 153/49 153/49 149/51 O2 Sat by Pulse 99 99 99 Oximetry 10/29/16 10/29/16 10/29/16 14:01 15:01 16:01 Temperature Pulse Rate 71 66 54 L Pulse Rate [ Anterior Right Throughout] Pulse Rate [ From Monitor] Respiratory 26 H 25 H 15 Rate Respiratory Rate [Anterior Right Throughout] Blood Pressure 139/59 135/60 135/60 O2 Sat by Pulse 96 95 98 Oximetry 10/29/16 10/29/16 10/29/16 16:24 16:27 16:28 Temperature 97.7 F Pulse Rate Pulse Rate [ 52 L Anterior Right Throughout] Pulse Rate [ 58 L From Monitor] Respiratory Rate Respiratory 18 Rate [Anterior Right Throughout] Blood Pressure O2 Sat by Pulse 98 Oximetry 10/29/16 10/29/16 16:36 16:40 Temperature Pulse Rate 72 Pulse Rate [ 60 Anterior Right Throughout] Pulse Rate [ From Monitor] Respiratory 28 H Rate Respiratory 18 Rate [Anterior Right Throughout] Blood Pressure 112/53 O2 Sat by Pulse 95 Oximetry - Labs CBC & Chem 7: 10/29/16 09:14 10/29/16 09:14 Labs: Abnormal lab results 10/29/16 10/29/16 Range/Units 09:14 09:14 Hgb 11.5 L (11.8-15.2) gm/dl RDW 16.5 H (13.2-15.2) % Chloride 111.6 H (98-107) mmol/L Carbon Dioxide 20 L (22-30) mmol/L BUN 35 H (9-20) mg/dL Glucose 299 H (75-100) mg/dL Calcium 7.2 L (8.4-10.2) mg/dL
--- NOTE | 2016-10-29 18:32 | Anesthesia Consultation ---
Anesthesia Consult and Med Hx Date of service: 10/29/16 - Airway ROM Head & Neck: Adequate Mental/Hyoid Distance: Adequate Mallampati Class: Class IV (endotracheal tube in place, unable to assess airway) - Pulmonary Exam CTA: Yes - Cardiac Exam Cardiac Exam: RRR - Pre-Operative Health Status ASA Pre-Surgery Classification: ASA4 Proposed Anesthetic Plan: General, MAC - Pulmonary Hx Respiratory Symptoms: Yes (ACUTE RESPIRATORY FAILURE REQUIRING INTUBATION) - Cardiovascular System Hx Hypertension: No (EF 10-15%) Hx Cardia Arrhythmia: Yes (AFIB) Hx Pacemaker: No Hx Internal Defibrillator: No - Central Nervous System Hx Neuromuscular Disorder: Yes (MULTIPLE SCLEROSIS, METABOLIC ENCEPHALOPATHY) Hx Psychiatric Problems: No - Other Systems Hx Cancer: No
[2016-10-29 19:10] LABS: INR 1.14 (0.87-1.13)
[2016-10-30] MEDS ORDERED: XYLOCAINE 1%/ EPI 1:100,000 INFILTRATI ONE
[2016-10-30] MEDS: PEPCID PO SCH ×3 (00:50→22:17)
[2016-10-30 07:00] LABS: Hematocrit 37.1 % (35.5-45.6); Hemoglobin 12.1 gm/dl (11.8-15.2); Mean Corpuscular HGB Conc 33 % (32-34); Mean Corpuscular Hemoglobin 31 pg (28-32); Mean Corpuscular Volume 94 fl (84-94); Platelet Count 205 K/mm3 (140-440); Red Blood Count 3.96 M/mm3 (3.65-5.03); Red Cell Distribution Width 16.5 % (13.2-15.2)
[2016-10-30 07:27] LABS: Anion Gap 17 mmol/L; Blood Urea Nitrogen 36 mg/dL (9-20); Calcium 7.6 mg/dL (8.4-10.2); Carbon Dioxide 19 mmol/L (22-30); Chloride 114.9 mmol/L (98-107); Glucose 253 mg/dL (75-100); Potassium 3.8 mmol/L (3.6-5.0); Sodium 147 mmol/L (137-145)
[2016-10-30 07:53] LABS: Anisocytosis 1+; Basophils % (Manual) 0 % (0.0-1.8); Blastocytes % (Manual) 0 %; Eosinophils % (Manual) 0 % (0.0-4.3); Hypochromasia 1+
[2016-10-30 07:54] LABS: Diff Status Complete
[2016-10-30] MEDS: PROVENTIL IH SCH ×3 (08:45→19:57)
[2016-10-30] MEDS ORDERED: ANCEF/STERILE WATER 2 GM/20 ML 2 GM/20 ML SYRINGE IV NR (09:00)
[2016-10-30] MEDS: ROCEPHIN/NS 1 GM/50 ML 1 GM/50 ML BAG IV SCH (09:23)
[2016-10-30] MEDS: LOVENOX SUB-Q SCH (10:00)
[2016-10-30] MEDS ORDERED: ZEMURON IV ONE (10:01)
[2016-10-30] MEDS ORDERED: DIPRIVAN 10 MG/ML IV ONE ×2 (10:02→10:56)
[2016-10-30] MEDS ORDERED: SUBLIMAZE ONE (10:02)
[2016-10-30] MEDS ORDERED: NACL 0.9% 1000 ML 1,000 ML ONE (11:05)
[2016-10-30] MEDS ORDERED: VERSED ONE (11:16)
--- NOTE | 2016-10-30 11:20 | Progress Note ---
Assessment and Plan 65 y/o male with acute respiratory failure, thought secondary to MS flare vs aspiration and shock, hypovolemic vs sepsis and acute renal failure 1. Respiratory- Given mental state, needs trach and peg. To be done today. 2. Neuro- Neuro following. Recommend imaging but type not stated. Will discuss with them. Steroids were started back given history of MS but patient had been on these prior early in admission with no improvement. Will start to wean. Was only on medical marijuana at home per caregiver 3. Renal- Acute renal failure on admission, likely from hypovolemia, pre renal azotemia. BUN and Cr both improving. 4. Endocrine- Patient with low levels of TSH and Free T4, repeated to make sure and they are consistent. Unsure of what is causing both to be low. may need CT of head vs MRI. would benefit from endocrine consult but I do not believe it is available at this hospital. 5. Off all sedation, needs EEG 6. DVT prophy and tolerating tube feeds 7. Overall prognosis is guarded. 8. Patient will need placement, most likely LTACH for further vent weaning CCT 31 minutes. Subjective Date of service: 10/30/16 Principal diagnosis: Acute respiratory failure Interval history: No acute events. Being prepped for trach and peg now. Anesthesia at bedside. Objective Vital Signs - 12hr 10/29/16 10/30/16 10/30/16 23:36 00:00 00:01 Temperature 99 F Pulse Rate 61 56 L Pulse Rate [ From Monitor] Respiratory 16 17 Rate Blood Pressure 132/70 132/70 O2 Sat by Pulse 100 98 99 Oximetry 10/30/16 10/30/16 10/30/16 01:00 02:01 03:00 Temperature Pulse Rate 55 L 55 L 60 Pulse Rate [ From Monitor] Respiratory 16 16 16 Rate Blood Pressure 145/61 117/62 131/68 O2 Sat by Pulse 100 100 100 Oximetry 10/30/16 10/30/16 10/30/16 04:00 04:27 05:00 Temperature 97.6 F Pulse Rate 69 76 77 Pulse Rate [ 69 From Monitor] Respiratory 16 16 Rate Blood Pressure 128/71 128/71 136/76 O2 Sat by Pulse 99 96 100 Oximetry 10/30/16 10/30/16 10/30/16 06:01 07:00 08:00 Temperature 97.3 F L Pulse Rate 88 70 Pulse Rate [ 67 From Monitor] Respiratory 16 17 16 Rate Blood Pressure 136/76 128/89 O2 Sat by Pulse 95 95 98 Oximetry 10/30/16 10/30/16 10/30/16 08:01 08:38 09:00 Temperature Pulse Rate 67 78 76 Pulse Rate [ From Monitor] Respiratory 16 20 23 Rate Blood Pressure 147/71 147/71 149/80 O2 Sat by Pulse 98 98 97 Oximetry 10/30/16 10/30/16 10:01 11:01 Temperature Pulse Rate 75 69 Pulse Rate [ From Monitor] Respiratory 21 26 H Rate Blood Pressure 152/76 135/76 O2 Sat by Pulse 97 97 Oximetry Constitutional: no acute distress, other (intubated) Eyes: non-icteric ENT: other (orally intubated) Neck: supple, no JVD Effort: normal Ascultation: Left: diminished breath sounds (mildly reduced), Bilateral: clear, rhonchi, other (coarse BS bilaterally) Percussion: Bilateral: not dull Cardiovascular: regular rate and rhythm Gastrointestinal: normoactive bowel sounds, soft, non-tender, non-distended Extremities: other (damaged right great toe, wrapped currently; ) Neurologic: unable to assess, other (RA SS -2) Psychiatric: other (unable to assess) CBC and BMP: 10/30/16 06:48 10/30/16 06:48 ABG, PT/INR, D-dimer: ABG POC ABG pH 7.395 (7.35-7.45) 10/28/16 11:00 POC ABG pCO2 31.8 (35-45) L 10/28/16 11:00 POC ABG pO2 82 (80-105) 10/28/16 11:00 POC ABG HCO3 19.5 10/28/16 11:00 POC ABG Total CO2 20 10/28/16 11:00 POC ABG O2 Sat 96 10/28/16 11:00 PT/INR, D-dimer PT 14.5 Sec. (12.2-14.9) 10/29/16 17:42 INR 1.14 (0.87-1.13) H 10/29/16 17:42 D-Dimer 1813.13 ng/mlDDU (0-234) H 10/17/16 17:51 Abnormal lab findings: Abnormal Labs 10/17/16 10/18/16 10/18/16 19:34 03:29 05:36 WBC RBC Hgb Hct MCV RDW Lymph % (Auto) [place] % (Auto) Lymph # [place] # Seg Neutrophils % Seg Neuts % (Manual) Lymphocytes % (Manual) Seg Neutrophils # Man Lymphocytes # (Manual) INR POC ABG pH 7.333 L 7.272 L POC ABG pCO2 31.5 L 28.6 L POC ABG pO2 180 H Sodium Potassium Chloride Carbon Dioxide BUN Creatinine Glucose POC Glucose Calcium Phosphorus Magnesium CK-MB (CK-2) CK-MB (CK-2) Rel Index Troponin T HDL Cholesterol TSH Free T4 Urine WBC (Auto) 10/18/16 10/18/16 10/18/16 08:13 09:40 12:04 WBC RBC Hgb Hct MCV RDW Lymph % (Auto) [place] % (Auto) Lymph # [place] # Seg Neutrophils % Seg Neuts % (Manual) Lymphocytes % (Manual) Seg Neutrophils # Man Lymphocytes # (Manual) INR POC ABG pH 7.231 L 7.298 L POC ABG pCO2 30.8 L POC ABG pO2 74 L Sodium Potassium Chloride Carbon Dioxide BUN Creatinine Glucose POC Glucose 151 H Calcium Phosphorus Magnesium CK-MB (CK-2) CK-MB (CK-2) Rel Index Troponin T HDL Cholesterol TSH Free T4 Urine WBC (Auto) 10/18/16 10/18/16 10/18/16 14:57 14:57 14:57 WBC 13.3 H RBC Hgb Hct MCV 96 H RDW 16.9 H Lymph % (Auto) [place] % (Auto) Lymph # [place] # Seg Neutrophils % Seg Neuts % (Manual) Lymphocytes % (Manual) Seg Neutrophils # Man Lymphocytes # (Manual) INR POC ABG pH POC ABG pCO2 POC ABG pO2 Sodium Potassium Chloride Carbon Dioxide 13 L D BUN 57 H Creatinine 2.1 H Glucose 169 H POC Glucose Calcium 7.7 L Phosphorus Magnesium CK-MB (CK-2) CK-MB (CK-2) Rel Index Troponin T HDL Cholesterol TSH Free T4 0.68 L Urine WBC (Auto) 10/18/16 10/19/16 10/19/16 17:31 05:10 05:10 WBC 12.5 H RBC Hgb Hct MCV 95 H RDW 16.7 H Lymph % (Auto) [place] % (Auto) Lymph # [place] # Seg Neutrophils % Seg Neuts % (Manual) 94.0 H Lymphocytes % (Manual) 2.0 L Seg Neutrophils # Man 11.8 H Lymphocytes # (Manual) 0.3 L INR POC ABG pH POC ABG pCO2 POC ABG pO2 Sodium 149 H Potassium Chloride 114.1 H Carbon Dioxide 16 L BUN 49 H Creatinine 1.9 H Glucose 137 H POC Glucose 163 H Calcium 7.0 L Phosphorus Magnesium CK-MB (CK-2) CK-MB (CK-2) Rel Index Troponin T HDL Cholesterol TSH Free T4 Urine WBC (Auto) 10/19/16 10/19/16 10/19/16 06:04 11:39 23:47 WBC RBC Hgb Hct MCV RDW Lymph % (Auto) [place] % (Auto) Lymph # [place] # Seg Neutrophils % Seg Neuts % (Manual) Lymphocytes % (Manual) Seg Neutrophils # Man Lymphocytes # (Manual) INR POC ABG pH POC ABG pCO2 28.1 L POC ABG pO2 108 H Sodium Potassium Chloride Carbon Dioxide BUN Creatinine Glucose POC Glucose 134 H 122 H Calcium Phosphorus Magnesium CK-MB (CK-2) CK-MB (CK-2) Rel Index Troponin T HDL Cholesterol TSH Free T4 Urine WBC (Auto) 10/20/16 10/20/16 10/20/16 04:30 05:20 06:10 WBC 11.4 H RBC Hgb Hct MCV RDW 16.5 H Lymph % (Auto) [place] % (Auto) Lymph # [place] # Seg Neutrophils % Seg Neuts % (Manual) 92.0 H Lymphocytes % (Manual) 4.0 L Seg Neutrophils # Man 10.5 H Lymphocytes # (Manual) 0.5 L INR POC ABG pH POC ABG pCO2 24.5 L POC ABG pO2 Sodium Potassium Chloride Carbon Dioxide BUN Creatinine Glucose POC Glucose 112 H Calcium Phosphorus Magnesium CK-MB (CK-2) CK-MB (CK-2) Rel Index Troponin T HDL Cholesterol TSH Free T4 Urine WBC (Auto) 10/20/16 10/20/16 10/20/16 06:10 11:43 14:56 WBC RBC Hgb Hct MCV RDW Lymph % (Auto) [place] % (Auto) Lymph # [place] # Seg Neutrophils % Seg Neuts % (Manual) Lymphocytes % (Manual) Seg Neutrophils # Man Lymphocytes # (Manual) INR POC ABG pH POC ABG pCO2 POC ABG pO2 Sodium 152 H Potassium 3.2 L Chloride 119.1 H Carbon Dioxide 17 L BUN 39 H Creatinine Glucose 107 H POC Glucose 120 H Calcium 6.8 L Phosphorus Magnesium CK-MB (CK-2) CK-MB (CK-2) Rel Index Troponin T HDL Cholesterol TSH Free T4 0.75 L Urine WBC (Auto) 10/20/16 10/20/16 10/20/16 14:56 17:22 23:50 WBC RBC Hgb Hct MCV RDW Lymph % (Auto) [place] % (Auto) Lymph # [place] # Seg Neutrophils % Seg Neuts % (Manual) Lymphocytes % (Manual) Seg Neutrophils # Man Lymphocytes # (Manual) INR POC ABG pH POC ABG pCO2 POC ABG pO2 Sodium Potassium Chloride Carbon Dioxide BUN Creatinine Glucose POC Glucose 148 H 106 H Calcium Phosphorus Magnesium CK-MB (CK-2) CK-MB (CK-2) Rel Index Troponin T HDL Cholesterol TSH 0.132 L Free T4 Urine WBC (Auto) 10/21/16 10/21/16 10/21/16 05:00 05:00 05:30 WBC RBC Hgb Hct MCV RDW 16.6 H Lymph % (Auto) 13.2 L [place] % (Auto) Lymph # 1.1 L [place] # Seg Neutrophils % 80.4 H Seg Neuts % (Manual) Lymphocytes % (Manual) Seg Neutrophils # Man Lymphocytes # (Manual) INR POC ABG pH 7.342 L POC ABG pCO2 30.7 L POC ABG pO2 149 H Sodium 150 H Potassium Chloride 117.2 H Carbon Dioxide 17 L BUN 38 H Creatinine Glucose POC Glucose Calcium 7.5 L Phosphorus Magnesium CK-MB (CK-2) CK-MB (CK-2) Rel Index Troponin T HDL Cholesterol TSH Free T4 Urine WBC (Auto) 10/22/16 10/22/16 10/23/16 05:00 05:21 03:48 WBC RBC Hgb Hct MCV RDW Lymph % (Auto) [place] % (Auto) Lymph # [place] # Seg Neutrophils % Seg Neuts % (Manual) Lymphocytes % (Manual) Seg Neutrophils # Man Lymphocytes # (Manual) INR POC ABG pH 7.319 L POC ABG pCO2 POC ABG pO2 68 L Sodium 151 H 147 H Potassium 3.3 L Chloride 120.5 H 116.2 H Carbon Dioxide 17 L 19 L BUN 36 H 26 H Creatinine Glucose 143 H 110 H POC Glucose Calcium 6.8 L 6.7 L Phosphorus 0.90 L* Magnesium 1.40 L CK-MB (CK-2) CK-MB (CK-2) Rel Index Troponin T HDL Cholesterol TSH Free T4 Urine WBC (Auto) 10/23/16 10/23/16 10/23/16 03:48 03:48 04:33 WBC 11.4 H RBC Hgb Hct MCV RDW 17.0 H Lymph % (Auto) [place] % (Auto) Lymph # [place] # Seg Neutrophils % Seg Neuts % (Manual) Lymphocytes % (Manual) Seg Neutrophils # Man Lymphocytes # (Manual) INR POC ABG pH POC ABG pCO2 31.7 L POC ABG pO2 Sodium Potassium Chloride Carbon Dioxide BUN Creatinine Glucose POC Glucose Calcium Phosphorus Magnesium CK-MB (CK-2) 6.9 H CK-MB (CK-2) Rel Index 4.8 H Troponin T 0.215 H* HDL Cholesterol 22 L TSH Free T4 Urine WBC (Auto) 10/23/16 10/23/16 10/24/16 18:00 Unknown 03:45 WBC RBC Hgb Hct MCV RDW Lymph % (Auto) [place] % (Auto) Lymph # [place] # Seg Neutrophils % Seg Neuts % (Manual) Lymphocytes % (Manual) Seg Neutrophils # Man Lymphocytes # (Manual) INR POC ABG pH POC ABG pCO2 POC ABG pO2 Sodium 148 H Potassium Chloride 116.8 H Carbon Dioxide BUN 22 H Creatinine Glucose 138 H POC Glucose Calcium 6.9 L Phosphorus 1.90 L D Magnesium 2.60 H CK-MB (CK-2) 6.3 H CK-MB (CK-2) Rel Index Troponin T 0.206 H* HDL Cholesterol TSH Free T4 Urine WBC (Auto) 19.0 H 10/24/16 10/24/16 10/25/16 03:45 06:26 06:33 WBC RBC Hgb Hct MCV RDW 16.5 H Lymph % (Auto) [place] % (Auto) 9.1 H Lymph # [place] # 0.9 H Seg Neutrophils % 75.3 H Seg Neuts % (Manual) Lymphocytes % (Manual) Seg Neutrophils # Man Lymphocytes # (Manual) INR POC ABG pH POC ABG pCO2 33.2 L 27.0 L POC ABG pO2 72 L Sodium Potassium Chloride Carbon Dioxide BUN Creatinine Glucose POC Glucose Calcium Phosphorus Magnesium CK-MB (CK-2) CK-MB (CK-2) Rel Index Troponin T HDL Cholesterol TSH Free T4 Urine WBC (Auto) 10/25/16 10/25/16 10/26/16 06:40 06:40 06:38 WBC RBC Hgb 11.2 L Hct 34.0 L MCV RDW 17.0 H 16.8 H Lymph % (Auto) 5.8 L [place] % (Auto) Lymph # 0.4 L [place] # Seg Neutrophils % 89.6 H Seg Neuts % (Manual) 95.0 H Lymphocytes % (Manual) 4.0 L Seg Neutrophils # Man 9.4 H Lymphocytes # (Manual) 0.4 L INR POC ABG pH POC ABG pCO2 POC ABG pO2 Sodium Potassium Chloride Carbon Dioxide 18 L BUN Creatinine Glucose 173 H POC Glucose Calcium 6.9 L Phosphorus Magnesium CK-MB (CK-2) CK-MB (CK-2) Rel Index Troponin T HDL Cholesterol TSH Free T4 Urine WBC (Auto) 10/26/16 10/27/16 10/27/16 06:38 04:40 04:40 WBC RBC 3.55 L Hgb 10.9 L Hct 33.1 L MCV RDW 16.6 H Lymph % (Auto) [place] % (Auto) Lymph # [place] # Seg Neutrophils % Seg Neuts % (Manual) 92.0 H Lymphocytes % (Manual) 5.0 L Seg Neutrophils # Man Lymphocytes # (Manual) 0.4 L INR POC ABG pH POC ABG pCO2 POC ABG pO2 Sodium Potassium Chloride 110.0 H 107.8 H Carbon Dioxide 20 L 20 L BUN 24 H Creatinine Glucose 178 H 190 H POC Glucose Calcium 6.7 L 7.0 L Phosphorus Magnesium CK-MB (CK-2) CK-MB (CK-2) Rel Index Troponin T HDL Cholesterol TSH Free T4 Urine WBC (Auto) 10/28/16 10/29/16 10/29/16 11:00 09:14 09:14 WBC RBC Hgb 11.5 L Hct MCV RDW 16.5 H Lymph % (Auto) [place] % (Auto) Lymph # [place] # Seg Neutrophils % Seg Neuts % (Manual) Lymphocytes % (Manual) Seg Neutrophils # Man Lymphocytes # (Manual) INR POC ABG pH POC ABG pCO2 31.8 L POC ABG pO2 Sodium Potassium Chloride 111.6 H Carbon Dioxide 20 L BUN 35 H Creatinine Glucose 299 H POC Glucose Calcium 7.2 L Phosphorus Magnesium CK-MB (CK-2) CK-MB (CK-2) Rel Index Troponin T HDL Cholesterol TSH Free T4 Urine WBC (Auto) 10/29/16 10/30/16 10/30/16 17:42 06:48 06:48 WBC 13.0 H RBC Hgb Hct MCV RDW 16.5 H Lymph % (Auto) [place] % (Auto) Lymph # [place] # Seg Neutrophils % Seg Neuts % (Manual) 89.0 H Lymphocytes % (Manual) 6.0 L Seg Neutrophils # Man 11.6 H Lymphocytes # (Manual) 0.8 L INR 1.14 H POC ABG pH POC ABG pCO2 POC ABG pO2 Sodium 147 H Potassium Chloride 114.9 H Carbon Dioxide 19 L BUN 36 H Creatinine Glucose 253 H POC Glucose Calcium 7.6 L Phosphorus Magnesium CK-MB (CK-2) CK-MB (CK-2) Rel Index Troponin T HDL Cholesterol TSH Free T4 Urine WBC (Auto)
--- NOTE | 2016-10-30 11:26 | Progress Note ---
Assessment and Plan Altered mental status MS Acute respiratory failure on mechanical ventilation LBBB, chronic Afib, paroxysmal currently in sinus rhythm low TSH of 0.132 and low free T4 of 0.75 Nonischemic cardiomyopathy EF 10-15% on echocardiogram this admission [facility] 04/2014: normal coronaries. LV gram not performed due to findings of renal failure at that time. Conservative cardiac management. Subjective Date of service: 10/30/16 Principal diagnosis: Acute respiratory failure Interval history: For trach and PEG today. Objective Vital Signs Temp Pulse Pulse Pulse Resp Resp BP 10/30/16 11:01 69 26 H 135/76 10/30/16 10:01 75 21 152/76 10/30/16 09:00 76 23 149/80 10/30/16 08:38 78 20 147/71 10/30/16 08:01 67 16 147/71 10/30/16 08:00 97.3 F L 67 16 10/30/16 07:00 70 17 128/89 10/30/16 06:01 88 16 136/76 10/30/16 05:00 77 16 136/76 10/30/16 04:27 76 128/71 10/30/16 04:00 97.6 F 69 69 16 128/71 10/30/16 03:00 60 16 131/68 10/30/16 02:01 55 L 16 117/62 10/30/16 01:00 55 L 16 145/61 10/30/16 00:01 56 L 17 132/70 10/30/16 00:00 99 F 16 10/29/16 23:36 61 132/70 10/29/16 23:01 64 16 132/70 10/29/16 22:00 90 15 139/94 10/29/16 21:00 81 16 150/86 10/29/16 20:01 78 18 143/70 10/29/16 20:00 98.9 F 69 16 10/29/16 19:56 85 17 10/29/16 19:41 83 17 10/29/16 19:34 85 143/75 10/29/16 19:09 86 15 143/75 10/29/16 19:00 80 17 143/75 10/29/16 18:01 84 28 H 152/81 10/29/16 17:00 69 22 142/71 10/29/16 16:40 72 28 H 112/53 08/14/17 16:36 60 18 10/29/16 16:28 58 L 10/29/16 16:27 52 L 18 10/29/16 16:24 97.7 F 10/29/16 16:01 54 L 15 135/60 10/29/16 15:01 66 25 H 135/60 10/29/16 14:01 71 26 H 139/59 10/29/16 13:00 71 16 149/51 10/29/16 12:12 98.2 F 78 71 22 153/49 10/29/16 12:00 74 24 153/49 Pulse Ox 10/30/16 11:01 97 10/30/16 10:01 97 10/30/16 09:00 97 10/30/16 08:38 98 10/30/16 08:01 98 10/30/16 08:00 98 10/30/16 07:00 95 10/30/16 06:01 95 10/30/16 05:00 100 10/30/16 04:27 96 10/30/16 04:00 99 10/30/16 03:00 100 10/30/16 02:01 100 10/30/16 01:00 100 10/30/16 00:01 99 10/30/16 00:00 98 10/29/16 23:36 100 10/29/16 23:01 99 10/29/16 22:00 99 10/29/16 21:00 100 10/29/16 20:01 99 10/29/16 20:00 98 10/29/16 19:56 10/29/16 19:41 10/29/16 19:34 100 10/29/16 19:09 98 10/29/16 19:00 98 10/29/16 18:01 96 10/29/16 17:00 100 10/29/16 16:40 95 10/29/16 16:36 10/29/16 16:28 98 10/29/16 16:27 10/29/16 16:24 10/29/16 16:01 98 10/29/16 15:01 95 10/29/16 14:01 96 10/29/16 13:00 99 10/29/16 12:12 99 10/29/16 12:00 99 - Physical Examination General: Other (intubated on the vent) Cardiac: Positive: Reg Rate and Rhythm - Labs and Meds Coagulation 10/29/16 Range/Units 17:42 PT 14.5 (12.2-14.9) Sec. INR 1.14 H (0.87-1.13) CBC 10/30/16 Range/Units 06:48 WBC 13.0 H (4.5-11.0) K/mm3 RBC 3.96 (3.65-5.03) M/mm3 Hgb 12.1 (11.8-15.2) gm/dl Hct 37.1 (35.5-45.6) % Plt Count 205 (140-440) K/mm3 Comprehensive Metabolic Panel 10/30/16 Range/Units 06:48 Sodium 147 H (137-145) mmol/L Potassium 3.8 (3.6-5.0) mmol/L Chloride 114.9 H (98-107) mmol/L Carbon Dioxide 19 L (22-30) mmol/L BUN 36 H (9-20) mg/dL Creatinine 0.8 (0.8-1.5) mg/dL Glucose 253 H (75-100) mg/dL Calcium 7.6 L (8.4-10.2) mg/dL
[2016-10-30] MEDS ORDERED: ROBINUL ONE (12:19)
[2016-10-30] MEDS ORDERED: XYLOCAINE MPF 2% ONE (12:19)
--- NOTE | 2016-10-30 12:20 | Operative Report ---
Operative Report Operative Report: Date of procedure: 10/30/2016 Pre-operative diagnosis: Respiratory failure with vent dependence Post-operative diagnosis: Same Procedure name(s): Percutaneous tracheostomy Surgeon: Darling Byrd MD [place] Cutter: Angel Noel M.D. Anesthesia: General, 1% lidocaine EBL: Minimal Complications: None Instrument Count: correct Indications: This is a 65-year-old male with a history of respiratory failure and prolonged vent dependence. The patient met the criteria for conversion to the tracheostomy. The above-named procedure was offered to the family as a possible maintenance modality. The risks and benefits discussed until all questions were answered. He was subsequently set up for the procedure. Findings: Nonsignificant Procedure: We reviewed informed consent. The patient was then positioned in a semi-follow position the neck slightly extended. After infiltration of local anesthetic. Minimal small incision proximally one centimeter in size vertically 2 cm above the sternal notch in the neck. At this time anesthesia was prompted to partially withdraw the endotracheal tube to 16 cm at the teeth. Using a introducer needle on the syringe on gentle suction, we cannulated the trachea which was verified by a release of the suction. We placed a guidewire through the introducer needle and removed the needle we assured that we had not entrapped the endotracheal tube. We then dilated the tract using a 14 American skin dilator. This was substituted for a stiff catheter and Blue Rhino dilator combination. A 8 [place] endotracheal tube was then placed over the stiff catheter and guidewire into the trachea. We removed the dilator catheter and guidewire and inserted the inner cannula. We then verified end tidal CO2. We secured the wings of the tracheostomy tube to the skin using a 2-0 Prolene. A tracheostomy collar was then applied and attached to the tracheostomy tube. The patient tolerated the procedure well. She was maintained on a ventilator in no apparent distress.
--- NOTE | 2016-10-30 12:21 | Operative Report ---
Operative Report Operative Report: Date of procedure: 10/30/2016 Pre-operative diagnosis: Malnutrition with need for nutritional support, prolonged vent dependence Post-operative diagnosis: Same Procedure name(s): Percutaneous endoscopic gastrostomy tube placement Surgeon: Darling Byrd MD Slot Machine Floor Person: Angel Noel M.D. Anesthesia: General, 1% lidocaine EBL: Minimal Complications: None Instrument Count: Correct Indications: This is a 65-year-old male with a history of respiratory failure and prolonged vent dependence and need for nutritional support. The above- named procedure was offered to the family as a possible treatment modality. The risks and benefits of discussed until all questions were answered. He was subsequently set up for the procedure. Findings: None significant Procedure: We reviewed the informed consent. The patient was then positioned with the head up. After adequate anesthesia was reached, we inserted the endoscope of the oral cavity into the stomach. The stomach was then insufflated to maximal capacity until the rugae flattened. At this time we applied gentle palpation externally and observed this visually through the endoscope, choosing a position approximately 2 fingerbreadths below the left costal margin. This was further verified using transillumination seen externally. We infiltrated local anesthetic at the site chosen. We then made a 5 mm incision at the site, and placed Angiocath through the incision. The needle was removed, and a guidewire was placed through the Angiocath. The guidewire was grasped using an endoscopic snare and brought through the oral cavity. This was attached to a 20 Amharic pull-through gastrostomy tube. We then retracted the guidewire through the abdominal wall, bringing the gastrostomy tube through the oral cavity. We secured the external portion of the tube. Using the endoscope we verified placement within the stomach cavity. The tube was then secured to the abdominal wall sterilely. The patient tolerated this well and was maintained in no apparent distress
[2016-10-30] MEDS ORDERED: NEO SYNEPHRINE/NS Syringe(OR USE) IV ONE (12:30)
--- NOTE | 2016-10-30 17:48 | Post Anesthesia Evaluation ---
- Post Anesthesia Evaluation Patient Participated: No Airway Patent: Yes Stable Respiratory Function: Yes Nausea/Vomiting: No Temp > 96.8F: Yes Pain Manageable: Yes Adequeate Hydration: Yes Anesthesia Complications: No Block Receding Appropriately: Not Applicable Patient on Ventilator: Yes
--- NOTE | 2016-10-30 17:51 | Progress Note ---
Assessment and Plan Assessment and plan: Acute hypoxic respiratory failure Altered mental status S/P PEG and trach Disposition - possible transfer to LTACH The high probability of a clinically significant, sudden or life threatening deterioration of the [neurology, respiratory] system(s) required my full and direct attention, intervention and personal management. The aggregate critical care time was [31] minutes. This time is in addition to time spent performing reported procedures but includes the following: [x] Data Review and interpretation [x] Patient assessment and monitoring of vital signs [x] Documentation [x] Medication orders and management History Interval history: Patient was seen and evaluated after he comes back from PEG and Trach Hospitalist Physical - Physical exam Narrative exam: Patient is on trach and PEG The patient appeared well nourished and normally developed. Vital signs as documented. Head exam is unremarkable. No scleral icterus . Neck is without jugular venous distension, thyromegaly, or carotid bruits. Lungs are clear to auscultation. Cardiac exam reveals regular rate and Rhythm. First and second heart sounds normal. No murmurs, rubs or gallops. Abdominal exam reveals PEG. Extremities are nonedematous and both femoral and pedal pulses are normal. 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 - Constitutional Vitals: Temp Pulse Resp BP Pulse Ox 97.8 F 76 21 123/68 97 10/30/16 12:42 10/30/16 17:00 10/30/16 17:00 10/30/16 17:00 10/30/16 17:00 General appearance: Present: other (intubated on the vent) Results - Labs CBC & Chem 7: 10/30/16 06:48 10/30/16 06:48 Labs: Laboratory Last Values WBC 13.0 K/mm3 (4.5-11.0) H 10/30/16 06:48 RBC 3.96 M/mm3 (3.65-5.03) 10/30/16 06:48 Hgb 12.1 gm/dl (11.8-15.2) 10/30/16 06:48 Hct 37.1 % (35.5-45.6) 10/30/16 06:48 MCV 94 fl (84-94) 10/30/16 06:48 MCH 31 pg (28-32) 10/30/16 06:48 MCHC 33 % (32-34) 10/30/16 06:48 RDW 16.5 % (13.2-15.2) H 10/30/16 06:48 Plt Count 205 K/mm3 (140-440) 10/30/16 06:48 Lymph % (Auto) 5.8 % (13.4-35.0) L 10/26/16 06:38 [place] % (Auto) 4.4 % (0.0-7.3) 10/26/16 06:38 Eos % (Auto) 0.0 % (0.0-4.3) 10/26/16 06:38 Baso % (Auto) 0.2 % (0.0-1.8) 10/26/16 06:38 Lymph # 0.4 K/mm3 (1.2-5.4) L 10/26/16 06:38 [place] # 0.3 K/mm3 (0.0-0.8) 10/26/16 06:38 Eos # 0.0 K/mm3 (0.0-0.4) 10/26/16 06:38 Baso # 0.0 K/mm3 (0.0-0.1) 10/26/16 06:38 Add Manual Diff Complete 10/30/16 06:48 Total Counted 100 10/30/16 06:48 Seg Neutrophils % Care Giver 10/30/16 06:48 Seg Neuts % (Manual) 89.0 % (40.0-70.0) H 10/30/16 06:48 Band Neutrophils % 2.0 % 10/30/16 06:48 Lymphocytes % (Manual) 6.0 % (13.4-35.0) L 10/30/16 06:48 Reactive Lymphs % (Man) 0 % 10/30/16 06:48 Monocytes % (Manual) 3.0 % (0.0-7.3) 10/30/16 06:48 Eosinophils % (Manual) 0 % (0.0-4.3) 10/30/16 06:48 Basophils % (Manual) 0 % (0.0-1.8) 10/30/16 06:48 Metamyelocytes % 0 % 10/30/16 06:48 Myelocytes % 0 % 10/30/16 06:48 Promyelocytes % 0 % 10/30/16 06:48 Blast Cells % 0 % 10/30/16 06:48 Nucleated RBC % Not Reportable 10/30/16 06:48 Seg Neutrophils # 6.1 K/mm3 (1.8-7.7) 10/26/16 06:38 Seg Neutrophils # Man 11.6 K/mm3 (1.8-7.7) H 10/30/16 06:48 Band Neutrophils # 0.3 K/mm3 10/30/16 06:48 Lymphocytes # (Manual) 0.8 K/mm3 (1.2-5.4) L 10/30/16 06:48 Abs React Lymphs (Man) 0.0 K/mm3 10/30/16 06:48 Monocytes # (Manual) 0.4 K/mm3 (0.0-0.8) 10/30/16 06:48 Eosinophils # (Manual) 0.0 K/mm3 (0.0-0.4) 10/30/16 06:48 Basophils # (Manual) 0.0 K/mm3 (0.0-0.1) 10/30/16 06:48 Metamyelocytes # 0.0 K/mm3 10/30/16 06:48 Myelocytes # 0.0 K/mm3 10/30/16 06:48 Promyelocytes # 0.0 K/mm3 10/30/16 06:48 Blast Cells # 0.0 K/mm3 10/30/16 06:48 WBC Morphology Not Reportable 10/30/16 06:48 Hypersegmented Neuts Not Reportable 10/30/16 06:48 Hyposegmented Neuts Not Reportable 10/30/16 06:48 Hypogranular Neuts Not Reportable 10/30/16 06:48 Smudge Cells Not Reportable 10/30/16 06:48 Toxic Granulation Not Reportable 10/30/16 06:48 Toxic Vacuolation Not Reportable 10/30/16 06:48 Dohle Bodies Not Reportable 10/30/16 06:48 Pelger-Huet Anomaly Not Reportable 10/30/16 06:48 Farshad Rods Not Reportable 10/30/16 06:48 Platelet Estimate Appears normal 10/30/16 06:48 Clumped Platelets Not Reportable 10/30/16 06:48 Plt Clumps, EDTA Not Reportable 10/30/16 06:48 Large Platelets Not Reportable 10/30/16 06:48 Giant Platelets Not Reportable 10/30/16 06:48 Platelet Satelliting Not Reportable 10/30/16 06:48 Plt Morphology Comment Not Reportable 10/30/16 06:48 RBC Morphology Not Reportable 10/30/16 06:48 Dimorphic RBCs Not Reportable 10/30/16 06:48 Polychromasia Not Reportable 10/30/16 06:48 Hypochromasia 1+ 10/30/16 06:48 Poikilocytosis Not Reportable 10/30/16 06:48 Anisocytosis 1+ 10/30/16 06:48 Microcytosis Not Reportable 10/30/16 06:48 Macrocytosis Not Reportable 10/30/16 06:48 Spherocytes Not Reportable 10/30/16 06:48 Pappenheimer Bodies Not Reportable 10/30/16 06:48 Sickle Cells Not Reportable 10/30/16 06:48 Target Cells Not Reportable 10/30/16 06:48 Tear Drop Cells Not Reportable 10/30/16 06:48 Ovalocytes Not Reportable 10/30/16 06:48 Helmet Cells Not Reportable 10/30/16 06:48 [place] Bodies Not Reportable 10/30/16 06:48 Cleves Rings Not Reportable 10/30/16 06:48 Nicolas Cells Not Reportable 10/30/16 06:48 Bite Cells Not Reportable 10/30/16 06:48 Crenated Cell Not Reportable 10/30/16 06:48 Elliptocytes Not Reportable 10/30/16 06:48 Acanthocytes (Spur) Not Reportable 10/30/16 06:48 Rouleaux Not Reportable 10/30/16 06:48 Hemoglobin C Crystals Not Reportable 10/30/16 06:48 Schistocytes Not Reportable 10/30/16 06:48 Malaria parasites Not Reportable 10/30/16 06:48 Hebert Bodies Not Reportable 10/30/16 06:48 Hem Pathologist Commnt No 10/30/16 06:48 PT 14.5 Sec. (12.2-14.9) 10/29/16 17:42 INR 1.14 (0.87-1.13) H 10/29/16 17:42 D-Dimer 1813.13 ng/mlDDU (0-234) H 10/17/16 17:51 POC ABG pH 7.395 (7.35-7.45) 10/28/16 11:00 POC ABG pCO2 31.8 (35-45) L 10/28/16 11:00 POC ABG pO2 82 (80-105) 10/28/16 11:00 POC ABG HCO3 19.5 10/28/16 11:00 POC ABG Total CO2 20 10/28/16 11:00 POC ABG O2 Sat 96 10/28/16 11:00 POC ABG Base Excess -5 10/28/16 11:00 FiO2 35 % 10/28/16 11:00 Sodium 147 mmol/L (137-145) H 10/30/16 06:48 Potassium 3.8 mmol/L (3.6-5.0) 10/30/16 06:48 Chloride 114.9 mmol/L (98-107) H 10/30/16 06:48 Carbon Dioxide 19 mmol/L (22-30) L 10/30/16 06:48 Anion Gap 17 mmol/L 10/30/16 06:48 BUN 36 mg/dL (9-20) H 10/30/16 06:48 Creatinine 0.8 mg/dL (0.8-1.5) 10/30/16 06:48 Estimated GFR > 60 ml/min 10/30/16 06:48 BUN/Creatinine Ratio 45.00 % 10/30/16 06:48 Glucose 253 mg/dL (75-100) H 10/30/16 06:48 POC Glucose 89 (70-105) 10/21/16 05:26 Lactic Acid 1.10 mmol/L (0.7-2.0) 10/23/16 Unknown Calcium 7.6 mg/dL (8.4-10.2) L 10/30/16 06:48 Phosphorus 3.20 mg/dL (2.5-4.5) D 10/25/16 06:40 Magnesium 2.60 mg/dL (1.7-2.3) H 10/24/16 03:45 Total Bilirubin 1.10 mg/dL (0.1-1.2) 10/17/16 15:20 AST 120 units/L (5-40) H 10/17/16 15:20 ALT 54 units/L (7-56) 10/17/16 15:20 Alkaline Phosphatase 62 units/L (35-129) 10/17/16 15:20 Total Creatine Kinase 160 units/L (55-170) 10/23/16 Unknown CK-MB (CK-2) 6.3 ng/mL (0.0-4.0) H 10/23/16 Unknown CK-MB (CK-2) Rel Index 3.9 (0-4) 10/23/16 Unknown Troponin T 0.206 ng/mL (0.00-0.029) H* 10/23/16 Unknown Total Protein 6.3 g/dL (6.3-8.2) 10/17/16 15:20 Albumin 2.3 g/dL (3.9-5) L 10/17/16 15:20 Albumin/Globulin Ratio 0.6 % 10/17/16 15:20 Triglycerides 139 mg/dL (2-149) 10/23/16 03:48 Cholesterol 110 mg/dL (50-199) 10/23/16 03:48 LDL Cholesterol Direct 61 mg/dL (50-130) 10/23/16 03:48 HDL Cholesterol 22 mg/dL (40-59) L 10/23/16 03:48 Cholesterol/HDL Ratio 5.00 % 10/23/16 03:48 TSH 0.132 mlU/mL (0.270-4.200) L 10/20/16 14:56 Free T4 0.75 ng/dL (0.76-1.46) L 10/20/16 14:56 Urine Color Yellow (Yellow) 10/23/16 18:00 Urine Turbidity Clear (Clear) 10/23/16 18:00 Urine pH 6.0 (5.0-7.0) 10/23/16 18:00 Ur Specific [place] 1.012 (1.003-1.030) 10/23/16 18:00 Urine Protein <15 mg/dl mg/dL (Negative) 10/23/16 18:00 Urine Glucose (UA) 150 mg/dL (Negative) 10/23/16 18:00 Urine Ketones Neg mg/dL (Negative) 10/23/16 18:00 Urine Blood Mod (Negative) 10/23/16 18:00 Urine Nitrite Neg (Negative) 10/23/16 18:00 Urine Bilirubin Neg (Negative) 10/23/16 18:00 Urine Urobilinogen < 2.0 mg/dL (<2.0) 10/23/16 18:00 Ur Leukocyte Esterase Tr (Negative) 10/23/16 18:00 Urine WBC (Auto) 19.0 /HPF (0.0-6.0) H 10/23/16 18:00 Urine RBC (Auto) 6.0 /HPF (0.0-6.0) 10/23/16 18:00 U Epithel Cells (Auto) 1.0 /HPF (0-13.0) 10/23/16 18:00 Urine Bacteria (Auto) 4+ /HPF (Negative) 10/23/16 18:00 Ur Transition Epith Cell 2 /HPF 10/23/16 18:00 Hyaline Casts 1 /LPF 10/17/16 17:34 Granular Casts 7 /LPF 10/17/16 17:34 Urine Mucus Few /HPF 10/23/16 18:00 Salicylates < 0.3 mg/dL (2.8-20.0) L 10/17/16 15:20 Urine Opiates Screen Presumptive negative 10/17/16 17:34 Urine Methadone Screen Presumptive negative 10/17/16 17:34 Acetaminophen < 15.0 ug/mL (10.0-30.0) 10/17/16 15:20 Ur Barbiturates Screen Presumptive negative 10/17/16 17:34 Ur Phencyclidine Scrn Presumptive negative 10/17/16 17:34 Ur Amphetamines Screen Presumptive negative 10/17/16 17:34 U Benzodiazepines Scrn Presumptive negative 10/17/16 17:34 Urine Cocaine Screen Presumptive negative 10/17/16 17:34 U Marijuana (THC) Screen Presumptive positive 10/17/16 17:34 Drugs of Abuse Note Disclamer 10/17/16 17:34 Plasma/Serum Alcohol < 0.01 gm% (0-0.07) 10/17/16 15:20
[2016-10-31] MEDS: PROVENTIL IH SCH ×4 (00:24→20:31)
[2016-10-31 05:42] LABS: Hematocrit 35.4 % (35.5-45.6); Hemoglobin 11.9 gm/dl (11.8-15.2); Mean Corpuscular HGB Conc 34 % (32-34); Mean Corpuscular Hemoglobin 31 pg (28-32); Mean Corpuscular Volume 92 fl (84-94); Platelet Count 165 K/mm3 (140-440); Red Blood Count 3.85 M/mm3 (3.65-5.03); Red Cell Distribution Width 16.4 % (13.2-15.2); White Blood Count 13.6 K/mm3 (4.5-11.0)
[2016-10-31 06:13] LABS: Anion Gap 17 mmol/L; BUN/Creatinine Ratio 51.66; Blood Urea Nitrogen 31 mg/dL (9-20); Calcium 7.4 mg/dL (8.4-10.2); Carbon Dioxide 19 mmol/L (22-30); Chloride 113.6 mmol/L (98-107); Glucose 211 mg/dL (75-100); Potassium 3.4 mmol/L (3.6-5.0); Sodium 146 mmol/L (137-145)
[2016-10-31 06:44] LABS: Basophils % (Manual) 0 % (0.0-1.8); Blastocytes % (Manual) 0 %; Eosinophils % (Manual) 0 % (0.0-4.3)
[2016-10-31 06:45] LABS: Diff Status Complete; Platelet Estimate Consistent w Auto; RBC Morphology Normal
[2016-10-31] MEDS ORDERED: POTASSIUM CHLORIDE FEEDTUBE ONE (08:00)
--- NOTE | 2016-10-31 09:53 | Progress Note ---
Assessment and Plan 65 y/o male with acute respiratory failure, thought secondary to MS flare vs aspiration and shock, hypovolemic vs sepsis and acute renal failure 1. Respiratory- Will continue vent weaning. Needs LTACH given recurrent episodes of apnea. 2. Neuro- Neuro following. Recommend imaging but type not stated. Will discuss with them. Steroids were started back given history of MS but patient had been on these prior early in admission with no improvement. Will start to wean. Was only on medical marijuana at home per caregiver 3. Renal- Acute renal failure on admission, likely from hypovolemia, pre renal azotemia. BUN and Cr both improving. 4. Endocrine- Patient with low levels of TSH and Free T4, repeated to make sure and they are consistent. Unsure of what is causing both to be low. may need CT of head vs MRI. would benefit from endocrine consult but I do not believe it is available at this hospital. 5. Off all sedation, needs EEG 6. DVT prophy and tolerating tube feeds 7. Overall prognosis is guarded. 8. Patient will need placement, most likely LTACH for further vent weaning CCT 31 minutes. Subjective Date of service: 10/31/16 Principal diagnosis: Acute respiratory failure Interval history: Status post trach and peg on yesterday. Eyes open but no following commands. Was on PSV earlier but switched back to AC on back up mode secondary to apnea. Remainder of the review is negative. Objective Vital Signs - 12hr 10/30/16 10/30/16 10/30/16 22:00 23:00 23:38 Temperature Pulse Rate 59 L 75 57 L Respiratory 16 22 16 Rate Blood Pressure 92/50 96/54 88/55 O2 Sat by Pulse 96 96 95 Oximetry O2 Sat by Pulse Oximetry [ Assessment] 10/30/16 10/30/16 10/31/16 23:50 23:52 00:00 Temperature 98.6 F Pulse Rate 60 55 L Respiratory 16 Rate Blood Pressure 103/53 103/53 O2 Sat by Pulse 95 96 Oximetry O2 Sat by Pulse Oximetry [ Assessment] 10/31/16 10/31/16 10/31/16 00:14 01:00 02:00 Temperature Pulse Rate 53 L 66 62 Respiratory 16 16 16 Rate Blood Pressure 108/56 127/65 132/63 O2 Sat by Pulse 96 96 96 Oximetry O2 Sat by Pulse Oximetry [ Assessment] 10/31/16 10/31/1610/31/17 02:43 03:00 04:00 Temperature 98.7 F Pulse Rate 78 78 Respiratory 16 16 Rate Blood Pressure 140/71 141/78 O2 Sat by Pulse 96 97 Oximetry O2 Sat by Pulse 96 Oximetry [ Assessment] 10/31/16 10/31/16 10/31/16 04:39 05:00 06:00 Temperature Pulse Rate 61 57 L 55 L Respiratory 16 17 Rate Blood Pressure 132/56 131/64 109/59 O2 Sat by Pulse 97 97 97 Oximetry O2 Sat by Pulse Oximetry [ Assessment] 10/31/16 10/31/16 10/31/16 06:05 07:00 08:00 Temperature 98.1 F Pulse Rate 56 L 60 67 Respiratory 16 24 22 Rate Blood Pressure 113/55 125/70 138/72 O2 Sat by Pulse 97 98 98 Oximetry O2 Sat by Pulse Oximetry [ Assessment] Constitutional: no acute distress, other (intubated) Eyes: non-icteric ENT: other (orally intubated) Neck: supple, no JVD Effort: normal Ascultation: Left: diminished breath sounds (mildly reduced), Bilateral: clear, rhonchi, other (coarse BS bilaterally) Percussion: Bilateral: not dull Cardiovascular: regular rate and rhythm Gastrointestinal: normoactive bowel sounds, soft, non-tender, non-distended Extremities: other (damaged right great toe, wrapped currently; ) Neurologic: unable to assess, other (RA SS -2) Psychiatric: other (unable to assess) CBC and BMP: 10/31/16 04:50 10/31/16 04:50 ABG, PT/INR, D-dimer: ABG POC ABG pH 7.395 (7.35-7.45) 10/28/16 11:00 POC ABG pCO2 31.8 (35-45) L 10/28/16 11:00 POC ABG pO2 82 (80-105) 10/28/16 11:00 POC ABG HCO3 19.5 10/28/16 11:00 POC ABG Total CO2 20 10/28/16 11:00 POC ABG O2 Sat 96 10/28/16 11:00 PT/INR, D-dimer PT 14.5 Sec. (12.2-14.9) 10/29/16 17:42 INR 1.14 (0.87-1.13) H 10/29/16 17:42 D-Dimer 1813.13 ng/mlDDU (0-234) H 10/17/16 17:51 Abnormal lab findings: Abnormal Labs 10/17/16 10/18/16 10/18/16 19:34 03:29 05:36 WBC RBC Hgb Hct MCV RDW Lymph % (Auto) [place] % (Auto) Lymph # [place] # Seg Neutrophils % Seg Neuts % (Manual) Lymphocytes % (Manual) Seg Neutrophils # Man Lymphocytes # (Manual) INR POC ABG pH 7.333 L 7.272 L POC ABG pCO2 31.5 L 28.6 L POC ABG pO2 180 H Sodium Potassium Chloride Carbon Dioxide BUN Creatinine Glucose POC Glucose Calcium Phosphorus Magnesium CK-MB (CK-2) CK-MB (CK-2) Rel Index Troponin T HDL Cholesterol TSH Free T4 Urine WBC (Auto) 10/18/16 10/18/16 10/18/16 08:13 09:40 12:04 WBC RBC Hgb Hct MCV RDW Lymph % (Auto) [place] % (Auto) Lymph # [place] # Seg Neutrophils % Seg Neuts % (Manual) Lymphocytes % (Manual) Seg Neutrophils # Man Lymphocytes # (Manual) INR POC ABG pH 7.231 L 7.298 L POC ABG pCO2 30.8 L POC ABG pO2 74 L Sodium Potassium Chloride Carbon Dioxide BUN Creatinine Glucose POC Glucose 151 H Calcium Phosphorus Magnesium CK-MB (CK-2) CK-MB (CK-2) Rel Index Troponin T HDL Cholesterol TSH Free T4 Urine WBC (Auto) 10/18/16 10/18/16 10/18/16 14:57 14:57 14:57 WBC 13.3 H RBC Hgb Hct MCV 96 H RDW 16.9 H Lymph % (Auto) [place] % (Auto) Lymph # [place] # Seg Neutrophils % Seg Neuts % (Manual) Lymphocytes % (Manual) Seg Neutrophils # Man Lymphocytes # (Manual) INR POC ABG pH POC ABG pCO2 POC ABG pO2 Sodium Potassium Chloride Carbon Dioxide 13 L D BUN 57 H Creatinine 2.1 H Glucose 169 H POC Glucose Calcium 7.7 L Phosphorus Magnesium CK-MB (CK-2) CK-MB (CK-2) Rel Index Troponin T HDL Cholesterol TSH Free T4 0.68 L Urine WBC (Auto) 10/18/16 10/19/16 10/19/16 17:31 05:10 05:10 WBC 12.5 H RBC Hgb Hct MCV 95 H RDW 16.7 H Lymph % (Auto) [place] % (Auto) Lymph # [place] # Seg Neutrophils % Seg Neuts % (Manual) 94.0 H Lymphocytes % (Manual) 2.0 L Seg Neutrophils # Man 11.8 H Lymphocytes # (Manual) 0.3 L INR POC ABG pH POC ABG pCO2 POC ABG pO2 Sodium 149 H Potassium Chloride 114.1 H Carbon Dioxide 16 L BUN 49 H Creatinine 1.9 H Glucose 137 H POC Glucose 163 H Calcium 7.0 L Phosphorus Magnesium CK-MB (CK-2) CK-MB (CK-2) Rel Index Troponin T HDL Cholesterol TSH Free T4 Urine WBC (Auto) 10/19/16 10/19/16 10/19/16 06:04 11:39 23:47 WBC RBC Hgb Hct MCV RDW Lymph % (Auto) [place] % (Auto) Lymph # [place] # Seg Neutrophils % Seg Neuts % (Manual) Lymphocytes % (Manual) Seg Neutrophils # Man Lymphocytes # (Manual) INR POC ABG pH POC ABG pCO2 28.1 L POC ABG pO2 108 H Sodium Potassium Chloride Carbon Dioxide BUN Creatinine Glucose POC Glucose 134 H 122 H Calcium Phosphorus Magnesium CK-MB (CK-2) CK-MB (CK-2) Rel Index Troponin T HDL Cholesterol TSH Free T4 Urine WBC (Auto) 10/20/16 10/20/16 10/20/16 04:30 05:20 06:10 WBC 11.4 H RBC Hgb Hct MCV RDW 16.5 H Lymph % (Auto) [place] % (Auto) Lymph # [place] # Seg Neutrophils % Seg Neuts % (Manual) 92.0 H Lymphocytes % (Manual) 4.0 L Seg Neutrophils # Man 10.5 H Lymphocytes # (Manual) 0.5 L INR POC ABG pH POC ABG pCO2 24.5 L POC ABG pO2 Sodium Potassium Chloride Carbon Dioxide BUN Creatinine Glucose POC Glucose 112 H Calcium Phosphorus Magnesium CK-MB (CK-2) CK-MB (CK-2) Rel Index Troponin T HDL Cholesterol TSH Free T4 Urine WBC (Auto) 10/20/16 10/20/16 10/20/16 06:10 11:43 14:56 WBC RBC Hgb Hct MCV RDW Lymph % (Auto) [place] % (Auto) Lymph # [place] # Seg Neutrophils % Seg Neuts % (Manual) Lymphocytes % (Manual) Seg Neutrophils # Man Lymphocytes # (Manual) INR POC ABG pH POC ABG pCO2 POC ABG pO2 Sodium 152 H Potassium 3.2 L Chloride 119.1 H Carbon Dioxide 17 L BUN 39 H Creatinine Glucose 107 H POC Glucose 120 H Calcium 6.8 L Phosphorus Magnesium CK-MB (CK-2) CK-MB (CK-2) Rel Index Troponin T HDL Cholesterol TSH Free T4 0.75 L Urine WBC (Auto) 10/20/16 10/20/16 10/20/16 14:56 17:22 23:50 WBC RBC Hgb Hct MCV RDW Lymph % (Auto) [place] % (Auto) Lymph # [place] # Seg Neutrophils % Seg Neuts % (Manual) Lymphocytes % (Manual) Seg Neutrophils # Man Lymphocytes # (Manual) INR POC ABG pH POC ABG pCO2 POC ABG pO2 Sodium Potassium Chloride Carbon Dioxide BUN Creatinine Glucose POC Glucose 148 H 106 H Calcium Phosphorus Magnesium CK-MB (CK-2) CK-MB (CK-2) Rel Index Troponin T HDL Cholesterol TSH 0.132 L Free T4 Urine WBC (Auto) 10/21/16 10/21/16 10/21/16 05:00 05:00 05:30 WBC RBC Hgb Hct MCV RDW 16.6 H Lymph % (Auto) 13.2 L [place] % (Auto) Lymph # 1.1 L [place] # Seg Neutrophils % 80.4 H Seg Neuts % (Manual) Lymphocytes % (Manual) Seg Neutrophils # Man Lymphocytes # (Manual) INR POC ABG pH 7.342 L POC ABG pCO2 30.7 L POC ABG pO2 149 H Sodium 150 H Potassium Chloride 117.2 H Carbon Dioxide 17 L BUN 38 H Creatinine Glucose POC Glucose Calcium 7.5 L Phosphorus Magnesium CK-MB (CK-2) CK-MB (CK-2) Rel Index Troponin T HDL Cholesterol TSH Free T4 Urine WBC (Auto) 10/22/16 10/22/16 10/23/16 05:00 05:21 03:48 WBC RBC Hgb Hct MCV RDW Lymph % (Auto) [place] % (Auto) Lymph # [place] # Seg Neutrophils % Seg Neuts % (Manual) Lymphocytes % (Manual) Seg Neutrophils # Man Lymphocytes # (Manual) INR POC ABG pH 7.319 L POC ABG pCO2 POC ABG pO2 68 L Sodium 151 H 147 H Potassium 3.3 L Chloride 120.5 H 116.2 H Carbon Dioxide 17 L 19 L BUN 36 H 26 H Creatinine Glucose 143 H 110 H POC Glucose Calcium 6.8 L 6.7 L Phosphorus 0.90 L* Magnesium 1.40 L CK-MB (CK-2) CK-MB (CK-2) Rel Index Troponin T HDL Cholesterol TSH Free T4 Urine WBC (Auto) 10/23/16 10/23/16 10/23/16 03:48 03:48 04:33 WBC 11.4 H RBC Hgb Hct MCV RDW 17.0 H Lymph % (Auto) [place] % (Auto) Lymph # [place] # Seg Neutrophils % Seg Neuts % (Manual) Lymphocytes % (Manual) Seg Neutrophils # Man Lymphocytes # (Manual) INR POC ABG pH POC ABG pCO2 31.7 L POC ABG pO2 Sodium Potassium Chloride Carbon Dioxide BUN Creatinine Glucose POC Glucose Calcium Phosphorus Magnesium CK-MB (CK-2) 6.9 H CK-MB (CK-2) Rel Index 4.8 H Troponin T 0.215 H* HDL Cholesterol 22 L TSH Free T4 Urine WBC (Auto) 10/23/16 10/23/16 10/24/16 18:00 Unknown 03:45 WBC RBC Hgb Hct MCV RDW Lymph % (Auto) [place] % (Auto) Lymph # [place] # Seg Neutrophils % Seg Neuts % (Manual) Lymphocytes % (Manual) Seg Neutrophils # Man Lymphocytes # (Manual) INR POC ABG pH POC ABG pCO2 POC ABG pO2 Sodium 148 H Potassium Chloride 116.8 H Carbon Dioxide BUN 22 H Creatinine Glucose 138 H POC Glucose Calcium 6.9 L Phosphorus 1.90 L D Magnesium 2.60 H CK-MB (CK-2) 6.3 H CK-MB (CK-2) Rel Index Troponin T 0.206 H* HDL Cholesterol TSH Free T4 Urine WBC (Auto) 19.0 H 10/24/16 10/24/16 10/25/16 03:45 06:26 06:33 WBC RBC Hgb Hct MCV RDW 16.5 H Lymph % (Auto) [place] % (Auto) 9.1 H Lymph # [place] # 0.9 H Seg Neutrophils % 75.3 H Seg Neuts % (Manual) Lymphocytes % (Manual) Seg Neutrophils # Man Lymphocytes # (Manual) INR POC ABG pH POC ABG pCO2 33.2 L 27.0 L POC ABG pO2 72 L Sodium Potassium Chloride Carbon Dioxide BUN Creatinine Glucose POC Glucose Calcium Phosphorus Magnesium CK-MB (CK-2) CK-MB (CK-2) Rel Index Troponin T HDL Cholesterol TSH Free T4 Urine WBC (Auto) 10/25/16 10/25/16 10/26/16 06:40 06:40 06:38 WBC RBC Hgb 11.2 L Hct 34.0 L MCV RDW 17.0 H 16.8 H Lymph % (Auto) 5.8 L [place] % (Auto) Lymph # 0.4 L [place] # Seg Neutrophils % 89.6 H Seg Neuts % (Manual) 95.0 H Lymphocytes % (Manual) 4.0 L Seg Neutrophils # Man 9.4 H Lymphocytes # (Manual) 0.4 L INR POC ABG pH POC ABG pCO2 POC ABG pO2 Sodium Potassium Chloride Carbon Dioxide 18 L BUN Creatinine Glucose 173 H POC Glucose Calcium 6.9 L Phosphorus Magnesium CK-MB (CK-2) CK-MB (CK-2) Rel Index Troponin T HDL Cholesterol TSH Free T4 Urine WBC (Auto) 10/26/16 10/27/16 10/27/16 06:38 04:40 04:40 WBC RBC 3.55 L Hgb 10.9 L Hct 33.1 L MCV RDW 16.6 H Lymph % (Auto) [place] % (Auto) Lymph # [place] # Seg Neutrophils % Seg Neuts % (Manual) 92.0 H Lymphocytes % (Manual) 5.0 L Seg Neutrophils # Man Lymphocytes # (Manual) 0.4 L INR POC ABG pH POC ABG pCO2 POC ABG pO2 Sodium Potassium Chloride 110.0 H 107.8 H Carbon Dioxide 20 L 20 L BUN 24 H Creatinine Glucose 178 H 190 H POC Glucose Calcium 6.7 L 7.0 L Phosphorus Magnesium CK-MB (CK-2) CK-MB (CK-2) Rel Index Troponin T HDL Cholesterol TSH Free T4 Urine WBC (Auto) 10/28/16 10/29/16 10/29/16 11:00 09:14 09:14 WBC RBC Hgb 11.5 L Hct MCV RDW 16.5 H Lymph % (Auto) [place] % (Auto) Lymph # [place] # Seg Neutrophils % Seg Neuts % (Manual) Lymphocytes % (Manual) Seg Neutrophils # Man Lymphocytes # (Manual) INR POC ABG pH POC ABG pCO2 31.8 L POC ABG pO2 Sodium Potassium Chloride 111.6 H Carbon Dioxide 20 L BUN 35 H Creatinine Glucose 299 H POC Glucose Calcium 7.2 L Phosphorus Magnesium CK-MB (CK-2) CK-MB (CK-2) Rel Index Troponin T HDL Cholesterol TSH Free T4 Urine WBC (Auto) 10/29/16 10/30/16 10/30/16 17:42 06:48 06:48 WBC 13.0 H RBC Hgb Hct MCV RDW 16.5 H Lymph % (Auto) [place] % (Auto) Lymph # [place] # Seg Neutrophils % Seg Neuts % (Manual) 89.0 H Lymphocytes % (Manual) 6.0 L Seg Neutrophils # Man 11.6 H Lymphocytes # (Manual) 0.8 L INR 1.14 H POC ABG pH POC ABG pCO2 POC ABG pO2 Sodium 147 H Potassium Chloride 114.9 H Carbon Dioxide 19 L BUN 36 H Creatinine Glucose 253 H POC Glucose Calcium 7.6 L Phosphorus Magnesium CK-MB (CK-2) CK-MB (CK-2) Rel Index Troponin T HDL Cholesterol TSH Free T4 Urine WBC (Auto) 10/31/16 10/31/16 10/31/16 04:50 04:50 05:35 WBC 13.6 H RBC Hgb Hct 35.4 L MCV RDW 16.4 H Lymph % (Auto) [place] % (Auto) Lymph # [place] # Seg Neutrophils % Seg Neuts % (Manual) 90.0 H Lymphocytes % (Manual) 5.0 L Seg Neutrophils # Man 12.2 H Lymphocytes # (Manual) 0.7 L INR POC ABG pH POC ABG pCO2 POC ABG pO2 Sodium 146 H Potassium 3.4 L Chloride 113.6 H Carbon Dioxide 19 L BUN 31 H Creatinine 0.6 L Glucose 211 H POC Glucose 212 H Calcium 7.4 L Phosphorus Magnesium CK-MB (CK-2) CK-MB (CK-2) Rel Index Troponin T HDL Cholesterol TSH Free T4 Urine WBC (Auto)
[2016-10-31] MEDS: LOVENOX SUB-Q SCH (10:16)
[2016-10-31] MEDS: PEPCID PO SCH ×2 (10:17→21:53)
--- NOTE | 2016-10-31 11:01 | Progress Note ---
Assessment and Plan Altered mental status MS Acute respiratory failure on mechanical ventilation via trach LBBB, chronic Afib, paroxysmal currently in sinus rhythm low TSH of 0.132 and low free T4 of 0.75 Nonischemic cardiomyopathy EF 10-15% on echocardiogram this admission [facility] 04/2014: normal coronaries. LV gram not performed due to findings of renal failure at that time. Conservative cardiac management. Subjective Date of service: 10/31/16 Principal diagnosis: Acute respiratory failure Interval history: s/p trach and PEG on yesterday. No acute events overnight. Objective Vital Signs Temp Pulse Pulse Pulse Pulse Resp Resp 10/31/16 08:00 98.1 F 67 22 10/31/16 07:00 60 24 10/31/16 06:05 56 L 16 10/31/16 06:00 55 L 17 10/31/16 05:00 57 L 16 10/31/16 04:39 61 10/31/16 04:00 98.7 F 78 16 10/31/16 03:00 78 16 10/31/16 02:43 10/31/16 02:00 62 16 10/31/16 01:00 66 16 10/31/16 00:14 53 L 16 10/31/16 00:00 55 L 16 10/30/16 23:52 98.6 F 10/30/16 23:50 60 10/30/16 23:38 57 L 16 10/30/16 23:00 75 22 10/30/16 22:00 59 L 16 10/30/16 21:00 85 18 10/30/16 20:15 84 10/30/16 20:00 97.6 F 77 21 10/30/16 19:57 82 10/30/16 19:46 79 10/30/16 19:00 68 19 10/30/16 18:00 73 21 10/30/16 17:00 76 21 10/30/16 16:00 97.6 F 81 81 19 10/30/16 15:50 86 90 20 10/30/16 15:41 21 10/30/16 15:35 90 88 22 10/30/16 15:00 76 24 10/30/16 14:00 78 22 10/30/16 13:02 10/30/16 13:00 83 25 H 10/30/16 12:42 97.8 F 76 22 10/30/16 12:41 97.8 F 76 22 10/30/16 12:15 97.8 F 76 22 10/30/16 12:00 97.5 F L 107 H 107 H 22 10/30/16 11:30 80 26 H 10/30/16 11:01 69 26 H Resp BP Pulse Ox Pulse Ox 10/31/16 08:00 138/72 98 10/31/16 07:00 125/70 98 10/31/16 06:05 113/55 97 10/31/16 06:00 109/59 97 10/31/16 05:00 131/64 97 10/31/16 04:39 132/56 97 10/31/16 04:00 141/78 97 10/31/16 03:00 140/71 96 10/31/16 02:43 96 10/31/16 02:00 132/63 96 10/31/16 01:00 127/65 96 10/31/16 00:14 108/56 96 10/31/16 00:00 103/53 96 10/30/16 23:52 10/30/16 23:50 103/53 95 10/30/16 23:38 88/55 95 10/30/16 23:00 96/54 96 10/30/16 22:00 92/50 96 10/30/16 21:00 138/101 96 10/30/16 20:15 20 10/30/16 20:00 137/78 94 10/30/16 19:57 20 10/30/16 19:46 156/77 96 10/30/16 19:00 142/75 97 10/30/16 18:00 134/73 96 10/30/16 17:00 123/68 97 10/30/16 16:00 140/84 96 10/30/16 15:50 122 H 10/30/16 15:41 149/89 97 10/30/16 15:35 20 10/30/16 15:00 154/88 99 10/30/16 14:00 161/84 97 10/30/16 13:02 157/83 100 10/30/16 13:00 153/90 98 10/30/16 12:42 146/84 100 10/30/16 12:41 146/84 100 10/30/16 12:15 146/84 100 10/30/16 12:00 181/123 100 10/30/16 11:30 10/30/16 11:01 135/76 97 - Physical Examination General: Other (ventilation via trach) Cardiac: Positive: Reg Rate and Rhythm - Labs and Meds CBC 10/31/16 Range/Units 04:50 WBC 13.6 H (4.5-11.0) K/mm3 RBC 3.85 (3.65-5.03) M/mm3 Hgb 11.9 (11.8-15.2) gm/dl Hct 35.4 L (35.5-45.6) % Plt Count 165 (140-440) K/mm3 Comprehensive Metabolic Panel 10/31/16 Range/Units 04:50 Sodium 146 H (137-145) mmol/L Potassium 3.4 L (3.6-5.0) mmol/L Chloride 113.6 H (98-107) mmol/L Carbon Dioxide 19 L (22-30) mmol/L BUN 31 H (9-20) mg/dL Creatinine 0.6 L (0.8-1.5) mg/dL Glucose 211 H (75-100) mg/dL Calcium 7.4 L (8.4-10.2) mg/dL
--- NOTE | 2016-10-31 12:36 | Consultation ---
History of Present Illness - Reason for Consult Consult date: 10/31/16 ms - History of Present Illness condition is better in that he has his eyes open and is more responsive no seizures Past History Past Medical History: arthritis, GERD, hypertension, other (MS) Past Surgical History: No surgical history, Other (UTO) Social history: , other (lives with roommate). denies: smoking, alcohol abuse, prescription drug abuse Family history: hypertension Medications and Allergies Allergies Allergy/AdvReac Type Severity Reaction Status Date / Time codeine AdvReac Hives Verified 04/30/14 13:32 Home Medications Medication Instructions Recorded Confirmed Last Taken Type Nitroglycerin [Nitrostat] 0.4 mg SL PRN PRN 04/30/14 04/30/14 Unknown History Active Meds: Active Medications Albuterol (Proventil) 2.5 mg IH Q8HRT [facility] Last Admin: 10/31/16 10:02 Dose: 2.5 mg Lipase/Protease/Amylase (Pancreaze Dr 10,500 Unit) 1 each FEEDTUBE PRN PRN PRN Reason: For Clogged Feeding Tube Enoxaparin Sodium (Lovenox) 40 mg SUB-Q QDAY@1000 KAYLEE Last Admin: 10/30/16 10:00 Dose: Not Given Famotidine (Pepcid) 20 mg PO BID [facility] Last Admin: 10/30/16 22:17 Dose: 20 mg Hydrophilic Ointment (Vaseline Lip Therapy) 1 applic TP Q2HR PRN PRN Reason: Dry Lips Fentanyl Citrate (Fentanyl Drip Premix) 2,000 mcg in 100 mls @ 3.969 mls/hr IV TITR KAYLEE; 1 MCG/KG/HR PRN Reason: Protocol Last Titration: 10/28/16 06:29 Dose: 0 mcg/kg/hr, 0 mls/hr Multi-Ingred Cream/Lotion/Oil/Oint (Artificial Tears Ophth Oint) 1 applic OU Q4HR PRN PRN Reason: Dry Eye(s) Polyethylene Glycol (Miralax 3350) 17 gm PO QDAY PRN PRN Reason: Constipation Last Admin: 10/26/16 16:00 Dose: 17 gm Simple Syrup (Simple Syrup) 15 ml FEEDTUBE PRN PRN PRN Reason: Hypoglycemia Simple Syrup (Simple Syrup) 30 ml FEEDTUBE PRN PRN PRN Reason: Hypoglycemia Sodium Bicarbonate (Sodium Bicarbonate) 325 mg FEEDTUBE PRN PRN PRN Reason: For Clogged Feeding Tube Exam - Constitutional Vitals: Temp Pulse Resp BP Pulse Ox 98.1 F 67 22 138/72 98 10/31/16 08:00 10/31/16 08:00 10/31/16 08:00 10/31/16 08:00 10/31/16 08:00 Results - Labs CBC & Chem 7: 10/31/16 04:50 10/31/16 04:50 Labs: Abnormal lab results 10/31/16 10/31/16 10/31/16 Range/Units 04:50 04:50 05:35 WBC 13.6 H (4.5-11.0) K/mm3 Hct 35.4 L (35.5-45.6) % RDW 16.4 H (13.2-15.2) % Seg Neuts % (Manual) 90.0 H (40.0-70.0) % Lymphocytes % (Manual) 5.0 L (13.4-35.0) % Seg Neutrophils # Man 12.2 H (1.8-7.7) K/mm3 Lymphocytes # (Manual) 0.7 L (1.2-5.4) K/mm3 Sodium 146 H (137-145) mmol/L Potassium 3.4 L (3.6-5.0) mmol/L Chloride 113.6 H (98-107) mmol/L Carbon Dioxide 19 L (22-30) mmol/L BUN 31 H (9-20) mg/dL Creatinine 0.6 L (0.8-1.5) mg/dL Glucose 211 H (75-100) mg/dL POC Glucose 212 H (70-105) Calcium 7.4 L (8.4-10.2) mg/dL
--- NOTE | 2016-10-31 14:44 | Progress Note ---
Assessment and Plan - Patient Problems (1) Acute respiratory failure with hypoxemia Current Visit: Yes Status: Acute Plan to address problem: s/p trach and PEG we will sign-off thanks Subjective Date of service: 10/31/16 Patient Reports: Positive: other (s/p trach & PEG) Objective Vital Signs - 12hr 10/31/16 10/31/16 10/31/16 02:43 03:00 04:00 Temperature 98.7 F Pulse Rate 78 78 Respiratory 16 16 Rate Blood Pressure 140/71 141/78 O2 Sat by Pulse 96 97 Oximetry O2 Sat by Pulse 96 Oximetry [ Assessment] 10/31/16 10/31/16 10/31/16 04:39 05:00 06:00 Temperature Pulse Rate 61 57 L 55 L Respiratory 16 17 Rate Blood Pressure 132/56 131/64 109/59 O2 Sat by Pulse 97 97 97 Oximetry O2 Sat by Pulse Oximetry [ Assessment] 10/31/16 10/31/16 10/31/16 06:05 07:00 08:00 Temperature 98.1 F Pulse Rate 56 L 60 67 Respiratory 16 24 22 Rate Blood Pressure 113/55 125/70 138/72 O2 Sat by Pulse 97 98 98 Oximetry O2 Sat by Pulse Oximetry [ Assessment] 10/31/16 10/31/16 10/31/16 09:00 09:50 10:00 Temperature Pulse Rate 70 69 74 Respiratory 30 H 15 Rate Blood Pressure 146/81 150/77 143/78 O2 Sat by Pulse 97 96 95 Oximetry O2 Sat by Pulse Oximetry [ Assessment] 10/31/16 10/31/16 11:00 12:00 Temperature 98.5 F Pulse Rate 74 74 Respiratory 16 12 Rate Blood Pressure 137/80 133/79 O2 Sat by Pulse 94 94 Oximetry O2 Sat by Pulse Oximetry [ Assessment] - Neck other (Trach site clean and dry) - Abdomen other (PEG site clean and dry) - Labs 10/31/16 04:50 10/31/16 04:50 Diabetes panel 10/31/16 Range/Units 04:50 Sodium 146 H (137-145) mmol/L Potassium 3.4 L (3.6-5.0) mmol/L Chloride 113.6 H (98-107) mmol/L Carbon Dioxide 19 L (22-30) mmol/L BUN 31 H (9-20) mg/dL Creatinine 0.6 L (0.8-1.5) mg/dL Glucose 211 H (75-100) mg/dL Calcium 7.4 L (8.4-10.2) mg/dL Calcium panel 10/31/16 Range/Units 04:50 Calcium 7.4 L (8.4-10.2) mg/dL Pituitary panel 10/31/16 Range/Units 04:50 Sodium 146 H (137-145) mmol/L Potassium 3.4 L (3.6-5.0) mmol/L Chloride 113.6 H (98-107) mmol/L Carbon Dioxide 19 L (22-30) mmol/L BUN 31 H (9-20) mg/dL Creatinine 0.6 L (0.8-1.5) mg/dL Glucose 211 H (75-100) mg/dL Calcium 7.4 L (8.4-10.2) mg/dL Adrenal panel 10/31/16 Range/Units 04:50 Sodium 146 H (137-145) mmol/L Potassium 3.4 L (3.6-5.0) mmol/L Chloride 113.6 H (98-107) mmol/L Carbon Dioxide 19 L (22-30) mmol/L BUN 31 H (9-20) mg/dL Creatinine 0.6 L (0.8-1.5) mg/dL Glucose 211 H (75-100) mg/dL Calcium 7.4 L (8.4-10.2) mg/dL
--- NOTE | 2016-10-31 17:35 | Progress Note ---
Assessment and Plan Assessment and plan: Acute hypoxic respiratory failure Altered mental status S/P PEG and trach chronic systolic CHF Disposition - transfer to LTACH The high probability of a clinically significant, sudden or life threatening deterioration of the [neurology, respiratory] system(s) required my full and direct attention, intervention and personal management. The aggregate critical care time was [31] minutes. This time is in addition to time spent performing reported procedures but includes the following: [x] Data Review and interpretation [x] Patient assessment and monitoring of vital signs [x] Documentation [x] Medication orders and management History Interval history: Patient was seen and evaluated this morning he is more alert on trach Hospitalist Physical - Physical exam Narrative exam: Patient is on trach and PEG The patient appeared well nourished and normally developed. Vital signs as documented. Head exam is unremarkable. No scleral icterus . Neck is without jugular venous distension, thyromegaly, or carotid bruits. Lungs are clear to auscultation. Cardiac exam reveals regular rate and Rhythm. First and second heart sounds normal. No murmurs, rubs or gallops. Abdominal exam reveals PEG. Extremities are nonedematous and both femoral and pedal pulses are normal. STUDENT: sedated - Constitutional Vitals: Temp Pulse Resp BP Pulse Ox 98.8 F 72 21 124/66 94 10/31/16 16:00 10/31/16 16:00 10/31/16 16:00 10/31/16 16:00 10/31/16 16:00 General appearance: Present: other (intubated on the vent) Results - Labs CBC & Chem 7: 10/31/16 04:50 10/31/16 04:50 Labs: Laboratory Last Values WBC 13.6 K/mm3 (4.5-11.0) H 10/31/16 04:50 RBC 3.85 M/mm3 (3.65-5.03) 10/31/16 04:50 Hgb 11.9 gm/dl (11.8-15.2) 10/31/16 04:50 Hct 35.4 % (35.5-45.6) L 10/31/16 04:50 MCV 92 fl (84-94) 10/31/16 04:50 MCH 31 pg (28-32) 10/31/16 04:50 MCHC 34 % (32-34) 10/31/16 04:50 RDW 16.4 % (13.2-15.2) H 10/31/16 04:50 Plt Count 165 K/mm3 (140-440) 10/31/16 04:50 Lymph % (Auto) 5.8 % (13.4-35.0) L 10/26/16 06:38 [place] % (Auto) 4.4 % (0.0-7.3) 10/26/16 06:38 Eos % (Auto) 0.0 % (0.0-4.3) 10/26/16 06:38 Baso % (Auto) 0.2 % (0.0-1.8) 10/26/16 06:38 Lymph # 0.4 K/mm3 (1.2-5.4) L 10/26/16 06:38 [place] # 0.3 K/mm3 (0.0-0.8) 10/26/16 06:38 Eos # 0.0 K/mm3 (0.0-0.4) 10/26/16 06:38 Baso # 0.0 K/mm3 (0.0-0.1) 10/26/16 06:38 Add Manual Diff Complete 10/31/16 04:50 Total Counted 100 10/31/16 04:50 Seg Neutrophils % Warp Clamper 10/31/16 04:50 Seg Neuts % (Manual) 90.0 % (40.0-70.0) H 10/31/16 04:50 Band Neutrophils % 2.0 % 10/31/16 04:50 Lymphocytes % (Manual) 5.0 % (13.4-35.0) L 10/31/16 04:50 Reactive Lymphs % (Man) 0 % 10/31/16 04:50 Monocytes % (Manual) 3.0 % (0.0-7.3) 10/31/16 04:50 Eosinophils % (Manual) 0 % (0.0-4.3) 10/31/16 04:50 Basophils % (Manual) 0 % (0.0-1.8) 10/31/16 04:50 Metamyelocytes % 0 % 10/31/16 04:50 Myelocytes % 0 % 10/31/16 04:50 Promyelocytes % 0 % 10/31/16 04:50 Blast Cells % 0 % 10/31/16 04:50 Nucleated RBC % Not Reportable 10/31/16 04:50 Seg Neutrophils # 6.1 K/mm3 (1.8-7.7) 10/26/16 06:38 Seg Neutrophils # Man 12.2 K/mm3 (1.8-7.7) H 10/31/16 04:50 Band Neutrophils # 0.3 K/mm3 10/31/16 04:50 Lymphocytes # (Manual) 0.7 K/mm3 (1.2-5.4) L 10/31/16 04:50 Abs React Lymphs (Man) 0.0 K/mm3 10/31/16 04:50 Monocytes # (Manual) 0.4 K/mm3 (0.0-0.8) 10/31/16 04:50 Eosinophils # (Manual) 0.0 K/mm3 (0.0-0.4) 10/31/16 04:50 Basophils # (Manual) 0.0 K/mm3 (0.0-0.1) 10/31/16 04:50 Metamyelocytes # 0.0 K/mm3 10/31/16 04:50 Myelocytes # 0.0 K/mm3 10/31/16 04:50 Promyelocytes # 0.0 K/mm3 10/31/16 04:50 Blast Cells # 0.0 K/mm3 10/31/16 04:50 WBC Morphology Not Reportable 10/31/16 04:50 Hypersegmented Neuts Not Reportable 10/31/16 04:50 Hyposegmented Neuts Not Reportable 10/31/16 04:50 Hypogranular Neuts Not Reportable 10/31/16 04:50 Smudge Cells Not Reportable 10/31/16 04:50 Toxic Granulation Not Reportable 10/31/16 04:50 Toxic Vacuolation Not Reportable 10/31/16 04:50 Dohle Bodies Not Reportable 10/31/16 04:50 Pelger-Huet Anomaly Not Reportable 10/31/16 04:50 Farshad Rods Not Reportable 10/31/16 04:50 Platelet Estimate Consistent w auto 10/31/16 04:50 Clumped Platelets Not Reportable 10/31/16 04:50 Plt Clumps, EDTA Not Reportable 10/31/16 04:50 Large Platelets Not Reportable 10/31/16 04:50 Giant Platelets Not Reportable 10/31/16 04:50 Platelet Satelliting Not Reportable 10/31/16 04:50 Plt Morphology Comment Not Reportable 10/31/16 04:50 RBC Morphology Normal 10/31/16 04:50 Dimorphic RBCs Not Reportable 10/31/16 04:50 Polychromasia Not Reportable 10/31/16 04:50 Hypochromasia Not Reportable 10/31/16 04:50 Poikilocytosis Not Reportable 10/31/16 04:50 Anisocytosis Not Reportable 10/31/16 04:50 Microcytosis Not Reportable 10/31/16 04:50 Macrocytosis Not Reportable 10/31/16 04:50 Spherocytes Not Reportable 10/31/16 04:50 Pappenheimer Bodies Not Reportable 10/31/16 04:50 Sickle Cells Not Reportable 10/31/16 04:50 Target Cells Not Reportable 10/31/16 04:50 Tear Drop Cells Not Reportable 10/31/16 04:50 Ovalocytes Not Reportable 10/31/16 04:50 Helmet Cells Not Reportable 10/31/16 04:50 [place] Bodies Not Reportable 10/31/16 04:50 [place] Rings Not Reportable 10/31/16 04:50 Nicolas Cells Not Reportable 10/31/16 04:50 Bite Cells Not Reportable 10/31/16 04:50 Crenated Cell Not Reportable 10/31/16 04:50 Elliptocytes Not Reportable 10/31/16 04:50 Acanthocytes (Spur) Not Reportable 10/31/16 04:50 Rouleaux Not Reportable 10/31/16 04:50 Hemoglobin C Crystals Not Reportable 10/31/16 04:50 Schistocytes Not Reportable 10/31/16 04:50 Malaria parasites Not Reportable 10/31/16 04:50 Hebert Bodies Not Reportable 10/31/16 04:50 Hem Pathologist Commnt No 10/31/16 04:50 PT 14.5 Sec. (12.2-14.9) 10/29/16 17:42 INR 1.14 (0.87-1.13) H 10/29/16 17:42 D-Dimer 1813.13 ng/mlDDU (0-234) H 10/17/16 17:51 POC ABG pH 7.395 (7.35-7.45) 10/28/16 11:00 POC ABG pCO2 31.8 (35-45) L 10/28/16 11:00 POC ABG pO2 82 (80-105) 10/28/16 11:00 POC ABG HCO3 19.5 10/28/16 11:00 POC ABG Total CO2 20 10/28/16 11:00 POC ABG O2 Sat 96 10/28/16 11:00 POC ABG Base Excess -5 10/28/16 11:00 FiO2 35 % 10/28/16 11:00 Sodium 146 mmol/L (137-145) H 10/31/16 04:50 Potassium 3.4 mmol/L (3.6-5.0) L 10/31/16 04:50 Chloride 113.6 mmol/L (98-107) H 10/31/16 04:50 Carbon Dioxide 19 mmol/L (22-30) L 10/31/16 04:50 Anion Gap 17 mmol/L 10/31/16 04:50 BUN 31 mg/dL (9-20) H 10/31/16 04:50 Creatinine 0.6 mg/dL (0.8-1.5) L 10/31/16 04:50 Estimated GFR > 60 ml/min 10/31/16 04:50 BUN/Creatinine Ratio 51.66 % 10/31/16 04:50 Glucose 211 mg/dL (75-100) H 10/31/16 04:50 POC Glucose 212 (70-105) H 10/31/16 05:35 Lactic Acid 1.10 mmol/L (0.7-2.0) 10/23/16 Unknown Calcium 7.4 mg/dL (8.4-10.2) L 10/31/16 04:50 Phosphorus 3.20 mg/dL (2.5-4.5) D 10/25/16 06:40 Magnesium 2.60 mg/dL (1.7-2.3) H 10/24/16 03:45 Total Bilirubin 1.10 mg/dL (0.1-1.2) 10/17/16 15:20 AST 120 units/L (5-40) H 10/17/16 15:20 ALT 54 units/L (7-56) 10/17/16 15:20 Alkaline Phosphatase 62 units/L (35-129) 10/17/16 15:20 Total Creatine Kinase 160 units/L (55-170) 10/23/16 Unknown CK-MB (CK-2) 6.3 ng/mL (0.0-4.0) H 10/23/16 Unknown CK-MB (CK-2) Rel Index 3.9 (0-4) 10/23/16 Unknown Troponin T 0.206 ng/mL (0.00-0.029) H* 10/23/16 Unknown Total Protein 6.3 g/dL (6.3-8.2) 10/17/16 15:20 Albumin 2.3 g/dL (3.9-5) L 10/17/16 15:20 Albumin/Globulin Ratio 0.6 % 10/17/16 15:20 Triglycerides 139 mg/dL (2-149) 10/23/16 03:48 Cholesterol 110 mg/dL (50-199) 10/23/16 03:48 LDL Cholesterol Direct 61 mg/dL (50-130) 10/23/16 03:48 HDL Cholesterol 22 mg/dL (40-59) L 10/23/16 03:48 Cholesterol/HDL Ratio 5.00 % 10/23/16 03:48 TSH 0.132 mlU/mL (0.270-4.200) L 10/20/16 14:56 Free T4 0.75 ng/dL (0.76-1.46) L 10/20/16 14:56 Urine Color Yellow (Yellow) 10/23/16 18:00 Urine Turbidity Clear (Clear) 10/23/16 18:00 Urine pH 6.0 (5.0-7.0) 10/23/16 18:00 Ur Specific [place] 1.012 (1.003-1.030) 10/23/16 18:00 Urine Protein <15 mg/dl mg/dL (Negative) 10/23/16 18:00 Urine Glucose (UA) 150 mg/dL (Negative) 10/23/16 18:00 Urine Ketones Neg mg/dL (Negative) 10/23/16 18:00 Urine Blood Mod (Negative) 10/23/16 18:00 Urine Nitrite Neg (Negative) 10/23/16 18:00 Urine Bilirubin Neg (Negative) 10/23/16 18:00 Urine Urobilinogen < 2.0 mg/dL (<2.0) 10/23/16 18:00 Ur Leukocyte Esterase Tr (Negative) 10/23/16 18:00 Urine WBC (Auto) 19.0 /HPF (0.0-6.0) H 10/23/16 18:00 Urine RBC (Auto) 6.0 /HPF (0.0-6.0) 10/23/16 18:00 U Epithel Cells (Auto) 1.0 /HPF (0-13.0) 10/23/16 18:00 Urine Bacteria (Auto) 4+ /HPF (Negative) 10/23/16 18:00 Ur Transition Epith Cell 2 /HPF 10/23/16 18:00 Hyaline Casts 1 /LPF 10/17/16 17:34 Granular Casts 7 /LPF 10/17/16 17:34 Urine Mucus Few /HPF 10/23/16 18:00 Salicylates < 0.3 mg/dL (2.8-20.0) L 10/17/16 15:20 Urine Opiates Screen Presumptive negative 10/17/16 17:34 Urine Methadone Screen Presumptive negative 10/17/16 17:34 Acetaminophen < 15.0 ug/mL (10.0-30.0) 10/17/16 15:20 Ur Barbiturates Screen Presumptive negative 10/17/16 17:34 Ur Phencyclidine Scrn Presumptive negative 10/17/16 17:34 Ur Amphetamines Screen Presumptive negative 10/17/16 17:34 U Benzodiazepines Scrn Presumptive negative 10/17/16 17:34 Urine Cocaine Screen Presumptive negative 10/17/16 17:34 U Marijuana (THC) Screen Presumptive positive 10/17/16 17:34 Drugs of Abuse Note Disclamer 10/17/16 17:34 Plasma/Serum Alcohol < 0.01 gm% (0-0.07) 10/17/16 15:20
[2016-11-01] MEDS: PROVENTIL IH SCH ×4 (04:52→18:04)
[2016-11-01 06:18] LABS: Anion Gap 16 mmol/L; Blood Urea Nitrogen 26 mg/dL (9-20); Carbon Dioxide 19 mmol/L (22-30); Chloride 115.6 mmol/L (98-107); Glucose 96 mg/dL (75-100); Potassium 4.1 mmol/L (3.6-5.0); Sodium 146 mmol/L (137-145)
[2016-11-01 08:35] LABS: Hematocrit 37.6 % (35.5-45.6); Hemoglobin 12.3 gm/dl (11.8-15.2); Mean Corpuscular HGB Conc 33 % (32-34); Mean Corpuscular Hemoglobin 31 pg (28-32); Mean Corpuscular Volume 94 fl (84-94); Platelet Count 137 K/mm3 (140-440); Red Blood Count 4.01 M/mm3 (3.65-5.03); Red Cell Distribution Width 16.5 % (13.2-15.2); White Blood Count 15.7 K/mm3 (4.5-11.0)
[2016-11-01] MEDS: LOVENOX SUB-Q SCH (11:00)
--- NOTE | 2016-11-01 13:24 | Progress Note ---
Assessment and Plan Assessment and plan: Acute hypoxic respiratory failure Altered mental status S/P PEG and trach chronic systolic CHF Disposition - transfer to LTACH - Pending certification, asthma management is working on it The high probability of a clinically significant, sudden or life threatening deterioration of the [neurology, respiratory] system(s) required my full and direct attention, intervention and personal management. The aggregate critical care time was [31] minutes. This time is in addition to time spent performing reported procedures but includes the following: [x] Data Review and interpretation [x] Patient assessment and monitoring of vital signs [x] Documentation [x] Medication orders and management History Interval history: Patient was seen and evaluated this morning he is more alert on trach. Per the nursing staff the patient had vomiting yesterday and had one episode this morning Hospitalist Physical - Physical exam Narrative exam: Patient is on trach and PEG The patient appeared well nourished and normally developed. Vital signs as documented. Head exam is unremarkable. No scleral icterus . Neck is without jugular venous distension, thyromegaly, or carotid bruits. Lungs are clear to auscultation. Cardiac exam reveals regular rate and Rhythm. First and second heart sounds normal. No murmurs, rubs or gallops. Abdominal exam reveals PEG. Extremities are nonedematous and both femoral and pedal pulses are normal. TRANSPORT AIDE: sedated - Constitutional Vitals: Temp Pulse Resp BP Pulse Ox 97.6 F 90 29 H 164/106 97 11/01/16 08:00 11/01/16 12:00 11/01/16 12:00 11/01/16 12:00 11/01/16 12:00 General appearance: Present: other (intubated on the vent) Results - Labs CBC & Chem 7: 11/01/16 08:21 11/01/16 05:40 Labs: Laboratory Last Values WBC 15.7 K/mm3 (4.5-11.0) H 11/01/16 08:21 RBC 4.01 M/mm3 (3.65-5.03) 11/01/16 08:21 Hgb 12.3 gm/dl (11.8-15.2) 11/01/16 08:21 Hct 37.6 % (35.5-45.6) 11/01/16 08:21 MCV 94 fl (84-94) 11/01/16 08:21 MCH 31 pg (28-32) 11/01/16 08:21 MCHC 33 % (32-34) 11/01/16 08:21 RDW 16.5 % (13.2-15.2) H 11/01/16 08:21 Plt Count 137 K/mm3 (140-440) L 11/01/16 08:21 Lymph % (Auto) 5.8 % (13.4-35.0) L 10/26/16 06:38 [place] % (Auto) 4.4 % (0.0-7.3) 10/26/16 06:38 Eos % (Auto) 0.0 % (0.0-4.3) 10/26/16 06:38 Baso % (Auto) 0.2 % (0.0-1.8) 10/26/16 06:38 Lymph # 0.4 K/mm3 (1.2-5.4) L 10/26/16 06:38 [place] # 0.3 K/mm3 (0.0-0.8) 10/26/16 06:38 Eos # 0.0 K/mm3 (0.0-0.4) 10/26/16 06:38 Baso # 0.0 K/mm3 (0.0-0.1) 10/26/16 06:38 Add Manual Diff Complete 10/31/16 04:50 Total Counted 100 10/31/16 04:50 Seg Neutrophils % Adjustment Clerk 10/31/16 04:50 Seg Neuts % (Manual) 90.0 % (40.0-70.0) H 10/31/16 04:50 Band Neutrophils % 2.0 % 10/31/16 04:50 Lymphocytes % (Manual) 5.0 % (13.4-35.0) L 10/31/16 04:50 Reactive Lymphs % (Man) 0 % 10/31/16 04:50 Monocytes % (Manual) 3.0 % (0.0-7.3) 10/31/16 04:50 Eosinophils % (Manual) 0 % (0.0-4.3) 10/31/16 04:50 Basophils % (Manual) 0 % (0.0-1.8) 10/31/16 04:50 Metamyelocytes % 0 % 10/31/16 04:50 Myelocytes % 0 % 10/31/16 04:50 Promyelocytes % 0 % 10/31/16 04:50 Blast Cells % 0 % 10/31/16 04:50 Nucleated RBC % Not Reportable 10/31/16 04:50 Seg Neutrophils # 6.1 K/mm3 (1.8-7.7) 10/26/16 06:38 Seg Neutrophils # Man 12.2 K/mm3 (1.8-7.7) H 10/31/16 04:50 Band Neutrophils # 0.3 K/mm3 10/31/16 04:50 Lymphocytes # (Manual) 0.7 K/mm3 (1.2-5.4) L 10/31/16 04:50 Abs React Lymphs (Man) 0.0 K/mm3 10/31/16 04:50 Monocytes # (Manual) 0.4 K/mm3 (0.0-0.8) 10/31/16 04:50 Eosinophils # (Manual) 0.0 K/mm3 (0.0-0.4) 10/31/16 04:50 Basophils # (Manual) 0.0 K/mm3 (0.0-0.1) 10/31/16 04:50 Metamyelocytes # 0.0 K/mm3 10/31/16 04:50 Myelocytes # 0.0 K/mm3 10/31/16 04:50 Promyelocytes # 0.0 K/mm3 10/31/16 04:50 Blast Cells # 0.0 K/mm3 10/31/16 04:50 WBC Morphology Not Reportable 10/31/16 04:50 Hypersegmented Neuts Not Reportable 10/31/16 04:50 Hyposegmented Neuts Not Reportable 10/31/16 04:50 Hypogranular Neuts Not Reportable 10/31/16 04:50 Smudge Cells Not Reportable 10/31/16 04:50 Toxic Granulation Not Reportable 10/31/16 04:50 Toxic Vacuolation Not Reportable 10/31/16 04:50 Dohle Bodies Not Reportable 10/31/16 04:50 Pelger-Huet Anomaly Not Reportable 10/31/16 04:50 Farshad Rods Not Reportable 10/31/16 04:50 Platelet Estimate Consistent w auto 10/31/16 04:50 Clumped Platelets Not Reportable 10/31/16 04:50 Plt Clumps, EDTA Not Reportable 10/31/16 04:50 Large Platelets Not Reportable 10/31/16 04:50 Giant Platelets Not Reportable 10/31/16 04:50 Platelet Satelliting Not Reportable 10/31/16 04:50 Plt Morphology Comment Not Reportable 10/31/16 04:50 RBC Morphology Normal 10/31/16 04:50 Dimorphic RBCs Not Reportable 10/31/16 04:50 Polychromasia Not Reportable 10/31/16 04:50 Hypochromasia Not Reportable 10/31/16 04:50 Poikilocytosis Not Reportable 10/31/16 04:50 Anisocytosis Not Reportable 10/31/16 04:50 Microcytosis Not Reportable 10/31/16 04:50 Macrocytosis Not Reportable 10/31/16 04:50 Spherocytes Not Reportable 10/31/16 04:50 Pappenheimer Bodies Not Reportable 10/31/16 04:50 Sickle Cells Not Reportable 10/31/16 04:50 Target Cells Not Reportable 10/31/16 04:50 Tear Drop Cells Not Reportable 10/31/16 04:50 Ovalocytes Not Reportable 10/31/16 04:50 Helmet Cells Not Reportable 10/31/16 04:50 Brenner-[place] Bodies Not Reportable 10/31/16 04:50 [place] Rings Not Reportable 10/31/16 04:50 Nicolas Cells Not Reportable 10/31/16 04:50 Bite Cells Not Reportable 10/31/16 04:50 Crenated Cell Not Reportable 10/31/16 04:50 Elliptocytes Not Reportable 10/31/16 04:50 Acanthocytes (Spur) Not Reportable 10/31/16 04:50 Rouleaux Not Reportable 10/31/16 04:50 Hemoglobin C Crystals Not Reportable 10/31/16 04:50 Schistocytes Not Reportable 10/31/16 04:50 Malaria parasites Not Reportable 10/31/16 04:50 Hebert Bodies Not Reportable 10/31/16 04:50 Hem Pathologist Commnt No 10/31/16 04:50 PT 14.5 Sec. (12.2-14.9) 10/29/16 17:42 INR 1.14 (0.87-1.13) H 10/29/16 17:42 D-Dimer 1813.13 ng/mlDDU (0-234) H 10/17/16 17:51 POC ABG pH 7.395 (7.35-7.45) 10/28/16 11:00 POC ABG pCO2 31.8 (35-45) L 10/28/16 11:00 POC ABG pO2 82 (80-105) 10/28/16 11:00 POC ABG HCO3 19.5 10/28/16 11:00 POC ABG Total CO2 20 10/28/16 11:00 POC ABG O2 Sat 96 10/28/16 11:00 POC ABG Base Excess -5 10/28/16 11:00 FiO2 35 % 10/28/16 11:00 Sodium 146 mmol/L (137-145) H 11/01/16 05:40 Potassium 4.1 mmol/L (3.6-5.0) D 11/01/16 05:40 Chloride 115.6 mmol/L (98-107) H 11/01/16 05:40 Carbon Dioxide 19 mmol/L (22-30) L 11/01/16 05:40 Anion Gap 16 mmol/L 11/01/16 05:40 BUN 26 mg/dL (9-20) H 11/01/16 05:40 Creatinine 0.5 mg/dL (0.8-1.5) L 11/01/16 05:40 Estimated GFR > 60 ml/min 11/01/16 05:40 BUN/Creatinine Ratio 52.00 % 11/01/16 05:40 Glucose 96 mg/dL (75-100) 11/01/16 05:40 POC Glucose 212 (70-105) H 10/31/16 05:35 Lactic Acid 1.10 mmol/L (0.7-2.0) 10/23/16 Unknown Calcium 8.0 mg/dL (8.4-10.2) L 11/01/16 05:40 Phosphorus 3.20 mg/dL (2.5-4.5) D 10/25/16 06:40 Magnesium 2.60 mg/dL (1.7-2.3) H 10/24/16 03:45 Total Bilirubin 1.10 mg/dL (0.1-1.2) 10/17/16 15:20 AST 120 units/L (5-40) H 10/17/16 15:20 ALT 54 units/L (7-56) 10/17/16 15:20 Alkaline Phosphatase 62 units/L (35-129) 10/17/16 15:20 Total Creatine Kinase 160 units/L (55-170) 10/23/16 Unknown CK-MB (CK-2) 6.3 ng/mL (0.0-4.0) H 10/23/16 Unknown CK-MB (CK-2) Rel Index 3.9 (0-4) 10/23/16 Unknown Troponin T 0.206 ng/mL (0.00-0.029) H* 10/23/16 Unknown Total Protein 6.3 g/dL (6.3-8.2) 10/17/16 15:20 Albumin 2.3 g/dL (3.9-5) L 10/17/16 15:20 Albumin/Globulin Ratio 0.6 % 10/17/16 15:20 Triglycerides 139 mg/dL (2-149) 10/23/16 03:48 Cholesterol 110 mg/dL (50-199) 10/23/16 03:48 LDL Cholesterol Direct 61 mg/dL (50-130) 10/23/16 03:48 HDL Cholesterol 22 mg/dL (40-59) L 10/23/16 03:48 Cholesterol/HDL Ratio 5.00 % 10/23/16 03:48 TSH 0.132 mlU/mL (0.270-4.200) L 10/20/16 14:56 Free T4 0.75 ng/dL (0.76-1.46) L 10/20/16 14:56 Urine Color Yellow (Yellow) 10/23/16 18:00 Urine Turbidity Clear (Clear) 10/23/16 18:00 Urine pH 6.0 (5.0-7.0) 10/23/16 18:00 Ur Specific [place] 1.012 (1.003-1.030) 10/23/16 18:00 Urine Protein <15 mg/dl mg/dL (Negative) 10/23/16 18:00 Urine Glucose (UA) 150 mg/dL (Negative) 10/23/16 18:00 Urine Ketones Neg mg/dL (Negative) 10/23/16 18:00 Urine Blood Mod (Negative) 10/23/16 18:00 Urine Nitrite Neg (Negative) 10/23/16 18:00 Urine Bilirubin Neg (Negative) 10/23/16 18:00 Urine Urobilinogen < 2.0 mg/dL (<2.0) 10/23/16 18:00 Ur Leukocyte Esterase Tr (Negative) 10/23/16 18:00 Urine WBC (Auto) 19.0 /HPF (0.0-6.0) H 10/23/16 18:00 Urine RBC (Auto) 6.0 /HPF (0.0-6.0) 10/23/16 18:00 U Epithel Cells (Auto) 1.0 /HPF (0-13.0) 10/23/16 18:00 Urine Bacteria (Auto) 4+ /HPF (Negative) 10/23/16 18:00 Ur Transition Epith Cell 2 /HPF 10/23/16 18:00 Hyaline Casts 1 /LPF 10/17/16 17:34 Granular Casts 7 /LPF 10/17/16 17:34 Urine Mucus Few /HPF 10/23/16 18:00 Salicylates < 0.3 mg/dL (2.8-20.0) L 10/17/16 15:20 Urine Opiates Screen Presumptive negative 10/17/16 17:34 Urine Methadone Screen Presumptive negative 10/17/16 17:34 Acetaminophen < 15.0 ug/mL (10.0-30.0) 10/17/16 15:20 Ur Barbiturates Screen Presumptive negative 10/17/16 17:34 Ur Phencyclidine Scrn Presumptive negative 10/17/16 17:34 Ur Amphetamines Screen Presumptive negative 10/17/16 17:34 U Benzodiazepines Scrn Presumptive negative 10/17/16 17:34 Urine Cocaine Screen Presumptive negative 10/17/16 17:34 U Marijuana (THC) Screen Presumptive positive 10/17/16 17:34 Drugs of Abuse Note Disclamer 10/17/16 17:34 Plasma/Serum Alcohol < 0.01 gm% (0-0.07) 10/17/16 15:20
--- NOTE | 2016-11-01 13:28 | Progress Note ---
Assessment and Plan 65 y/o male with acute respiratory failure, thought secondary to MS flare vs aspiration and shock, hypovolemic vs sepsis and acute renal failure 1. Respiratory- Will continue vent weaning. Needs LTACH given recurrent episodes of apnea. 2. Neuro- Neuro following. No further mention of imaging. Was only on medical marijuana at home per caregiver. Steroids weaned off 3. Endocrine- Patient with low levels of TSH and Free T4, repeated to make sure and they are consistent. Unsure of what is causing both to be low. may need CT of head vs MRI. would benefit from endocrine consult but I do not believe it is available at this hospital. 4. Off all sedation, needs EEG 5. DVT prophy and tolerating tube feeds 6. Overall prognosis is guarded. 7. Patient will need placement, most likely LTACH for further vent weaning CCT 31 minutes. Subjective Date of service: 11/01/16 Principal diagnosis: Acute respiratory failure Interval history: No acute events. Tolerating PSV. Awaiting insurance approval for LTACH Objective Vital Signs - 12hr 11/01/16 11/01/16 11/01/16 02:00 03:00 04:00 Temperature 97.9 F Pulse Rate 65 65 65 Pulse Rate [ Anterior Right Throughout] Pulse Rate [ Bilateral Throughout] Respiratory 13 11 L 12 Rate Respiratory Rate [Anterior Right Throughout] Respiratory Rate [Bilateral Throughout] Blood Pressure 98/52 99/51 103/52 O2 Sat by Pulse 97 98 Oximetry 11/01/16 11/01/16 11/01/16 04:52 05:00 06:00 Temperature Pulse Rate 73 77 79 Pulse Rate [ Anterior Right Throughout] Pulse Rate [ Bilateral Throughout] Respiratory 15 27 H Rate Respiratory Rate [Anterior Right Throughout] Respiratory Rate [Bilateral Throughout] Blood Pressure 115/61 132/54 122/71 O2 Sat by Pulse 98 97 95 Oximetry 11/01/16 11/01/16 11/01/16 07:00 08:00 08:35 Temperature 97.6 F Pulse Rate 83 86 Pulse Rate [ 80 Anterior Right Throughout] Pulse Rate [ 77 Bilateral Throughout] Respiratory 27 H 25 H Rate Respiratory 18 Rate [Anterior Right Throughout] Respiratory 27 H Rate [Bilateral Throughout] Blood Pressure 112/61 122/85 O2 Sat by Pulse 95 95 Oximetry 11/01/16 11/01/16 11/01/16 08:50 09:00 10:00 Temperature Pulse Rate 80 82 Pulse Rate [ 82 Anterior Right Throughout] Pulse Rate [ 79 Bilateral Throughout] Respiratory 27 H 27 H Rate Respiratory 20 Rate [Anterior Right Throughout] Respiratory 26 H Rate [Bilateral Throughout] Blood Pressure 135/75 153/80 O2 Sat by Pulse 95 96 Oximetry 11/01/16 11/01/16 11/01/16 10:45 11:00 12:00 Temperature Pulse Rate 90 95 H 90 Pulse Rate [ Anterior Right Throughout] Pulse Rate [ Bilateral Throughout] Respiratory 33 H 27 H 29 H Rate Respiratory Rate [Anterior Right Throughout] Respiratory Rate [Bilateral Throughout] Blood Pressure 166/91 151/86 164/106 O2 Sat by Pulse 96 95 97 Oximetry Constitutional: no acute distress, other (intubated) Eyes: non-icteric ENT: other (orally intubated) Neck: supple, no JVD Effort: normal Ascultation: Left: diminished breath sounds (mildly reduced), Bilateral: rhonchi , other (coarse BS bilaterally) Percussion: Bilateral: not dull Cardiovascular: regular rate and rhythm Gastrointestinal: normoactive bowel sounds, soft, non-tender, non-distended Extremities: other (damaged right great toe, wrapped currently; ) Neurologic: unable to assess, other (RA SS -2) Psychiatric: other (unable to assess) CBC and BMP: 11/01/16 08:21 11/01/16 05:40 ABG, PT/INR, D-dimer: ABG POC ABG pH 7.395 (7.35-7.45) 10/28/16 11:00 POC ABG pCO2 31.8 (35-45) L 10/28/16 11:00 POC ABG pO2 82 (80-105) 10/28/16 11:00 POC ABG HCO3 19.5 10/28/16 11:00 POC ABG Total CO2 20 10/28/16 11:00 POC ABG O2 Sat 96 10/28/16 11:00 PT/INR, D-dimer PT 14.5 Sec. (12.2-14.9) 10/29/16 17:42 INR 1.14 (0.87-1.13) H 10/29/16 17:42 D-Dimer 1813.13 ng/mlDDU (0-234) H 10/17/16 17:51 Abnormal lab findings: Abnormal Labs 10/17/16 10/18/16 10/18/16 19:34 03:29 05:36 WBC RBC Hgb Hct MCV RDW Plt Count Lymph % (Auto) [place] % (Auto) Lymph # [place] # Seg Neutrophils % Seg Neuts % (Manual) Lymphocytes % (Manual) Seg Neutrophils # Man Lymphocytes # (Manual) INR POC ABG pH 7.333 L 7.272 L POC ABG pCO2 31.5 L 28.6 L POC ABG pO2 180 H Sodium Potassium Chloride Carbon Dioxide BUN Creatinine Glucose POC Glucose Calcium Phosphorus Magnesium CK-MB (CK-2) CK-MB (CK-2) Rel Index Troponin T HDL Cholesterol TSH Free T4 Urine WBC (Auto) 10/18/16 10/18/16 10/18/16 08:13 09:40 12:04 WBC RBC Hgb Hct MCV RDW Plt Count Lymph % (Auto) [place] % (Auto) Lymph # [place] # Seg Neutrophils % Seg Neuts % (Manual) Lymphocytes % (Manual) Seg Neutrophils # Man Lymphocytes # (Manual) INR POC ABG pH 7.231 L 7.298 L POC ABG pCO2 30.8 L POC ABG pO2 74 L Sodium Potassium Chloride Carbon Dioxide BUN Creatinine Glucose POC Glucose 151 H Calcium Phosphorus Magnesium CK-MB (CK-2) CK-MB (CK-2) Rel Index Troponin T HDL Cholesterol TSH Free T4 Urine WBC (Auto) 10/18/16 10/18/16 10/18/16 14:57 14:57 14:57 WBC 13.3 H RBC Hgb Hct MCV 96 H RDW 16.9 H Plt Count Lymph % (Auto) [place] % (Auto) Lymph # [place] # Seg Neutrophils % Seg Neuts % (Manual) Lymphocytes % (Manual) Seg Neutrophils # Man Lymphocytes # (Manual) INR POC ABG pH POC ABG pCO2 POC ABG pO2 Sodium Potassium Chloride Carbon Dioxide 13 L D BUN 57 H Creatinine 2.1 H Glucose 169 H POC Glucose Calcium 7.7 L Phosphorus Magnesium CK-MB (CK-2) CK-MB (CK-2) Rel Index Troponin T HDL Cholesterol TSH Free T4 0.68 L Urine WBC (Auto) 10/18/16 10/19/16 10/19/16 17:31 05:10 05:10 WBC 12.5 H RBC Hgb Hct MCV 95 H RDW 16.7 H Plt Count Lymph % (Auto) [place] % (Auto) Lymph # [place] # Seg Neutrophils % Seg Neuts % (Manual) 94.0 H Lymphocytes % (Manual) 2.0 L Seg Neutrophils # Man 11.8 H Lymphocytes # (Manual) 0.3 L INR POC ABG pH POC ABG pCO2 POC ABG pO2 Sodium 149 H Potassium Chloride 114.1 H Carbon Dioxide 16 L BUN 49 H Creatinine 1.9 H Glucose 137 H POC Glucose 163 H Calcium 7.0 L Phosphorus Magnesium CK-MB (CK-2) CK-MB (CK-2) Rel Index Troponin T HDL Cholesterol TSH Free T4 Urine WBC (Auto) 10/19/16 10/19/16 10/19/16 06:04 11:39 23:47 WBC RBC Hgb Hct MCV RDW Plt Count Lymph % (Auto) [place] % (Auto) Lymph # [place] # Seg Neutrophils % Seg Neuts % (Manual) Lymphocytes % (Manual) Seg Neutrophils # Man Lymphocytes # (Manual) INR POC ABG pH POC ABG pCO2 28.1 L POC ABG pO2 108 H Sodium Potassium Chloride Carbon Dioxide BUN Creatinine Glucose POC Glucose 134 H 122 H Calcium Phosphorus Magnesium CK-MB (CK-2) CK-MB (CK-2) Rel Index Troponin T HDL Cholesterol TSH Free T4 Urine WBC (Auto) 10/20/16 10/20/16 10/20/16 04:30 05:20 06:10 WBC 11.4 H RBC Hgb Hct MCV RDW 16.5 H Plt Count Lymph % (Auto) [place] % (Auto) Lymph # [place] # Seg Neutrophils % Seg Neuts % (Manual) 92.0 H Lymphocytes % (Manual) 4.0 L Seg Neutrophils # Man 10.5 H Lymphocytes # (Manual) 0.5 L INR POC ABG pH POC ABG pCO2 24.5 L POC ABG pO2 Sodium Potassium Chloride Carbon Dioxide BUN Creatinine Glucose POC Glucose 112 H Calcium Phosphorus Magnesium CK-MB (CK-2) CK-MB (CK-2) Rel Index Troponin T HDL Cholesterol TSH Free T4 Urine WBC (Auto) 10/20/16 10/20/16 10/20/16 06:10 11:43 14:56 WBC RBC Hgb Hct MCV RDW Plt Count Lymph % (Auto) [place] % (Auto) Lymph # [place] # Seg Neutrophils % Seg Neuts % (Manual) Lymphocytes % (Manual) Seg Neutrophils # Man Lymphocytes # (Manual) INR POC ABG pH POC ABG pCO2 POC ABG pO2 Sodium 152 H Potassium 3.2 L Chloride 119.1 H Carbon Dioxide 17 L BUN 39 H Creatinine Glucose 107 H POC Glucose 120 H Calcium 6.8 L Phosphorus Magnesium CK-MB (CK-2) CK-MB (CK-2) Rel Index Troponin T HDL Cholesterol TSH Free T4 0.75 L Urine WBC (Auto) 10/20/16 10/20/16 10/20/16 14:56 17:22 23:50 WBC RBC Hgb Hct MCV RDW Plt Count Lymph % (Auto) [place] % (Auto) Lymph # [place] # Seg Neutrophils % Seg Neuts % (Manual) Lymphocytes % (Manual) Seg Neutrophils # Man Lymphocytes # (Manual) INR POC ABG pH POC ABG pCO2 POC ABG pO2 Sodium Potassium Chloride Carbon Dioxide BUN Creatinine Glucose POC Glucose 148 H 106 H Calcium Phosphorus Magnesium CK-MB (CK-2) CK-MB (CK-2) Rel Index Troponin T HDL Cholesterol TSH 0.132 L Free T4 Urine WBC (Auto) 10/21/16 10/21/16 10/21/16 05:00 05:00 05:30 WBC RBC Hgb Hct MCV RDW 16.6 H Plt Count Lymph % (Auto) 13.2 L [place] % (Auto) Lymph # 1.1 L [place] # Seg Neutrophils % 80.4 H Seg Neuts % (Manual) Lymphocytes % (Manual) Seg Neutrophils # Man Lymphocytes # (Manual) INR POC ABG pH 7.342 L POC ABG pCO2 30.7 L POC ABG pO2 149 H Sodium 150 H Potassium Chloride 117.2 H Carbon Dioxide 17 L BUN 38 H Creatinine Glucose POC Glucose Calcium 7.5 L Phosphorus Magnesium CK-MB (CK-2) CK-MB (CK-2) Rel Index Troponin T HDL Cholesterol TSH Free T4 Urine WBC (Auto) 10/22/16 10/22/16 10/23/16 05:00 05:21 03:48 WBC RBC Hgb Hct MCV RDW Plt Count Lymph % (Auto) [place] % (Auto) Lymph # [place] # Seg Neutrophils % Seg Neuts % (Manual) Lymphocytes % (Manual) Seg Neutrophils # Man Lymphocytes # (Manual) INR POC ABG pH 7.319 L POC ABG pCO2 POC ABG pO2 68 L Sodium 151 H 147 H Potassium 3.3 L Chloride 120.5 H 116.2 H Carbon Dioxide 17 L 19 L BUN 36 H 26 H Creatinine Glucose 143 H 110 H POC Glucose Calcium 6.8 L 6.7 L Phosphorus 0.90 L* Magnesium 1.40 L CK-MB (CK-2) CK-MB (CK-2) Rel Index Troponin T HDL Cholesterol TSH Free T4 Urine WBC (Auto) 10/23/16 10/23/16 10/23/16 03:48 03:48 04:33 WBC 11.4 H RBC Hgb Hct MCV RDW 17.0 H Plt Count Lymph % (Auto) [place] % (Auto) Lymph # [place] # Seg Neutrophils % Seg Neuts % (Manual) Lymphocytes % (Manual) Seg Neutrophils # Man Lymphocytes # (Manual) INR POC ABG pH POC ABG pCO2 31.7 L POC ABG pO2 Sodium Potassium Chloride Carbon Dioxide BUN Creatinine Glucose POC Glucose Calcium Phosphorus Magnesium CK-MB (CK-2) 6.9 H CK-MB (CK-2) Rel Index 4.8 H Troponin T 0.215 H* HDL Cholesterol 22 L TSH Free T4 Urine WBC (Auto) 10/23/16 10/23/16 10/24/16 18:00 Unknown 03:45 WBC RBC Hgb Hct MCV RDW Plt Count Lymph % (Auto) [place] % (Auto) Lymph # [place] # Seg Neutrophils % Seg Neuts % (Manual) Lymphocytes % (Manual) Seg Neutrophils # Man Lymphocytes # (Manual) INR POC ABG pH POC ABG pCO2 POC ABG pO2 Sodium 148 H Potassium Chloride 116.8 H Carbon Dioxide BUN 22 H Creatinine Glucose 138 H POC Glucose Calcium 6.9 L Phosphorus 1.90 L D Magnesium 2.60 H CK-MB (CK-2) 6.3 H CK-MB (CK-2) Rel Index Troponin T 0.206 H* HDL Cholesterol TSH Free T4 Urine WBC (Auto) 19.0 H 10/24/16 10/24/16 10/25/16 03:45 06:26 06:33 WBC RBC Hgb Hct MCV RDW 16.5 H Plt Count Lymph % (Auto) [place] % (Auto) 9.1 H Lymph # [place] # 0.9 H Seg Neutrophils % 75.3 H Seg Neuts % (Manual) Lymphocytes % (Manual) Seg Neutrophils # Man Lymphocytes # (Manual) INR POC ABG pH POC ABG pCO2 33.2 L 27.0 L POC ABG pO2 72 L Sodium Potassium Chloride Carbon Dioxide BUN Creatinine Glucose POC Glucose Calcium Phosphorus Magnesium CK-MB (CK-2) CK-MB (CK-2) Rel Index Troponin T HDL Cholesterol TSH Free T4 Urine WBC (Auto) 10/25/16 10/25/16 10/26/16 06:40 06:40 06:38 WBC RBC Hgb 11.2 L Hct 34.0 L MCV RDW 17.0 H 16.8 H Plt Count Lymph % (Auto) 5.8 L [place] % (Auto) Lymph # 0.4 L [place] # Seg Neutrophils % 89.6 H Seg Neuts % (Manual) 95.0 H Lymphocytes % (Manual) 4.0 L Seg Neutrophils # Man 9.4 H Lymphocytes # (Manual) 0.4 L INR POC ABG pH POC ABG pCO2 POC ABG pO2 Sodium Potassium Chloride Carbon Dioxide 18 L BUN Creatinine Glucose 173 H POC Glucose Calcium 6.9 L Phosphorus Magnesium CK-MB (CK-2) CK-MB (CK-2) Rel Index Troponin T HDL Cholesterol TSH Free T4 Urine WBC (Auto) 10/26/16 10/27/16 10/27/16 06:38 04:40 04:40 WBC RBC 3.55 L Hgb 10.9 L Hct 33.1 L MCV RDW 16.6 H Plt Count Lymph % (Auto) [place] % (Auto) Lymph # [place] # Seg Neutrophils % Seg Neuts % (Manual) 92.0 H Lymphocytes % (Manual) 5.0 L Seg Neutrophils # Man Lymphocytes # (Manual) 0.4 L INR POC ABG pH POC ABG pCO2 POC ABG pO2 Sodium Potassium Chloride 110.0 H 107.8 H Carbon Dioxide 20 L 20 L BUN 24 H Creatinine Glucose 178 H 190 H POC Glucose Calcium 6.7 L 7.0 L Phosphorus Magnesium CK-MB (CK-2) CK-MB (CK-2) Rel Index Troponin T HDL Cholesterol TSH Free T4 Urine WBC (Auto) 10/28/16 10/29/16 10/29/16 11:00 09:14 09:14 WBC RBC Hgb 11.5 L Hct MCV RDW 16.5 H Plt Count Lymph % (Auto) [place] % (Auto) Lymph # [place] # Seg Neutrophils % Seg Neuts % (Manual) Lymphocytes % (Manual) Seg Neutrophils # Man Lymphocytes # (Manual) INR POC ABG pH POC ABG pCO2 31.8 L POC ABG pO2 Sodium Potassium Chloride 111.6 H Carbon Dioxide 20 L BUN 35 H Creatinine Glucose 299 H POC Glucose Calcium 7.2 L Phosphorus Magnesium CK-MB (CK-2) CK-MB (CK-2) Rel Index Troponin T HDL Cholesterol TSH Free T4 Urine WBC (Auto) 10/29/16 10/30/16 10/30/16 17:42 06:48 06:48 WBC 13.0 H RBC Hgb Hct MCV RDW 16.5 H Plt Count Lymph % (Auto) [place] % (Auto) Lymph # [place] # Seg Neutrophils % Seg Neuts % (Manual) 89.0 H Lymphocytes % (Manual) 6.0 L Seg Neutrophils # Man 11.6 H Lymphocytes # (Manual) 0.8 L INR 1.14 H POC ABG pH POC ABG pCO2 POC ABG pO2 Sodium 147 H Potassium Chloride 114.9 H Carbon Dioxide 19 L BUN 36 H Creatinine Glucose 253 H POC Glucose Calcium 7.6 L Phosphorus Magnesium CK-MB (CK-2) CK-MB (CK-2) Rel Index Troponin T HDL Cholesterol TSH Free T4 Urine WBC (Auto) 10/31/16 10/31/16 10/31/16 04:50 04:50 05:35 WBC 13.6 H RBC Hgb Hct 35.4 L MCV RDW 16.4 H Plt Count Lymph % (Auto) [place] % (Auto) Lymph # [place] # Seg Neutrophils % Seg Neuts % (Manual) 90.0 H Lymphocytes % (Manual) 5.0 L Seg Neutrophils # Man 12.2 H Lymphocytes # (Manual) 0.7 L INR POC ABG pH POC ABG pCO2 POC ABG pO2 Sodium 146 H Potassium 3.4 L Chloride 113.6 H Carbon Dioxide 19 L BUN 31 H Creatinine 0.6 L Glucose 211 H POC Glucose 212 H Calcium 7.4 L Phosphorus Magnesium CK-MB (CK-2) CK-MB (CK-2) Rel Index Troponin T HDL Cholesterol TSH Free T4 Urine WBC (Auto) 11/01/16 11/01/16 05:40 08:21 WBC 15.7 H RBC Hgb Hct MCV RDW 16.5 H Plt Count 137 L Lymph % (Auto) [place] % (Auto) Lymph # [place] # Seg Neutrophils % Seg Neuts % (Manual) Lymphocytes % (Manual) Seg Neutrophils # Man Lymphocytes # (Manual) INR POC ABG pH POC ABG pCO2 POC ABG pO2 Sodium 146 H Potassium Chloride 115.6 H Carbon Dioxide 19 L BUN 26 H Creatinine 0.5 L Glucose POC Glucose Calcium 8.0 L Phosphorus Magnesium CK-MB (CK-2) CK-MB (CK-2) Rel Index Troponin T HDL Cholesterol TSH Free T4 Urine WBC (Auto)
--- NOTE | 2016-11-01 14:48 | Progress Note ---
Assessment and Plan Altered mental status MS Acute respiratory failure on mechanical ventilation via trach LBBB, chronic Afib, paroxysmal currently in sinus rhythm low TSH of 0.132 and low free T4 of 0.75 Nonischemic cardiomyopathy EF 10-15% on echocardiogram this admission [facility] 04/2014: normal coronaries. LV gram not performed due to findings of renal failure at that time. Conservative cardiac management. Subjective Date of service: 11/01/16 Principal diagnosis: Acute respiratory failure Interval history: No acute cardiac events overnight. Objective Vital Signs Temp Pulse Pulse Pulse Pulse Resp Resp 11/01/16 14:08 90 27 H 11/01/16 12:00 90 29 H 11/01/16 11:00 95 H 27 H 11/01/16 10:45 90 33 H 11/01/16 10:00 82 27 H 11/01/16 09:00 80 27 H 11/01/16 08:50 82 79 11/01/16 08:35 80 77 11/01/16 08:00 97.6 F 86 25 H 11/01/16 07:00 83 27 H 11/01/16 06:00 79 27 H 11/01/16 05:00 77 15 11/01/16 04:52 73 11/01/16 04:00 97.9 F 65 12 11/01/16 03:00 65 11 L 11/01/16 02:00 65 13 11/01/16 01:08 11/01/16 01:00 74 18 11/01/16 00:00 98.6 F 80 25 H 10/31/16 23:14 75 10/31/16 23:00 77 22 10/31/16 22:18 78 19 10/31/16 22:00 75 23 10/31/16 21:00 66 18 10/31/16 20:45 76 10/31/16 20:32 66 10/31/16 20:31 74 10/31/16 20:00 98.9 F 64 16 10/31/16 19:00 74 12 10/31/16 18:00 74 20 10/31/16 17:30 90 10/31/16 17:00 77 26 H 10/31/16 16:00 98.8 F 72 21 10/31/16 15:55 76 10/31/16 15:50 82 79 20 10/31/16 15:40 80 78 18 10/31/16 15:00 73 21 Resp Resp BP Pulse Ox 11/01/16 14:08 163/76 98 11/01/16 12:00 164/106 97 11/01/16 11:00 151/86 95 11/01/16 10:45 166/91 96 11/01/16 10:00 153/80 96 11/01/16 09:00 135/75 95 11/01/16 08:50 20 26 H 11/01/16 08:35 18 27 H 11/01/16 08:00 122/85 95 11/01/16 07:00 112/61 95 11/01/16 06:00 122/71 95 11/01/16 05:00 132/54 97 11/01/16 04:52 115/61 98 11/01/16 04:00 103/52 98 11/01/16 03:00 99/51 97 11/01/16 02:00 98/52 11/01/16 01:08 99 11/01/16 01:00 139/56 97 11/01/16 00:00 131/74 95 10/31/16 23:14 138/67 100 10/31/16 23:00 152/71 100 10/31/16 22:18 148/82 96 10/31/16 22:00 154/62 96 10/31/16 21:00 143/68 95 10/31/16 20:45 17 10/31/16 20:32 124/68 98 10/31/16 20:31 15 10/31/16 20:00 116/63 97 10/31/16 19:00 135/72 96 10/31/16 18:00 134/75 96 10/31/16 17:30 131/67 96 10/31/16 17:00 152/79 96 10/31/16 16:00 124/66 94 10/31/16 15:55 124/66 95 10/31/16 15:50 20 10/31/16 15:40 18 10/31/16 15:00 111/75 95 - Physical Examination General: Other (ventilation via trach) Cardiac: Positive: Reg Rate and Rhythm - Labs and Meds CBC 11/01/16 Range/Units 08:21 WBC 15.7 H (4.5-11.0) K/mm3 RBC 4.01 (3.65-5.03) M/mm3 Hgb 12.3 (11.8-15.2) gm/dl Hct 37.6 (35.5-45.6) % Plt Count 137 L (140-440) K/mm3 Comprehensive Metabolic Panel 11/01/16 Range/Units 05:40 Sodium 146 H (137-145) mmol/L Potassium 4.1 D (3.6-5.0) mmol/L Chloride 115.6 H (98-107) mmol/L Carbon Dioxide 19 L (22-30) mmol/L BUN 26 H (9-20) mg/dL Creatinine 0.5 L (0.8-1.5) mg/dL Glucose 96 (75-100) mg/dL Calcium 8.0 L (8.4-10.2) mg/dL
--- NOTE | 2016-11-01 15:06 | XRay Report ---
ABDOMEN RADIOGRAPHS INDICATION: Nausea and vomiting. COMPARISON: None similar. FINDINGS: Frontal abdominal radiographs demonstrate nonobstructive bowel gas pattern. G-tube with interval esophagogastric tube removal since 08/26/2016 CXR. Probable cholecystectomy clips. No focal suspicious calcifications, pneumatosis or pneumoperitoneum. Diffuse left lower lung opacity again suspected, extending beyond the superior radiographic margin. EKG leads. Lower lumbar bony fusion noted. CONCLUSION: No acute abdominal radiographic abnormality, though left lung base pathology not excluded in this patient with various other iatrogenic changes, as described. Please correlate. Thank you for the opportunity to participate in this patient's care.
[2016-11-01] MEDS: PEPCID PO SCH ×2 (20:43→21:27)
[2016-11-02] MEDS: PROVENTIL IH SCH ×3 (01:34→17:31)
--- NOTE | 2016-11-02 08:40 | Progress Note ---
Assessment and Plan Altered mental status MS Acute respiratory failure on mechanical ventilation via trach LBBB, chronic Afib, paroxysmal currently in sinus rhythm low TSH of 0.132 and low free T4 of 0.75 Nonischemic cardiomyopathy EF 10-15% on echocardiogram this admission [facility] 04/2014: normal coronaries. LV gram not performed due to findings of renal failure at that time. Subjective Date of service: 11/02/16 Principal diagnosis: Acute respiratory failure Interval history: No interval changes. Objective Vital Signs Temp Pulse Pulse Pulse Pulse Pulse Resp 11/02/16 08:00 98.7 F 80 25 H 11/02/16 07:30 85 11/02/16 07:00 74 25 H 11/02/16 06:00 78 24 11/02/16 05:11 78 11/02/16 05:00 80 26 H 11/02/16 04:58 98.1 F 11/02/16 04:00 72 20 11/02/16 03:00 72 18 11/02/16 02:00 54 L 16 11/02/16 01:59 59 L 11/02/16 01:00 57 L 12 11/02/16 00:48 97.7 F 11/02/16 00:42 56 L 11/02/16 00:30 55 L 11/02/16 00:00 57 L 12 11/01/16 23:00 63 12 11/01/16 22:02 90 27 H 11/01/16 22:00 113 H 31 H 11/01/16 21:00 80 17 11/01/16 20:45 98.5 F 11/01/16 20:17 81 24 11/01/16 20:00 73 22 11/01/16 19:00 77 21 11/01/16 18:00 75 14 11/01/16 17:06 77 26 H 11/01/16 17:00 81 26 H 11/01/16 16:00 99 F 77 23 11/01/16 15:45 100.3 F H 11/01/16 15:00 79 21 11/01/16 14:30 88 82 11/01/16 14:15 84 80 11/01/16 14:08 90 27 H 11/01/16 14:00 90 28 H 11/01/16 13:00 83 27 H 11/01/16 12:00 90 29 H 11/01/16 11:00 95 H 27 H 11/01/16 10:45 90 33 H 11/01/16 10:00 82 27 H 11/01/16 09:00 80 27 H 11/01/16 08:50 82 79 Resp Resp Resp BP Pulse Ox Pulse Ox 11/02/16 08:00 163/76 97 11/02/16 07:30 163/76 97 11/02/16 07:00 163/76 95 11/02/16 06:00 163/76 96 11/02/16 05:11 162/76 96 11/02/16 05:00 163/76 95 11/02/16 04:58 11/02/16 04:00 163/76 96 11/02/16 03:00 163/76 94 11/02/16 02:00 163/76 96 96 11/02/16 01:59 163/76 99 11/02/16 01:00 163/76 98 11/02/16 00:48 11/02/16 00:42 16 11/02/16 00:30 14 11/02/16 00:00 163/76 99 11/01/16 23:00 163/76 97 11/01/16 22:02 163/76 94 11/01/16 22:00 163/76 93 11/01/16 21:00 163/76 97 11/01/16 20:45 11/01/16 20:17 163/76 98 11/01/16 20:00 163/76 98 11/01/16 19:00 163/76 98 11/01/16 18:00 163/76 95 11/01/16 17:06 163/76 98 11/01/16 17:00 163/76 98 11/01/16 16:00 163/76 98 11/01/16 15:45 11/01/16 15:00 138/79 99 11/01/16 14:30 20 22 11/01/16 14:15 18 24 11/01/16 14:08 163/76 98 11/01/16 14:00 138/79 98 11/01/16 13:00 138/79 96 11/01/16 12:00 164/106 99 11/01/16 11:00 151/86 95 11/01/16 10:45 166/91 96 11/01/16 10:00 153/80 96 11/01/16 09:00 135/75 95 11/01/16 08:50 20 26 H - Physical Examination General: Other (ventilation via trach) Cardiac: Positive: Reg Rate and Rhythm Extremities: Absent: edema
[2016-11-02] MEDS: PEPCID PO SCH (10:00)
[2016-11-02] MEDS: LOVENOX SUB-Q SCH (10:00)
--- NOTE | 2016-11-02 12:16 | Progress Note ---
Assessment and Plan 65 y/o male with acute respiratory failure, thought secondary to MS flare vs aspiration and shock, hypovolemic vs sepsis and acute renal failure 1. Respiratory- Will continue vent weaning. Needs LTACH given recurrent episodes of apnea. Awaiting approval 2. Neuro- Neuro following. No further mention of imaging. Was only on medical marijuana at home per caregiver. Steroids weaned off 3. Endocrine- Patient with low levels of TSH and Free T4, repeated to make sure and they are consistent. Unsure of what is causing both to be low. may need CT of head vs MRI. would benefit from endocrine consult but I do not believe it is available at this hospital. 4. Off all sedation, needs EEG 5. DVT prophy and tolerating tube feeds 6. Overall prognosis is guarded. CCT 31 minutes. Subjective Date of service: 11/02/16 Principal diagnosis: Acute respiratory failure Interval history: No acute events. Tolerating PSV. Trach and pEG site stable. Awaiting placement approval Objective Vital Signs - 12hr 11/02/16 11/02/16 11/02/16 00:30 00:42 00:48 Temperature 97.7 F Pulse Rate Pulse Rate [ 55 L 56 L Anterior Bilateral Throughout] Pulse Rate [ Bilateral Throughout] Pulse Rate [ From Monitor] Respiratory Rate Respiratory 14 16 Rate [Anterior Bilateral Throughout] Respiratory Rate [Bilateral Throughout] Blood Pressure O2 Sat by Pulse Oximetry O2 Sat by Pulse Oximetry [ Assessment] 11/02/16 11/02/16 11/02/16 01:00 01:59 02:00 Temperature Pulse Rate 57 L 59 L 54 L Pulse Rate [ Anterior Bilateral Throughout] Pulse Rate [ Bilateral Throughout] Pulse Rate [ From Monitor] Respiratory 12 16 Rate Respiratory Rate [Anterior Bilateral Throughout] Respiratory Rate [Bilateral Throughout] Blood Pressure 163/76 163/76 163/76 O2 Sat by Pulse 98 99 96 Oximetry O2 Sat by Pulse 96 Oximetry [ Assessment] 11/02/16 11/02/16 11/02/16 03:00 04:00 04:58 Temperature 98.1 F Pulse Rate 72 Pulse Rate [ Anterior Bilateral Throughout] Pulse Rate [ Bilateral Throughout] Pulse Rate [ 72 From Monitor] Respiratory 18 20 Rate Respiratory Rate [Anterior Bilateral Throughout] Respiratory Rate [Bilateral Throughout] Blood Pressure 163/76 163/76 O2 Sat by Pulse 94 96 Oximetry O2 Sat by Pulse Oximetry [ Assessment] 11/02/16 11/02/16 11/02/16 05:00 05:11 06:00 Temperature Pulse Rate 80 78 78 Pulse Rate [ Anterior Bilateral Throughout] Pulse Rate [ Bilateral Throughout] Pulse Rate [ From Monitor] Respiratory 26 H 24 Rate Respiratory Rate [Anterior Bilateral Throughout] Respiratory Rate [Bilateral Throughout] Blood Pressure 163/76 162/76 163/76 O2 Sat by Pulse 95 96 96 Oximetry O2 Sat by Pulse Oximetry [ Assessment] 11/02/16 11/02/16 11/02/16 07:00 07:30 08:00 Temperature 98.7 F Pulse Rate 74 85 80 Pulse Rate [ Anterior Bilateral Throughout] Pulse Rate [ Bilateral Throughout] Pulse Rate [ 80 From Monitor] Respiratory 25 H 25 H Rate Respiratory Rate [Anterior Bilateral Throughout] Respiratory Rate [Bilateral Throughout] Blood Pressure 163/76 163/76 163/76 O2 Sat by Pulse 95 97 97 Oximetry O2 Sat by Pulse Oximetry [ Assessment] 11/02/16 11/02/16 11/02/16 08:24 08:35 10:00 Temperature Pulse Rate Pulse Rate [ 68 70 Anterior Bilateral Throughout] Pulse Rate [ 68 70 Bilateral Throughout] Pulse Rate [ From Monitor] Respiratory Rate Respiratory 16 21 Rate [Anterior Bilateral Throughout] Respiratory 20 21 Rate [Bilateral Throughout] Blood Pressure O2 Sat by Pulse Oximetry O2 Sat by Pulse 97 Oximetry [ Assessment] 11/02/16 12:00 Temperature 98.6 F Pulse Rate Pulse Rate [ Anterior Bilateral Throughout] Pulse Rate [ Bilateral Throughout] Pulse Rate [ From Monitor] Respiratory Rate Respiratory Rate [Anterior Bilateral Throughout] Respiratory Rate [Bilateral Throughout] Blood Pressure O2 Sat by Pulse Oximetry O2 Sat by Pulse Oximetry [ Assessment] Constitutional: no acute distress, other (intubated) Eyes: non-icteric ENT: other (orally intubated) Neck: supple, no JVD Effort: normal Ascultation: Left: diminished breath sounds (mildly reduced), Bilateral: clear, rhonchi, other (coarse BS bilaterally) Percussion: Bilateral: not dull Cardiovascular: regular rate and rhythm Gastrointestinal: normoactive bowel sounds, soft, non-tender, non-distended Extremities: other (damaged right great toe, wrapped currently; ) Neurologic: unable to assess, other (RA SS -2) Psychiatric: other (unable to assess) CBC and BMP: 11/01/16 08:21 11/01/16 05:40 ABG, PT/INR, D-dimer: ABG POC ABG pH 7.395 (7.35-7.45) 10/28/16 11:00 POC ABG pCO2 31.8 (35-45) L 10/28/16 11:00 POC ABG pO2 82 (80-105) 10/28/16 11:00 POC ABG HCO3 19.5 10/28/16 11:00 POC ABG Total CO2 20 10/28/16 11:00 POC ABG O2 Sat 96 10/28/16 11:00 PT/INR, D-dimer PT 14.5 Sec. (12.2-14.9) 10/29/16 17:42 INR 1.14 (0.87-1.13) H 10/29/16 17:42 D-Dimer 1813.13 ng/mlDDU (0-234) H 10/17/16 17:51 Abnormal lab findings: Abnormal Labs 10/17/16 10/18/16 10/18/16 19:34 03:29 05:36 WBC RBC Hgb Hct MCV RDW Plt Count Lymph % (Auto) [place] % (Auto) Lymph # [place] # Seg Neutrophils % Seg Neuts % (Manual) Lymphocytes % (Manual) Seg Neutrophils # Man Lymphocytes # (Manual) INR POC ABG pH 7.333 L 7.272 L POC ABG pCO2 31.5 L 28.6 L POC ABG pO2 180 H Sodium Potassium Chloride Carbon Dioxide BUN Creatinine Glucose POC Glucose Calcium Phosphorus Magnesium CK-MB (CK-2) CK-MB (CK-2) Rel Index Troponin T HDL Cholesterol TSH Free T4 Urine WBC (Auto) 10/18/16 10/18/16 10/18/16 08:13 09:40 12:04 WBC RBC Hgb Hct MCV RDW Plt Count Lymph % (Auto) [place] % (Auto) Lymph # [place] # Seg Neutrophils % Seg Neuts % (Manual) Lymphocytes % (Manual) Seg Neutrophils # Man Lymphocytes # (Manual) INR POC ABG pH 7.231 L 7.298 L POC ABG pCO2 30.8 L POC ABG pO2 74 L Sodium Potassium Chloride Carbon Dioxide BUN Creatinine Glucose POC Glucose 151 H Calcium Phosphorus Magnesium CK-MB (CK-2) CK-MB (CK-2) Rel Index Troponin T HDL Cholesterol TSH Free T4 Urine WBC (Auto) 10/18/16 10/18/16 10/18/16 14:57 14:57 14:57 WBC 13.3 H RBC Hgb Hct MCV 96 H RDW 16.9 H Plt Count Lymph % (Auto) [place] % (Auto) Lymph # [place] # Seg Neutrophils % Seg Neuts % (Manual) Lymphocytes % (Manual) Seg Neutrophils # Man Lymphocytes # (Manual) INR POC ABG pH POC ABG pCO2 POC ABG pO2 Sodium Potassium Chloride Carbon Dioxide 13 L D BUN 57 H Creatinine 2.1 H Glucose 169 H POC Glucose Calcium 7.7 L Phosphorus Magnesium CK-MB (CK-2) CK-MB (CK-2) Rel Index Troponin T HDL Cholesterol TSH Free T4 0.68 L Urine WBC (Auto) 10/18/16 10/19/16 10/19/16 17:31 05:10 05:10 WBC 12.5 H RBC Hgb Hct MCV 95 H RDW 16.7 H Plt Count Lymph % (Auto) [place] % (Auto) Lymph # [place] # Seg Neutrophils % Seg Neuts % (Manual) 94.0 H Lymphocytes % (Manual) 2.0 L Seg Neutrophils # Man 11.8 H Lymphocytes # (Manual) 0.3 L INR POC ABG pH POC ABG pCO2 POC ABG pO2 Sodium 149 H Potassium Chloride 114.1 H Carbon Dioxide 16 L BUN 49 H Creatinine 1.9 H Glucose 137 H POC Glucose 163 H Calcium 7.0 L Phosphorus Magnesium CK-MB (CK-2) CK-MB (CK-2) Rel Index Troponin T HDL Cholesterol TSH Free T4 Urine WBC (Auto) 10/19/16 10/19/16 10/19/16 06:04 11:39 23:47 WBC RBC Hgb Hct MCV RDW Plt Count Lymph % (Auto) [place] % (Auto) Lymph # [place] # Seg Neutrophils % Seg Neuts % (Manual) Lymphocytes % (Manual) Seg Neutrophils # Man Lymphocytes # (Manual) INR POC ABG pH POC ABG pCO2 28.1 L POC ABG pO2 108 H Sodium Potassium Chloride Carbon Dioxide BUN Creatinine Glucose POC Glucose 134 H 122 H Calcium Phosphorus Magnesium CK-MB (CK-2) CK-MB (CK-2) Rel Index Troponin T HDL Cholesterol TSH Free T4 Urine WBC (Auto) 10/20/16 10/20/16 10/20/16 04:30 05:20 06:10 WBC 11.4 H RBC Hgb Hct MCV RDW 16.5 H Plt Count Lymph % (Auto) [place] % (Auto) Lymph # [place] # Seg Neutrophils % Seg Neuts % (Manual) 92.0 H Lymphocytes % (Manual) 4.0 L Seg Neutrophils # Man 10.5 H Lymphocytes # (Manual) 0.5 L INR POC ABG pH POC ABG pCO2 24.5 L POC ABG pO2 Sodium Potassium Chloride Carbon Dioxide BUN Creatinine Glucose POC Glucose 112 H Calcium Phosphorus Magnesium CK-MB (CK-2) CK-MB (CK-2) Rel Index Troponin T HDL Cholesterol TSH Free T4 Urine WBC (Auto) 10/20/16 10/20/16 10/20/16 06:10 11:43 14:56 WBC RBC Hgb Hct MCV RDW Plt Count Lymph % (Auto) [place] % (Auto) Lymph # [place] # Seg Neutrophils % Seg Neuts % (Manual) Lymphocytes % (Manual) Seg Neutrophils # Man Lymphocytes # (Manual) INR POC ABG pH POC ABG pCO2 POC ABG pO2 Sodium 152 H Potassium 3.2 L Chloride 119.1 H Carbon Dioxide 17 L BUN 39 H Creatinine Glucose 107 H POC Glucose 120 H Calcium 6.8 L Phosphorus Magnesium CK-MB (CK-2) CK-MB (CK-2) Rel Index Troponin T HDL Cholesterol TSH Free T4 0.75 L Urine WBC (Auto) 10/20/16 10/20/16 10/20/16 14:56 17:22 23:50 WBC RBC Hgb Hct MCV RDW Plt Count Lymph % (Auto) [place] % (Auto) Lymph # [place] # Seg Neutrophils % Seg Neuts % (Manual) Lymphocytes % (Manual) Seg Neutrophils # Man Lymphocytes # (Manual) INR POC ABG pH POC ABG pCO2 POC ABG pO2 Sodium Potassium Chloride Carbon Dioxide BUN Creatinine Glucose POC Glucose 148 H 106 H Calcium Phosphorus Magnesium CK-MB (CK-2) CK-MB (CK-2) Rel Index Troponin T HDL Cholesterol TSH 0.132 L Free T4 Urine WBC (Auto) 10/21/16 10/21/16 10/21/16 05:00 05:00 05:30 WBC RBC Hgb Hct MCV RDW 16.6 H Plt Count Lymph % (Auto) 13.2 L [place] % (Auto) Lymph # 1.1 L [place] # Seg Neutrophils % 80.4 H Seg Neuts % (Manual) Lymphocytes % (Manual) Seg Neutrophils # Man Lymphocytes # (Manual) INR POC ABG pH 7.342 L POC ABG pCO2 30.7 L POC ABG pO2 149 H Sodium 150 H Potassium Chloride 117.2 H Carbon Dioxide 17 L BUN 38 H Creatinine Glucose POC Glucose Calcium 7.5 L Phosphorus Magnesium CK-MB (CK-2) CK-MB (CK-2) Rel Index Troponin T HDL Cholesterol TSH Free T4 Urine WBC (Auto) 10/22/16 10/22/16 10/23/16 05:00 05:21 03:48 WBC RBC Hgb Hct MCV RDW Plt Count Lymph % (Auto) [place] % (Auto) Lymph # [place] # Seg Neutrophils % Seg Neuts % (Manual) Lymphocytes % (Manual) Seg Neutrophils # Man Lymphocytes # (Manual) INR POC ABG pH 7.319 L POC ABG pCO2 POC ABG pO2 68 L Sodium 151 H 147 H Potassium 3.3 L Chloride 120.5 H 116.2 H Carbon Dioxide 17 L 19 L BUN 36 H 26 H Creatinine Glucose 143 H 110 H POC Glucose Calcium 6.8 L 6.7 L Phosphorus 0.90 L* Magnesium 1.40 L CK-MB (CK-2) CK-MB (CK-2) Rel Index Troponin T HDL Cholesterol TSH Free T4 Urine WBC (Auto) 10/23/16 10/23/16 10/23/16 03:48 03:48 04:33 WBC 11.4 H RBC Hgb Hct MCV RDW 17.0 H Plt Count Lymph % (Auto) [place] % (Auto) Lymph # [place] # Seg Neutrophils % Seg Neuts % (Manual) Lymphocytes % (Manual) Seg Neutrophils # Man Lymphocytes # (Manual) INR POC ABG pH POC ABG pCO2 31.7 L POC ABG pO2 Sodium Potassium Chloride Carbon Dioxide BUN Creatinine Glucose POC Glucose Calcium Phosphorus Magnesium CK-MB (CK-2) 6.9 H CK-MB (CK-2) Rel Index 4.8 H Troponin T 0.215 H* HDL Cholesterol 22 L TSH Free T4 Urine WBC (Auto) 10/23/16 10/23/16 10/24/16 18:00 Unknown 03:45 WBC RBC Hgb Hct MCV RDW Plt Count Lymph % (Auto) [place] % (Auto) Lymph # [place] # Seg Neutrophils % Seg Neuts % (Manual) Lymphocytes % (Manual) Seg Neutrophils # Man Lymphocytes # (Manual) INR POC ABG pH POC ABG pCO2 POC ABG pO2 Sodium 148 H Potassium Chloride 116.8 H Carbon Dioxide BUN 22 H Creatinine Glucose 138 H POC Glucose Calcium 6.9 L Phosphorus 1.90 L D Magnesium 2.60 H CK-MB (CK-2) 6.3 H CK-MB (CK-2) Rel Index Troponin T 0.206 H* HDL Cholesterol TSH Free T4 Urine WBC (Auto) 19.0 H 10/24/16 10/24/16 10/25/16 03:45 06:26 06:33 WBC RBC Hgb Hct MCV RDW 16.5 H Plt Count Lymph % (Auto) [place] % (Auto) 9.1 H Lymph # [place] # 0.9 H Seg Neutrophils % 75.3 H Seg Neuts % (Manual) Lymphocytes % (Manual) Seg Neutrophils # Man Lymphocytes # (Manual) INR POC ABG pH POC ABG pCO2 33.2 L 27.0 L POC ABG pO2 72 L Sodium Potassium Chloride Carbon Dioxide BUN Creatinine Glucose POC Glucose Calcium Phosphorus Magnesium CK-MB (CK-2) CK-MB (CK-2) Rel Index Troponin T HDL Cholesterol TSH Free T4 Urine WBC (Auto) 10/25/16 10/25/16 10/26/16 06:40 06:40 06:38 WBC RBC Hgb 11.2 L Hct 34.0 L MCV RDW 17.0 H 16.8 H Plt Count Lymph % (Auto) 5.8 L [place] % (Auto) Lymph # 0.4 L [place] # Seg Neutrophils % 89.6 H Seg Neuts % (Manual) 95.0 H Lymphocytes % (Manual) 4.0 L Seg Neutrophils # Man 9.4 H Lymphocytes # (Manual) 0.4 L INR POC ABG pH POC ABG pCO2 POC ABG pO2 Sodium Potassium Chloride Carbon Dioxide 18 L BUN Creatinine Glucose 173 H POC Glucose Calcium 6.9 L Phosphorus Magnesium CK-MB (CK-2) CK-MB (CK-2) Rel Index Troponin T HDL Cholesterol TSH Free T4 Urine WBC (Auto) 10/26/16 10/27/16 10/27/16 06:38 04:40 04:40 WBC RBC 3.55 L Hgb 10.9 L Hct 33.1 L MCV RDW 16.6 H Plt Count Lymph % (Auto) [place] % (Auto) Lymph # [place] # Seg Neutrophils % Seg Neuts % (Manual) 92.0 H Lymphocytes % (Manual) 5.0 L Seg Neutrophils # Man Lymphocytes # (Manual) 0.4 L INR POC ABG pH POC ABG pCO2 POC ABG pO2 Sodium Potassium Chloride 110.0 H 107.8 H Carbon Dioxide 20 L 20 L BUN 24 H Creatinine Glucose 178 H 190 H POC Glucose Calcium 6.7 L 7.0 L Phosphorus Magnesium CK-MB (CK-2) CK-MB (CK-2) Rel Index Troponin T HDL Cholesterol TSH Free T4 Urine WBC (Auto) 10/28/16 10/29/16 10/29/16 11:00 09:14 09:14 WBC RBC Hgb 11.5 L Hct MCV RDW 16.5 H Plt Count Lymph % (Auto) [place] % (Auto) Lymph # [place] # Seg Neutrophils % Seg Neuts % (Manual) Lymphocytes % (Manual) Seg Neutrophils # Man Lymphocytes # (Manual) INR POC ABG pH POC ABG pCO2 31.8 L POC ABG pO2 Sodium Potassium Chloride 111.6 H Carbon Dioxide 20 L BUN 35 H Creatinine Glucose 299 H POC Glucose Calcium 7.2 L Phosphorus Magnesium CK-MB (CK-2) CK-MB (CK-2) Rel Index Troponin T HDL Cholesterol TSH Free T4 Urine WBC (Auto) 10/29/16 10/30/16 10/30/16 17:42 06:48 06:48 WBC 13.0 H RBC Hgb Hct MCV RDW 16.5 H Plt Count Lymph % (Auto) [place] % (Auto) Lymph # [place] # Seg Neutrophils % Seg Neuts % (Manual) 89.0 H Lymphocytes % (Manual) 6.0 L Seg Neutrophils # Man 11.6 H Lymphocytes # (Manual) 0.8 L INR 1.14 H POC ABG pH POC ABG pCO2 POC ABG pO2 Sodium 147 H Potassium Chloride 114.9 H Carbon Dioxide 19 L BUN 36 H Creatinine Glucose 253 H POC Glucose Calcium 7.6 L Phosphorus Magnesium CK-MB (CK-2) CK-MB (CK-2) Rel Index Troponin T HDL Cholesterol TSH Free T4 Urine WBC (Auto) 10/31/16 10/31/16 10/31/16 04:50 04:50 05:35 WBC 13.6 H RBC Hgb Hct 35.4 L MCV RDW 16.4 H Plt Count Lymph % (Auto) [place] % (Auto) Lymph # [place] # Seg Neutrophils % Seg Neuts % (Manual) 90.0 H Lymphocytes % (Manual) 5.0 L Seg Neutrophils # Man 12.2 H Lymphocytes # (Manual) 0.7 L INR POC ABG pH POC ABG pCO2 POC ABG pO2 Sodium 146 H Potassium 3.4 L Chloride 113.6 H Carbon Dioxide 19 L BUN 31 H Creatinine 0.6 L Glucose 211 H POC Glucose 212 H Calcium 7.4 L Phosphorus Magnesium CK-MB (CK-2) CK-MB (CK-2) Rel Index Troponin T HDL Cholesterol TSH Free T4 Urine WBC (Auto) 11/01/16 11/01/16 05:40 08:21 WBC 15.7 H RBC Hgb Hct MCV RDW 16.5 H Plt Count 137 L Lymph % (Auto) [place] % (Auto) Lymph # [place] # Seg Neutrophils % Seg Neuts % (Manual) Lymphocytes % (Manual) Seg Neutrophils # Man Lymphocytes # (Manual) INR POC ABG pH POC ABG pCO2 POC ABG pO2 Sodium 146 H Potassium Chloride 115.6 H Carbon Dioxide 19 L BUN 26 H Creatinine 0.5 L Glucose POC Glucose Calcium 8.0 L Phosphorus Magnesium CK-MB (CK-2) CK-MB (CK-2) Rel Index Troponin T HDL Cholesterol TSH Free T4 Urine WBC (Auto)
[2016-11-02] MEDS ORDERED: ZESTRIL PO SCH (13:00)
[2016-11-02] MEDS ORDERED: COREG PO SCH (13:00)
--- NOTE | 2016-11-02 14:13 | Discharge Summary ---
Providers - Providers Date of Admission: 10/17/16 18:36 Date of discharge: 11/02/16 Attending physician: JACKLYN GRISSOM MD 10/18/16 03:15 Consult to Wound/ET Nurse [CONS] Routine Reason For Exam: wound eval 10/18/16 10:20 PICC Line Placement [Consult to PICC Line RN] [CONS] Stat Reason For Exam: pressors Type Line:: PICC 10/18/16 17:58 Consult to Physician [CONS] Routine Consulting Provider: MALIKA SALMERON Reason For Exam: MS flare Place consult to:: lisa Notified:: yes Phone number called:: [phone] Was contact made?: Yes If yes, spoke with:: luz with answering service Time called:: 19:43 10/18/16 19:40 Consult to Physician [CONS] Routine Consulting Provider: MALIKA SALMERON Reason For Exam: ms flare Place consult to:: armondpendon Notified:: yes Phone number called:: [phone] Was contact made?: Yes If yes, spoke with:: luz with the answering service Time called:: 19:45 10/20/16 11:38 Consult to Dietitian/Nutrition [CONS] Routine Physician Instructions: Reason For Exam: Reason for Consult: Write/Manage Tube Feeding 10/23/16 04:50 Consult to Physician [CONS] Stat Consulting Provider: CAREY HAZEL Reason For Exam: Afib w/ RVR Notified:: Pakeitha 10/26/16 13:37 Consult to Physician [CONS] Routine Consulting Provider: AMANDA MCLEOD Reason For Exam: trach/peg Place consult to:: [facility] Notified:: yes Phone number called:: [phone] Was contact made?: Yes If yes, spoke with:: Dee Hospitalization Reason for admission: hypoxic respiratory failure, altered mental status Condition: Serious Pertinent studies: ct head small vessel ischemic disease Echocardiogram EF 10-15%, diastolic dysfunction Procedures: PEG & Trach Hospital course: Admission H/P 65 YO Male with MS, HTN, GERD, OA presents to ED for evaluation. Pt unable to provided detailed history, but history provided by roommate who is at bedside during exam and interview. Pt roommate states that patient experienced progressive weakness, and decreased oral intake over the past 4 days with worsening symptoms over the past day. Pt is now non ambulatory but he is now unable to stand, and unable to conduct activities of daily living. Pt seen and evaluated in ED and found to be lethargic, confused, with decreased gag reflex and unable to protect his airway. Pt intubated and placed on vent support. Pt roommate denies reports of fever, chills, CP, Trauma, recent ill contacts, skin rashes, dysuria, or productive cough. Patient was admitted to ICU and was treated with solumedrol for MS exacerbation with out significant improvement. Pateient was not able to be off the vent and failed swallow evaluation. PEG &Trach was done and transferred to [facility]. Patients vitals were stable at the time of discharge. [id number] Time spent for discharge: 31 minutes - Discharge Diagnoses (1) PEG (percutaneous endoscopic gastrostomy) status Status: Acute (2) Tracheostomy dependent Status: Acute (3) Acute respiratory failure with hypoxemia Status: Acute (4) Altered mental status Status: Acute Qualifiers: Altered mental status type: unspecified Coma depth: C Coma timing: C Qualified Code(s): R41.82 - Altered mental status, unspecified (5) Multiple sclerosis exacerbation Status: Acute Core Measure Documentation - Palliative Care Palliative Care/ Comfort Measures: Not Applicable - Core Measures Any of the following diagnoses?: none - Heart Failure Discharge Requirements ANTONIO/ARB for LVSD if EF <40%: No Reason for no ANTONIO/ARB: Hypotension Beta farrah at discharge: No Reason for no beta farrah on DC: Heart block Exam - Physical Exam Narrative exam: Patient is on trach and PEG The patient appeared well nourished and normally developed. Vital signs as documented. Head exam is unremarkable. No scleral icterus . Neck is without jugular venous distension, thyromegaly, or carotid bruits. Lungs are clear to auscultation. Cardiac exam reveals regular rate and Rhythm. First and second heart sounds normal. No murmurs, rubs or gallops. Abdominal exam reveals PEG. Extremities are nonedematous and both femoral and pedal pulses are normal. 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
[2016-11-02 17:38] VITALS: BP 147/66
== END 2016-11-02 18:30 | DRG 4 ==
LOC: ED 14:20 → CC1 18:36
PROVIDERS: ADMIT Internal Medicine; ATTEND Internal Medicine
PROC: 5A1955Z Respiratory Ventilation, Greater than 96 Consecutive Hours (ICD-10-PCS; principal; 2016-10-17)
PROC: 4A033R1 Measurement of Arterial Saturation, Peripheral, Percutaneous Approach (ICD-10-PCS; 2016-10-17)
PROC: 0BH17EZ Insertion of Endotracheal Airway into Trachea, Via Natural or Artificial Opening (ICD-10-PCS; 2016-10-17)
PROC: 02HV33Z Insertion of Infusion Device into Superior Vena Cava, Percutaneous Approach (ICD-10-PCS; 2016-10-18)
PROC: 0B113F4 Bypass Trachea to Cutaneous with Tracheostomy Device, Percutaneous Approach (ICD-10-PCS; 2016-10-30)
PROC: 0DH63UZ Insertion of Feeding Device into Stomach, Percutaneous Approach (ICD-10-PCS; 2016-10-30)
DX: J96.01 Acute respiratory failure with hypoxia (principal); G93.41 Metabolic encephalopathy; R57.1 Hypovolemic shock; E43 Unspecified severe protein-calorie malnutrition; N17.9 Acute kidney failure, unspecified; E87.0 Hyperosmolality and hypernatremia; I42.9 Cardiomyopathy, unspecified; I50.22 Chronic systolic (congestive) heart failure; I13.0 Hypertensive heart and chronic kidney disease with heart failure and stage 1 through stage 4 chronic kidney disease, or unspecified chronic kidney disease; G35 Multiple sclerosis; K21.9 Gastro-esophageal reflux disease without esophagitis; M13.0 Polyarthritis, unspecified; Z87.891 Personal history of nicotine dependence; N18.9 Chronic kidney disease, unspecified; Z82.49 Family history of ischemic heart disease and other diseases of the circulatory system; Z88.5 Allergy status to narcotic agent; E87.6 Hypokalemia; I44.7 Left bundle-branch block, unspecified; I48.0 Paroxysmal atrial fibrillation
CPT/HCPCS: 36415; 36600; 70450; 71010; 74000; 80048; 80053; 80061; 80307; 80320; 81001; 82140; 82550; 82553; 82803; 82962; 83735; 84100; 84132; 84439; 84443; 84484; 85007; 85025; 85027; 85379; 85610; 87040; 87070; 87076; 87086; 87186; 87205; 93005; 93010; 93306; 93970; 94002; 94003; 94640; 94667; 94668; 94669; 95819; 99291; G0480; J0690; J0696; J1650; J1956; J2060; J2250; J2370; J2543; J2704; J2765; J2920; J2930; J3010; J3370; J3475; J7030; J7040; J7050; J7060; J7070